=== PATIENT | male | born 1945 | race Caucasian/White ===

== ENCOUNTER 2022-03-27 12:13 | Inpatient (IN) | payer MEDICARE, SELFPAY ==
[2022-03-27] VITALS (14 sets, daily range): BP systolic 107–142; BP diastolic 57–73; PULSE 75–118; RESP 18–33; TEMP 36.6–36.8; O2SAT 89–98; BMI 23.7; BMI 23.8; BMI 22.9
--- NOTE | 2022-03-27 13:28 | EXP.UTC ---
Discharge Plan Disposition Patient Disposition: Admitted As Inpatient Condition: Fair Clinical Impressions Clinical Impression: Community acquired pneumonia, Acute respiratory failure with hypoxia, Elevated troponin, Acute exacerbation of chronic obstructive pulmonary disease Discharge ED Provider: Azam Schrader [facility] [place] General Chief complaint: Shortness of Breath/Dyspnea Stated complaint: Cough diarrhea Time Seen by Provider: 03/27/22 14:57 History of Present Illness Provider Complaint: He is here with complaints of shortness of breath, chest congestion, fever and malaise. Related Data Home Medications Medication Instructions Recorded Confirmed fluticasone 250 mcg-salmeterol 50 1 inh inhalation BID COPD 03/27/22 03/27/22 mcg/dose blistr powdr for inhalation (Advair Diskus) fluticasone fur. 100 mcg-umeclid 1 ea inhalation DAILY COPD 03/27/22 03/27/22 62.5 mcg-vilant 25 mcg inhalat.powder (Trelegy Ellipta) Allergies Allergy/AdvReac Type Severity Reaction Status Date / Time No Known Allergies Allergy Verified 03/27/22 13:59 [facility] Disclaimer: The information contained in this section may have been updated after the patient was seen, as this information can be updated by other users. Medical History COPD (chronic obstructive pulmonary disease) Social History Smoking Status: Current every day smoker alcohol intake: former substance use type: denies use current occupational status: retired Travel in the last 8 weeks: Inside the [place] household members: spouse lives independently: Yes marital status: education level: college physical activity: walking ROS Obtained: Yes All systems reviewed & no additional complaints except as documented Constitutional Constitutional: Reports chills and Reports fever(s) Eyes Eyes: Denies eye discharge ENT Ears, Nose, Mouth, and Throat: Reports as per HPI Cardiovascular Cardiovascular: Reports chest pain Respiratory Respiratory: Reports shortness of breath, Reports chest congestion, Reports cough, Denies stridor and Reports wheezing Gastrointestinal Gastrointestingal: Reports nausea; Denies abdominal pain, constipation, cramping, diarrhea or vomiting Musculoskeletal Musculoskeletal: Denies arthralgias Integumentary/Breasts Skin/Breast: Denies rash Neurologic Neurologic: Denies paresthesias Allergic/Immunologic Allergic/Immunologic: Reports wheezing Physical Exam General General appearance: alert and in no apparent distress Head Head exam: atraumatic, normocephalic and normal inspection Eye Eye exam: Present normal appearance, PERRL and EOMI ENT ENT exam: Present normal exam, normal oropharynx, mucous membranes moist, TM's normal bilaterally and normal external ear exam Neck Neck exam: Present normal inspection, full ROM and trachea midline; Absent meningismus or lymphadenopathy Chest Chest inspection: Present normal inspection and symmetric chest wall rise; Absent tenderness Respiratory Respiratory exam: Present normal lung sounds bilaterally; Absent respiratory distress Cardiovascular Cardiovascular exam: Present regular rate and normal rhythm; Absent JVD Abdominal Exam Abdominal exam: Present soft and normal bowel sounds; Absent distention, tenderness or guarding Extremities Exam Extremities exam: Present normal inspection, full ROM and normal capillary refill; Absent calf tenderness Back Exam Back exam: Present normal inspection; Absent tenderness Neurological Exam Neurological exam: Present alert and oriented X3 Psychiatric Psychiatric exam: Present normal affect and normal mood Skin Skin exam: Present warm, dry, intact and normal color Lymphatic Lymphatic Findings: no adenopathy Medical Decision Making Medical Records Medical records reviewed: No I reviewed the patient's medical records. Raghu Schafer
--- NOTE | 2022-03-27 13:48 | XR_ITS ---
FINAL REPORT TECHNIQUE: Chest PA & Lateral CLINICAL HISTORY: cough, congestion FINDINGS: 2 views of the chest were performed. The heart size is normal. The mediastinum is within normal limits. There are patchy bibasilar airspace infiltrates, right greater than left, probably due to acute pneumonia. There are no pleural effusions. There is no pneumothorax. The bony thorax appears intact. IMPRESSION: Acute bilateral pneumonia, right greater than left. Reviewed, Interpreted and Dictated by Mauricio Stockton MD Transcribed by Harvey Mancilla Authenticated and . [facility]
--- NOTE | 2022-03-27 14:35 | PC.NURSE ---
Respiratory at BS
[2022-03-27 14:49] LABS: Basophils # 0.1 K/mm3 (0-0.2); Basophils % 0.8 % (0.1-2.0); Eosinophils # 0.1 K/mm3 (0.0-0.4); Eosinophils % 0.4 % (0.1-12.0); Hematocrit 50.8 % (42.0-52.0); Hemoglobin 16.9 g/dL (14.1-18.0); Lymphocytes # 0.9 K/mm3 (0.7-4.5); Lymphocytes % 5.7 % (10-50); Mean Corpuscular HGB Conc 33.2 g/dL (31.8-35.4); Mean Corpuscular Hemoglobin 31.7 pg (27.0-31.2); Mean Corpuscular Volume 95.4 fl (80-94); Mean Platelet Volume 7.4 fl (7.4-10.4); Monocytes # 0.6 K/mm3 (0.1-1.0); Monocytes % 4.1 % (1.7-9.3); Neutrophils # 13.3 K/mm3 (1.8-7.8); Platelet Count 302 K/mm3 (142-424); Red Blood Count 5.32 M/mm3 (4.60-6.20); White Blood Count 14.9 K/mm3 (4.8-10.8)
[2022-03-27 14:51] LABS: MANUAL DIFFERENTIAL MANUAL DIFFERENTIAL (MANUAL DIFF)
--- NOTE | 2022-03-27 14:57 | HMH.EDGENADL ---
Discharge Plan Disposition Patient Disposition: Admitted As Inpatient Condition: Fair Prescriptions Prescriptions: No Action fluticasone propion-salmeterol [Advair Diskus] 250-50 mcg/dose blister with device 1 inh INHALATION BID Label Comments: Inhale 1 puff twice a day rinse mouth afterwards Glynn Hernandezta 100-62.5-25 mcg blister with device 1 ea INHALATION DAILY Label Comments: Inhale 1 puff as directed once a day rinse mouth after use Referrals Follow up/Referrals: Provider,Referral, [Primary Care Provider] - See instructions Clinical Impressions Clinical Impression: Community acquired pneumonia, Acute respiratory failure with hypoxia, Elevated troponin, Acute exacerbation of chronic obstructive pulmonary disease Discharge ED Provider: Azam Schrader General Adult HPI General Chief complaint: Shortness of Breath/Dyspnea Stated complaint: Cough diarrhea Time Seen by Provider: 03/27/22 14:57 Mode of Arrival: Ambulatory Source of Information: Patient Limitations: No Limitations Description of Symptoms (Recalled from ER Triage Doc. by RN): pt did an at home test for covid which was negative. For the past 3 days he stated that he has had a cough, diarrhea, and feeling like he cannot take a full breath. When pt was mildred back he was RA 79, and was placed at 5L with o2 brought up to 89%. History of Present Illness HPI narrative: The patient is sent from the urgent treatment center. He was found to be hypoxic in the [facility]. Patient states that he has been sick for about 1 week, worse over the past 2 days. He has a bad cough. He is producing small amounts of sputum. He has diarrhea. Little to no vomiting. No chest pain. No fever. Recently got back from [place] 1 week ago. Drove down there for a for 2 of his grandchildren that were killed in a car wreck. Other family members were sick with COVID and pneumonia and other respiratory illnesses. The patient took a home COVID test this morning and it was negative. He has been fully vaccinated and boosted for COVID. He has a diagnosis of COPD, he is not on oxygen at home. He recently moved to this area a little over a year ago and does not have a primary care doctor here. No calf pain or swelling. No hemoptysis. He is a smoker. Related Data Home Medications Medication Instructions Recorded Confirmed fluticasone 250 mcg-salmeterol 50 1 inh inhalation BID COPD 03/27/22 03/27/22 mcg/dose blistr powdr for inhalation (Advair Diskus) fluticasone fur. 100 mcg-umeclid 1 ea inhalation DAILY COPD 03/27/22 03/27/22 62.5 mcg-vilant 25 mcg inhalat.powder (Trelegy Ellipta) Allergies Allergy/AdvReac Type Severity Reaction Status Date / Time No Known Allergies Allergy Verified 03/27/22 13:59 [facility] Disclaimer: The information contained in this section may have been updated after the patient was seen, as this information can be updated by other users. Medical History (Updated 03/27/22 @ 17:13 by Azam Schrader MD) COPD (chronic obstructive pulmonary disease) Social History Smoking Status: Current every day smoker ROS Obtained: Yes Systems reviewed as appropriate & no additional complaints except as documented Constitutional Constitutional: Denies fever(s), Denies headache(s) and Denies weakness ENT Ears, Nose, Mouth, and Throat: Denies headache(s), Denies nasal discharge and Denies sore throat Cardiovascular Cardiovascular: Denies chest pain and Denies edema Respiratory Respiratory: Reports shortness of breath, Reports cough and Denies hemoptysis Gastrointestinal Gastrointestingal: Reports diarrhea; Denies abdominal pain, constipation or vomiting Genitourinary Male Genitourinary: Denies difficulty urinating and Denies flank pain Musculoskeletal Musculoskeletal: Denies numbness Neurologic Neurologic: Denies headache(s), Denies numbness and Denies weakness Physical Exam General General appeara
--- NOTE | 2022-03-27 15:01 | PC.NURSE ---
SAMMY GUTIERRES at for pt jaronal
[2022-03-27 15:04] LABS: Anion Gap 16.2 mEq/L (5-15); Blood Urea Nitrogen 21 mg/dl (9-20); Calcium 8.9 mg/dl (8.4-10.2); Carbon Dioxide 26 mmol/L (22.0-30.0); Chloride 96 mmol/L (98-107); Creatinine Clearance Estimated 52 mL/min (50-200); Estimated Glomerular Filt Rate 59 ml/min (>60); GFR (African American) 71 ML/MIN (>60); Glucose 156 mg/dl (74-100); Potassium 4.2 mmoL/L (3.5-5.1); Sodium 134 mmol/L (136-145)
--- NOTE | 2022-03-27 15:10 | CT_ITS ---
FINAL REPORT TECHNIQUE: Thin section axial CT images were performed from the lung apices to the upper abdomen after the administration of IV contrast. 3-D and MIP reconstructions performed. This study was performed with techniques to keep radiation doses as low as reasonably achievable (ALARA). Individualized dose reduction techniques using automated exposure control or adjustment of mA and/or kV according to the patient''s size were employed. CLINICAL HISTORY: hypoxia FINDINGS: There is no evidence for pulmonary embolism. The thoracic aorta is patent without evidence of dissection. There is no axillary adenopathy. There is no mediastinal or hilar adenopathy. The heart size is normal. There is no pleural or pericardial effusion. There are calcified granulomas in the posterior right upper lobe. There is peribronchial thickening and mild nodular infiltrates in the lower lobes bilaterally, probably due to acute pneumonia. Limited images of the upper abdomen are unremarkable. IMPRESSION: No evidence of pulmonary embolism or aortic dissection. Probable acute pneumonia in the lower lobes bilaterally. Reviewed, Interpreted and Dictated by Mauricio Stockton MD Transcribed by Darline Dior Authenticated and [facility]
[2022-03-27 15:17] LABS: Lymphocytes % 7 % (10-50); Monocytes % 3 % (2-9); Neutrophils % 90 % (42-76); Platelet Estimate Normal; RBC Morphology Normal; Total Cells Counted 100
--- NOTE | 2022-03-27 15:18 | PC.NURSE ---
O2 increased to 4lpm.
[2022-03-27 15:29] LABS: Coronavirus 19, PCR Not Detected (NotDetected); Influenza A, PCR Not Detected (NotDetected); Influenza B, PCR Not Detected (NotDetected)
--- NOTE | 2022-03-27 15:29 | ECG_ITS ---
APPROVED REPORT Exam: Resting ECG HR:105 bpm ECG Measurements Heart Rate 105 AXES HI 144 P 82 QRSd 90 QRS 71 QT 313 T 73 QTc 374 Conclusion SINUS TACHYCARDIA INDETERMINATE AXIS SEPTAL MYOCARDIAL INFARCTION , PROBABLY OLD [40+ ms Q WAVE IN V1/V2] ABNORMAL ECG UNCONFIRMED REPORT Electronically signed by : Samm Shaw MD 03/27/2022 20:16:44
--- NOTE | 2022-03-27 15:32 | PC.NURSE ---
Respiratory at BS
[2022-03-27 15:48] LABS: ABG HCO3 22.3 mmhg (22.0-26.0); ABG Oxygen Saturation 90 % (90-100); ABG PCO2 39.2 mmhg (35.0-45.0); ABG PH 7.37 mmol/L (7.35-7.45); ABG PO2 54.8 mmhg (80-100); ABG TCO2 23.5 mmhg (23-27)
[2022-03-27 15:52] LABS: Allen's Test Acceptable; Oxygen 5 LPM NC %; Source Right Radial
--- NOTE | 2022-03-27 15:59 | PC.NURSE ---
pt returned from radiology via stretcher
[2022-03-27 16:04] LABS: Troponin I 1.59 ng/ml (0.00-0.034)
--- NOTE | 2022-03-27 16:05 | PC.NURSE ---
aware of troponin of 1.9
--- NOTE | 2022-03-27 17:09 | PC.NURSE ---
Dr Schrader speaking with Dr Bond
--- NOTE | 2022-03-27 17:13 | PC.NURSE ---
spoke with MARLO (FERNANDEZ Robledo) for pt admission
--- NOTE | 2022-03-27 17:19 | EXP.HP ---
History of Present Illness *Admission Date: 03/27/22 *Reason for visit:: cough, shortness of breath *History of present illness: Mr. Whitaker is a 76-year-old male with no significant past medical history other than COPD and tobacco use (1 pack a day for greater than 50 years). Has used an inhaler in the past but not currently on inhaler. Initially presented to [facility] from home due to 3 to 5 days of worsening cough, diarrhea, shortness of breath. Had taken a home COVID test that was negative. On arrival to the [facility], found to have a room air saturation of 79%. Placed on supplemental oxygen and sent to the ER for further evaluation. Patient states he recently traveled to [place] for a family a week ago. Several family members were ill at the . A few he knows had COVID. He has not felt well since travel. Increased cough, somewhat productive. Decreased appetite with poor p.o. intake the past 3 days. Denies any mane fever but has felt chills and weakness. Assessment in the ER positive for bilateral pneumonia on chest imaging. Elevated leukocytosis. Noted to have elevated troponin with no ischemic changes on EKG. Findings consistent with severe sepsis and NSTEMI. Medicine consulted for admission. On my evaluation, patient stating he is feeling little bit better after breathing treatments and antibiotics. at bedside supplementing history and review of systems. Denies any swelling in his legs or calf pain after his trip. No hemoptysis. Denies any chest pain. Has not established with a primary care doctor since moving to [place] a year ago from [place]. Patient previously feeling well and at baseline health before respiratory illness over the past week. [facility] Disclaimer: The information contained in this section may have been updated after the patient was seen, as this information can be updated by other users. Medical History COPD (chronic obstructive pulmonary disease) Social History (Updated 03/27/22 @ 19:02 by Marciano Bond MD) Smoking Status: Current every day smoker alcohol intake: former substance use type: denies use current occupational status: retired Travel in the last 8 weeks: [place] the [place] household members: spouse lives independently: Yes marital status: education level: college physical activity: walking Review of Systems Review of Systems Review of systems (narrative): 14 point review of systems performed, pertinent positives and negatives as per HPI Constitutional Constitutional: Denies headache(s) and Denies weakness ENT Ears, Nose, Mouth, and Throat: Denies headache(s) *Musculoskeletal Musculoskeletal: Denies numbness *Neurologic Neurologic: Denies headache(s), Denies numbness and Denies weakness Meds Home Medications and Allergies Home Medications Medication Instructions Recorded Confirmed Type fluticasone 250 mcg-salmeterol 50 1 inh inhalation BID COPD 03/27/22 03/27/22 History mcg/dose blistr powdr for inhalation (Advair Diskus) fluticasone fur. 100 mcg-umeclid 1 ea inhalation DAILY COPD 03/27/22 03/27/22 History 62.5 mcg-vilant 25 mcg inhalat.powder (Trelegy Ellipta) New Prescriptions to Start Prescriptions: Allergies Allergy/AdvReac Type Severity Reaction Status Date / Time No Known Allergies Allergy Verified 03/27/22 13:59 Exam Data for Last 24 hours Vital signs and Labs for Last 24 Hours: Temp Pulse Resp BP Pulse Ox 98.2 F 116 H 33 H 142/71 H 89 L 03/27/22 14:35 03/27/22 14:42 03/27/22 14:35 03/27/22 14:35 03/27/22 14:35 Laboratory Results - last 24 hr 03/27/22 14:39: WBC 14.9 H, RBC 5.32, Hgb 16.9, Hct 50.8, MCV 95.4 H, MCH 31.7 H, MCHC 33.2, RDW 14.0, Plt Count 302, MPV 7.4, Neut % (Auto) 89.0 H, Lymph % (Auto) 5.7 L, Dickey % (Auto) 4.1, Eos % (Auto) 0.4, Baso % (Auto) 0.8, Neut # (Auto) 13.3 H, Lymph # (Auto) 0.9, Dickey # (Auto
--- NOTE | 2022-03-27 17:41 | PC.NURSE ---
Lab at BS for 2nd troponin
[2022-03-27 19:14] LABS: Troponin I 1.44 ng/ml (0.00-0.034)
--- NOTE | 2022-03-27 19:18 | PC.NURSE ---
report called to Toshia PRESLEY
--- NOTE | 2022-03-27 19:24 | PC.NURSE ---
Dr. Pope aware of trop of 1.44
--- NOTE | 2022-03-27 19:53 | PC.NURSE ---
pt arrived to floor via wheelchair at 1950.
[2022-03-27 21:55] LABS: Troponin I 0.93 ng/ml (0.00-0.034)
[2022-03-28] VITALS (14 sets, daily range): BP systolic 111–126; BP diastolic 52–66; PULSE 60–93; RESP 17–24; TEMP 36.4–37.1; O2SAT 90–98; BMI 23.3
--- NOTE | 2022-03-28 01:15 | PC.NURSE ---
reported critical troponin 0.93 @1142
--- NOTE | 2022-03-28 05:32 | PC.NURSE ---
Pt admitted this shift. Has had no complaints. Pt is A&OX4. Remains on 3L NC tolerating well with O2 sats >90%. Crackles and wheezes noted. Productive cough noted. Sputum sample obtained. Voids per urinal. Call light within reach.
[2022-03-28 07:06] LABS: Basophils # 0.1 K/mm3 (0-0.2); Chloride 102 mmol/L (98-107); Lymphocytes # 1.3 K/mm3 (0.7-4.5); Mean Platelet Volume 7.5 fl (7.4-10.4); Monocytes # 0.5 K/mm3 (0.1-1.0); Monocytes % 3.2 % (1.7-9.3); Potassium 5.4 mmoL/L (3.5-5.1); Red Cell Distribution Width 14.1 % (11.5-17.5); Sodium 138 mmol/L (136-145)
[2022-03-28 07:08] LABS: Blood Urea Nitrogen 16 mg/dl (9-20); Creatinine Clearance Estimated 61 mL/min (50-200); Estimated Glomerular Filt Rate 110 ml/min (>60); GFR (African American) 133 ML/MIN (>60)
[2022-03-28 07:09] LABS: Alanine Aminotransferase 20 U/L (12-78); Albumin Level 3.8 g/dl (3.5-5.0); Albumin/Globulin Ratio 1.2 (1.1-1.8); Alkaline Phosphatase 55 U/L (38-126); Anion Gap 10.4 mEq/L (5-15); Aspartate Amino Transferase 52 U/L (17-59); Bilirubin,Total 0.3 mg/dl (0.2-1.3); Calcium 8.6 mg/dl (8.4-10.2); Carbon Dioxide 31 mmol/L (22.0-30.0); Globulin 3.3 g/dL (1.3-3.2); Glucose 162 mg/dl (74-100); Magnesium 2.1 mg/dl (1.6-2.3); Total Protein,Serum 7.1 g/dl (6.3-8.2)
[2022-03-28 07:27] LABS: Basophils % 0.5 % (0.1-2.0); Eosinophils % 0.1 % (0.1-12.0); Lymphocytes % 8.8 % (10-50); Mean Corpuscular Hemoglobin 30.4 pg (27.0-31.2); Mean Corpuscular Volume 94.8 fl (80-94); Neutrophils # 13.1 K/mm3 (1.8-7.8); Neutrophils % 87.4 % (37.0-80.0); Platelet Count 270 K/mm3 (142-424); Red Blood Count 4.85 M/mm3 (4.60-6.20)
[2022-03-28 07:33] LABS: Hemoglobin 14.7 g/dL (14.1-18.0); MANUAL DIFFERENTIAL MANUAL DIFFERENTIAL (MANUAL DIFF)
[2022-03-28 08:46] LABS: Lymphocytes % 22 % (10-50); Monocytes % 2 % (2-9); Neutrophils % 76 % (42-76); Platelet Estimate Normal; RBC Morphology Normal; Total Cells Counted 100
[2022-03-28 08:58] LABS: Cholesterol 137 mg/dl (140-200); HDL Cholesterol 46 mg/dl (40-60); Triglycerides 62 mg/dl (30-150); VLDL Cholesterol 12 mg/dL (0-40)
--- NOTE | 2022-03-28 09:00 | HMH.PHAINT1 ---
Pharmacy Intervention Comments: Medication reconciliation completed. Per patient discussion, patient is not on any medications.
[2022-03-28 09:08] LABS: Direct LDL Cholesterol 70.14 mg/dL (100-129)
--- NOTE | 2022-03-28 17:32 | EXP.ACUTE.PN ---
Subjective *Date: 03/28/22 *Time: 17:32 Interval history: Feeling better this morning. Weaning oxygen this morning, still requiring 1 to 2 L on morning rounds. Feeling more energetic. Denies chest pain or worsening shortness of breath. Seeing improvement in labs. Tolerating p.o. intake Medical Exam Vital signs and Labs for Last 24 Hours: Vital Signs Temp Pulse Pulse Resp BP BP Pulse Ox 03/28/22 16:00 87 03/28/22 08:00 90 03/28/22 08:00 90 03/28/22 12:00 90 03/28/22 15:18 98.3 F 87 24 117/54 L 98 03/28/22 11:30 88 03/28/22 11:30 82 03/28/22 11:14 98.1 F 88 22 114/57 L 91 L 03/28/22 07:49 98.0 F 87 19 111/52 L 90 L 03/28/22 06:47 60 03/28/22 06:22 89 03/28/22 06:22 81 03/28/22 06:22 96 03/28/22 04:00 97.6 F 73 24 126/66 96 03/27/22 21:35 90 03/28/22 00:00 98.7 F 78 20 114/60 94 L 03/27/22 19:57 98.2 F 84 24 107/61 L 94 L 03/27/22 19:29 98.2 F 75 20 117/64 03/27/22 19:25 98 F 86 18 108/59 L 03/27/22 18:30 86 24 108/59 L 94 L Intake and Output 03/28/22 03/28/22 03/28/22 07:59 15:59 23:59 Intake Total 1365 / 2205 360 / 2205 480 / 2205 Output Total 550 / 550 0 / 550 Balance 815 / 1655 360 / 1655 480 / 1655 Intake: Intake, Oral Amount 240 / 1080 360 / 1080 480 / 1080 Intake, Total IV Amount 1125 / 1125 Azithromycin 500 mg In 0.9 % 250 / 250 Sodium Chloride 250 ml @ 250 mls/hr IV Q24H MALIKA Rx#:[id number] Ringers Solution,Lactated 1,000 875 / 875 ml @ 125 mls/hr IV .Q8H MALIKA Rx #:[id number] Output: Output, Urine Amount 550 / 550 0 / 550 Other: Number of Unmeasured Voids 1 Weight 67.631 kg 67.6 kg Patient Weight 03/28/22 23:59 Weight 67.6 kg Laboratory Results - last 24 hr 03/27/22 17:40: Troponin I 1.44 H 03/27/22 21:06: Troponin I 0.93 H 03/28/22 06:35: WBC 15.0 H, RBC 4.85, Hgb 14.7 D, Hct 46.0, MCV 94.8 H, MCH 30.4, MCHC 32.0, RDW 14.1, Plt Count 270, MPV 7.5, Neut % (Auto) 87.4 H, Lymph % (Auto) 8.8 L, Bill[place] % (Auto) 3.2, Eos % (Auto) 0.1, Baso % (Auto) 0.5, Neut # (Auto) 13.1 H, Lymph # (Auto) 1.3, Bill[place] # (Auto) 0.5, Eos # (Auto) 0.0, Baso # (Auto) 0.1, Total Counted 100, Neutrophils % (Manual) 76, Lymphocytes % (Manual) 22, Monocytes % (Manual) 2, Platelet Estimate Normal, RBC Morphology Normal 03/28/22 06:35: Sodium 138, Potassium 5.4 H D, Chloride 102, Carbon Dioxide 31 H, Anion Gap 10.4, BUN 16, Creatinine 0.70 D, Estimated Creat Clear 61, Estimated GFR 110, Est GFR ( Amer) 133 D, Glucose 162 H, Calcium 8.6, Magnesium 2.1, Total Bilirubin 0.3, AST 52, ALT 20, Alkaline Phosphatase 55, Total Protein 7.1, Albumin 3.8, Globulin 3.3 H, Albumin/Globulin Ratio 1.2 03/28/22 06:35: Triglycerides 62, Cholesterol 137 L, LDL Cholesterol Direct 70.14 L, VLDL Cholesterol 12, HDL Cholesterol 46, Cholesterol/HDL Ratio 3.0 I & O for Labs for Last 24 Hours: Intake & Output 03/25/22 03/26/22 03/27/22 03/28/22 23:59 23:59 23:59 23:59 Intake Total 50 / 50 2205 / 2205 Output Total 550 / 550 Balance 50 / 50 1655 / 1655 Weight 66.395 kg 67.6 kg Microbiology Reports for the Last 24 Hours: Microbiology 03/27/22 23:45 Sputum - Expectorated Sputum Gram Stain - Final Constitutional: Present no acute distress and average body habitus Head: Present atraumatic and normocephalic ENT: Present normal oropharynx and mucous membranes moist Comment:: poor dentition Neck: Present normal inspection Respiratory: Present wheezes, crackles and normal respiratory effort; Absent accessory muscle use or rhonchi Cardiac: Present Reg Rate and Rhythm GI: Present soft and normal bowel sounds; Absent distention or tenderness Extremities: Present normal inspection and full ROM; Absent edema Skin: Present intact; Absent erythema Neuro: Present Grossly Intact, alert, awake, oriented x 3 and moves all extremi
[2022-03-29] VITALS (12 sets, daily range): BP systolic 104–148; BP diastolic 47–71; PULSE 70–112; RESP 18–26; TEMP 36.4–36.9; O2SAT 90–97; BMI 23.8
--- NOTE | 2022-03-29 07:38 | EXP.PN ---
Subjective *Date: 03/29/22 *Time: 17:09 Interval history: Date of service March 29, 2022 The patient is accompanied by his who is at bedside. They have been for greater than 50 years. Nursing staff report that he remains afebrile with stable vital signs and saturating appropriately on 2 L of oxygen via nasal cannula. He does not use home O2. We have reviewed and discussed his morning labs which I have interpreted and include a CBC with a leukocytoses of 16,000. His hemoglobin is stable at 13.5 and his platelet count is normal at 301. His electrolytes are normal, BUN 17 and creatinine 0.60. His admission troponin trend has been reviewed and discussed with Melodie Javier RN assisting. The patient is amendable to a cardiology consult. He reported some epigastric discomfort with his dual antiplatelet therapy, prednisone therapy and had an episode of emesis after his azithromycin oral therapy today. Exam Data for Last 24 hours Vital signs and Labs for Last 24 Hours: Temp Pulse Resp BP Pulse Ox 97.6 F 74 26 H 116/71 90 L 03/29/22 04:00 03/29/22 05:58 03/29/22 04:00 03/29/22 04:00 03/29/22 05:58 Laboratory Results - last 24 hr 03/28/22 06:35: Total Counted 100, Neutrophils % (Manual) 76, Lymphocytes % (Manual) 22, Monocytes % (Manual) 2, Platelet Estimate Normal, RBC Morphology Normal 03/28/22 06:35: Triglycerides 62, Cholesterol 137 L, LDL Cholesterol Direct 70.14 L, VLDL Cholesterol 12, HDL Cholesterol 46, Cholesterol/HDL Ratio 3.0 I & O for Last 24 hours: Intake & Output 03/26/22 03/27/22 03/28/22 03/29/22 23:59 23:59 23:59 23:59 Intake Total 50 / 50 2205 / 2205 Output Total 550 / 550 0 / 0 Balance 50 / 50 1655 / 1655 0 / 0 Weight 66.395 kg 67.6 kg 68.991 kg Microbiology Reports for the Last 24 Hours: Microbiology 03/27/22 23:45 Sputum - Expectorated Sputum Gram Stain - Final 03/27/22 23:45 Sputum - Expectorated Sputum Sputum Culture - Preliminary Constitutional Constitutional: no acute distress and cooperative *Routine HEENT Exam Head: Present normocephalic Eye: Present EOMI and PERRL ENT: Present mucous membranes moist *Routine Neck Exam Neck: Present supple; Absent lymphadenopathy *Routine Respiratory Exam Respiratory: Present rhonchi, normal respiratory effort and symmetric chest movement *Routine Cardiovascular Exam Cardiovascular: Present RRR *Routine Abdominal Exam Abdominal: Present soft and normoactive bowel sounds; Absent tenderness *Routine Extremities Exam Extremities: Absent cyanosis, clubbing or edema *Routine Skin Exam Skin: Present warm; Absent rash *Routine Neurological Exam Neurological: Present alert, oriented X3, moving all extremities, vision grossly intact, hearing grossly intact and normal speech Routine Psychiatric Exam Psychiatric: Present normal affect, normal thought process, cooperative, good insight and good judgment Assessment and Plan *Assessment and plan (1) Acute respiratory failure with hypoxia: Status: Acute Category: Medical Code(s): J96.01 - Acute respiratory failure with hypoxia (2) Community acquired pneumonia: Status: Acute Category: Medical Code(s): J18.9 - Pneumonia, unspecified organism (3) NSTEMI (non-ST elevated myocardial infarction): Status: Acute Category: Medical Code(s): I21.4 - Non-ST elevation (NSTEMI) myocardial infarction (4) COPD (chronic obstructive pulmonary disease): Status: Chronic Category: Medical Code(s): J44.9 - Chronic obstructive pulmonary disease, unspecified (5) Severe sepsis: Status: Resolved Category: Medical Code(s): A41.9 - Sepsis, unspecified organism; R65.20 - Severe sepsis without septic shock Plan 76-year-old male who presents with cough and shortness of breath. He was found to be hypoxemic with bilateral pneumonia on initial evaluation in the ER. Consulted medicine for admission, decision
[2022-03-29 07:40] LABS: Basophils % 0.2 % (0.1-2.0); Hematocrit 43.6 % (42.0-52.0); Hemoglobin 13.5 g/dL (14.1-18.0); Lymphocytes # 1.7 K/mm3 (0.7-4.5); Lymphocytes % 10.1 % (10-50); Mean Corpuscular Hemoglobin 29.9 pg (27.0-31.2); Mean Corpuscular Volume 96.5 fl (80-94); Mean Platelet Volume 7.8 fl (7.4-10.4); Monocytes # 0.6 K/mm3 (0.1-1.0); Monocytes % 3.5 % (1.7-9.3); Neutrophils # 14.3 K/mm3 (1.8-7.8); Neutrophils % 86.1 % (37.0-80.0); Platelet Count 301 K/mm3 (142-424); Red Blood Count 4.52 M/mm3 (4.60-6.20); White Blood Count 16.6 K/mm3 (4.8-10.8)
[2022-03-29 07:43] LABS: MANUAL DIFFERENTIAL MANUAL DIFFERENTIAL (MANUAL DIFF)
[2022-03-29 07:47] LABS: Chloride 103 mmol/L (98-107)
[2022-03-29 07:48] LABS: Potassium 3.8 mmoL/L (3.5-5.1); Sodium 138 mmol/L (136-145)
[2022-03-29 07:50] LABS: Blood Urea Nitrogen 17 mg/dl (9-20); Creatinine Clearance Estimated 62 mL/min (50-200); Estimated Glomerular Filt Rate 131 ml/min (>60); GFR (African American) 159 ML/MIN (>60)
[2022-03-29 07:51] LABS: Anion Gap 10.8 mEq/L (5-15); Calcium 8.3 mg/dl (8.4-10.2); Carbon Dioxide 28 mmol/L (22.0-30.0); Glucose 137 mg/dl (74-100); Magnesium 1.9 mg/dl (1.6-2.3)
[2022-03-29 07:54] LABS: Lymphocytes % 23 % (10-50); Monocytes % 2 % (2-9); Neutrophils % 75 % (42-76); Total Cells Counted 100
[2022-03-29 07:55] LABS: Platelet Estimate Normal; RBC Morphology Normal
--- NOTE | 2022-03-29 12:38 | PC.NURSE ---
AT 1130 PT STATED HE SNEEZED SEVERAL TIMES AND HIS NG TUBE FELL OUT. NG TUBE WAS CLAMPED BEFORE IT CAME OUT AND PT TOLERATED CLEAR LIQUIDS WELL. PT STATES HE CONTINUES TO PASS FLATUS AND HAS BEEN AMBULATING IN THE ROOM. ABDOMEN IS SOFT WITH ACTIVE BOWEL SOUNDS. WILL CONTINUE TO MONITOR.
--- NOTE | 2022-03-29 16:21 | PC.NURSE ---
PT IS RESTING IN BED WITH FAMILY AT BEDSIDE. ALERT AND ORIENTED X3. REFUSED SHOWER THIS SHIFT. EATING AND DRINKING WELL. PT TOLERATED SITTING UP IN THE CHAIR FOR SEVERAL HOURS THIS SHIFT. LUNG SOUNDS DIMINISHED WITH SCATTERED WHEEZES. ABDOMEN SOFT/NON TENDER WITH ACTIVE BOWEL SOUNDS. O2 SATURATION HAS MAINTAINED 90% T/O THE SHIFT ON ROOM AIR. RT NOTIFIED ABOUT 6 MIN WALK TEST. WILL CONTINUE TO MONITOR.
[2022-03-29 18:57] LABS: Troponin I 0.32 ng/ml (0.00-0.034)
[2022-03-29 21:39] LABS: Troponin I 0.27 ng/ml (0.00-0.034)
[2022-03-30] VITALS (19 sets, daily range): BP systolic 94–132; BP diastolic 58–80; PULSE 70–91; RESP 16–24; TEMP 35.9–36.7; O2SAT 90–97; BMI 24.3
[2022-03-30 00:20] LABS: Troponin I 0.26 ng/ml (0.00-0.034)
--- NOTE | 2022-03-30 05:39 | PC.NURSE ---
pt with productive cough through the night, lung sounds with bilateral wheezing noted, 02 sats 90% on room air, no acute distress, vss, pt is alert and oriented x4, voiding without difficulty, no other issues or concerns at this time.
--- NOTE | 2022-03-30 06:34 | ECG_ITS ---
APPROVED REPORT Exam: Resting ECG HR:79 bpm ECG Measurements Heart Rate 79 AXES DE 171 P 71 QRSd 89 QRS 84 QT 374 T 53 QTc 409 Conclusion SINUS RHYTHM NORMAL ECG UNCONFIRMED REPORT Electronically signed by : Samm Shaw MD 03/31/2022 12:09:54
[2022-03-30 07:34] LABS: Basophils # 0.1 K/mm3 (0-0.2); Basophils % 0.6 % (0.1-2.0); Hematocrit 44.6 % (42.0-52.0); Hemoglobin 13.7 g/dL (14.1-18.0); Lymphocytes # 2.7 K/mm3 (0.7-4.5); Lymphocytes % 17.6 % (10-50); Mean Corpuscular HGB Conc 30.8 g/dL (31.8-35.4); Mean Corpuscular Hemoglobin 29.8 pg (27.0-31.2); Mean Corpuscular Volume 96.8 fl (80-94); Mean Platelet Volume 7.6 fl (7.4-10.4); Monocytes # 0.8 K/mm3 (0.1-1.0); Monocytes % 5.3 % (1.7-9.3); Neutrophils # 11.9 K/mm3 (1.8-7.8); Neutrophils % 76.5 % (37.0-80.0); Platelet Count 395 K/mm3 (142-424); Red Blood Count 4.61 M/mm3 (4.60-6.20); Red Cell Distribution Width 14.1 % (11.5-17.5); White Blood Count 15.5 K/mm3 (4.8-10.8)
[2022-03-30 07:41] LABS: MANUAL DIFFERENTIAL MANUAL DIFFERENTIAL (MANUAL DIFF)
[2022-03-30 08:18] LABS: Lymphocytes % 14 % (10-50); Monocytes % 6 % (2-9); Neutrophils % 80 % (42-76); Platelet Estimate Normal; RBC Morphology Normal; Total Cells Counted 100
[2022-03-30 08:26] LABS: Procalcitonin 0.143 ng/mL (0.0-2.0)
--- NOTE | 2022-03-30 09:31 | CA_ITS ---
APPROVED REPORT EXAM: Comprehensive 2D, Doppler, and color-flow Echocardiogram Fountain Manager: Alecia Galvan RDCS Ht: 5 ft 7 in Wt: 154lbs BSA: 1.81 BP: 142/71 mmHg Indications: NSTEMI,COPD,SMOKER 2D Dimensions LVOT 1.95 cm (M/F) 1.5-2.5 M-Mode Dimensions RVDd 2.96 cm (0.9-2.6) LA Diam 2.78 cm (1.9-4.0) LVDd 5.31 cm (3.5-5.7) Ao Diam 3.32 cm (2.0-3.7) LVDs 3.83 cm (3.5-5.7) IVSd 0.68 cm (0.6-1.1) PWd 0.72 cm (0.6-1.1) EF (Teich) 53.60% FS 27.90% EDV (Teich) 135.90 mL ESV (Teich) 63.10 mL LV Diastology E Decel Time 203.00 (160-240 msec) E/A Ratio 0.7 MED E' 8.80 (< 7 cm/sec) E'/MED E' Ratio 6.08 (>14) LAT E' 9.50 (<10 cm/sec) E/LAT E' Ratio 5.63 (>14) Mitral Valve MV E Max Suhail. 54.00 (40-130 cm/s) MV A Velocity 74.00 (40-130 cm/s) E/A Ratio 0.72 MV Decel. Time 203.00 (160-240 ms) MV PHT 60.00 ms Left Ventricle Left atrium is normal size, left ventricle is normal size, estimated ejection fraction of 55% with no regional wall motion abnormality, diastolic parameters are within normal range. Right Ventricle Right atrium and right ventricle are mildly enlarged with normal contractility. Aortic Valve Aortic valve is minimally thickened and fibrosed there is no aortic stenosis or aortic insufficiency. Mitral Valve Monitor is grossly normal, there is trace mitral regurgitation. Tricuspid Valve Tricuspid valve is grossly normal, there is trace tricuspid regurgitation, tricuspid regurgitation jet plus is inadequate for calculation of the right ventricular systolic pressure Pulmonic Valve Pulmonic valve is poorly visualized. Great Vessels Aortic root is normal size. Inferior vena cava is poorly visualized. Pericardium No significant pericardial effusion noted. Conclusion 1. Normal left ventricular size, estimated ejection fraction 55% with no regional wall motion abnormality, diastolic parameters are within normal range. 2. Mildly enlarged right ventricle with normal contractility. 3. Trace mitral and tricuspid regurgitation. 4. No significant pericardial effusion noted. 5. Inferior vena cava is poorly visualized. Electronically signed by : Tolu Cannon MD 03/30/2022 18:15:31
[2022-03-30 10:13] LABS: NT Pro Brain Natriuretic Pep. 1390 pg/mL (0-450)
--- NOTE | 2022-03-30 10:17 | IR_ITS ---
APPROVED REPORT Patient Location: Inpatient Crester: PATY Chinchilla RT (R) PROCEDURES Left heart catheterization Left ventriculogram Selective coronary angiogram INDICATION Acute non-ST elevation myocardial infarction Informed consent was obtained prior to the procedure. COMPLICATIONS NONE Estimated Blood Loss: LESS THAN 10 ML TECHNIQUE One percent lidocaine used to anesthetize the right anterior aspect of the wrist. The right radial artery was accessed via the Seldinger technique. A 6 Uzbek sheath was placed in the right radial artery. 2.5 mg of verapamil, 800 mcg of nitroglycerin, 1mg Lidocaine and 5000 U Heparin were given through the arterial sheath. The papa catheter was also used to perform left heart catheterization, left ventriculogram and selective coronary angiogram. At the end of the procedure the sheath was removed good hemostasis was achieved using Traclet band, patient was transferred to the postop holding area in stable condition. ANGIOGRAPHIC RESULTS The left main artery Normal The left anterior descending artery Mild 10% mid vessel luminal regularities The circumflex artery Nondominant normal The right coronary artery Dominant normal The MACEDO ventriculogram reveals Normal 65% The left ventricular end-diastolic pressure 10 to 15 mmHg IMPRESSION Mild nonflow limiting coronary disease Normal ejection fraction Normal left ventricular end-diastolic pressure PLAN 1. Medical management Electronically signed by : Santiago Cameron MD 03/30/2022 13:32:44
--- NOTE | 2022-03-30 10:38 | EXP.PHA.PN ---
Subjective *Date: 03/30/22 *Time: 10:38 Medical Exam Vital signs and Labs for Last 24 Hours: Vital Signs Temp Pulse Pulse Resp BP Pulse Ox 03/30/22 08:00 80 03/30/22 08:00 97.6 F 91 H 24 131/62 92 L 03/30/22 04:00 97.5 F L 74 20 130/62 90 L 03/30/22 06:05 72 03/30/22 06:05 75 03/30/22 04:00 75 03/29/22 20:00 95 H 03/30/22 00:00 75 03/30/22 00:00 75 03/29/22 20:00 95 H 03/29/22 20:00 92 H 90 L 03/30/22 00:00 98 F 74 20 118/59 L 90 L 03/30/22 00:15 72 03/30/22 00:15 70 03/29/22 20:00 97.9 F 92 H 20 148/70 H 90 L 03/29/22 19:00 90 03/29/22 19:00 112 H 03/29/22 16:00 86 03/29/22 15:18 97.9 F 90 19 124/70 90 L 03/29/22 12:00 80 03/29/22 11:25 79 03/29/22 11:25 78 03/29/22 11:10 97.9 F 78 19 107/61 L 90 L Intake and Output 03/29/22 03/30/22 03/30/22 23:59 07:59 15:59 Intake Total 480 / 1440 240 / 240 Output Total 0 / 0 0 / 0 0 / 0 Balance 480 / 1440 0 / 240 240 / 240 Intake: Intake, Oral Amount 480 / 1440 240 / 240 Output: Output, Urine Amount 0 / 0 0 / 0 0 / 0 Other: Number of Unmeasured Voids 2 1 1 Number of Bowel Movements 1 Weight 70.171 kg Patient Weight 03/30/22 23:59 Weight 70.171 kg Laboratory Results - last 24 hr 03/29/22 17:59: Troponin I 0.32 H 03/29/22 20:59: Troponin I 0.27 H 03/29/22 23:35: Troponin I 0.26 H 03/30/22 07:00: WBC 15.5 H, RBC 4.61, Hgb 13.7 L, Hct 44.6, MCV 96.8 H, MCH 29.8, MCHC 30.8 L, RDW 14.1, Plt Count 395 D, MPV 7.6, Neut % (Auto) 76.5, Lymph % (Auto) 17.6, [place] % (Auto) 5.3, Eos % (Auto) 0.0 L, Baso % (Auto) 0.6, Neut # (Auto) 11.9 H, Lymph # (Auto) 2.7, [place] # (Auto) 0.8, Eos # (Auto) 0.0, Baso # (Auto) 0.1, Total Counted 100, Neutrophils % (Manual) 80 H, Lymphocytes % (Manual) 14, Monocytes % (Manual) 6, Platelet Estimate Normal, RBC Morphology Normal 03/30/22 07:00: Procalcitonin 0.143 03/30/22 07:00: NT-Pro-B Natriuret Pep 1390 H I & O for Labs for Last 24 Hours: Intake & Output 03/27/22 03/28/22 03/29/22 03/30/22 23:59 23:59 23:59 23:59 Intake Total 50 / 50 2205 / 2205 1440 / 1440 240 / 240 Output Total 550 / 550 0 / 0 0 / 0 Balance 50 / 50 1655 / 1655 1440 / 1440 240 / 240 Weight 66.395 kg 67.6 kg 68.991 kg 70.171 kg Microbiology Reports for the Last 24 Hours: Microbiology 03/27/22 23:45 Sputum - Expectorated Sputum Gram Stain - Final 03/27/22 23:45 Sputum - Expectorated Sputum Sputum Culture - Final Normal Respiratory Yesenia 03/27/22 14:59 Blood Blood Culture - Preliminary NO GROWTH AFTER 48 HOURS 03/27/22 14:59 Blood Blood Culture - Preliminary NO GROWTH AFTER 48 HOURS The patient's infection will respond to the chosen ABx?: Yes (BLOOD CULTURE NO GROWTH, SPUTUM NORMAL YESENIA) Is the patient receiving the right drug, dose, and route?: Yes Could a more targeted ABx be ordered?: No
--- NOTE | 2022-03-30 10:41 | EXP.CARD.CON ---
History of Present Illness History of Present Illness Consult date: 03/30/22 Requesting physician: Milton Sung Consult reason: shortness of breath Chief complaint: soa, cough History of present illness: This is a 76-year-old white gentleman who presented to the emergency department complaints of shortness of breath. The patient reports that he has not felt well for several days prior to admission. He states that he had worsening shortness of breath, cough and diarrhea. The patient states that he had taken a home COVID test which was negative. When the patient got to the urgent treatment center he was found to have an oxygen saturation of 79% on room air. He was given supplemental oxygen and then taken to the emergency department. The patient was found to have an elevated troponin at 1.59 as well as bilateral pneumonia on imaging. The patient was then admitted to the hospital for a non-STEMI and bilateral pneumonia. The patient does report that he has been under a lot of stress. He states that he is recently buried his best friend and then 2 of his grandchildren who were killed in a car accident. He states that he had to drive to [place] for his grandchildren's and had recently just got back home when he began to feel ill. The patient has been admitted and treated with IV antibiotics. He states that his shortness of breath has improved. Yesterday he had an episode where he became extremely nauseated and began to vomit and had some epigastric pain at that time. He states that that it did not radiate. He was not having any other associated symptoms. He states that this is pretty severe. He denies chest pain or pressure. Troponins were repeated at that time and they remain elevated consistent with a non-STEMI. He denies any fever, chills, PND or orthopnea. [facility] Disclaimer: The information contained in this section may have been updated after the patient was seen, as this information can be updated by other users. Medical History Acute exacerbation of chronic obstructive pulmonary disease Acute respiratory failure with hypoxia Community acquired pneumonia COPD (chronic obstructive pulmonary disease) Elevated troponin Hyperlipidemia NSTEMI (non-ST elevated myocardial infarction) Sepsis Shortness of Breath Tobacco user Surgical History History of hip replacement Family History Other Lung cancer Social History (Updated 03/27/22 @ 23:05 by Toshia Concepcion RN) Smoking Status: Current every day smoker alcohol intake: former substance use type: denies use current occupational status: retired Travel in the last 8 weeks: Inside the [place] household members: spouse lives independently: Yes marital status: education level: college physical activity: walking Review of Systems Review of Systems Review of systems:: pertinent systems reviewed and negative unless documented below Constitutional Constitutional: Reports system reviewed and no additional complaints, except as documented, Denies headache(s) and Denies weakness Eyes Eyes: Reports system reviewed and no additional complaints, except as documented ENT Ears, Nose, Mouth, and Throat: Reports system reviewed and no additional complaints, except as documented and Denies headache(s) *Cardiovascular Cardiovascular: Reports system reviewed and no additional complaints, except as documented, Reports dyspnea and Reports dyspnea on exertion *Respiratory Respiratory: Reports system reviewed and no additional complaints, except as documented, Reports chest congestion, Reports cough, Reports dyspnea, Reports dyspnea on exertion and Reports excessive phlegm production *Gastrointestinal Gastrointestinal: Reports system reviewed and no additional complaints, except as documented, Reports nausea and Reports vomiting Comments: epigastric p
--- NOTE | 2022-03-30 16:35 | EXP.DC.SUM ---
General Admission date:: 03/27/22 HPI HPI HPI: Mr. Whitaker is a 76-year-old male with no significant past medical history other than COPD and tobacco use (1 pack a day for greater than 50 years).? Has used an inhaler in the past but not currently on inhaler.? Initially presented to [facility] from home due to 3 to 5 days of worsening cough, diarrhea, shortness of breath.? Had taken a home COVID test that was negative.? On arrival to the [facility], found to have a room air saturation of 79%.? Placed on supplemental oxygen and sent to the ER for further evaluation.? Patient states he recently traveled to [place] for a family a week ago.? Several family members were ill at the .? A few he knows had COVID.? He has not felt well since travel.? Increased cough, somewhat productive.? Decreased appetite with poor p.o. intake the past 3 days.? Denies any mane fever but has felt chills and weakness.? Assessment in the ER positive for bilateral pneumonia on chest imaging.? Elevated leukocytosis.? Noted to have elevated troponin with no ischemic changes on EKG.? Findings consistent with severe sepsis and NSTEMI.? Medicine consulted for admission. On my evaluation, patient stating he is feeling little bit better after breathing treatments and antibiotics.? at bedside supplementing history and review of systems.? Denies any swelling in his legs or calf pain after his trip.? No hemoptysis.? Denies any chest pain.? Has not established with a primary care doctor since moving to [place] a year ago from [place].? Patient previously feeling well and at baseline health before respiratory illness over the past week. Hospital Course Hospital Course Hospital Course: The patient was admitted to the medical floor with telemetry monitoring. Blood cultures and sputum cultures were acquired and he was started on broad-spectrum IV antibiotic therapy. He required supplemental oxygen to maintain appropriate oxygen saturations during his initial hospital stay. His laboratory studies and inflammatory markers were trended and identified improvement. His acute kidney injury resolved and the patient identified improvement in his dyspnea. Cardiology evaluated the patient and recommended a left heart cath with his risk factors. A left heart cath was performed on March 30, 2022 identified nonocclusive and noninterventional disease. Cardiology recommended risk reduction and appropriate ACC guided therapy. His echocardiogram report was pending on day of discharge. Patient was counseled on the importance of complete tobacco cessation to improve his health. Nursing staff identified that he oxygenated appropriately on room air and identified no deficiencies with ambulation. With his identified improvement and inquired about discharge home. He will be discharged home on an extended course of antibiotic therapy with inhalation therapy for his COPD assessed on imaging. We have recommended follow-up with a PCP in 1 week and cardiology as scheduled. I spent 35 minutes in [id number] time with the patient and nursing staff concerning the discharge process. We discussed the admitting diagnoses and hospital course. We discussed identified improvement and the patient's desire to be discharged. We reviewed inpatient studies and imaging. The patient voiced understanding on the importance of follow-up with his primary care provider and specialist(s). The patient plans to be compliant with the medication regimen prescribed and follow-up appointments. He understands that he can return to the emergency department with any sudden changes or concerns. Exam Data for Last 24 hours Vital signs and Labs for Last 24 Hours: Temp Pulse Resp BP Pulse Ox 97.3 F L 86 20 129/80 97 03/30/22 15:55 03/30/22 15:55 03/30/22 15:55 03/30/22 15:55 03/30/22 15:55 Laboratory Results - last 24 hr 03/29/22 17:59: Troponin I 0.32 H 03/29/22 20:59: Troponin I 0.27 H 03/29/22 23:35: Troponin I 0.26 H
--- NOTE | 2022-03-30 17:54 | PC.NURSE ---
Patient got dressed and removed telemetry by himself. Insistent on getting discharged at 1715. Paperwork completed and IV discontinued. Patient did not have ride available until now. Wanted to sit in ER lobby. Encouraged to wait in room.
--- NOTE | 2022-04-02 14:06 | CARE MANAGER ---
Spoke with patient related to hospital discharge. patient was unable to afford his inhaler. Discussed with pharmacy and what else he could possibly use. Alternative sent to [facility] pharmacy. Patient also does not have PCP. Patient was sent a list of primary providers and encouraged to follow u p within one week of discharge. Denies other questions or concerns. FERNANDEZ Dennis
== END 2022-03-30 18:00 | disposition home or self-care (01) | DRG 871 ==
LOC: UTC 12:24 → ER 14:11 → 2ND 18:01
PROVIDERS: Family Medicine; Internal Medicine; Nurse Practitioner Family; Admitting Provider Internal Medicine Adolescent Medicine; Emergency Provider Emergency Medicine; Visit Provider Internal Medicine Adolescent Medicine
PROC: 4A023N7 Measurement of Cardiac Sampling and Pressure, Left Heart, Percutaneous Approach (ICD-10-PCS; principal; 2022-03-30 11:45)
DX: A41.9 Sepsis, unspecified organism (principal); I21.4 Non-ST elevation (NSTEMI) myocardial infarction; J18.9 Pneumonia, unspecified organism; J96.01 Acute respiratory failure with hypoxia; J44.1 Chronic obstructive pulmonary disease with (acute) exacerbation; J44.0 Chronic obstructive pulmonary disease with (acute) lower respiratory infection; N17.9 Acute kidney failure, unspecified; R65.20 Severe sepsis without septic shock; F17.210 Nicotine dependence, cigarettes, uncomplicated; Z71.6 Tobacco abuse counseling; I25.10 Atherosclerotic heart disease of native coronary artery without angina pectoris; E78.2 Mixed hyperlipidemia
CPT/HCPCS: 36415; 71046; 71275; 80048; 80053; 80061; 82803; 83605; 83735; 83880; 84145; 84484; 85007; 85025; 87040; 87070; 87205; 93005; 93306; 93458; 94640; 99152; 99285; C1725; C1769; C9803; J0456; J0696; J1644; Q9967; U0003; U0005

== ENCOUNTER 2022-10-11 20:33 | Emergency (ER) | payer MEDICARE, SELFPAY ==
[2022-10-11 20:35] VITALS: BP 122/56; PULSE 72; RESP 18; TEMP 36.5; O2SAT 93; BMI 21.9
--- NOTE | 2022-10-11 21:12 | HMH.EDGENADL ---
Discharge Plan Disposition Chief Complaint: Extremity Injury, Lower Prescriptions Prescriptions: No Action aspirin 81 mg tablet,delayed release (DR/EC) 81 mg PO DAILY Qty: 100 3RF atorvastatin 40 mg tablet 40 mg PO HS Qty: 90 3RF pantoprazole 40 mg Tablet,Delayed Release (Dr/Ec) 40 mg PO HS Qty: 30 0RF Referrals Follow up/Referrals: Provider,Referral, [Primary Care Provider] - See instructions Discharge ED Provider: Juan Nagy General Adult HPI General Stated complaint: AO 10/11/2022 fell over dogs in garden Time Seen by Provider: 10/11/22 21:03 History of Present Illness HPI narrative: Patient is 76-year-old male with no pertinent past medical history who presents emergency department for evaluation of traumatic injury sustained to his left hand. Patient is left-handed, had a laceration from a knife over his distal left long finger earlier this evening prior to arrival. Patient's tetanus was updated 1 year ago. No other acute complaints at this time. Related Data Previous Rx's Medication Instructions Recorded pantoprazole 40 mg tablet,delayed 40 mg PO HS #30 tabs 03/30/22 release aspirin 81 mg tablet,delayed 81 mg PO DAILY #100 tabs 04/16/22 release atorvastatin 40 mg tablet 40 mg PO HS #90 tabs 04/16/22 Allergies Allergy/AdvReac Type Severity Reaction Status Date / Time No Known Allergies Allergy Verified 04/16/22 13:55 [facility] Disclaimer: The information contained in this section may have been updated after the patient was seen, as this information can be updated by other users. Medical History Acute exacerbation of chronic obstructive pulmonary disease Acute respiratory failure with hypoxia Community acquired pneumonia COPD (chronic obstructive pulmonary disease) Hyperlipidemia NSTEMI (non-ST elevated myocardial infarction) Sepsis Tobacco user Surgical History History of hip replacement Family History Other Lung cancer Social History Smoking Status: Current every day smoker alcohol intake: former substance use type: denies use current occupational status: retired Travel in the last 8 weeks: [place] the [place] household members: spouse lives independently: Yes marital status: education level: college physical activity: walking ROS Obtained: Yes Systems reviewed as appropriate & no additional complaints except as documented Physical Exam General General appearance: alert and in no apparent distress Head Head exam: atraumatic and normocephalic Eye Eye exam: Present PERRL Neck Neck exam: Present normal inspection Chest Chest inspection: Present normal inspection and symmetric chest wall rise Respiratory Respiratory exam: Absent respiratory distress Cardiovascular Cardiovascular exam: Present regular rate and normal rhythm Extremities Exam Extremities exam: Present other (Curvilinear laceration over the dorsal radial distal left long finger without nailbed involvement, hemostatic. Patient has full active and passive range of motion at the MCP, PIP, DIP joints. Sensation intact light touch distally. Capillary refill is preserved.) Neurological Exam Neurological exam: Present alert Psychiatric Psychiatric exam: Present normal affect Skin Skin exam: Present warm and dry Medical Decision Making Raghu Inquiry Pt receiving controlled substance: No Medical Decision Narrative: In summary patient is a 76-year-old male with past medical history described above who presents emergency department for evaluation of traumatic injury sustained from a laceration with a knife. Patient is hemodynamically stable nontoxic-appearing upon arrival, afebrile. Limited trauma sustained to the dorsal finger. Wound is not deep enough and mechanism does not support fracture therefor
--- NOTE | 2022-10-11 21:14 | XR_ITS ---
PROCEDURE INFORMATION: Exam: XR Right Hip Exam date and time: 10/11/2022 9:28 PM Age: 76 years old Clinical indication: Injury or trauma; Fall; Blunt trauma (contusions or hematomas); Prior surgery; Surgery date: 6+ months; Surgery type: Right hip; Patient HX: States he was knocked over by a dog, HX of replacement TECHNIQUE: Imaging protocol: Radiologic exam of the right hip. Views: 2 or 3 views hip with pelvis when performed. COMPARISON: No relevant prior studies available. FINDINGS: Bones/joints: Status post right total hip arthroplasty. There is some lucency along the superior aspect of the acetabular cup, correlate with prior imaging. There is mild degenerative disease of the left hip DJD describedThere are partially visualized degenerative changes of the sacroiliac joints and lumbar spine as well as some degenerative disease of the pubic symphysis. No acute fracture or dislocation is identified. Soft tissues: Unremarkable. IMPRESSION: 1. There is some lucency along the superior aspect of the acetabular cup, correlate with prior imaging. 2. Degenerative disease without acute injury identified.
--- NOTE | 2022-10-11 21:14 | XR_ITS ---
PROCEDURE INFORMATION: Exam: XR Left Knee Exam date and time: 10/11/2022 9:26 PM Age: 76 years old Clinical indication: Injury or trauma; Fall; Blunt trauma; Patient HX: PT states he was knocked over by a dog. Fell, C/O left knee pain TECHNIQUE: Imaging protocol: Radiologic exam of the left knee. Views: 3 views. COMPARISON: No relevant prior studies available. FINDINGS: Bones/joints: There is chondrocalcinosis. 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 No acute fracture or dislocation is identified. Soft tissues: Normal. Vasculature: Scattered atherosclerotic disease of the arterial vasculature. IMPRESSION: Degenerative disease without acute injury identified.
--- NOTE | 2022-10-11 22:08 | HMH.EDGENADL ---
Discharge Plan Disposition Patient Disposition: Home, Self-Care Condition: Good Chief Complaint: Extremity Injury, Lower Prescriptions Prescriptions: No Action aspirin 81 mg tablet,delayed release (DR/EC) 81 mg PO DAILY Qty: 100 3RF atorvastatin 40 mg tablet 40 mg PO HS Qty: 90 3RF pantoprazole 40 mg Tablet,Delayed Release (Dr/Ec) 40 mg PO HS Qty: 30 0RF Referrals Follow up/Referrals: Provider,Referral, [Primary Care Provider] - See instructions Kip Lua DO [Staff Physician] - See instructions Activity Restrictions/Add. Instructions Additional Instructions/Restrictions: At this time is felt you are safe to be discharged home. If new or worsening symptoms please do not hesitate to return the emergency department. Please call and schedule appoint with Dr. Lua as soon as you are able. Clinical Impressions Clinical Impression: Blunt trauma, Acute knee pain Discharge ED Provider: Juan Nagy General Adult HPI General Chief complaint: Extremity Injury, Lower Stated complaint: AO 10/11/2022 fell over dogs in garden Time Seen by Provider: 10/11/22 21:03 Mode of Arrival: Wheelchair Source of Information: Patient and Spouse Limitations: No Limitations Description of Symptoms (Recalled from ER Triage Doc. by RN): pt reports that he was hit by thefamily dog while he was outside, the dog is bigger than the pt and the pt states that he felt his left knee go sideways and now he is unable to stand on it. pt reports slight pain in the rigth hip as well and states that he has a hx of a jaren and placcement but thinks it just suzanne it History of Present Illness HPI narrative: Patient is 76-year-old male with past medical history of right hip replacement who presents emergency department for evaluation of traumatic injuries to his left knee. Prior to arrival a large family dog hit the patient on the lateral aspect of his knee applying force medially. Patient has largely been unable to bear weight since then. He presents here for continued evaluation. No anticoagulants. Denies other trauma. He does have chronic right hip pain which he states is not particularly worse than normal. Related Data Previous Rx's Medication Instructions Recorded pantoprazole 40 mg tablet,delayed 40 mg PO HS #30 tabs 03/30/22 release aspirin 81 mg tablet,delayed 81 mg PO DAILY #100 tabs 02/27/23 release atorvastatin 40 mg tablet 40 mg PO HS #90 tabs 04/16/22 Allergies Allergy/AdvReac Type Severity Reaction Status Date / Time No Known Allergies Allergy Verified 04/16/22 13:55 [facility] Disclaimer: The information contained in this section may have been updated after the patient was seen, as this information can be updated by other users. Medical History Acute exacerbation of chronic obstructive pulmonary disease Acute respiratory failure with hypoxia Community acquired pneumonia COPD (chronic obstructive pulmonary disease) Hyperlipidemia NSTEMI (non-ST elevated myocardial infarction) Sepsis Tobacco user Surgical History History of hip replacement Family History Other Lung cancer Social History Smoking Status: Current some day smoker alcohol intake: former substance use type: denies use current occupational status: retired Travel in the last 8 weeks: Inside the [place] household members: spouse lives independently: Yes marital status: education level: college physical activity: walking ROS Obtained: Yes Systems reviewed as appropriate & no additional complaints except as documented Physical Exam General General appearance: alert and in no apparent distress Head Head exam: atraumatic and normocephalic Eye Eye exam: Present PERRL and EOMI ENT ENT exam: Present mucous membranes moist Neck Neck
[2022-10-11 22:13] VITALS: BP 114/52; PULSE 79; RESP 15; TEMP 36.7; O2SAT 95
== END 2022-10-11 22:17 | disposition home or self-care (01) ==
PROVIDERS: Emergency Provider Emergency Medicine
DX: M25.562 Pain in left knee (principal); W54.8XXA Other contact with dog, initial encounter; J44.9 Chronic obstructive pulmonary disease, unspecified; E78.5 Hyperlipidemia, unspecified; I25.2 Old myocardial infarction; F17.200 Nicotine dependence, unspecified, uncomplicated
CPT/HCPCS: 73502; 73562; 99284

== ENCOUNTER 2022-10-12 13:54 | Outpatient (RCR) | payer MEDICARE, SELFPAY | END 2022-10-12 15:00 | disposition home or self-care (01) | LOC: PT 13:54 | PROVIDERS: Visit Provider Orthopaedic Surgery | DX: M25.562 Pain in left knee (principal); S80.912A Unspecified superficial injury of left knee, initial encounter | CPT/HCPCS: 97760 ==

== ENCOUNTER → 2022-10-25 12:51 | Outpatient (CLI) | payer MEDICARE, SELFPAY ==
--- NOTE | 2022-10-25 12:51 | MR_ITS ---
FINAL REPORT CLINICAL HISTORY: lt knee pain. SWELLING IN KNEE. MEDIAL SIDED KNEE PAIN. KNEE INSTABILITY FINDINGS: Multiplanar MR imaging of the left knee was performed without contrast. There is medial and lateral meniscal degeneration without convincing tear. The anterior and posterior cruciate ligaments are intact. The medial collateral ligament and lateral ligamentous complex are intact. The distal quadriceps tendon is intact. There are foci of patellar tendinitis. A calcification is seen in the distal patellar tendon. A nondisplaced fracture is seen along the medial border of the medial femoral condyle. Also noted is a comminuted, nondisplaced fracture of the lateral tibial plateau with adjacent bone marrow edema. Mild chondromalacia is noted. A moderate joint effusion is seen. The musculature is intact. A small popliteal cyst is present. IMPRESSION: Nondisplaced fractures of the medial femoral condyle and lateral tibial plateau. No evidence of meniscal or ligamentous injury. Moderate joint effusion and small popliteal cyst. Authenticated and ERN
== END ==
PROVIDERS: Visit Provider Orthopaedic Surgery
DX: M25.562 Pain in left knee (principal)
CPT/HCPCS: 73721

== ENCOUNTER 2022-11-26 08:12 | Inpatient (IN) | payer MEDICARE, SELFPAY ==
[2022-11-26] VITALS (24 sets, daily range): BP systolic 112–151; BP diastolic 53–77; PULSE 59–120; RESP 18–34; TEMP 36.5–37; O2SAT 74–100; BMI 22.9; BMI 21.7; BMI 24.6
--- NOTE | 2022-11-26 08:28 | PC.NURSE ---
PATIENT SENT TO ER PER Melissa GARCIA APRN FOR FURTHER EVALUATION R/T LOW OXYGEN SATURATION AND SOA. REPORT GIVEN TO Rasta COURTNEY RN BY Melissa GARCIA APRN. PATIENT TRANSPORTED TO ER BY WHEELCHAIR WITH [facility] STAFF ASSIST. AT BEDSIDE
--- NOTE | 2022-11-26 08:34 | ECG_ITS ---
APPROVED REPORT Exam: Resting ECG HR:111 bpm ECG Measurements Heart Rate 111 AXES LA 184 P 80 QRSd 87 QRS 122 QT 309 T 48 QTc 375 Conclusion SINUS TACHYCARDIA LEFT POSTERIOR FASCICULAR BLOCK [QRS AXIS > 109, INFERIOR Q] ABNORMAL ECG UNCONFIRMED REPORT Electronically signed by : Samm Shaw MD 11/26/2022 19:37:49
--- NOTE | 2022-11-26 08:37 | EXP.UTC ---
Discharge Plan Disposition Patient Disposition: Admitted Clinical Impressions Clinical Impression: Respiratory failure, Acute exacerbation of chronic obstructive pulmonary disease, Sepsis due to pneumonia Discharge ED Provider: Juan Nagy [facility] General Chief complaint: Shortness of Breath/Dyspnea Stated complaint: cough Mode of Arrival: Ambulatory Source of Information: Patient Limitations: No Limitations Time Seen by Provider: 11/26/22 08:25 Description of Symptoms (Recalled from Triage Doc. by RN): PATIENT C/O PRODUCTIVE COUGH, SWEATING, DIARRHEA, STOMACH ACHE AND HEADACHE X 1 WEEK HEENT Symptoms (Recalled from RN notes): Yes Resp Symptoms (Recalled from RN notes): Yes Skin Symptoms (Recalled from RN notes): No MS Symptoms (Recalled from RN notes): No Functional Status (Recalled from RN notes): WNL History of Present Illness Provider Complaint: Patient states that he has not felt well for about a week with cough and congestion after he brought his grandchildren into the office to get seen for strep throat and he has continued to get worse States that he has been having SOA, diarrhea, weakness upset stomach and over all not feeling well but shortness of breath and chest congestion got worse last night and he felt like he couldnt breath and can hear himself rattling and this morning it was worse and he came in Related Data Home Medications Medication Instructions Recorded Confirmed aspirin 81 mg tablet,delayed 81 mg PO DAILY heart health 11/26/22 11/26/22 release cetirizine 10 mg tablet 10 mg PO DAILY Allergy Symptoms 11/26/22 11/26/22 Allergies Allergy/AdvReac Type Severity Reaction Status Date / Time No Known Allergies Allergy Verified 11/06/22 10:52 Worker's Comp Is this a Worker's Comp case?: No [facility] Disclaimer: The information contained in this section may have been updated after the patient was seen, as this information can be updated by other users. Medical History Acute exacerbation of chronic obstructive pulmonary disease Acute respiratory failure with hypoxia Community acquired pneumonia COPD (chronic obstructive pulmonary disease) Hyperlipidemia NSTEMI (non-ST elevated myocardial infarction) Sepsis Tobacco user Surgical History History of hip replacement Family History Lung cancer Social History Smoking Status: Current every day smoker alcohol intake: former substance use type: denies use current occupational status: retired Travel in the last 8 weeks: [place] the [place] household members: spouse lives independently: Yes marital status: education level: college physical activity: walking ROS Obtained: Yes All systems reviewed & no additional complaints except as documented and Yes Systems reviewed as appropriate & no additional complaints except as documented Constitutional Constitutional: Reports system reviewed and no additional complaints, except as documented, Reports as per HPI, Reports headache(s) and Reports weakness ENT Ears, Nose, Mouth, and Throat: Reports system reviewed and no additional complaints, except as documented, Reports as per HPI and Reports headache(s) Cardiovascular Cardiovascular: Reports system reviewed and no additional complaints, except as documented and Reports as per HPI Respiratory Respiratory: Reports system reviewed and no additional complaints, except as documented, Reports as per HPI, Reports shortness of breath, Reports chest congestion and Reports cough Gastrointestinal Gastrointestingal: Reports system reviewed and no additional complaints, except as documented, as per HPI and diarrhea Neurologic Neurologic: Reports headache(s) and Reports weakness Physical Exam General General appearance: alert Respiratory Respiratory exam: Present respiratory
--- NOTE | 2022-11-26 08:41 | HMH.EDGENADL ---
Discharge Plan Disposition Patient Disposition: Admitted Chief Complaint: Shortness of Breath/Dyspnea Prescriptions Prescriptions: No Action cetirizine 10 mg tablet 10 mg PO DAILY Patient Comments: TAKE 1 TABLET BY MOUTH ONCE DAILY aspirin 81 mg tablet,delayed release (DR/EC) 81 mg PO DAILY Referrals Follow up/Referrals: Provider,Referral, MD [Primary Care Provider] - See instructions Clinical Impressions Clinical Impression: Respiratory failure, Acute exacerbation of chronic obstructive pulmonary disease, Sepsis due to pneumonia Discharge ED Provider: Juan Nagy General Adult HPI General Chief complaint: Shortness of Breath/Dyspnea Stated complaint: cough Time Seen by Provider: 11/26/22 08:25 Mode of Arrival: Ambulatory Source of Information: Patient Limitations: No Limitations Description of Symptoms (Recalled from ER Triage Doc. by RN): PATIENT C/O PRODUCTIVE COUGH, SWEATING, DIARRHEA, STOMACH ACHE AND HEADACHE X 1 WEEK History of Present Illness HPI narrative: Patient is a 77-year-old male with past medical history of COPD not on home oxygen who presents emergency department for multiple complaints. Patient states over the last week he has had vomiting, nonbloody diarrhea, cough, congestion, shortness of breath. Patient is a multi pack-year smoker however he quit 4 weeks ago. Due to persistent symptoms he presents here for continued evaluation. Denies significant chest pain. Related Data Home Medications Medication Instructions Recorded Confirmed aspirin 81 mg tablet,delayed 81 mg PO DAILY heart health 11/26/22 11/26/22 release cetirizine 10 mg tablet 10 mg PO DAILY Allergy Symptoms 11/26/22 11/26/22 Allergies Allergy/AdvReac Type Severity Reaction Status Date / Time No Known Allergies Allergy Verified 11/06/22 10:52 [facility] Disclaimer: The information contained in this section may have been updated after the patient was seen, as this information can be updated by other users. Medical History Acute exacerbation of chronic obstructive pulmonary disease Acute respiratory failure with hypoxia Community acquired pneumonia COPD (chronic obstructive pulmonary disease) Hyperlipidemia NSTEMI (non-ST elevated myocardial infarction) Sepsis Tobacco user Surgical History History of hip replacement Family History Other Lung cancer Social History Smoking Status: Current every day smoker alcohol intake: former substance use type: denies use current occupational status: retired Travel in the last 8 weeks: [place] the [place] household members: spouse lives independently: Yes marital status: education level: college physical activity: walking ROS Obtained: Yes Systems reviewed as appropriate & no additional complaints except as documented Physical Exam General General appearance: alert and in no apparent distress Head Head exam: atraumatic and normocephalic Eye Eye exam: Present PERRL and EOMI ENT ENT exam: Present mucous membranes moist Neck Neck exam: Present normal inspection Chest Chest inspection: Present normal inspection and symmetric chest wall rise Respiratory Respiratory exam: Present respiratory distress, wheezes, accessory muscle use and prolonged expiratory phase Cardiovascular Cardiovascular exam: Present normal rhythm and tachycardia Abdominal Exam Abdominal exam: Present soft; Absent tenderness Extremities Exam Extremities exam: Present normal inspection and other (No pitting edema) Neurological Exam Neurological exam: Present alert Psychiatric Psychiatric exam: Present normal affect Skin Skin exam: Present warm and dry Medical Decision Making Raghu Inquiry Pt receiving controlled substance: No Vital Signs: 11/26/22 08:25 11/26/22 0
--- NOTE | 2022-11-26 08:45 | XR_ITS ---
FINAL REPORT CLINICAL HISTORY: soa COMPARISON: 03/27/2022 FINDINGS: 2 views of the chest were obtained . The heart is normal in size. The mediastinum is within normal limits. There is worsening right base opacity consistent with pneumonia. There is no pneumothorax. Osseous structures are unremarkable. IMPRESSION: Findings consistent with worsening right base pneumonia. Reviewed, Interpreted and Dictated by Delta Bowman III, MD Transcribed by Fany Read Authenticated and . [facility]
--- NOTE | 2022-11-26 08:54 | PC.NURSE ---
Pt sent from [facility] d/t room air sat of 74%. He arrived on room air via wheelchair. Pt denies any current SOA. 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 Pediatric adhesive pulse ox placed to forehead and read 84% with good pleth. 2LPM O2 via NC placed to pt sat quickly kehinde to 88% and MD asked to increase O2 to 4LPM NC. 20g PIV placed to LFA.
--- NOTE | 2022-11-26 08:58 | PC.NURSE ---
Pt gone to RAD via wheelchair
[2022-11-26 08:59] LABS: VBG Base Excess -1.6 mmol/L (-2.4-2.3); VBG HCO3 25.9 mmol/L (23-30); VBG Oxygen Saturation 83.1 % (50-70); VBG PCO2 62.8 mmol/L (35-51); VBG PH 7.23 mmol/L (7.31-7.41); VBG Total CO2 27.8 mmol/L (23-27)
--- NOTE | 2022-11-26 09:01 | PC.NURSE ---
Pt returned from RAD
[2022-11-26 09:02] LABS: Basophils % 0.3 % (0.1-2.0); Eosinophils # 0.1 K/mm3 (0.0-0.4); Eosinophils % 0.6 % (0.1-12.0); Hematocrit 45.4 % (42.0-52.0); Hemoglobin 14.2 g/dL (14.1-18.0); Lymphocytes # 0.6 K/mm3 (0.7-4.5); Lymphocytes % 5.5 % (10-50); Mean Corpuscular HGB Conc 31.2 g/dL (31.8-35.4); Mean Corpuscular Hemoglobin 29.8 pg (27.0-31.2); Mean Corpuscular Volume 95.6 fl (80-94); Mean Platelet Volume 7.5 fl (7.4-10.4); Monocytes # 0.6 K/mm3 (0.1-1.0); Monocytes % 5.4 % (1.7-9.3); Neutrophils # 10.1 K/mm3 (1.8-7.8); Neutrophils % 88.2 % (37.0-80.0); Platelet Count 306 K/mm3 (142-424); Red Blood Count 4.75 M/mm3 (4.60-6.20); White Blood Count 11.4 K/mm3 (4.8-10.8)
[2022-11-26 09:08] LABS: MANUAL DIFFERENTIAL MANUAL DIFFERENTIAL (MANUAL DIFF)
[2022-11-26 09:12] LABS: Coronavirus 19, PCR Not Detected (NotDetected); Influenza A, PCR Not Detected (NotDetected); Influenza B, PCR Not Detected (NotDetected)
[2022-11-26 09:13] LABS: Alanine Aminotransferase 29 U/L (12-78); Albumin Level 4.5 g/dl (3.5-5.0); Albumin/Globulin Ratio 1.2 (1.1-1.8); Alkaline Phosphatase 85 U/L (38-126); Anion Gap 14.1 mEq/L (5-15); Aspartate Amino Transferase 48 U/L (17-59); Bilirubin,Total 0.6 mg/dl (0.2-1.3); Blood Urea Nitrogen 14 mg/dl (9-20); Calcium 8.7 mg/dl (8.4-10.2); Carbon Dioxide 28 mmol/L (22.0-30.0); Chloride 98 mmol/L (98-107); Creatinine Clearance Estimated 65 mL/min (50-200); Estimated Glomerular Filt Rate 131 ml/min (>60); GFR (African American) 159 ML/MIN (>60); Globulin 3.8 g/dL (1.3-3.2); Glucose 150 mg/dl (74-100); Potassium 4.1 mmoL/L (3.5-5.1); Sodium 136 mmol/L (136-145); Total Protein,Serum 8.3 g/dl (6.3-8.2)
--- NOTE | 2022-11-26 09:19 | PC.NURSE ---
Dr. Nagy verbalized he would like pt to be placed on BiPap following his breathing treatments, resp tech notified.
--- NOTE | 2022-11-26 09:45 | PC.NURSE ---
RT at bedside and placed pt on BiPap
[2022-11-26 09:51] LABS: Lymphocytes % 8 % (10-50); Monocytes % 6 % (2-9); Neutrophils % 78 % (42-76); Total Cells Counted 100
[2022-11-26 09:53] LABS: Anisocytosis 2+
[2022-11-26 09:54] LABS: Hypochromasia 2+; Platelet Estimate Normal
--- NOTE | 2022-11-26 09:59 | PC.NURSE ---
Pt's BiPap alarming d/t rate and flow. Pt has been coughing quite a bit. Mask seems to be in place well. RT notified of this and will be down shortly to troubleshoot.
--- NOTE | 2022-11-26 10:06 | PC.NURSE ---
Nurse was at bs when rounding no needs,call light and at bs
--- NOTE | 2022-11-26 10:26 | PC.NURSE ---
Dr. Nagy s/w Dr. Bond for admission
--- NOTE | 2022-11-26 10:26 | PC.NURSE ---
DR DOYLE SPEAKING WITH DR DOWELL
--- NOTE | 2022-11-26 10:28 | PC.NURSE ---
CARE MANAGEMENT NOTIFIED OF ADMISSION
--- NOTE | 2022-11-26 10:41 | PC.NURSE ---
pt called out asked if he could take the bipap mask off for a bit due to his nose being irritated told him i would speak with and let him know, states once vbg is drawn and if numbers are improved then we could take mask off for a few updated pt
[2022-11-26 11:02] LABS: VBG Base Excess -0.1 mmol/L (-2.4-2.3); VBG HCO3 26.5 mmol/L (23-30); VBG Oxygen Saturation 54.1 % (50-70); VBG PCO2 56.4 mmol/L (35-51); VBG PH 7.29 mmol/L (7.31-7.41); VBG PO2 27.6 mmol/L (28-40); VBG Total CO2 28.2 mmol/L (23-27)
--- NOTE | 2022-11-26 11:02 | PC.NURSE ---
Toshia Rhodes RN on med/surg given report.
--- NOTE | 2022-11-26 11:16 | PC.NURSE ---
arrived by stretcher from ED
--- NOTE | 2022-11-26 11:31 | HMH.PHAINT1 ---
Pharmacy Intervention Comments: MEDICATION RECONCILIATION COMPLETED ON PATIENT USING EXTERNAL FILL HISTORY FROM PHARMACY. -ROGERS LAWSON, NATALIOD
--- NOTE | 2022-11-26 11:35 | EXP.HP ---
History of Present Illness *Admission Date: 11/26/22 *Reason for visit:: Dyspnea, cough *History of present illness: 77-year-old male with COPD, admitted 8 months ago to our facility. Smoker until 3 months ago. Not on any home inhalers. Also has a history of CAD. Presented to the ER because of a week of worsening dyspnea and productive cough. Has had sick family members at home with a grandson who has been ill. Denies any fever or chest pain. Complains of shortness of breath, cough, wheeze, sweating, and headache for a week. On arrival to the ER, patient hypoxic. Necessitating supplemental oxygen. Blood gas showing some hypercapnia. Placed on BiPAP temporarily in the ER until transferred to the floor. Repeat blood gas showed improvement in his CO2. Patient at baseline mentation. Chest imaging showing right lower lobe consolidation/airspace disease concerning for pneumonia. Tachycardic and tachypneic. Meeting sepsis criteria. Medicine consulted for admission. Arrival to the floor, patient is stable on 2 to 3 L nasal cannula. States he is feeling somewhat better after breathing treatments. Quite wheezy on exam. O2 sats are in the mid 90s. Denies any mane chest pain. Cough is wet. Afebrile at this time [facility] Disclaimer: The information contained in this section may have been updated after the patient was seen, as this information can be updated by other users. Medical History Acute exacerbation of chronic obstructive pulmonary disease Acute respiratory failure with hypoxia Community acquired pneumonia COPD (chronic obstructive pulmonary disease) Hyperlipidemia NSTEMI (non-ST elevated myocardial infarction) Sepsis Tobacco user Surgical History History of hip replacement Family History Lung cancer Social History Smoking Status: Current every day smoker alcohol intake: former substance use type: denies use current occupational status: retired Travel in the last 8 weeks: [place] the [place] household members: spouse lives independently: Yes marital status: education level: college physical activity: walking Review of Systems Review of Systems Review of systems (narrative): 14 point review of systems performed, pertinent positives and negatives as per HPI Constitutional Constitutional: Reports headache(s) and Reports weakness ENT Ears, Nose, Mouth, and Throat: Reports headache(s) *Neurologic Neurologic: Reports headache(s) and Reports weakness Meds Home Medications and Allergies Home Medications Medication Instructions Recorded Confirmed Type aspirin 81 mg tablet,delayed 81 mg PO DAILY heart health 11/26/22 11/26/22 History release cetirizine 10 mg tablet 10 mg PO DAILY Allergy Symptoms 11/26/22 11/26/22 History New Prescriptions to Start Prescriptions: Allergies Allergy/AdvReac Type Severity Reaction Status Date / Time No Known Allergies Allergy Verified 11/06/22 10:52 Exam Data for Last 24 hours Vital signs and Labs for Last 24 Hours: Temp Pulse Resp BP Pulse Ox O2 Del Method FiO2 98.4 F 100 H 22 138/77 95 BiPAP 35 11/26/22 11:20 11/26/22 11:20 11/26/22 11:20 11/26/22 11:20 11/26/22 10:30 11/26/22 11:20 11/26/22 09:45 Laboratory Results - last 24 hr 11/26/22 08:39: VBG pH 7.23 L, VBG pCO2 62.8 H, VBG pO2 51.0 H, VBG HCO3 25.9, VBG Total CO2 27.8 H, VBG O2 Saturation 83.1 H, VBG Base Excess -1.6 11/26/22 08:41: WBC 11.4 H, RBC 4.75, Hgb 14.2, Hct 45.4, MCV 95.6 H, MCH 29.8, MCHC 31.2 L, RDW 14.0, Plt Count 306, MPV 7.5, Neut % (Auto) 88.2 H, Lymph % (Auto) 5.5 L, [place] % (Auto) 5.4, Eos % (Auto) 0.6, Baso % (Auto) 0.3, Neut # (Auto) 10.1 H, Lymph # (Auto) 0.6 L, [place] # (Auto) 0.6, Eos # (Auto) 0.1, Baso # (Auto) 0.0, Total Counted 100, Neutrophils % (Manual) 78 H, Band
--- NOTE | 2022-11-26 11:43 | PC.NURSE ---
[address] Bond to clarify if pt needed to be placed back on bipap. received in report that based on results of pending VBG pt may be able to be placed on nasal cannula. VBG results given to md, per md ok to place pt on nc (notified pt currently on 2.5lpm and satting 97). pt is also approved for cardiac diet at this time as well.
--- NOTE | 2022-11-26 13:15 | PC.NURSE ---
[address] kruse, dc ivf r/t pt drinking fluids appropriately, perform MRSA screen, per md Dr Jimenez to be consulted, was notified that sputum specimen was also already collected and sent to lab.
[2022-11-26 14:42] LABS: Adenovirus,PCR Not Detected (NotDetected); Bordetella Pertussis Not Detected (NotDetected); Chlamydophila Pneumoniae, PCR Not Detected (NotDetected); Coronavirus 19, PCR Not Detected (NotDetected); Coronavirus 229E Not Detected (NotDetected); Coronavirus NL63 Not Detected (NotDetected); Coronavirus OC43 Not Detected (NotDetected); Coronovirus HKU1,PCR Not Detected (NotDetected); Human Metapneumovirus Not Detected (NotDetected); Influenza A, PCR Not Detected (NotDetected); Influenza AH1, 2009 Not Detected (NotDetected); Influenza AH1, PCR Not Detected (NotDetected); Influenza AH3,PCR Not Detected (NotDetected); Influenza B, PCR Not Detected (NotDetected); Mycoplasma Pneumoniae, PCR Not Detected (NotDetected); Parainfluenza 1, PCR Not Detected (NotDetected); Parainfluenza 2, PCR Not Detected (NotDetected); Parainfluenza 4, PCR Not Detected (NotDetected); Respiratory Syncytial Virus Not Detected (NotDetected); Rhinovirus/Enterovirus Not Detected (NotDetected)
--- NOTE | 2022-11-26 17:04 | PC.NURSE ---
pt has been a/o x 4 since arriving on the unit. pt has been on 2.5lpm/nc with o2 sats in the upper 90's. nad noted. pt lung sounds still contain wheezes throughout. bowel sounds are active in all quads. pt is at bedside. pt was assisted to the restroom by nursing staff. pt did not use his crutches at that time. pt did void while in the restroom, but void was unmeasured.
[2022-11-26 18:02] LABS: Parainfluenza 3, PCR Detected (NotDetected)
--- NOTE | 2022-11-26 18:05 | PC.NURSE ---
[address] Bond face to face that pt full respiratory panel shows pt has Parainfluenza 3. pt placed in droplet precautions.
--- NOTE | 2022-11-26 18:22 | PC.NURSE ---
pt was received breathing treatment at time vitals were recorded.
[2022-11-27] VITALS (9 sets, daily range): BP systolic 99–127; BP diastolic 54–61; PULSE 50–88; RESP 20–28; TEMP 36.4–37; O2SAT 93–98; BMI 25.4
--- NOTE | 2022-11-27 06:18 | PC.NURSE ---
Patient slept well this shift, used bipap for 4 hours and was placed back on 3L NC. Medication given for cough with relief noted. Call valiente and personal items in reach, pOC ongoing.
[2022-11-27 06:32] LABS: Basophils % 0.1 % (0.1-2.0); Lymphocytes # 0.8 K/mm3 (0.7-4.5); Monocytes # 0.5 K/mm3 (0.1-1.0)
[2022-11-27 06:45] LABS: Chloride 99 mmol/L (98-107)
[2022-11-27 06:46] LABS: Potassium 4.4 mmoL/L (3.5-5.1); Sodium 134 mmol/L (136-145)
[2022-11-27 06:48] LABS: Alanine Aminotransferase 23 U/L (12-78); Aspartate Amino Transferase 33 U/L (17-59); Blood Urea Nitrogen 12 mg/dl (9-20); Creatinine Clearance Estimated 65 mL/min (50-200); Estimated Glomerular Filt Rate 131 ml/min (>60); GFR (African American) 159 ML/MIN (>60)
[2022-11-27 06:49] LABS: Albumin Level 3.2 g/dl (3.5-5.0); Albumin/Globulin Ratio 1.1 (1.1-1.8); Alkaline Phosphatase 63 U/L (38-126); Anion Gap 9.4 mEq/L (5-15); Calcium 8.3 mg/dl (8.4-10.2); Carbon Dioxide 30 mmol/L (22.0-30.0); Globulin 2.8 g/dL (1.3-3.2); Glucose 156 mg/dl (74-100); Magnesium 1.7 mg/dl (1.6-2.3)
[2022-11-27 06:56] LABS: Bilirubin,Total 0.1 mg/dl (0.2-1.3)
[2022-11-27 06:58] LABS: Hematocrit 40.8 % (42.0-52.0); Lymphocytes % 8.5 % (10-50); Mean Corpuscular Hemoglobin 28.6 pg (27.0-31.2); Mean Corpuscular Volume 95.1 fl (80-94); Mean Platelet Volume 7.8 fl (7.4-10.4); Monocytes % 5.8 % (1.7-9.3); Neutrophils # 7.8 K/mm3 (1.8-7.8); Neutrophils % 85.6 % (37.0-80.0); Platelet Count 264 K/mm3 (142-424); Red Blood Count 4.29 M/mm3 (4.60-6.20); Red Cell Distribution Width 14.1 % (11.5-17.5); White Blood Count 9.1 K/mm3 (4.8-10.8)
[2022-11-27 06:59] LABS: Hemoglobin 12.3 g/dL (14.1-18.0); MANUAL DIFFERENTIAL MANUAL DIFFERENTIAL (MANUAL DIFF)
[2022-11-27 07:21] LABS: Lymphocytes % 8 % (10-50); Monocytes % 4 % (2-9); Neutrophils % 88 % (42-76); Total Cells Counted 100
[2022-11-27 07:22] LABS: Platelet Estimate Normal; RBC Morphology Normal
--- NOTE | 2022-11-27 09:14 | EXP.PULM.CON ---
History of Present Illness History of present illness: Mr. Whitaker is a 77-year-old male greater than 30 PPD, last smoked 2 months ago, not using any inhalers or oxygen therapy at home history of COPD CAD presented to the ER with worsening respiratory's along with productive cough needing BiPAP while in the ER eventually improved change to nasal iron supplement pulmonary was called for further evaluation and management. [facility] Disclaimer: The information contained in this section may have been updated after the patient was seen, as this information can be updated by other users. Medical History (Updated 11/27/22 @ 10:06 by Radha Jimenez MD) Acute exacerbation of chronic obstructive pulmonary disease Acute respiratory failure with hypoxia Community acquired pneumonia COPD (chronic obstructive pulmonary disease) Hyperlipidemia NSTEMI (non-ST elevated myocardial infarction) Pneumonia Sepsis Tobacco user Viral pneumonia Surgical History History of hip replacement Family History Lung cancer Social History Smoking Status: Current every day smoker alcohol intake: former substance use type: denies use current occupational status: retired Travel in the last 8 weeks: Inside the [place] household members: spouse lives independently: Yes marital status: education level: college physical activity: walking Review of Systems Constitutional Constitutional: Reports fatigue, Reports headache(s) and Reports weakness Eyes Eyes: Denies eye discharge, Denies dry eyes, Denies irritation and Denies itchy eyes ENT Ears, Nose, Mouth, and Throat: Reports headache(s), Denies lip swelling and Denies throat swelling *Cardiovascular Cardiovascular: Reports dyspnea and Reports dyspnea on exertion *Respiratory Respiratory: Reports chest congestion, Reports cough, Reports dyspnea, Reports dyspnea on exertion, Reports excessive phlegm production and Reports wheezing *Gastrointestinal Gastrointestinal: Denies abdominal pain, Denies belching and Denies cramping *Musculoskeletal Musculoskeletal: Reports back pain, Reports myalgias and Reports other (No small joint swelling or Pain) *Neurologic Neurologic: Reports headache(s) and Reports weakness Psychiatric Psychiatric: Denies homicidal ideation and Denies suicidal ideation Endocrine Endocrine: Reports fatigue and Denies heat intolerance Hematologic/Lymphatic Hematologic/Lymphatic: Denies easy bleeding and Denies lymphadenopathy Allergic/Immunologic Allergic/Immunologic: Denies itchy eyes, Denies lip swelling, Denies throat swelling and Reports wheezing Pulmonology Exam Inpatient Vital signs and Labs for Last 24 Hours: Temp Pulse Resp BP Pulse Ox O2 Del Method O2 Flow Rate 97.6 F 86 20 127/58 L 94 L Nasal Cannula 3 11/27/22 08:00 11/27/22 08:00 11/27/22 08:00 11/27/22 08:00 11/27/22 08:00 11/27/22 08:00 11/27/22 08:00 FiO2 35 11/26/22 09:45 Laboratory Results - last 24 hr 11/26/22 08:41: Total Counted 100, Neutrophils % (Manual) 78 H, Band Neutrophils % 8.0, Lymphocytes % (Manual) 8 L, Monocytes % (Manual) 6, Platelet Estimate Normal, Hypochromasia 2+, Anisocytosis 2+, Sodium 136, Potassium 4.1, Chloride 98, Carbon Dioxide 28, Anion Gap 14.1, BUN 14, Creatinine 0.60 L, Estimated Creat Clear 65, Estimated GFR 131, Est GFR ( Amer) 159, Glucose 150 H, Lactate 2.0, Calcium 8.7, Total Bilirubin 0.6, AST 48, ALT 29, Alkaline Phosphatase 85, Total Protein 8.3 H, Albumin 4.5, Globulin 3.8 H, Albumin/Globulin Ratio 1.2 11/26/22 09:06: Chlamy pneumoniae PCR Not detected, Adenovirus (PCR) Not detected, B. pertussis DNA (PCR) Not detected, Coronavirus OC43 (PCR) Not detected, Coronavirus HKU1 (PCR) Not detected, Coronavirus 229E (PCR) Not detected, SARS-CoV-2 (PCR) Not detected 11/26/22 09:06: SARS-CoV-2
--- NOTE | 2022-11-27 11:36 | EXP.DC.SUM ---
General Admission date:: 11/26/22 Discharge date: 11/27/22 HPI HPI HPI: 77-year-old male with COPD, admitted 8 months ago to our facility. Smoker until 3 months ago. Not on any home inhalers. Also has a history of CAD. Presented to the ER because of a week of worsening dyspnea and productive cough. Has had sick family members at home with a grandson who has been ill. Denies any fever or chest pain. Complains of shortness of breath, cough, wheeze, sweating, and headache for a week. On arrival to the ER, patient hypoxic. Necessitating supplemental oxygen. Blood gas showing some hypercapnia. Placed on BiPAP temporarily in the ER until transferred to the floor. Repeat blood gas showed improvement in his CO2. Patient at baseline mentation. Chest imaging showing right lower lobe consolidation/airspace disease concerning for pneumonia. Tachycardic and tachypneic. Meeting sepsis criteria. Medicine consulted for admission. Arrival to the floor, patient is stable on 2 to 3 L nasal cannula. States he is feeling somewhat better after breathing treatments. Quite wheezy on exam. O2 sats are in the mid 90s. Denies any mane chest pain. Cough is wet. Afebrile at this time Hospital Course Hospital Course Hospital Course: The patient was admitted to the telemetry unit with continuous pulse oximetry monitoring. The patient reported no home O2 requirements. Pulmonology was consulted. His respiratory panel was positive for parainfluenza and a chest x-ray was concerning for right lower lobe pneumonia. His labs and inflammatory markers were trended and identified improvement and stability. Blood and sputum cultures were acquired that identified no growth to date. He tolerated his antibiotic therapy with no adverse events. He identified improvement and inquired about discharge home. Pulmonology made recommendations for discharge antibiotic therapy. Inhaler therapy was reviewed as well. A 6-minute walk test for home oxygen requirements was performed prior to discharge. Case management assisted with discharge needs. I spent 35 minutes in [id number] time with the patient and nursing staff concerning the discharge process. We discussed the admitting diagnoses and hospital course. We discussed identified improvement and the patient's desire to be discharged. We reviewed inpatient studies and imaging. The patient voiced understanding on the importance of follow-up with his primary care provider and bisque kiln placer. The patient plans to continue to abstain from tobacco use. The patient plans to be compliant with the medication regimen prescribed and follow-up appointments. He understands that he can return to the emergency department with any sudden changes or concerns. Exam Data for Last 24 hours Vital signs and Labs for Last 24 Hours: Temp Pulse Resp BP Pulse Ox O2 Del Method O2 Flow Rate 97.6 F 84 20 126/55 L 94 L Room Air 3 11/27/22 08:00 11/27/22 10:00 11/27/22 10:00 11/27/22 10:00 11/27/22 10:00 11/27/22 10:00 11/27/22 09:00 FiO2 35 11/26/22 09:45 Laboratory Results - last 24 hr 11/26/22 09:06: Chlamy pneumoniae PCR Not detected, Adenovirus (PCR) Not detected, B. pertussis DNA (PCR) Not detected, Coronavirus OC43 (PCR) Not detected, Coronavirus HKU1 (PCR) Not detected, Coronavirus 229E (PCR) Not detected, SARS-CoV-2 (PCR) Not detected, Coronavirus NL63 (PCR) Not detected, Human Metapneumovir PCR Not detected, Influenza A (H1) PCR Not detected, Influ A (H1N1/09) PCR Not detected, Influenza A (H3) PCR Not detected, Influenza Type A (PCR) Not detected, Influenza Type B (PCR) Not detected, M. pneumoniae (PCR) Not detected, Parainfluenza 1 (PCR) Not detected, Parainfluenza 2 (PCR) Not detected, Parainfluenza 3 (PCR) Detected A, Parainfluenza 4 (PCR) Not detected, RSV (PCR) Not detected, Entero/Rhino (PCR) Not detected 11/27/22 05:53: WBC 9.1, RBC 4.29 L, Hgb 12.3 L D, Hct 40.8 L, MCV 95.1 H, MCH 28.6, MCHC 30.0 L, RDW
--- NOTE | 2022-11-27 13:41 | SW/DCPLANNER ---
Addendum entered by Blanca Romeo 11/27/22 14:02: Leelee cueva/ Jorje[employer] stated that portable O2 tank will be delivered to [facility] soon. Original Note: Patient information/order has been faxed to [facility] for home O2 (failed 6 minute walk test) and nebulizer machine. I will follow up hammad/ Jorje'david once information/order is reviewed. Patient will discharge home today.
--- NOTE | 2022-11-29 15:08 | CARE MANAGER ---
Called and spoke with patient regarding recent discharge. Patient stated that he has started all new prescribed medication and is aware of f/u appts. Patient voiced no concerns at time of call.
== END 2022-11-27 15:10 | disposition home or self-care (01) | DRG 193 ==
LOC: UTC 08:14 → ER 08:35 → 2ND 10:44
PROVIDERS: Admitting Provider Internal Medicine Adolescent Medicine; Emergency Provider Emergency Medicine; Visit Provider Internal Medicine Adolescent Medicine
DX: J15.9 Unspecified bacterial pneumonia (principal); J96.01 Acute respiratory failure with hypoxia; J44.1 Chronic obstructive pulmonary disease with (acute) exacerbation; J44.0 Chronic obstructive pulmonary disease with (acute) lower respiratory infection; I25.2 Old myocardial infarction; E78.5 Hyperlipidemia, unspecified; Z87.891 Personal history of nicotine dependence; I25.10 Atherosclerotic heart disease of native coronary artery without angina pectoris
CPT/HCPCS: 36415; 71046; 80053; 82803; 83605; 83735; 85007; 85025; 87040; 87070; 87081; 87205; 87581; 87632; 87635; 87636; 87798; 93005; 94618; 94640; 94760; 99291; J0456; J0696

== ENCOUNTER → 2023-01-08 09:35 | Outpatient (CLI) | payer MEDICARE, SELFPAY ==
--- NOTE | 2023-01-08 09:45 | XR_ITS ---
FINAL REPORT CLINICAL HISTORY: left tib fib previous break near knee. no pain COMPARISON: None FINDINGS: LEFT TIBIA FIBULA: There is irregularity of the lateral tibial plateau that may represent a subacute fracture. There is meniscal calcification in the medial and lateral compartment of the knee and the distal patellar tendon. There is also slight irregularity of the medial femoral condyle lateral tibial plateau, also known to be a fracture when compared to the MRI of October 25. The joint spaces are intact. There is no soft tissue abnormality. IMPRESSION: Irregularity of the lateral tibial plateau and medial femoral condyle, known sites of subacute fractures seen on prior MRI of October 25. Meniscal calcification in the medial and lateral compartments of the knee and in the distal patellar tendon. Reviewed, Interpreted and Dictated by Delta Bowman III, MD Transcribed by Mariah Cevallos Authenticated and [facility]
== END ==
PROVIDERS: PCP Student in an Organized Health Care Education/Training Program; Visit Provider Orthopaedic Surgery
DX: M79.605 Pain in left leg (principal)
CPT/HCPCS: 73590

== ENCOUNTER → 2023-01-22 23:00 | Outpatient (CLI) | payer MEDICARE, SELFPAY | PROVIDERS: PCP Student in an Organized Health Care Education/Training Program; Visit Provider Student in an Organized Health Care Education/Training Program | DX: R05.9 Cough, unspecified (principal) | CPT/HCPCS: 87635 ==

== ENCOUNTER → 2023-02-04 12:16 | Outpatient (CLI) | payer MEDICARE, SELFPAY ==
--- NOTE | 2023-02-04 12:19 | XR_ITS ---
FINAL REPORT TECHNIQUE: Chest PA & Lateral CLINICAL HISTORY: cough, soa COMPARISON: None FINDINGS: 2 views of the chest were performed. The heart size is normal. The mediastinum is within normal limits. There is a moderate size right joint effusion present. Chronic changes are noted in the lung bases bilaterally, and mild hyperinflation is present as well. There is no pneumothorax. The bony thorax appears intact. IMPRESSION: Moderate size right joint effusion with chronic changes noted in the lung bases bilaterally. Reviewed, Interpreted and Dictated by Mauricio Stockton MD Transcribed by Mariah Cevallos Authenticated and [facility]
[2023-02-04 18:31] LABS: Adenovirus,PCR Not Detected (NotDetected); Coronavirus 19, PCR Not Detected (NotDetected); Coronavirus 229E Not Detected (NotDetected); Coronavirus NL63 Not Detected (NotDetected); Coronavirus OC43 Not Detected (NotDetected); Coronovirus HKU1,PCR Not Detected (NotDetected); Human Metapneumovirus Not Detected (NotDetected); Influenza A, PCR Not Detected (NotDetected); Influenza AH1, 2009 Not Detected (NotDetected); Influenza AH1, PCR Not Detected (NotDetected); Influenza AH3,PCR Not Detected (NotDetected); Influenza B, PCR Not Detected (NotDetected); Parainfluenza 1, PCR Not Detected (NotDetected); Parainfluenza 2, PCR Not Detected (NotDetected); Parainfluenza 3, PCR Not Detected (NotDetected); Parainfluenza 4, PCR Not Detected (NotDetected); Respiratory Syncytial Virus Not Detected (NotDetected); Rhinovirus/Enterovirus Not Detected (NotDetected)
== END ==
PROVIDERS: PCP Student in an Organized Health Care Education/Training Program; Visit Provider Student in an Organized Health Care Education/Training Program
DX: R06.02 Shortness of breath; R05.8 Other specified cough; R51.9 Headache, unspecified; R09.89 Other specified symptoms and signs involving the circulatory and respiratory systems; R09.81 Nasal congestion; Z20.822 Contact with and (suspected) exposure to COVID-19; J44.1 Chronic obstructive pulmonary disease with (acute) exacerbation
CPT/HCPCS: 71046; 87581; 87632; 87635; 87798

== ENCOUNTER → 2023-02-06 09:51 | Outpatient (CLI) | payer MEDICARE, SELFPAY ==
--- NOTE | 2023-02-06 09:54 | US_ITS ---
FINAL REPORT CLINICAL HISTORY: Right sided pleural effusion FINDINGS: Limited sonographic images of the chest were obtained. There are large right and small left pleural effusions. IMPRESSION: Bilateral pleural effusions, right greater than left. Reviewed, Interpreted and Dictated by Mauricio Stockton MD Transcribed by Darline Dior Authenticated and [facility]
== END ==
PROVIDERS: PCP Student in an Organized Health Care Education/Training Program; Visit Provider Student in an Organized Health Care Education/Training Program
DX: J90 Pleural effusion, not elsewhere classified (principal); Z72.0 Tobacco use
CPT/HCPCS: 76604

== ENCOUNTER 2023-02-08 08:12 | Outpatient (CLI) | payer MEDICARE, SELFPAY ==
--- NOTE | 2023-02-08 08:12 | US_ITS ---
FINAL REPORT CLINICAL HISTORY: Right pleural effusion-- carla allred-- 2000 ml FINDINGS: ULTRASOUND-GUIDED THORACENTESIS HISTORY: Pleural effusion. ATTENDING PHYSICIAN: Dr. Stockton. PHYSICIAN PAN PULLER: Carla Bond PA-C TECHNIQUE: Informed consent was obtained from the patient. The indications and complications were discussed with the patient prior to beginning the procedure. This included, but was not limited to pain, bleeding, infection, and pneumothorax requiring chest tube placement. The right back was then prepped and draped in sterile fashion. 1% Lidocaine was used for local anesthesia. Utilizing sonographic guidance, a standard thoracentesis needle and sheath were inserted into the pleural space and approximately 3 L of dark yellow, clear pleural fluid was successfully removed without complication. The patient tolerated the procedure well. A portion of the fluid was sent to the laboratory. IMPRESSION: Technically successful sonographic guided right-sided thoracentesis as above. Films reviewed , interpreted and dictated by Dr. Stockton. Transcribed by Carla Bond PA-C. Reviewed, Interpreted and Dictated by Mauricio Stockton MD Transcribed by ROLO Meneses Authenticated and [facility]
[2023-02-08 08:28] VITALS: BP 130/61; PULSE 68; RESP 18; TEMP 36.2; O2SAT 85; BMI 25.0
--- NOTE | 2023-02-08 09:42 | XR_ITS ---
FINAL REPORT CLINICAL HISTORY: POST THORA- rt side COMPARISON: 02/04/2023 FINDINGS: TWO-VIEW CHEST The heart size is normal. The mediastinum is normal. There is bibasilar atelectasis and small effusions. Right effusion has significantly decreased in size. There is no pneumothorax. IMPRESSION: Right effusion significantly decreased in size. Reviewed, Interpreted and Dictated by Mauricio Stockton MD Transcribed by Darline Dior Authenticated and . [facility]
[2023-02-08 10:02] VITALS: BP 118/61; PULSE 91; RESP 20; TEMP 36.5; O2SAT 99
[2023-02-08 10:17] VITALS: BP 109/63; PULSE 89; RESP 18; O2SAT 93
[2023-02-08 10:32] VITALS: BP 113/63; PULSE 91; RESP 16; O2SAT 94
[2023-02-08 10:47] VITALS: BP 109/69; PULSE 90; RESP 19; TEMP 36.9; O2SAT 95
[2023-02-08 12:26] LABS: Appearance,Body Fld. Slightly hazy; RBC,Body Fluid < 10 cells/uL (< 10 X 10^3); Source, Body Fld. Pleural Fluid; TNC,Body Fluid 798 cells/uL (< 1000); Volume,Body Fld. 2000 mL
[2023-02-08 14:52] LABS: Mononuclear WBCs,Body Fluid 71 %; Polynuclear WBC,Body Fluid 28 %
[2023-02-09 16:01] LABS: Albumin, Body Fluid 3.2 g/dL (Not Estab.); LD, Body Fluid 1311 IU/L (.); Protein, Body Fluid 4.3 g/dL (.)
== END 2023-02-08 10:47 | disposition home or self-care (01) ==
PROVIDERS: PCP Student in an Organized Health Care Education/Training Program; Visit Provider Internal Medicine Pulmonary Disease
DX: J90 Pleural effusion, not elsewhere classified (principal); Z79.899 Other long term (current) drug therapy
CPT/HCPCS: 32555; 71046; 82042; 83615; 84155; 87070; 87205; 88112; 88305; 88341; 88342; 89051

== ENCOUNTER → 2023-02-14 12:47 | Outpatient (CLI) | payer MEDICARE, SELFPAY ==
--- NOTE | 2023-02-14 13:11 | XR_ITS ---
FINAL REPORT TECHNIQUE: Chest PA & Lateral CLINICAL HISTORY: Shortness of breath COMPARISON: 02/08/2023 FINDINGS: 2 views of the chest were performed. There is mild cardiomegaly. There are small bilateral pleural effusions. The right effusion is slightly larger as compared to the prior exam. There is mild bibasilar atelectasis. There is no pneumothorax. IMPRESSION: Small bilateral pleural effusions with the right effusion slightly larger compared to the prior exam. Mild bibasilar atelectasis. Reviewed, Interpreted and Dictated by Mauricio Stockton MD Transcribed by Mi Jovel Authenticated and [facility]
--- NOTE | 2023-02-14 14:29 | CT_ITS ---
FINAL REPORT TECHNIQUE: The patient was injected with IV contrast. Axial images were obtained through the chest in a PE protocol. 3-D reconstruction images were also performed. Individualized dose reduction techniques using automated exposure control or adjustment of the MA and/or KV according to patient's size were employed. CLINICAL HISTORY: SOB FINDINGS: Mediastinal vasculature is adequately opacified. No pulmonary artery filling defects are identified to suggest PE. There is no aortic dissection. There is no axillary adenopathy. There is no hilar or mediastinal adenopathy. The heart size is normal. There are moderate right and small left pleural effusions. Pleural effusion on the right measures 4.8 cm in depth. Pleural effusion on the left measures 3.0 cm in depth. There is a small pericardial effusion anteriorly measuring 1.2 cm. There is atelectasis and patchy airspace opacity at the bases. IMPRESSION: No pulmonary embolus or dissection. Bilateral pleural effusions and pericardial effusion as detailed above. Reviewed, Interpreted and Dictated by Mauricio Stockton MD Transcribed by Darline Dior Authenticated and [facility]
--- NOTE | 2023-02-14 14:29 | CT_ITS ---
FINAL REPORT TECHNIQUE: Axial images through the abdomen and pelvis was performed with and without contrast. Sagittal and coronal reformatted images were obtained and reviewed. This study was performed with techniques to keep radiation doses as low as reasonably achievable (ALARA). Individualized dose reduction techniques using automated exposure control or adjustment of mA and/or kV according to the patient's size were employed. CLINICAL HISTORY: Adenocarcinoma FINDINGS: The liver parenchyma is homogeneous. The gallbladder is present. The spleen is unremarkable. The adrenals are normal. The pancreas is unremarkable. There is a right renal cyst with mild peripheral calcification measuring 2.1 cm in diameter. The left kidney is unremarkable. Precontrast images demonstrate no nephrolithiasis. There is dense calcification of the abdominal aorta and iliac vessels. The appendix is normal. Streak artifact is seen arising from right hip prosthesis. The urinary bladder is unremarkable. There is no free fluid or adenopathy. There are moderate hypertrophic changes of degenerative disc disease at L4-5 and L5-S1. IMPRESSION: Right renal cysts with peripheral calcification, probably complex benign cyst. Consider follow-up scan to ensure stability. Reviewed, Interpreted and Dictated by Mauricio Stockton MD Transcribed by Darline Dior Authenticated and [facility]
[2023-02-14 14:55] LABS: Alanine Aminotransferase 18 U/L (12-78); Alkaline Phosphatase 73 U/L (38-126); Aspartate Amino Transferase 29 U/L (17-59); Bilirubin,Total 0.3 mg/dl (0.2-1.3); Blood Urea Nitrogen 8 mg/dl (9-20); Calcium 8.3 mg/dl (8.4-10.2); Carbon Dioxide 32 mmol/L (22.0-30.0); Chloride 100 mmol/L (98-107); Estimated Glomerular Filt Rate 110 ml/min (>60); GFR (African American) 133 ML/MIN (>60); Glucose 99 mg/dl (74-100); Lactate Dehydrogenase 168 U/L (313-618)
[2023-02-14 14:57] LABS: Albumin Level 3.9 g/dl (3.5-5.0); Albumin/Globulin Ratio 1.5 (1.1-1.8); Anion Gap 6.1 mEq/L (5-15); Globulin 2.6 g/dL (1.3-3.2); Potassium 4.1 mmoL/L (3.5-5.1); Sodium 134 mmol/L (136-145); Total Protein,Serum 6.5 g/dl (6.3-8.2)
[2023-02-14] MEDS: SODIUM CHLORIDE 0.9% 10ML SYR (RAD ONLY) 10 ML IV (16:01)
[2023-02-14] MEDS: 0.9 % SODIUM CHLORIDE 50 ML VIAL IV (16:01)
[2023-02-14] MEDS: IOPAMIDOL-370 (76%);100ML BOTTLE 100 ML IV (16:02)
== END ==
LOC: RT 12:48 → RAD 14:23
PROVIDERS: PCP Student in an Organized Health Care Education/Training Program; Visit Provider Internal Medicine Pulmonary Disease
DX: R06.09 Other forms of dyspnea (principal); R06.02 Shortness of breath; C80.1 Malignant (primary) neoplasm, unspecified; J90 Pleural effusion, not elsewhere classified; R00.0 Tachycardia, unspecified; Z72.0 Tobacco use
CPT/HCPCS: 36415; 71046; 71275; 74178; 80053; 83615; Q9967

== ENCOUNTER 2023-02-20 11:10 | Outpatient (CLI) | payer MEDICARE, SELFPAY ==
--- NOTE | 2023-02-20 11:14 | MR_ITS ---
FINAL REPORT CLINICAL HISTORY: LUNG CANCER. COMPARISON: None FINDINGS: Multiplanar MR imaging of the brain was performed without and with contrast. There is motion on many sequences slightly limiting overall image quality. There is mild age-appropriate atrophy. Scattered foci of increased T2 signal are seen in the cerebral white matter that have a nonspecific appearance but likely represent mild chronic ischemic/gliotic changes. There is no evidence of intracranial hemorrhage or mass. No abnormal ventricular dilatation is identified. There is no evidence of shift of the midline structures. No abnormal extra-axial fluid collection is seen. No area of abnormal restricted diffusion is identified. The posterior fossa and brainstem have an unremarkable appearance. No abnormal contrast enhancement is seen. Normal major vessel vascular flow voids are seen. IMPRESSION: Mild atrophy and chronic ischemic/gliotic changes. No acute intracranial abnormality. Reviewed, Interpreted and Dictated by Delta Bowman III, MD Transcribed by Mariah Cevallos Authenticated and [facility]
[2023-02-20] MEDS: SODIUM CHLORIDE 0.9% 10ML SYR (RAD ONLY) 10 ML IV (11:51)
[2023-02-20] MEDS: GADOTERIDOL INJ 17ML SYRINGE 13 ML IV (11:51)
== END 2023-02-20 23:59 ==
LOC: RAD 11:12
PROVIDERS: PCP Student in an Organized Health Care Education/Training Program; Visit Provider Internal Medicine Medical Oncology
DX: C80.1 Malignant (primary) neoplasm, unspecified (principal); C78.00 Secondary malignant neoplasm of unspecified lung
CPT/HCPCS: 70553; A9576

== ENCOUNTER 2023-02-21 11:14 | Outpatient (CLI) | payer MEDICARE, SELFPAY ==
--- NOTE | 2023-02-21 11:18 | XR_ITS ---
FINAL REPORT CLINICAL HISTORY: Nonspecific cough COMPARISON: 02/14/2023 FINDINGS: Two views of the chest were obtained. The heart size and pulmonary vascularity are within normal limits. The mediastinum is normal. Persistent bibasilar opacities favor atelectasis or pneumonia. There is a small pleural effusion. There is no pneumothorax. The bony thorax is intact. There is moderate degenerative change of the thoracic spine. IMPRESSION: Persistent bibasilar opacities and small pleural effusion. Reviewed, Interpreted and Dictated by Delta Bowman III, MD Transcribed by Abena Chavira Authenticated and [facility]
== END 2023-02-21 23:59 ==
LOC: RAD 11:15
PROVIDERS: PCP Student in an Organized Health Care Education/Training Program; Visit Provider Surgery
DX: R05.9 Cough, unspecified (principal)
CPT/HCPCS: 71046

== ENCOUNTER 2023-02-22 12:35 | Day surgery (SDC) | payer MEDICARE, SELFPAY ==
[2023-02-22 13:08] VITALS: BP 125/64; PULSE 58; RESP 18; TEMP 36.4; O2SAT 95; BMI 25.0
[2023-02-22] MEDS: LACTATED RINGERS 1000ML 1,000 ML 25 ML IV (13:39)
--- NOTE | 2023-02-22 15:24 | P.PNANES_ITS ---
[facility] Disclaimer: The information contained in this section may have been updated after the patient was seen, as this information can be updated by other users. Medical History (Updated 02/22/23 @ 13:14 by Carrie Rosen RN) Acute exacerbation of chronic obstructive pulmonary disease Acute respiratory failure with hypoxia Adenocarcinoma Chronic cough Community acquired pneumonia COPD (chronic obstructive pulmonary disease) Dyspnea on exertion Encounter for screening for malignant neoplasm of lung Hyperlipidemia NSTEMI (non-ST elevated myocardial infarction) Pleural effusion on right Pneumonia Pulmonary emphysema Respiratory failure with hypoxia Sepsis Smoking greater than 30 pack years Tachycardia Tobacco user Viral pneumonia Surgical History History of hip replacement Family History Other Lung cancer Social History (Updated 02/22/23 @ 13:14 by Carrie Rosen RN) Smoking Status: Former smoker alcohol intake: never substance use type: denies use current occupational status: retired Travel in the last 8 weeks: None household members: spouse lives independently: Yes marital status: education level: college caffeine: Yes physical activity: walking [facility] Anesthesia Checklist Patient Identification Patient Identification: Verbal (Name & ) Structural Data Admitted From: Home Planned Operative Procedure/s: egd Consent for Planned Operative Procedure(s) Verified: Yes Additional verifications Anesthesia Reactions: No Hx Blood Transfusions: No Blood Transfusion Reaction: No Airway Assessment Mallampati Score:: Class II TMJ Mobility Assessed: Yes Dentition: Poor Dentition Neurological Assessment Level of Consciousness: Awake, Alert and Appropriate Anesthesia Plan Anesthesia Risk discussed: Yes Anesthesia Plan: Verified ASA Class: III Anesthesia Type: MAC
[2023-02-22 15:34] VITALS: O2SAT 95
[2023-02-22 15:52] VITALS: BP 87/50; PULSE 81; RESP 14; TEMP 36.6; O2SAT 95
--- NOTE | 2023-02-22 15:56 | HMH.SCOPE ---
Procedure: Date: 02/22/23 Patient Date of :: 1945 Procedure Performed:: Esophagogastroduodenoscopy with biopsies Indications:: Patient is a 77-year-old male newly diagnosed with malignant pleural effusion referred by oncology for upper endoscopy to evaluate potential primary source. Patient has been having some mid epigastric discomfort for approximately 1 month. He also has noted some increasing shortness of breath. He has had about a 12 pound weight loss over the past several months. Recently had a chest x-ray followed by ultrasound which revealed right-sided pleural effusion for which he underwent radiologically directed thoracentesis on 02/08/2023. 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 He has undergone thorough imaging including CT scan of the chest abdomen pelvis as well as recent MRI of the brain. He was seen by oncology 2 days ago. At that time he states that he is having progressive shortness of air. He was referred for upper endoscopy for further evaluation as the cell type is consistent with possible upper GI etiology. Patient has not had colonoscopy. He is also being scheduled for PET scan and for radiology for pleural catheter placement due to the recurrent malignant effusion. Performing Provider:: Delta Altamirano MD Referring Provider:: MD Adia Oconnell Sedation:: MAC sedation Procedure:: Patient history was obtained and appropriate physical examination was performed. Patient's medications and allergies were reviewed. Informed consent was obtained after explaining the benefits, alternatives, and risks of the procedure including, but not limited to, bleeding, perforation, missed lesions, and adverse reaction to anesthesia medications. Patient was transported to endoscopy procedure room. Patient was connected to monitoring devices. Throughout the procedure the patient's blood pressure, pulse, and oxygen saturations were monitored continuously. Patient identification and planned procedure were verified by the staff. Patient was positioned in lateral decubitus position. Olympus endoscope was inserted via the oropharynx. Esophagus was cannulated. There was some minor tortuosity to the esophagus. In the distal esophagus between approximately 35 and 42 cm from the incisors there was a sessile inflammatory lesion. Initially this was felt to be possibly significant Manuel's esophagus. However there was masslike effect from this which was most pronounced at the distal aspect of the lesion near 41 to 42 cm. Just beyond this for couple centimeters the esophagus appeared normal and the gastroesophageal junction was encountered at approximately 43-year 44 cm. Stomach was cannulated and insufflated. Retroflexion revealed no evidence of any hiatal hernia. There is some diffuse gastropathy. Pylorus was traversed. Endoscope was advanced to the third portion of the duodenum which appeared normal. Within the duodenal bulb there is findings consistent with mild duodenitis and biopsies were obtained. Gastric mucosal biopsy was then obtained. Endoscope was withdrawn into the distal esophagus and several biopsies were obtained using cold biopsy forceps of the lesion. Endoscope was readvanced and stomach was desufflated and the endoscope was withdrawn. Findings:: Minor tortuosity to the esophagus Sessile Qasim circumferential inflammatory masslike lesion in the esophagus between approximately 35 and 42 cm. Most prominent mass effect at approximately 41 to 42 cm Gastroesophageal junction at approximately 43 to 44 cm from the incisors. Mild nonerosive diffuse gastropathy Mild nonerosive duodenitis within the duodenal bulb Recommendations:: Follow-up on pathology and treat appropriately Complications:: None immediately apparent Estimated blood obtained (mL): 3 Colonoscopy Component Colonoscopy Component Was a colonoscopy performed during today's procedure?: No
[2023-02-22 16:02] VITALS: BP 99/59; PULSE 69; RESP 16; O2SAT 98
[2023-02-22 16:12] VITALS: BP 120/45; PULSE 76; RESP 16; O2SAT 98
[2023-02-22 16:22] VITALS: BP 123/67; PULSE 76; RESP 16; TEMP 37.1; O2SAT 96
== END 2023-02-22 16:30 | disposition home or self-care (01) ==
PROVIDERS: PCP Student in an Organized Health Care Education/Training Program; Visit Provider Surgery
PROC: 0DJ08ZZ Inspection of Upper Intestinal Tract, Via Natural or Artificial Opening Endoscopic (ICD-10-PCS; CPT 43235; principal; 2023-02-22 13:00)
DX: J91.0 Malignant pleural effusion (principal); K22.89 Other specified disease of esophagus; K31.89 Other diseases of stomach and duodenum; C15.5 Malignant neoplasm of lower third of esophagus; F17.210 Nicotine dependence, cigarettes, uncomplicated
CPT/HCPCS: 43239

== ENCOUNTER 2023-02-26 10:50 | Inpatient (IN) | payer MEDICARE, SELFPAY ==
[2023-02-26] VITALS (10 sets, daily range): BP systolic 116–130; BP diastolic 59–70; PULSE 68–98; RESP 18–22; TEMP 36.4–36.8; O2SAT 92–95; BMI 25.0
--- NOTE | 2023-02-26 | US_ITS ---
FINAL REPORT TECHNIQUE: Ultrasound-guided thoracentesis performed by Dr. Shay. CLINICAL HISTORY: PLEURAL EFFUSION -- 1960 ML -- DR SHAY -- RT SIDE COMPARISON: None FINDINGS: ULTRASOUND-GUIDED THORACENTESIS Ultrasound-guided right sided thoracentesis was performed by Dr. Shay under ultrasound guidance performed by the photo optics technician at [facility]. 1960 mL of pleural fluid was withdrawn from the right hemithorax. 5 ultrasound images were obtained. See Dr. Shay's procedure note for further information. IMPRESSION: Ultrasound-guided right hemithorax thoracentesis performed by Dr. Shay, with 1960 mL of pleural fluid obtained. Reviewed, Interpreted and Dictated by Delta Bowman III, MD Transcribed by Mariah Cevallos Authenticated and [facility]
--- NOTE | 2023-02-26 10:58 | ECG_ITS ---
APPROVED REPORT Exam: Resting ECG HR:77 bpm ECG Measurements Heart Rate 77 AXES GA 164 P 73 QRSd 98 QRS 27 QT 374 T 80 QTc 406 Conclusion SINUS RHYTHM POSSIBLE ANTERIOR MYOCARDIAL INFARCTION , OF INDETERMINATE AGE [30 ms Q WAVE IN V3/V4, OR R < 0.2 mV IN V4] ABNORMAL ECG UNCONFIRMED REPORT Electronically signed by : Samm Shaw MD 02/26/2023 20:38:03
--- NOTE | 2023-02-26 11:13 | PC.NURSE ---
Dr. Shields at BS for pt eval
--- NOTE | 2023-02-26 11:14 | XR_ITS ---
FINAL REPORT CLINICAL HISTORY: cp, recent pleurocentesis, soa COMPARISON: 02/21/2023 FINDINGS: TWO-VIEW CHEST The heart size is normal. The mediastinum is normal. There is persistent bibasilar atelectasis or pneumonia. Small pleural effusions are identified. There is no pneumothorax. IMPRESSION: Persistent bibasilar atelectasis or pneumonia with small effusions. Reviewed, Interpreted and Dictated by Delta Bowman III, MD Transcribed by Darline Dior Authenticated and [facility]
--- NOTE | 2023-02-26 11:41 | PC.NURSE ---
PT gone to RAD via wheelchair
[2023-02-26 11:45] LABS: Basophils # 0.1 K/mm3 (0-0.2); Basophils % 0.7 % (0.1-2.0); Chloride 99 mmol/L (98-107); Eosinophils # 0.1 K/mm3 (0.0-0.4); Eosinophils % 1.6 % (0.1-12.0); Hematocrit 46.2 % (42.0-52.0); Hemoglobin 14.8 g/dL (14.1-18.0); Mean Corpuscular Hemoglobin 30.1 pg (27.0-31.2); Mean Corpuscular Volume 94.1 fl (80-94); Mean Platelet Volume 7.4 fl (7.4-10.4); Monocytes # 0.5 K/mm3 (0.1-1.0); Monocytes % 6.6 % (1.7-9.3); Neutrophils # 5.2 K/mm3 (1.8-7.8); Neutrophils % 76.1 % (37.0-80.0); Platelet Count 391 K/mm3 (142-424); Potassium 4.3 mmoL/L (3.5-5.1); Red Blood Count 4.91 M/mm3 (4.60-6.20); Red Cell Distribution Width 14.2 % (11.5-17.5); Sodium 136 mmol/L (136-145); White Blood Count 6.9 K/mm3 (4.8-10.8)
[2023-02-26 11:47] LABS: Alanine Aminotransferase 13 U/L (12-78); Aspartate Amino Transferase 28 U/L (17-59); Blood Urea Nitrogen 11 mg/dl (9-20); Creatinine Clearance Estimated 65 mL/min (50-200); Estimated Glomerular Filt Rate 131 ml/min (>60); GFR (African American) 159 ML/MIN (>60)
[2023-02-26 11:48] LABS: Albumin Level 3.5 g/dl (3.5-5.0); Albumin/Globulin Ratio 1.2 (1.1-1.8); Alkaline Phosphatase 80 U/L (38-126); Anion Gap 7.3 mEq/L (5-15); Bilirubin,Total 0.4 mg/dl (0.2-1.3); Calcium 8.3 mg/dl (8.4-10.2); Carbon Dioxide 34 mmol/L (22.0-30.0); Globulin 2.9 g/dL (1.3-3.2); Glucose 97 mg/dl (74-100); Total Protein,Serum 6.4 g/dl (6.3-8.2)
--- NOTE | 2023-02-26 11:51 | ED_ITS ---
Discharge Plan Disposition Patient Disposition: Admitted Chief Complaint: Shortness of Breath/Dyspnea Prescriptions Prescriptions: No Action Glynn Ndiaye 100-62.5-25 mcg blister with device 1 inh inhalation DAILY 90 Days Qty: 1 3RF ibuprofen 200 mg capsule 200 mg PO Q6H PRN (Reason: Pain) diclofenac sodium [Voltaren Arthritis Pain] 1 % gel 2 g topical QID Qty: 100 3RF Rx Instructions: apply to single elbow, wrist or hand; for hand includes palm/fingers/back of hand ipratropium-albuterol 0.5 mg-3 mg(2.5 mg base)/3 mL solution for nebulization 3 ml inhalation QID PRN (Reason: shortness of breath or wheezing) Qty: 300 3RF cetirizine 10 mg tablet 10 mg PO DAILY Qty: 30 2RF aspirin 81 mg tablet,delayed release (DR/EC) 81 mg PO DAILY famotidine [Pepcid] 20 mg Tablet 20 mg PO DAILY Referrals Follow up/Referrals: Adia Lemus PA [Primary Care Provider] - See instructions Clinical Impressions Clinical Impression: Bilateral pleural effusion Discharge ED Provider: Lauro Shields [facility] General Chief Complaint: Shortness of Breath/Dyspnea Stated Complaint: soa Time Seen by Provider: 02/26/23 10:53 Mode of Arrival: Wheelchair Source of Information: Patient Limitations: No Limitations Description of Symptoms (Recalled from ER Triage Doc. by RN): Patient sent from Dr. Hemphill office related to incresed shortness of breath. Patient states that he has had increased shortness of breath over the past couple of days that just got worse today. History of Present Illness HPI narrative: 77-year-old male history of COPD on 2 L nasal cannula at home, lung ad enocarcinoma following with pulmonology, CAD, hyperlipidemia, hypertension presenting with shortness of breath. Patient states that he recently had a pleurocentesis and had fluid taken off of his right lung. Has had difficulty lying flat at night and difficulty catching his breath when he wakes up in the morning. Got worse today, called rn otolaryngology who told him to come to the emergency department. Patient denies productive cough, chest pain, wheezing, fevers or chills, nausea or vomiting, or any other concerns. Related Data Home Medications Medication Instructions Recorded Confirmed aspirin 81 mg tablet,delayed 81 mg PO DAILY heart [facility] 11/26/22 02/22/23 release ibuprofen 200 mg capsule 200 mg PO Q6H PRN Pain 12/05/22 02/22/23 famotidine 20 mg tablet (Pepcid) 20 mg PO DAILY 02/22/23 02/22/23 Previous Rx's Medication Instructions Recorded fluticasone fur. 100 mcg-umeclid 1 inh inhalation DAILY 90 days #1 12/11/22 62.5 mcg-vilant 25 mcg ea inhalat.powder (Trelegy Ellipta) diclofenac sodium 1 % topical gel 2 g topical QID #100 grams 01/08/23 (Voltaren Arthritis Pain) cetirizine 10 mg tablet 10 mg PO DAILY Allergy Symptoms 02/04/23 #30 tabs ipratropium 0.5 mg-albuterol 3 mg 3 ml inhalation QID PRN shortness 02/04/23 (2.5 mg base)/3 mL nebulization of breath or wheezing #300 mL soln Allergies Allergy/AdvReac Type Severity Reaction Status Date / Time No Known Allergies Allergy Verified 02/22/23 13:03 [facility] Disclaimer: The information contained in this section may have been updated after the patient was seen, as this information can be updated by other users. Medical History (Updated 02/26/23 @ 15:05 by Lauro Shields MD) Acute exacerbation of chronic obstructive pulmonary disease Acute respiratory failure with hypoxia Adenocarcinoma Chronic cough Community acquired pneumonia COPD (chronic obstructive pulmonary disease) Dyspnea on exertion Encounter for screening for malignant neoplasm of lung Hyperlipidemia NSTEMI (non-ST elevated myocardial infarction) Pleural effusion on right Pneumonia Pulmonary emphysema Respiratory failure with hypoxia Sepsis Smoking greater than 30 pack years Tachycardia Tobacco user Viral pneumonia Surgical History History of hip replacement Family History Other Lung cancer Social History (Updated 02/22/23 @ 13:14 by Carrie Rosen RN) Smoking Status: Current every day smoker alcohol intake: never substance use type: denies use current occupational status: retired Travel in the last 8 weeks: None household members: spouse lives independently: Yes marital status: education level: college caffeine: Yes physical activity: walking ROS Obtained: Yes All systems reviewed & no additional complaints except as documented Physical Exam General General appearance: alert Neck Neck exam: Present trachea midline Chest Chest inspection: Present normal inspection and symmetric chest wall rise Respiratory Respiratory exam: Present normal lung sounds bilaterally and other (Nasal cannula in place); Absent respiratory distress, wheezes, stridor, accessory muscle use or prolonged expiratory phase Cardiovascular Cardiovascular exam: Present regular rate and normal rhythm Extremities Exam Extremities exam: Absent edema Neurological Exam Neurological exam: Present alert, oriented X3 and CN II-XII intact Skin Skin exam: Present warm and dry; Absent cyanosis, diaphoresis or pallor HEART Score HEART Score HEART Score assessment performed?: No History (anamnesis): Slightly suspicious ECG: Normal Age: >65 years Risk factors: 3 or more risk factors Troponin: </= normal limit HEART Score: 4 Critical Care Critical Care Time Critical Care Time: No Medical Decision Making Medical Records Medical records reviewed: Yes I reviewed the patient's medical records. Raghu Inquiry Pt receiving controlled substance: No Raghu was queried for this patient: No Vital Signs Vital Signs: 02/26/23 10:51 02/26/23 11:30 02/26/23 12:00 Temperature 97.5 F L Temperature Source Oral Pulse Rate 84 82 Pulse Rate [Radial] 75 Respiratory Rate 22 Blood Pressure 129/68 123/68 Blood Pressure [Right Arm] 130/64 Blood Pressure Mean Blood Pressure Mean [Right Arm] 86 Blood Pressure Source [Right Arm] Automatic Cuff Blood Pressure Position [Right Arm] Sitting 02 Sat by Pulse Oximetry 93 L 94 L 92 L Oxygen Delivery Method Nasal Cannula Nasal Cannula Nasal Cannula Oxygen Flow Rate (LPM) 2 2 2 02/26/23 12:30 02/26/23 13:02 02/26/23 14:00 Temperature Temperature Source Pulse Rate 74 68 79 Pulse Rate [Radial] Respiratory Rate 22 Blood Pressure 120/65 119/66 116/66 Blood Pressure [Right Arm] Blood Pressure Mean 88 Blood Pressure Mean [Right Arm] Blood Pressure Source [Right Arm] Blood Pressure Position [Right Arm] 02 Sat by Pulse Oximetry 94 L 94 L 95 Oxygen Delivery Method Nasal Cannula Nasal Cannula Nasal Cannula Oxygen Flow Rate (LPM) 2 2 2 Lab Data Labs: Lab Results 02/26/23 11:20: WBC 6.9, RBC 4.91, Hgb 14.8, Hct 46.2, MCV 94.1 H, MCH 30.1, MCHC 32.0, RDW 14.2, Plt Count 391, MPV 7.4, Neut % (Auto) 76.1, Lymph % (Auto) 15.0, [place] % (Auto) 6.6, Eos % (Auto) 1.6, Baso % (Auto) 0.7, Neut # (Auto) 5.2, Lymph # (Auto) 1.0, [place] # (Auto) 0.5, Eos # (Auto) 0.1, Baso # (Auto) 0.1, D- Dimer 0.79 H, Sodium 136, Potassium 4.3, Chloride 99, Carbon Dioxide 34 H, Anion Gap 7.3, BUN 11, Creatinine 0.60 L, Estimated Creat Clear 65, Estimated GFR 131, Est GFR ( Amer) 159, Glucose 97, Calcium 8.3 L, Total Bilirubin 0.4, AST 28, ALT 13, Alkaline Phosphatase 80, Troponin I < 0.01, NT-Pro-B Natriuret Pep 170, Total Protein 6.4, Albumin 3.5, Globulin 2.9, Albumin/Globulin Ratio 1.2 02/26/23 11:20 02/26/23 11:20 Response Orders (Tests/Meds): ED MEDICATIONS Discontinued Medications Generic Name Dose Route Start Last Admin Trade Name Freq PRN Reason Stop Dose Admin Iopamidol 75 ml 02/26/23 13:20 02/26/23 13:21 Iopamidol-370 (76%);100ml Bottle IV 02/26/23 13:21 75 ml ONCE ONE Administration Sodium Chloride 50 ml 02/26/23 13:20 02/26/23 13:21 0.9 % Sodium Chloride 50 Ml Vial IV 02/26/23 13:21 50 ml ONCE ONE Administration Sodium Chloride 10 ml 02/26/23 13:20 02/26/23 13:21 Sodium Chloride 0.9% 10ml Syr (Rad Only) IV 02/26/23 13:21 10 ml ONCE ONE Administration ORDERS Category Date Time Status CT angio chest PE protocol Stat Cat Scan 02/26/23 12:43 Completed Pulmonology Consult [Consult to Pulmonology] [CONS] Cons 02/26/23 14:56 Active Routine CXR 2 view (NOT portable) [XR chest 2V] Stat Exams 02/26/23 11:14 Completed Brain Natriuretic Peptide Stat Lab 02/26/23 11:20 Completed CBC w/Auto Diff [Complete Blood Count Auto Diff] Stat Lab 02/26/23 11:20 Completed CMP [Comprehensive Metabolic Panel] Stat Lab 02/26/23 11:20 Completed Complete Blood Count Auto Diff AMLAB Lab 02/27/23 06:00 Ordered Comprehensive Metabolic Panel AMLAB Lab 02/27/23 06:00 Ordered D-Dimer Stat Lab 02/26/23 11:20 Completed Magnesium AMLAB Lab 02/27/23 06:00 Ordered Trop I [Troponin I] Stat Lab 02/26/23 11:20 Completed Troponin I Q3H Lab 02/26/23 14:20 Received Troponin I Q3H Lab 02/26/23 17:15 Ordered ECG initial Besson Routine Y 02/26/23 10:58 Completed MDM Narrative Medical Decision Narrative: 77-year-old male history of COPD on 2 L nasal cannula at home, lung adenocarcinoma following with pulmonology, CAD, hyperlipidemia, hypertension presenting with shortness of breath. Patient states that he recently had a pleurocentesis and had fluid taken off of his right lung. Also had upper scope and biopsy done last week. Has had difficulty lying flat at night and difficulty catching his breath when he wakes up in the morning. Got worse today, called rn otolaryngology who told him to come to the emergency department. Patient denies productive cough, chest pain, wheezing, fevers or chills, nausea or vomiting, or any other concerns. Patient be noted the patient has recent diagnosis of lung cancer, recent pleurocentesis due to fluid buildup and complicated lung history complicating care. History was obtained via conversation with patient and . On arrival, patient hemodynamically stable, alert, oriented x4, appropriate, GCS 15, moving all extremities spontaneously, pupils equal and reactive to light. Full physical exam performed and significant for chronically ill-appearing male no acute distress. 2 L nasal cannula without increased work of breathing. Decreased breath sounds in lower lung garcia on the left as opposed to right, but no evidence of wheezes or rales. Hemodynamically stable. Differential includes pleural effusion, parapneumonic effusion, malignant effusion, pneumonia, bronchitis, COPD exacerbation, CHF, CAD, mucous plug, pneumothorax, among others. Patient was given supplemental oxygen for symptomatic management and correction of underlying abnormalities. Workup independently interpreted and significant for nonactionable CBC. Corporate Affairs Manager ry unremarkable. Patient did have elevated D-dimer. Chest x-ray with bilateral pleural effusions. CT PE was obtained and without PE, but bilateral, large pleural effusions. See radiology read for full review of final results. Independent interpretation of EKG shows sinus rhythm 77 beats a minute without ST or T wave changes concerning for acute ischemia. CO interval mildly elongated. QRS, QT intervals within normal limits.. Heart score 4. On reevaluation, patient resting comfortably. Still on 2 L nasal cannula. Pulmonology was contacted and case was discussed at length, recommended admission for thoracentesis. Hospital medicine contacted and patient was amenable to admission. Given patient presentation, workup, history, this most likely represents shortness of air secondary to bilateral pleural effusions. Because patient high risk for clinical decompensation, deemed appropriate for inpatient admission. Results were relayed to patient who voiced understanding and patient was agreeable to inpatient admission and management. Patient was admitted to the hospital for further definitive management.
--- NOTE | 2023-02-26 11:52 | PC.NURSE ---
Pt returned from RAD
[2023-02-26 11:57] LABS: D-Dimer 0.79 ug/mL (0.0-0.5); NT Pro Brain Natriuretic Pep. 170 pg/mL (0-450)
[2023-02-26 12:04] LABS: Troponin I < 0.01 ng/ml (0.00-0.034)
--- NOTE | 2023-02-26 12:37 | PC.NURSE ---
Rounded on pt. No needs voiced at this time. Call light within reach.
--- NOTE | 2023-02-26 12:43 | CT_ITS ---
FINAL REPORT TECHNIQUE: Thin section axial CT images were obtained from the lung apices to the upper abdomen. IV contrast was administered. MIP 3-D reformats were obtained. This study was performed with techniques to keep radiation doses as low as reasonably achievable (ALARA). Individualized dose reduction techniques using automated exposure control or adjustment of mA and/or kV according to the patient's size were employed. CLINICAL HISTORY: elevatd dimer, cancer, acute SOA COMPARISON: February 14, 2023 FINDINGS: Large bilateral pleural effusions have increased in size. Pleural effusions measure up to 9 cm in depth on the right and 6 cm on the left. Mild mediastinal adenopathy is nonspecific. The heart size is normal. There is a small but stable pericardial effusion. Images through the upper abdomen demonstrate worsening anasarca. There is worsening bilateral lower lobe collapse. There is no pulmonary embolism, aortic aneurysm or dissection. IMPRESSION: Interval increase in large bilateral pleural effusions. No pulmonary embolism. Reviewed, Interpreted and Dictated by Delta Bowman III, MD Transcribed by Harvey Mancilla Authenticated and [facility]
[2023-02-26] MEDS: 0.9 % SODIUM CHLORIDE 50 ML VIAL IV (13:21)
[2023-02-26] MEDS: SODIUM CHLORIDE 0.9% 10ML SYR (RAD ONLY) 10 ML IV (13:21)
[2023-02-26] MEDS: IOPAMIDOL-370 (76%);100ML BOTTLE 75 ML IV (13:21)
--- NOTE | 2023-02-26 14:09 | PC.NURSE ---
Dr. Shields at BS to update on results and POC
--- NOTE | 2023-02-26 14:26 | PC.NURSE ---
Dr. Shields speaking with Dr. Hays
--- NOTE | 2023-02-26 14:32 | PC.NURSE ---
Notified CM of pt admission
[2023-02-26 15:14] LABS: Troponin I < 0.01 ng/ml (0.00-0.034)
--- NOTE | 2023-02-26 15:27 | PC.NURSE ---
Report called to FERNANDEZ Chen on Med Surg.
--- NOTE | 2023-02-26 15:53 | EXP.PULM.CON ---
History of Present Illness History of present illness: Mr. Whitaker is a 74-year-old male recently diagnosed adenocarcinoma, malignant pleural effusion currently following in oncology due to get a Pleurx catheter placed presented to the ER with worsening respiratory distress found to have bilateral pleural effusions and pulmonary was called for further evaluation and manag PFSH [facility] Disclaimer: The information contained in this section may have been updated after the patient was seen, as this information can be updated by other users. Medical History (Updated 02/26/23 @ 15:05 by Lauro Shields MD) Acute exacerbation of chronic obstructive pulmonary disease Acute respiratory failure with hypoxia Adenocarcinoma Chronic cough Community acquired pneumonia COPD (chronic obstructive pulmonary disease) Dyspnea on exertion Encounter for screening for malignant neoplasm of lung Hyperlipidemia NSTEMI (non-ST elevated myocardial infarction) Pleural effusion on right Pneumonia Pulmonary emphysema Respiratory failure with hypoxia Sepsis Smoking greater than 30 pack years Tachycardia Tobacco user Viral pneumonia Surgical History History of hip replacement Family History Other Lung cancer Social History (Updated 02/22/23 @ 13:14 by Carrie Rosen RN) Smoking Status: Current every day smoker alcohol intake: never substance use type: denies use current occupational status: retired Travel in the last 8 weeks: None household members: spouse lives independently: Yes marital status: education level: college caffeine: Yes physical activity: walking Review of Systems Constitutional Constitutional: Reports fatigue and Reports weakness Eyes Eyes: Denies eye discharge, Denies dry eyes, Denies irritation and Denies itchy eyes ENT Ears, Nose, Mouth, and Throat: Denies lip swelling and Denies throat swelling *Cardiovascular Cardiovascular: Reports dyspnea and Reports dyspnea on exertion *Respiratory Respiratory: Reports chest congestion, Reports cough, Reports dyspnea, Reports dyspnea on exertion, Denies excessive phlegm production and Denies wheezing *Gastrointestinal Gastrointestinal: Denies abdominal pain, Denies belching and Denies cramping *Neurologic Neurologic: Reports weakness Psychiatric Psychiatric: Denies homicidal ideation and Denies suicidal ideation Endocrine Endocrine: Reports fatigue and Denies heat intolerance Hematologic/Lymphatic Hematologic/Lymphatic: Denies easy bleeding and Denies lymphadenopathy Allergic/Immunologic Allergic/Immunologic: Denies itchy eyes, Denies lip swelling, Denies throat swelling and Denies wheezing Pulmonology Exam Inpatient Vital signs and Labs for Last 24 Hours: Temp Pulse Resp BP Pulse Ox O2 Del Method O2 Flow Rate 97.5 F L 79 22 116/66 95 Room Air 2 02/26/23 15:43 02/26/23 15:43 02/26/23 15:43 02/26/23 15:43 02/26/23 14:00 02/26/23 15:43 02/26/23 14:00 Laboratory Results - last 24 hr 02/26/23 11:20: WBC 6.9, RBC 4.91, Hgb 14.8, Hct 46.2, MCV 94.1 H, MCH 30.1, MCHC 32.0, RDW 14.2, Plt Count 391, MPV 7.4, Neut % (Auto) 76.1, Lymph % (Auto) 15.0, Powell % (Auto) 6.6, Eos % (Auto) 1.6, Baso % (Auto) 0.7, Neut # (Auto) 5.2, Lymph # (Auto) 1.0, [place] # (Auto) 0.5, Eos # (Auto) 0.1, Baso # (Auto) 0.1, D-Dimer 0.79 H, Sodium 136, Potassium 4.3, Chloride 99, Carbon Dioxide 34 H, Anion Gap 7.3, BUN 11, Creatinine 0.60 L, Estimated Creat Clear 65, Estimated GFR 131, Est GFR ( Amer) 159, Glucose 97, Calcium 8.3 L, Total Bilirubin 0.4, AST 28, ALT 13, Alkaline Phosphatase 80, Troponin I < 0.01, NT-Pro-B Natriuret Pep 170, Total Protein 6.4, Albumin 3.5, Globulin 2.9, Albumin/Globulin Ratio 1.2 02/26/23 14:20: Troponin I < 0.01 I & O for Labs for Last 24 Hours: Intake & Output 02/23/23 02/24/23 02/25/23 02/26/23 23:59 23:59 23:59 23:59 Weight 160 lb Constitutional: Present moderate distress Head: Present normocephalic and atraumatic ENT: Present normal exam, normal oropharynx and mucous membranes moist Neck: Present normal inspection and full ROM Respiratory: Present respiratory distress, diminished air movement and able to speak in complete sentences; Absent wheezes Cardiac: Present S1/S2, Tachycardia and radial pulses present GI: Present soft and distention; Absent tenderness or guarding Skin: Present intact; Absent cyanosis or jaundice Neuro: Present alert, awake and oriented x 3 Extremities: Present normal inspection; Absent clubbing or cyanosis Psychiatric: Present normal affect and cooperative Meds Home Medications and Allergies Home Medications Medication Instructions Recorded Confirmed Type aspirin 81 mg tablet,delayed 81 mg PO DAILY heart health 11/26/22 02/26/23 History release ibuprofen 200 mg capsule 200 mg PO Q6H PRN Pain 12/05/22 02/26/23 History fluticasone fur. 100 mcg-umeclid 1 inh inhalation DAILY 90 days #1 12/11/22 02/26/23 Rx 62.5 mcg-vilant 25 mcg ea inhalat.powder (Trelegy Ellipta) diclofenac sodium 1 % topical gel 2 g topical QID #100 grams 01/08/23 02/26/23 Rx (Voltaren Arthritis Pain) cetirizine 10 mg tablet 10 mg PO DAILY Allergy Symptoms 02/04/23 02/26/23 Rx #30 tabs ipratropium 0.5 mg-albuterol 3 mg 3 ml inhalation QID PRN shortness 02/04/23 02/26/23 Rx (2.5 mg base)/3 mL nebulization of breath or wheezing #300 mL soln famotidine 20 mg tablet (Pepcid) 20 mg PO DAILY 02/22/23 02/26/23 History New Prescriptions to Start Prescriptions: Allergies Allergy/AdvReac Type Severity Reaction Status Date / Time No Known Allergies Allergy Verified 02/22/23 13:03 Results Laboratory Findings 02/26/23 11:20 02/26/23 16:10 PT/INR, D-dimer D-Dimer 0.79 ug/mL (0.0-0.5) H 02/26/23 11:20 Abnormal lab findings: Abnormal Labs 02/26/23 11:20 MCV 94.1 H D-Dimer 0.79 H Carbon Dioxide 34 H Creatinine 0.60 L Calcium 8.3 L Assessment and Plan *Assessment and plan (1) Bilateral pleural effusion: Status: Acute Category: Medical Code(s): J90 - Pleural effusion, not elsewhere classified Plan Mr. Whitaker is a 74-year-old male recently diagnosed adenocarcinoma, malignant pleural effusion currently following in oncology due to get a Pleurx catheter placed presented to the ER with worsening respiratory distress found to have bilateral pleural effusions and pulmonary was called for further evaluation and management. # Acute hypoxic respiratory failure: # Bilateral pleural effusions metastatic: Metastatic adenocarcinoma unknown primary, currently following with oncology. Thoracics from 02/08/2023 showed malignant pleural effusions. Patient had a right-sided thoracentesis performed at that point of time. Patient is due to get Pleurx catheter scheduled by oncology. Had endoscopy done considering esophageal mass status postbiopsy awaiting pathology results. Patient presented to the ER today with worsening respiratory found to have bilateral pleural effusions large pleural effusion moderate to large left pleural effusion worsening from his most recent chest x-ray. No evidence of pulm embolism/airspace disease noted. Plan: -DuoNebs every 6 hours on scheduled basis -Right-sided thoracentesis -Follow up pleural fluid studies. Have not sent for cytology. -Will consider performing a left-sided thoracentesis in the next 24 to 48 hours
[2023-02-26 16:26] LABS: Chloride 99 mmol/L (98-107); Potassium 4.3 mmoL/L (3.5-5.1); Sodium 136 mmol/L (136-145)
[2023-02-26 16:28] LABS: Alanine Aminotransferase 12 U/L (12-78); Alkaline Phosphatase 80 U/L (38-126); Aspartate Amino Transferase 23 U/L (17-59); Bilirubin,Total 0.4 mg/dl (0.2-1.3); Blood Urea Nitrogen 10 mg/dl (9-20); Creatinine Clearance Estimated 65 mL/min (50-200); Estimated Glomerular Filt Rate 131 ml/min (>60); GFR (African American) 159 ML/MIN (>60)
[2023-02-26 16:29] LABS: Albumin Level 3.4 g/dl (3.5-5.0); Albumin/Globulin Ratio 1.2 (1.1-1.8); Anion Gap 7.3 mEq/L (5-15); Calcium 8.3 mg/dl (8.4-10.2); Carbon Dioxide 34 mmol/L (22.0-30.0); Globulin 2.8 g/dL (1.3-3.2); Glucose 99 mg/dl (74-100); Total Protein,Serum 6.2 g/dl (6.3-8.2)
--- NOTE | 2023-02-26 16:33 | XR_ITS ---
PROCEDURE INFORMATION: Exam: XR Chest Exam date and time: 02/26/2023 4:56 PM Age: 77 years old Clinical indication: Other: Post thoracentesis TECHNIQUE: Imaging protocol: Radiologic exam of the chest. Views: 1 view. COMPARISON: CT ANGIO CHEST PE PROTOCOL 02/26/2023 1:17 PM FINDINGS: Lungs: Multifocal parenchymal consolidation with interval re-expansion of the right lower lobe. Pleural spaces: Interval decrease in volume of right-sided pleural fluid without evidence for pneumothorax. Persistent left pleural effusion. Heart/Mediastinum: No evidence of mediastinal widening or cardiac silhouette enlargement; the mediastinum and heart appear within normal limits for contour and size. Stable cardiac and mediastinal contours. Bones/joints: No evidence of acute osseous abnormalities within the visualized portions of the thoracic spine and ribs. Osseous structures appear appropriate for patient age. IMPRESSION: 1. Interval decrease in volume of right-sided pleural fluid without evidence for pneumothorax. 2. Persistent left pleural effusion.
[2023-02-26 16:49] LABS: Source, Body Fld. Thoracentesis Fluid
[2023-02-26 16:50] LABS: Appearance,Body Fld. Hazy; RBC,Body Fluid < 10 cells/uL (< 10 X 10^3); TNC,Body Fluid 964 cells/uL (< 1000); Volume,Body Fld. 1960 mL
--- NOTE | 2023-02-26 16:52 | P.PCN_ITS ---
[facility] Procedure Note Date: 02/26/23 Time: 16:00 Procedure Note:: Procedure:Right Thoracentesis Referring Physician Dr. Bond Indication for procedure: Pleural Effusion, Hypoxic Respiratory failure A time out was performed, and the chest x-ray was reviewed, the appropriate side was confirmed and marked. My hands were washed immediately prior to the procedure. I wore a surgical cap, mask with protective eyewear, sterile gown, and sterile gloves throughout the procedure. The patient was prepped and draped in a sterile manner using chlorhexidine scrub after the appropriate level was percussed and confirmed by ultrasound. 1% lidocaine was used to anesthetize the skin, ?subcutaneous tissue, superior aspect of the rib periosteum and parietal pleura.? A finder needle was then introduced at the seventh intercoastal space posteriorly?to locate the pleural fluid; straw colored cloudy fluid was aspirated. A 10-blade scalpel was used to brendan the skin at the insertion site. The Niid-m-Homkduaj needle was then introduced through the skin incision into the pleural space using negative aspiration pressure and the red colorimetric indicator to confirm appropriate positioning of the needle. The thoracentesis catheter was then threaded without difficulty.? 1960 ml of ?fluid was removed without difficulty. The catheter was then removed. No immediate complications were noted during the procedure. A post-procedure chest X-ray is pending at the time of this note. The fluid will be sent for routine pleural studies, cultures. Patient tolerated the procedure well? Estimated blood loss is 2cc.
[2023-02-26 16:53] LABS: Lactate Dehydrogenase 165 U/L (313-618)
[2023-02-26 17:48] LABS: Troponin I < 0.01 ng/ml (0.00-0.034)
[2023-02-26 18:13] LABS: Mononuclear WBCs,Body Fluid 83 %; Polynuclear WBC,Body Fluid 17 %
[2023-02-26] MEDS: IPRATROPIUM/ALBUTEROL 3 ML NEB IH (18:53)
--- NOTE | 2023-02-26 19:05 | PC.NURSE ---
A&OX4. TOLERATING 2LNC WELL, WHICH HE WEARS AT HOME. PT DID UNDERGO THORACENTESIS, TOLERATED VERY WELL. HAD 1960ML OF FLUID OUT. PT HAS HAD NO OTHER NEEDS OR C/O SINCE ARRIVAL TO FLOOR. DOES HAVE WET HACKING COUGH. VSS.
--- NOTE | 2023-02-26 19:38 | P.HP_ITS ---
History of Present Illness *Admission Date: 02/26/23 *Reason for visit:: dyspnea *History of present illness: Mr. Whitaker is a 77-year-old male with recent diagnosis of adenocarcinoma of the lung. Has previously had malignant effusion. Was sent by Dr. Mead from his office for increased shortness of breath. Evaluated in the ER. Patient has COPD and wears 2 L nasal cannula at home. On workup in the ER, patient has increased work of breathing but stable oxygen requirement of 2 L. Chest imaging obtained showing worsening bilateral effusions. Complains of orthopnea and dyspnea with exertion. Medicine was consulted for admission to assist with further management. On arrival to the floor, he denies productive cough, chest pain, fever, nausea or vomiting. States he is breathing somewhat better after performance of the right thoracentesis. [facility] Disclaimer: The information contained in this section may have been updated after the patient was seen, as this information can be updated by other users. Medical History Acute exacerbation of chronic obstructive pulmonary disease Acute respiratory failure with hypoxia Adenocarcinoma Chronic cough Community acquired pneumonia COPD (chronic obstructive pulmonary disease) Dyspnea on exertion Encounter for screening for malignant neoplasm of lung Hyperlipidemia NSTEMI (non-ST elevated myocardial infarction) Pleural effusion on right Pneumonia Pulmonary emphysema Respiratory failure with hypoxia Sepsis Smoking greater than 30 pack years Tachycardia Tobacco user Viral pneumonia Surgical History History of hip replacement Family History Lung cancer Social History Smoking Status: Current every day smoker alcohol intake: never substance use type: denies use current occupational status: retired Travel in the last 8 weeks: None household members: spouse lives independently: Yes marital status: education level: college caffeine: Yes physical activity: walking Review of Systems Review of Systems Review of systems (narrative): 14 point review of systems performed, pertinent positives and negatives as per HPI Constitutional Constitutional: Reports weakness *Neurologic Neurologic: Reports weakness Meds Home Medications and Allergies Home Medications Medication Instructions Recorded Confirmed Type aspirin 81 mg tablet,delayed 81 mg PO DAILY heart health 11/26/22 02/26/23 History release ibuprofen 200 mg capsule 200 mg PO Q6H PRN Pain 10/18/23 01/09/24 History fluticasone fur. 100 mcg-umeclid 1 inh inhalation DAILY 90 days #1 12/11/22 02/26/23 Rx 62.5 mcg-vilant 25 mcg ea inhalat.powder (Trelegy Ellipta) diclofenac sodium 1 % topical gel 2 g topical QID #100 grams 01/08/23 02/26/23 Rx (Voltaren Arthritis Pain) cetirizine 10 mg tablet 10 mg PO DAILY Allergy Symptoms 02/04/23 02/26/23 Rx #30 tabs ipratropium 0.5 mg-albuterol 3 mg 3 ml inhalation QID PRN shortness 02/04/23 02/26/23 Rx (2.5 mg base)/3 mL nebulization of breath or wheezing #300 mL soln famotidine 20 mg tablet (Pepcid) 20 mg PO DAILY 02/22/23 02/26/23 History New Prescriptions to Start Prescriptions: Allergies Allergy/AdvReac Type Severity Reaction Status Date / Time No Known Allergies Allergy Verified 02/22/23 13:03 Exam Data for Last 24 hours Vital signs and Labs for Last 24 Hours: Temp Pulse Resp BP Pulse Ox O2 Del Method O2 Flow Rate 97.7 F 69 18 128/59 L 94 L Nasal Cannula 2 02/26/23 16:00 02/26/23 18:54 02/26/23 16:00 02/26/23 16:00 02/26/23 16:00 02/26/23 18:55 02/26/23 18:55 Laboratory Results - last 24 hr 02/26/23 11:20: WBC 6.9, RBC 4.91, Hgb 14.8, Hct 46.2, MCV 94.1 H, MCH 30.1, MCHC 32.0, RDW 14.2, Plt Count 391, MPV 7.4, Neut % (Auto) 76.1, Lymph % (Auto) 15.0, [place] % (Auto) 6.6, Eos % (Auto) 1.6, Baso % (Auto) 0.7, Neut # (Auto) 5.2, Lymph # (Auto) 1.0, [place] # (Auto) 0.5, Eos # (Auto) 0.1, Baso # (Auto) 0.1, D- Dimer 0.79 H, Sodium 136, Potassium 4.3, Chloride 99, Carbon Dioxide 34 H, Anion Gap 7.3, BUN 11, Creatinine 0.60 L, Estimated Creat Clear 65, Estimated GFR 131, Est GFR ( Amer) 159, Glucose 97, Calcium 8.3 L, Total Bilirubin 0.4, AST 28, ALT 13, Alkaline Phosphatase 80, Troponin I < 0.01, NT-Pro-B Natriuret Pep 170, Total Protein 6.4, Albumin 3.5, Globulin 2.9, Albumin/Globulin Ratio 1.2 02/26/23 14:20: Troponin I < 0.01 02/26/23 16:10: Sodium 136, Potassium 4.3, Chloride 99, Carbon Dioxide 34 H, Anion Gap 7.3, BUN 10, Creatinine 0.60 L, Estimated Creat Clear 65, Estimated GFR 131, Est GFR ( Amer) 159, Glucose 99, Calcium 8.3 L, Total Bilirubin 0.4, AST 23, ALT 12, Alkaline Phosphatase 80, Lactate Dehydrogenase 165 L, Troponin I < 0.01, Total Protein 6.2 L, Albumin 3.4 L, Globulin 2.8, Albumin/Globulin Ratio 1.2 02/26/23 16:30: Fluid Source Thoracentesis fluid, Fluid Volume 1960, Fluid Appearance Hazy, Fluid RBC (Auto) < 10, Fld Tot Nucleated Cell 964, Fld Polynuclear WBCs % 17, Fld Mononuclear WBCs % 83 I & O for Last 24 hours: Intake & Output 02/23/23 02/24/23 02/25/23 02/26/23 23:59 23:59 23:59 23:59 Intake Total 600 / 600 Balance 600 / 600 Weight 72.348 kg Constitutional Constitutional: no acute distress, average body habitus, chronically ill appearing and cooperative *Routine HEENT Exam Head: Present normocephalic Eye: Present EOMI and PERRL ENT: Present mucous membranes moist *Routine Neck Exam Neck: Present supple; Absent lymphadenopathy *Routine Respiratory Exam Respiratory: Present accessory muscle use, crackles (bases) and diminished air movement (in bases); Absent rhonchi or wheezes *Routine Cardiovascular Exam Cardiovascular: Present RRR *Routine Abdominal Exam Abdominal: Present soft and normoactive bowel sounds; Absent tenderness *Routine Rectal Exam Rectal:: deferred *Routine Genitalia Exam Genitalia:: deferred *Routine Extremities Exam Extremities: Absent cyanosis, clubbing or edema *Routine Skin Exam Skin: Present warm; Absent rash *Routine Neurological Exam Neurological: Present alert, oriented X3 and moving all extremities; Absent altered mental status Assessment and Plan *Assessment and plan (1) Bilateral pleural effusion: Status: Acute Category: Medical Code(s): J90 - Pleural effusion, not elsewhere classified (2) COPD mixed type: Status: Acute Category: Medical Code(s): J44.9 - Chronic obstructive pulmonary disease, unspecified (3) Respiratory failure with hypoxia: Status: Acute Category: Medical Code(s): J96.91 - Respiratory failure, unspecified with hypoxia (4) Adenocarcinoma: Status: Acute Category: Medical Code(s): C80.1 - Malignant (primary) neoplasm, unspecified (5) Hyperlipidemia: Status: Acute Qualifiers: Hyperlipidemia type: mixed hyperlipidemia Qualified Code(s): E78.2 - Mixed hyperlipidemia Category: Medical Code(s): E78.5 - Hyperlipidemia, unspecified (6) Tobacco user: Status: Acute Category: Social Hx Code(s): Z72.0 - Tobacco use Plan Mr. Whitaker is a 77-year-old male with recently diagnosed adenocarcinoma, malignant pleural effusion. Follows with oncology and is due to get a Pleurx catheter. Sent to the ER today by pulmonology for evaluation of worsening shortness of breath and respiratory distress. Found to have bilateral effusions. Discussed case with ER, request admission for pulmonology eval and thoracentesis. Medicine agreed to admit for further management. Pulmonology consulted, thoracentesis on right side already performed. Continues to require inpatient management. Problems addressed as follows: Acute hypoxic respiratory failure: Bilateral pleural effusions metastatic: - History of metastatic adenocarcinoma of unknown primary. Following with oncology and pulmonology. Thoracentesis performed 02/08 showing malignant effusion. - Pulmonology consulted, appreciate their recommendations. Performed right thoracentesis today with drainage of almost 2 L of fluid. Planning for left thoracentesis in the next 1 to 2 days. - Continue DuoNebs every 6 hours on a scheduled basis - Continue supplemental oxygen for goal saturation greater 90%. Currently on 2 L -Pleural fluid studies pending. Holding on antibiotics pending studies. Likely malignant, low suspicion for infectious at this time. Full code regular diet holding anticoagulation in setting of thoracentesis
[2023-02-27] VITALS (11 sets, daily range): BP systolic 108–119; BP diastolic 46–88; PULSE 81–111; RESP 17–20; TEMP 36.6–37.8; O2SAT 86–98; BMI 25.1
[2023-02-27] MEDS: IPRATROPIUM/ALBUTEROL 3 ML NEB IH ×6 (00:15→21:56)
[2023-02-27] MEDS: MELATONIN 5MG TABLET 5 MG PO (00:22)
[2023-02-27 06:45] LABS: Basophils % 0.2 % (0.1-2.0); Eosinophils # 0.2 K/mm3 (0.0-0.4); Eosinophils % 1.2 % (0.1-12.0); Hematocrit 46.5 % (42.0-52.0); Hemoglobin 14.8 g/dL (14.1-18.0); Lymphocytes # 0.3 K/mm3 (0.7-4.5); Lymphocytes % 2.6 % (10-50); Mean Corpuscular HGB Conc 31.9 g/dL (31.8-35.4); Mean Corpuscular Hemoglobin 29.8 pg (27.0-31.2); Mean Corpuscular Volume 93.6 fl (80-94); Mean Platelet Volume 7.4 fl (7.4-10.4); Monocytes # 0.4 K/mm3 (0.1-1.0); Monocytes % 2.9 % (1.7-9.3); Neutrophils # 12.4 K/mm3 (1.8-7.8); Neutrophils % 93.1 % (37.0-80.0); Platelet Count 345 K/mm3 (142-424); Red Blood Count 4.97 M/mm3 (4.60-6.20); Red Cell Distribution Width 14.4 % (11.5-17.5); White Blood Count 13.3 K/mm3 (4.8-10.8)
[2023-02-27 06:46] LABS: Alanine Aminotransferase 11 U/L (12-78); Albumin/Globulin Ratio 1.2 (1.1-1.8); Alkaline Phosphatase 67 U/L (38-126); Anion Gap 3.3 mEq/L (5-15); Aspartate Amino Transferase 21 U/L (17-59); Bilirubin,Total 0.5 mg/dl (0.2-1.3); Blood Urea Nitrogen 15 mg/dl (9-20); Carbon Dioxide 31 mmol/L (22.0-30.0); Chloride 100 mmol/L (98-107); Creatinine Clearance Estimated 65 mL/min (50-200); Estimated Glomerular Filt Rate 110 ml/min (>60); GFR (African American) 133 ML/MIN (>60); Globulin 2.6 g/dL (1.3-3.2); Glucose 109 mg/dl (74-100); Magnesium 1.7 mg/dl (1.6-2.3); Potassium 4.3 mmoL/L (3.5-5.1); Sodium 130 mmol/L (136-145); Total Protein,Serum 5.6 g/dl (6.3-8.2)
[2023-02-27 06:48] LABS: MANUAL DIFFERENTIAL MANUAL DIFFERENTIAL (MANUAL DIFF)
[2023-02-27 08:29] LABS: Lymphocytes % 2 % (10-50); Monocytes % 1 % (2-9); Neutrophils % 89 % (42-76); Total Cells Counted 100
--- NOTE | 2023-02-27 08:30 | HMH.PHAINT1 ---
Pharmacy Intervention Comments: Home med list verified with patient at bedside and with external pharmacy list.
[2023-02-27 08:37] LABS: Platelet Estimate Normal; RBC Morphology Normal
--- NOTE | 2023-02-27 09:44 | EXP.PULM.PN ---
Subjective *Date: 02/27/23 *Time: 12:08 Interval history: No acute respiratory vents overnight. Patient admits improvement in his respiratory distress Pulmonology Exam Inpatient Vital signs and Labs for Last 24 Hours: Temp Pulse Resp BP Pulse Ox O2 Del Method O2 Flow Rate 98.7 F 108 H 20 117/53 L 91 L Nasal Cannula 3 02/27/23 08:00 02/27/23 08:00 02/27/23 08:00 02/27/23 08:00 02/27/23 08:00 02/27/23 09:13 02/27/23 09:13 Laboratory Results - last 24 hr 02/26/23 11:20: WBC 6.9, RBC 4.91, Hgb 14.8, Hct 46.2, MCV 94.1 H, MCH 30.1, MCHC 32.0, RDW 14.2, Plt Count 391, MPV 7.4, Neut % (Auto) 76.1, Lymph % (Auto) 15.0, [place] % (Auto) 6.6, Eos % (Auto) 1.6, Baso % (Auto) 0.7, Neut # (Auto) 5.2, Lymph # (Auto) 1.0, [place] # (Auto) 0.5, Eos # (Auto) 0.1, Baso # (Auto) 0.1, D-Dimer 0.79 H, Sodium 136, Potassium 4.3, Chloride 99, Carbon Dioxide 34 H, Anion Gap 7.3, BUN 11, Creatinine 0.60 L, Estimated Creat Clear 65, Estimated GFR 131, Est GFR ( Amer) 159, Glucose 97, Calcium 8.3 L, Total Bilirubin 0.4, AST 28, ALT 13, Alkaline Phosphatase 80, Troponin I < 0.01, NT-Pro-B Natriuret Pep 170, Total Protein 6.4, Albumin 3.5, Globulin 2.9, Albumin/Globulin Ratio 1.2 02/26/23 14:20: Troponin I < 0.01 02/26/23 16:10: Sodium 136, Potassium 4.3, Chloride 99, Carbon Dioxide 34 H, Anion Gap 7.3, BUN 10, Creatinine 0.60 L, Estimated Creat Clear 65, Estimated GFR 131, Est GFR ( Amer) 159, Glucose 99, Calcium 8.3 L, Total Bilirubin 0.4, AST 23, ALT 12, Alkaline Phosphatase 80, Lactate Dehydrogenase 165 L, Troponin I < 0.01, Total Protein 6.2 L, Albumin 3.4 L, Globulin 2.8, Albumin/Globulin Ratio 1.2 02/26/23 16:30: Fluid Source Thoracentesis fluid, Fluid Volume 1960, Fluid Appearance Hazy, Fluid RBC (Auto) < 10, Fld Tot Nucleated Cell 964, Fld Polynuclear WBCs % 17, Fld Mononuclear WBCs % 83 02/27/23 06:14: WBC 13.3 H D, RBC 4.97, Hgb 14.8, Hct 46.5, MCV 93.6, MCH 29.8, MCHC 31.9, RDW 14.4, Plt Count 345, MPV 7.4, Neut % (Auto) 93.1 H, Lymph % (Auto) 2.6 L, [place] % (Auto) 2.9, Eos % (Auto) 1.2, Baso % (Auto) 0.2, Neut # (Auto) 12.4 H, Lymph # (Auto) 0.3 L, [place] # (Auto) 0.4, Eos # (Auto) 0.2, Baso # (Auto) 0.0, Total Counted 100, Neutrophils % (Manual) 89 H, Band Neutrophils % 8.0, Lymphocytes % (Manual) 2 L, Monocytes % (Manual) 1 L, Platelet Estimate Normal, RBC Morphology Normal, Sodium 130 L, Potassium 4.3, Chloride 100, Carbon Dioxide 31 H, Anion Gap 3.3 L, BUN 15 D, Creatinine 0.70, Estimated Creat Clear 65, Estimated GFR 110, Est GFR ( Amer) 133, Glucose 109 H, Calcium 8.0 L, Magnesium 1.7, Total Bilirubin 0.5, AST 21, ALT 11 L, Alkaline Phosphatase 67, Total Protein 5.6 L, Albumin 3.0 L D, Globulin 2.6, Albumin/Globulin Ratio 1.2 I & O for Labs for Last 24 Hours: Intake & Output 02/24/23 02/25/23 02/26/23 02/27/23 23:59 23:59 23:59 23:59 Intake Total 600 / 600 270 / 270 Output Total 100 / 100 Balance 600 / 600 170 / 170 Weight 159 lb 8 oz 160 lb 4.8 oz Constitutional: Present moderate distress Head: Present normocephalic and atraumatic ENT: Present normal exam, normal oropharynx and mucous membranes moist Neck: Present normal inspection and full ROM Respiratory: Present respiratory distress, diminished air movement and able to speak in complete sentences; Absent wheezes Comment:: Improved aeration right lung garcia. Continue to have decreased breath sounds in the left lower lung garcia. Cardiac: Present S1/S2, Tachycardia and radial pulses present GI: Present soft and distention; Absent tenderness or guarding Skin: Present intact; Absent cyanosis or jaundice Neuro: Present alert, awake and oriented x 3 Extremities: Present normal inspection; Absent clubbing or cyanosis Psychiatric: Present normal affect and cooperative Assessment and Plan *Assessment and plan (1) Bilateral pleural effusion: Status: Acute Category: Medical Code(s): J90 - Pleural effusion, not elsewhere classified Plan Mr. Whitaker is a 74-year-old male recently diagnosed adenocarcinoma, malignant pleural effusion currently following in oncology due to get a Pleurx catheter placed presented to the ER with worsening respiratory distress found to have bilateral pleural effusions and pulmonary was called for further evaluation and management. # Acute hypoxic respiratory failure: # Bilateral pleural effusions metastatic: Metastatic adenocarcinoma unknown primary, currently following with oncology. Thoracentesis from 02/08/2023 showed malignant pleural effusions. Patient had a right-sided thoracentesis performed at that point of time. Patient is due to get Pleurx catheter scheduled by oncology. Had endoscopy done considering esophageal mass status postbiopsy awaiting pathology results. Patient presented to the ER today with worsening respiratory found to have bilateral pleural effusions large pleural effusion moderate to large left pleural effusion worsening from his most recent chest x-ray. No evidence of pulm embolism/airspace disease noted. Interval update: Status post right-sided thoracentesis yesterday with removal of 1960cc of pleural fluid. Significant improvement in aeration in right lung garcia. Slight worsening leukocytosis. Continued to be having increased oxygen garments from baseline, proceed with left-sided thoracentesis today. Plan: -DuoNebs every 4 hours on scheduled basis -Follow-up pleural fluid studies from right-sided thoracentesis -Left-sided thoracentesis today
--- NOTE | 2023-02-27 12:28 | US_ITS ---
FINAL REPORT TECHNIQUE: Ultrasound-guided thoracentesis performed by Dr. Shay CLINICAL HISTORY: Pleural effusion --- DR. SHAY -- LT SIDE -- 1070 ML REMOVED COMPARISON: 02/25/2023 FINDINGS: ULTRASOUND GUIDED THORACENTESIS: Ultrasound-guided right-sided thoracentesis was performed by Dr. Shay with the aviation survival technician from [facility]. 1070 cc of pleural fluid was withdrawn from the right hemithorax. 6 ultrasound images were obtained. See Dr. Shay's procedure note for further information. IMPRESSION: Ultrasound-guided right side thoracentesis performed by Dr. Shay with 1070 cc of pleural fluid obtained. Reviewed, Interpreted and Dictated by Delta Bowman III, MD Transcribed by Mariah Cevallos Authenticated and [facility]
--- NOTE | 2023-02-27 13:30 | PC.NURSE ---
Thoracentesis completed at bedside. Patient tolerated well. 1070 output. RT paged for duoneb per patient request. Okay per Dr. Bond and Dr. Jimenez. Currently 95% on 5L. Denies pain or increased SOB. Okay to eat per Dr. Jimenez.
--- NOTE | 2023-02-27 14:02 | PC.NURSE ---
Patient's O2 98% on 5L. O2 decreased to 4L via nasal cannula
--- NOTE | 2023-02-27 15:01 | XR_ITS ---
FINAL REPORT CLINICAL HISTORY: Post thora COMPARISON: 02/26/2023 FINDINGS: SINGLE-VIEW CHEST The heart size is normal. The mediastinum is normal. There is improved left pleural effusion. There is persistent bibasilar atelectasis. There is no pneumothorax. IMPRESSION: Improvement in left pleural effusion. Reviewed, Interpreted and Dictated by Delta Bowman III, MD Transcribed by Darline Dior Authenticated and [facility]
--- NOTE | 2023-02-27 15:02 | HMH.PROCNOTE ---
[facility] Procedure Note Date: 02/27/23 Time: 15:03 Procedure Note:: Procedure: Left Thoracentesis Referring Physician Dr. Bond Indication for procedure: Pleural Effusion, Hypoxic Respiratory failure A time out was performed, and the chest x-ray was reviewed, the appropriate side was confirmed and marked. My hands were washed immediately prior to the procedure. I wore a surgical cap, mask with protective eyewear, sterile gown, and sterile gloves throughout the procedure. The patient was prepped and draped in a sterile manner using chlorhexidine scrub after the appropriate level was percussed and confirmed by ultrasound. 1% lidocaine was used to anesthetize the skin, ?subcutaneous tissue, superior aspect of the rib periosteum and parietal pleura.? A finder needle was then introduced at the seventh intercoastal space posterio-laterally?to locate the pleural fluid; straw colored cloudy fluid was aspirated. A 10-blade scalpel was used to brendan the skin at the insertion site. The [id number]-n-Grdvufvw needle was then introduced through the skin incision into the pleural space using negative aspiration pressure and the red colorimetric indicator to confirm appropriate positioning of the needle. The thoracentesis catheter was then threaded without difficulty.? 1070 ml of ?fluid was removed without difficulty. The catheter was then removed. No immediate complications were noted during the procedure. A post-procedure chest X-ray is pending at the time of this note. The fluid will be sent for routine pleural studies, cultures along with pleural fluid cytology. Patient tolerated the procedure well? Estimated blood loss is 2cc.
[2023-02-27] MEDS: FUROSEMIDE 40MG/4ML VIAL 40 MG IV (16:22)
--- NOTE | 2023-02-27 23:07 | EXP.ACUTE.PN ---
Subjective *Date: 02/27/23 *Time: 23:07 Interval history: Patient on 2 L this morning. States he is breathing little bit better and was able to sleep laying flat for the first time in quite a while. Labs show stability today. Minor cough. Tolerating p.o. intake. Denies chest pain. Reports decreased shortness of breath. Medical Exam Vital signs and Labs for Last 24 Hours: Vital Signs Temp Pulse Pulse Resp BP Pulse Ox O2 Del Method 02/27/23 22:05 100 H 02/27/23 22:05 103 H 02/27/23 21:00 Nasal Cannula 02/27/23 20:00 97.9 F 81 17 110/46 L 93 L Nasal Cannula 02/27/23 19:22 Nasal Cannula 02/27/23 18:14 105 H 02/27/23 18:14 110 H 02/27/23 18:14 91 L Nasal Cannula 02/27/23 16:00 108 H 02/27/23 16:00 98.5 F 111 H 18 108/52 L 95 Nasal Cannula 02/27/23 16:56 Nasal Cannula 02/27/23 15:07 Nasal Cannula 02/27/23 13:49 95 Nasal Cannula 02/27/23 13:25 Nasal Cannula 02/27/23 12:00 100 H 02/27/23 11:00 Nasal Cannula 02/27/23 11:21 98.4 F 100 H 20 115/88 98 Nasal Cannula 02/27/23 09:13 Nasal Cannula 02/27/23 08:00 110 H 02/27/23 08:00 98.7 F 108 H 20 117/53 L 91 L Nasal Cannula 02/27/23 08:20 Nasal Cannula 02/27/23 05:00 Nasal Cannula 02/27/23 03:00 Nasal Cannula 02/27/23 01:00 Nasal Cannula 02/27/23 06:32 102 H 02/27/23 06:32 102 H 02/27/23 00:00 106 H 02/27/23 04:00 100.0 F H 102 H 20 112/57 L 86 L Nasal Cannula 02/27/23 04:00 100 H 02/27/23 00:00 99.5 F 104 H 20 119/57 L 90 L Nasal Cannula O2 Flow Rate 02/27/23 22:05 02/27/23 22:05 02/27/23 21:00 02/27/23 20:00 02/27/23 19:22 4 02/27/23 18:14 02/27/23 18:14 02/27/23 18:14 4 02/27/23 16:00 02/27/23 16:00 4 02/27/23 16:56 4 02/27/23 15:07 4 02/27/23 13:49 5 02/27/23 13:25 5 02/27/23 12:00 02/27/23 11:00 5 02/27/23 11:21 5 02/27/23 09:13 3 02/27/23 08:00 02/27/23 08:00 3 02/27/23 08:20 3 02/27/23 05:00 4 02/27/23 03:00 2 02/27/23 01:00 2 02/27/23 06:32 02/27/23 06:32 02/27/23 00:00 02/27/23 04:00 02/27/23 04:00 02/27/23 00:00 Intake and Output 02/27/23 02/27/23 02/27/23 07:59 15:59 23:59 Intake Total 270 / 990 720 / 990 Output Total 100 / 900 300 / 900 500 / 900 Balance -100 / 90 -30 / 90 220 / 90 Intake: Intake, Oral Amount 270 / 990 720 / 990 Output: Output, Urine Amount 100 / 900 300 / 900 500 / 900 Other: Number of Unmeasured Voids 0 Weight 72.711 kg Patient Weight 02/27/23 23:59 Weight 72.711 kg Laboratory Results - last 24 hr 02/27/23 06:14: WBC 13.3 H D, RBC 4.97, Hgb 14.8, Hct 46.5, MCV 93.6, MCH 29.8, MCHC 31.9, RDW 14.4, Plt Count 345, MPV 7.4, Neut % (Auto) 93.1 H, Lymph % (Auto) 2.6 L, [place] % (Auto) 2.9, Eos % (Auto) 1.2, Baso % (Auto) 0.2, Neut # (Auto) 12.4 H, Lymph # (Auto) 0.3 L, [place] # (Auto) 0.4, Eos # (Auto) 0.2, Baso # (Auto) 0.0, Total Counted 100, Neutrophils % (Manual) 89 H, Band Neutrophils % 8.0, Lymphocytes % (Manual) 2 L, Monocytes % (Manual) 1 L, Platelet Estimate Normal, RBC Morphology Normal, Sodium 130 L, Potassium 4.3, Chloride 100, Carbon Dioxide 31 H, Anion Gap 3.3 L, BUN 15 D, Creatinine 0.70, Estimated Creat Clear 65, Estimated GFR 110, Est GFR ( Amer) 133, Glucose 109 H, Calcium 8.0 L, Magnesium 1.7, Total Bilirubin 0.5, AST 21, ALT 11 L, Alkaline Phosphatase 67, Total Protein 5.6 L, Albumin 3.0 L D, Globulin 2.6, Albumin/Globulin Ratio 1.2 I & O for Labs for Last 24 Hours: Intake & Output 02/24/23 02/25/23 02/26/23 02/27/23 23:59 23:59 23:59 23:59 Intake Total 600 / 600 990 / 990 Output Total 900 / 900 Balance 600 / 600 90 / 90 Weight 72.348 kg 72.711 kg Constitutional: Present no acute distress and average body habitus Head: Present atraumatic and normocephalic ENT: Present normal oropharynx and mucous membranes moist Comment:: poor dentition Neck: Present normal inspection Respiratory: Present wheezes, crackles (Improved aeration in right lung field; diminished in left) and normal respiratory effort; Absent accessory muscle use or rhonchi Cardiac: Present Reg Rate and Rhythm GI: Present soft and normal bowel sounds; Absent distention or tenderness Extremities: Present normal inspection and full ROM; Absent edema Skin: Present intact; Absent erythema Neuro: Present Grossly Intact, alert, awake, oriented x 3 and moves all extremities Assessment and Plan *Assessment and plan (1) Bilateral pleural effusion: Status: Acute Category: Medical Code(s): J90 - Pleural effusion, not elsewhere classified (2) COPD mixed type: Status: Acute Category: Medical Code(s): J44.9 - Chronic obstructive pulmonary disease, unspecified (3) Respiratory failure with hypoxia: Status: Acute Category: Medical Code(s): J96.91 - Respiratory failure, unspecified with hypoxia (4) Adenocarcinoma: Status: Acute Category: Medical Code(s): C80.1 - Malignant (primary) neoplasm, unspecified (5) Hyperlipidemia: Status: Acute Qualifiers: Hyperlipidemia type: mixed hyperlipidemia Qualified Code(s): E78.2 - Mixed hyperlipidemia Category: Medical Code(s): E78.5 - Hyperlipidemia, unspecified (6) Tobacco user: Status: Acute Category: Social Hx Code(s): Z72.0 - Tobacco use Plan Mr. Whitaker is a 77-year-old male with recently diagnosed adenocarcinoma, malignant pleural effusion. Follows with oncology and is due to get a Pleurx catheter. Sent to the ER today by pulmonology for evaluation of worsening shortness of breath and respiratory distress. Found to have bilateral effusions. Discussed case with ER, request admission for pulmonology eval and thoracentesis. Medicine agreed to admit for further management. Pulmonology consulted, thoracentesis on right side already performed. Continues to require inpatient management. Problems addressed as follows: Acute hypoxic respiratory failure: Bilateral pleural effusions metastatic: - History of metastatic adenocarcinoma of unknown primary. Following with oncology and pulmonology. Thoracentesis performed 02/08 showing malignant effusion. - Pulmonology consulted, appreciate their recommendations. Performed right thoracentesis 02/26 with removal of almost 2 L of fluid. Mick for left thoracentesis today. Pending response, anticipate discharge in the next 24 hours. - Continue DuoNebs every 6 hours on a scheduled basis - Continue supplemental oxygen for goal saturation greater 90%. Currently on 2 L -Pleural fluid studies pending. Holding on antibiotics pending studies. Likely malignant, low suspicion for infectious at this time. Full code regular diet holding anticoagulation in setting of thoracentesis
[2023-02-28] VITALS (8 sets, daily range): BP systolic 108–130; BP diastolic 51–69; PULSE 69–106; RESP 17–18; TEMP 36.3–36.9; O2SAT 88–95; BMI 25.2
[2023-02-28] MEDS: IPRATROPIUM/ALBUTEROL 3 ML NEB IH ×4 (01:46→14:29)
[2023-02-28 07:17] LABS: Basophils % 0.4 % (0.1-2.0); Eosinophils # 0.5 K/mm3 (0.0-0.4); Eosinophils % 5.1 % (0.1-12.0); Hematocrit 45.7 % (42.0-52.0); Hemoglobin 14.7 g/dL (14.1-18.0); Lymphocytes # 0.7 K/mm3 (0.7-4.5); Lymphocytes % 8.3 % (10-50); Mean Corpuscular HGB Conc 32.2 g/dL (31.8-35.4); Mean Corpuscular Hemoglobin 30.2 pg (27.0-31.2); Mean Platelet Volume 7.9 fl (7.4-10.4); Monocytes # 0.5 K/mm3 (0.1-1.0); Neutrophils # 7.1 K/mm3 (1.8-7.8); Neutrophils % 80.2 % (37.0-80.0); Platelet Count 301 K/mm3 (142-424); Red Blood Count 4.86 M/mm3 (4.60-6.20); Red Cell Distribution Width 14.4 % (11.5-17.5); White Blood Count 8.8 K/mm3 (4.8-10.8)
[2023-02-28 07:23] LABS: Anion Gap 5.2 mEq/L (5-15); Blood Urea Nitrogen 25 mg/dl (9-20); Calcium 7.8 mg/dl (8.4-10.2); Carbon Dioxide 32 mmol/L (22.0-30.0); Chloride 96 mmol/L (98-107); Creatinine Clearance Estimated 65 mL/min (50-200); Estimated Glomerular Filt Rate 82 ml/min (>60); GFR (African American) 99 ML/MIN (>60); Glucose 114 mg/dl (74-100); Magnesium 1.8 mg/dl (1.6-2.3); Potassium 4.2 mmoL/L (3.5-5.1); Sodium 129 mmol/L (136-145)
--- NOTE | 2023-02-28 08:09 | PC.NURSE ---
pt was at 84% on room air and resting rate. on NC 2L at 88%
--- NOTE | 2023-02-28 08:44 | EXP.DC.SUM ---
General Admission date:: 02/26/23 Discharge date: 02/28/23 HPI HPI HPI: Mr. Whitaker is a 77-year-old male with recent diagnosis of adenocarcinoma of the lung. Has previously had malignant effusion. Was sent by Dr. Mead from his office for increased shortness of breath. Evaluated in the ER. Patient has COPD and wears 2 L nasal cannula at home. On workup in the ER, patient has increased work of breathing but stable oxygen requirement of 2 L. Chest imaging obtained showing worsening bilateral effusions. Complains of orthopnea and dyspnea with exertion. Medicine was consulted for admission to assist with further management. On arrival to the floor, he denies productive cough, chest pain, fever, nausea or vomiting. States he is breathing somewhat better after performance of the right thoracentesis. Hospital Course Hospital Course Hospital Course: Mr. Whitaker is a 77-year-old male with recently diagnosed adenocarcinoma, malignant pleural effusion. Follows with oncology and is due to get a Pleurx catheter. Sent to the ER today by pulmonology for evaluation of worsening shortness of breath and respiratory distress. Found to have bilateral effusions. Discussed case with ER, request admission for pulmonology eval and thoracentesis. Medicine agreed to admit for further management. Pulmonology consulted, thoracentesis on right side already performed. Continues to require inpatient management. Problems addressed as follows: Acute hypoxic respiratory failure: Bilateral pleural effusions metastatic: - History of metastatic adenocarcinoma of unknown primary. Patient had EGD performed on 02/22. Tissue biopsies concerning for adenocarcinoma. 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 Scheduled to follow with oncology. Recommend following up with pulmonology as well. Seen by pulmonology during admission with thoracentesis performed on the right side on 02/26 and left side on 02/27. Had 2 L removed from right hemithorax and 1 L removed from left hemithorax. Cytology consistent with malignant effusion when previous Thora was performed in January. Continue DuoNebs during admission. Transition to breathing regimen at home including Trelegy inhaler and DuoNebs as needed. Initiated on levofloxacin 750 mg to complete 5 days total of antibiotics in the setting of possible pneumonia versus post expansion pulmonary edema. Continue supplemental oxygen for goal saturation greater 90%. On 3 L on day of discharge. Diuresed twice due to reexpansion edema. Will have close follow-up with pulmonology and oncology. Patient feeling symptomatically better with ability to lay flat to sleep but still having oxygen requirement. -Follow-up pleural fluid studies from right-sided thoracentesis -Follow-up pleural fluid studies and cytology from left-sided thoracentesis. Stable for discharge home. Spent 30 minutes in discharge counseling, documentation, chart review, and direct care with patient. Exam Data for Last 24 hours Vital signs and Labs for Last 24 Hours: Temp Pulse Resp BP Pulse Ox O2 Del Method O2 Flow Rate 97.8 F 106 H 18 108/61 L 88 L Nasal Cannula 2 02/28/23 08:00 02/28/23 08:00 02/28/23 08:00 02/28/23 08:00 02/28/23 08:00 02/28/23 08:00 02/28/23 08:00 Laboratory Results - last 24 hr 02/28/23 06:34: WBC 8.8 D, RBC 4.86, Hgb 14.7, Hct 45.7, MCV 94.0, MCH 30.2, MCHC 32.2, RDW 14.4, Plt Count 301, MPV 7.9, Neut % (Auto) 80.2 H, Lymph % (Auto) 8.3 L, [place] % (Auto) 6.0, Eos % (Auto) 5.1, Baso % (Auto) 0.4, Neut # (Auto) 7.1, Lymph # (Auto) 0.7, [place] # (Auto) 0.5, Eos # (Auto) 0.5 H, Baso # (Auto) 0.0, Sodium 129 L, Potassium 4.2, Chloride 96 L, Carbon Dioxide 32 H, Anion Gap 5.2, BUN 25 H D, Creatinine 0.90 D, Estimated Creat Clear 65, Estimated GFR 82, Est GFR ( Amer) 99 D, Glucose 114 H, Calcium 7.8 L, Magnesium 1.8 I & O for Last 24 hours: Intake & Output 02/25/23 02/26/23 02/27/23 02/28/23 23:59 23:59 23:59 23:59 Intake Total 600 / 600 990 / 1110 360 / 360 Output Total 900 / 900 100 / 100 Balance 600 / 600 90 / 210 260 / 260 Weight 72.348 kg 72.711 kg 73.028 kg Constitutional Constitutional: no acute distress, average body habitus, chronically ill appearing and cooperative *Routine HEENT Exam Head: Present normocephalic Eye: Present EOMI and PERRL ENT: Present mucous membranes moist *Routine Neck Exam Neck: Present supple; Absent lymphadenopathy *Routine Respiratory Exam Respiratory: Present rhonchi, crackles (In bases bilaterally posterior lung field), normal respiratory effort and symmetric chest movement *Routine Cardiovascular Exam Cardiovascular: Present RRR *Routine Abdominal Exam Abdominal: Present soft and normoactive bowel sounds; Absent tenderness *Routine Extremities Exam Extremities: Absent cyanosis, clubbing or edema *Routine Skin Exam Skin: Present warm; Absent rash *Routine Neurological Exam Neurological: Present alert, oriented X3, moving all extremities, vision grossly intact, hearing grossly intact and normal speech Routine Psychiatric Exam Psychiatric: Present normal affect, normal thought process, cooperative, good insight and good judgment Results Data Completed and Pending Labs on day of discharge: Labs from last 24 hours 02/28/23 06:34 WBC 8.8 D RBC 4.86 Hgb 14.7 Hct 45.7 MCV 94.0 MCH 30.2 MCHC 32.2 RDW 14.4 Plt Count 301 MPV 7.9 Neut % (Auto) 80.2 H Lymph % (Auto) 8.3 L [place] % (Auto) 6.0 Eos % (Auto) 5.1 Baso % (Auto) 0.4 Neut # (Auto) 7.1 Lymph # (Auto) 0.7 [place] # (Auto) 0.5 Eos # (Auto) 0.5 H Baso # (Auto) 0.0 Sodium 129 L Potassium 4.2 Chloride 96 L Carbon Dioxide 32 H Anion Gap 5.2 BUN 25 H D Creatinine 0.90 D Estimated Creat Clear 65 Estimated GFR 82 Est GFR ( Amer) 99 D Glucose 114 H Calcium 7.8 L Magnesium 1.8 DS: Diagnosis Discharge Diagnosis (1) Bilateral pleural effusion: Status: Acute Code(s): J90 - Pleural effusion, not elsewhere classified (2) COPD mixed type: Status: Acute Code(s): J44.9 - Chronic obstructive pulmonary disease, unspecified (3) Respiratory failure with hypoxia: Status: Acute Code(s): J96.91 - Respiratory failure, unspecified with hypoxia (4) Adenocarcinoma: Status: Acute Code(s): C80.1 - Malignant (primary) neoplasm, unspecified (5) Hyperlipidemia: Status: Acute Code(s): E78.5 - Hyperlipidemia, unspecified Qualifiers: Hyperlipidemia type: mixed hyperlipidemia Qualified Code(s): E78.2 - Mixed hyperlipidemia (6) Tobacco user: Status: Acute Code(s): Z72.0 - Tobacco use Meds Home Medications and Allergies Home Medications Medication Instructions Recorded Confirmed Type aspirin 81 mg tablet,delayed 81 mg PO DAILY 11/26/22 02/26/23 History release ibuprofen 200 mg capsule 200 mg PO Q6H PRN Pain 12/05/22 02/26/23 History fluticasone fur. 100 mcg-umeclid 1 inh inhalation DAILY 90 days #1 12/11/22 02/26/23 Rx 62.5 mcg-vilant 25 mcg ea inhalat.powder (Trelegy Ellipta) famotidine 20 mg tablet (Pepcid) 20 mg PO DAILY 02/22/23 02/26/23 History cetirizine 10 mg tablet 10 mg PO DAILY 02/27/23 02/26/23 History diclofenac sodium 1 % topical gel 2 g topical QIDP PRN Pain 02/27/23 02/27/23 History (Voltaren Arthritis Pain) ipratropium 0.5 mg-albuterol 3 mg 3 ml inhalation QID PRN Shortness 02/27/23 02/26/23 History (2.5 mg base)/3 mL nebulization Of Breath Or Wheezing soln levofloxacin 750 mg tablet 750 mg PO 1100 4 days #4 tabs 02/28/23 Rx New Prescriptions to Start Prescriptions: levoMarciano [place] Allergies Allergy/AdvReac Type Severity Reaction Status Date / Time No Known Allergies Allergy Verified 02/22/23 13:03 Discharge Plan Disposition Patient Disposition: Home, Self-Care Condition: Fair Discharge Order Discharge Orders: Discharge Order (Routine); Ordered 02/28/23 Ordered By: Marciano Bond Follow up Plan Follow up with: Adia Lemus PA [Primary Care Provider] - 03/07/23 10:00 am Sea Love MD [Staff Physician] - 03/05/23 10:45 am Radha Jimenez MD [Physician] - 03/13/23 2:45 pm Prescriptions/Medication Reconciliation: New levofloxacin 750 mg Tablet 750 mg PO 1100 4 Days Qty: 4 0RF Continued Trelegy Ellipta 100-62.5-25 mcg blister with device 1 inh inhalation DAILY 90 Days Qty: 1 3RF ibuprofen 200 mg capsule 200 mg PO Q6H PRN (Reason: Pain) aspirin 81 mg tablet,delayed release (DR/EC) 81 mg PO DAILY famotidine [Pepcid] 20 mg Tablet 20 mg PO DAILY ipratropium-albuterol 0.5 mg-3 mg(2.5 mg base)/3 mL solution for nebulization 3 ml inhalation QID PRN (Reason: Shortness Of Breath Or Wheezing) cetirizine 10 mg tablet 10 mg PO DAILY diclofenac sodium [Voltaren Arthritis Pain] 1 % gel 2 g topical QIDP PRN (Reason: Pain) Rx Instructions: Apply to single elbow, wrist or hand; for hand includes palm/fingers/back of hand Problem Reconciliation Problems Reviewed?: Yes Patient Discharge Instructions ACTIVITY: Continue current activity DIET: continue same diet Providers Primary Care Provider: Adia Lemus Admit Provider: Marciano Bond Attending Provider: Marciano Bond
--- NOTE | 2023-02-28 09:27 | EXP.PULM.PN ---
Subjective *Date: 02/28/23 *Time: 11:01 Interval history: No acute respiratory events overnight. Continued needing oxygen supplementation. Pulmonology Exam Inpatient Vital signs and Labs for Last 24 Hours: Temp Pulse Resp BP Pulse Ox O2 Del Method O2 Flow Rate 97.8 F 106 H 18 108/61 L 88 L Nasal Cannula 2 02/28/23 08:00 02/28/23 08:00 02/28/23 08:00 02/28/23 08:00 02/28/23 08:00 02/28/23 08:00 02/28/23 08:00 Laboratory Results - last 24 hr 02/28/23 06:34: WBC 8.8 D, RBC 4.86, Hgb 14.7, Hct 45.7, MCV 94.0, MCH 30.2, MCHC 32.2, RDW 14.4, Plt Count 301, MPV 7.9, Neut % (Auto) 80.2 H, Lymph % (Auto) 8.3 L, [place] % (Auto) 6.0, Eos % (Auto) 5.1, Baso % (Auto) 0.4, Neut # (Auto) 7.1, Lymph # (Auto) 0.7, [place] # (Auto) 0.5, Eos # (Auto) 0.5 H, Baso # (Auto) 0.0, Sodium 129 L, Potassium 4.2, Chloride 96 L, Carbon Dioxide 32 H, Anion Gap 5.2, BUN 25 H D, Creatinine 0.90 D, Estimated Creat Clear 65, Estimated GFR 82, Est GFR ( Amer) 99 D, Glucose 114 H, Calcium 7.8 L, Magnesium 1.8 I & O for Labs for Last 24 Hours: Intake & Output 02/25/23 02/26/23 02/27/23 02/28/23 23:59 23:59 23:59 23:59 Intake Total 600 / 600 990 / 1110 360 / 360 Output Total 900 / 900 100 / 100 Balance 600 / 600 90 / 210 260 / 260 Weight 159 lb 8 oz 160 lb 4.8 oz 161 lb Constitutional: Present moderate distress Head: Present normocephalic and atraumatic ENT: Present normal exam, normal oropharynx and mucous membranes moist Neck: Present normal inspection and full ROM Respiratory: Present respiratory distress, diminished air movement and able to speak in complete sentences; Absent wheezes Comment:: Improved aeration right lung garcia. Continue to have decreased breath sounds in the left lower lung garcia. Cardiac: Present S1/S2, Tachycardia and radial pulses present GI: Present soft and distention; Absent tenderness or guarding Skin: Present intact; Absent cyanosis or jaundice Neuro: Present alert, awake and oriented x 3 Extremities: Present normal inspection; Absent clubbing or cyanosis Psychiatric: Present normal affect and cooperative Assessment and Plan *Assessment and plan (1) Bilateral pleural effusion: Status: Acute Category: Medical Code(s): J90 - Pleural effusion, not elsewhere classified (2) Pulmonary edema: Status: Acute Category: Medical Code(s): J81.1 - Chronic pulmonary edema (3) Pneumonia: Status: Acute Category: Medical Code(s): J18.9 - Pneumonia, unspecified organism Plan Mr. Whitaker is a 74-year-old male recently diagnosed adenocarcinoma, malignant pleural effusion currently following in oncology due to get a Pleurx catheter placed presented to the ER with worsening respiratory distress found to have bilateral pleural effusions and pulmonary was called for further evaluation and management. # Acute hypoxic respiratory failure: # Bilateral pleural effusions metastatic: #Pneumonia: Metastatic adenocarcinoma unknown primary, currently following with oncology. Thoracentesis from 02/08/2023 showed malignant pleural effusions. Patient had a right-sided thoracentesis performed at that point of time. Patient is due to get Pleurx catheter scheduled by oncology. Patient presented to the ER today with worsening respiratory found to have bilateral pleural effusions large pleural effusion moderate to large left pleural effusion worsening from his most recent chest x-ray. No evidence of pulm embolism/airspace disease noted. Status post left thoracentesis with removal of 1070 cc fluid and right thoracentesis with removal of 1960ml fluid Esophageal biopsy resulted positive for invasive adenocarcinoma moderately differentiated. Interval update: No acute respiratory events overnight. Postprocedure chest x-ray showed near complete resolution of right and left pleural effusions. Worsening bilateral lower lobe infiltrates concerning for reexpansion pulmonary edema/pneumonia. Plan: -Trelegy 100 inhaler along with DuoNebs every 6 hours on as-needed basis -Lasix 40 mg IV once again today -Initial levofloxacin 750 mg for a total of 5 days. Follow sputum cultures -Follow with oncology as an outpatient basis -Continue oxygen supplementation to maintain O2 saturation above 90% and above. Currently needing 2 to 3 L to maintain O2 saturation below 89% and above. -DuoNebs every 6 hours as needed -Follow-up pleural fluid studies from right-sided thoracentesis -Follow-up pleural fluid studies and cytology from left-sided thoracentesis. Thank you for involving pulmonary in this patient we will follow patient in pulmonary clinic 2 weeks postdischarge.
--- NOTE | 2023-02-28 09:40 | XR_ITS ---
FINAL REPORT CLINICAL HISTORY: Shortness of breath COMPARISON: 02/27/2023 FINDINGS: A single portable view of the chest was obtained. The heart size and pulmonary vascularity are within normal limits. The mediastinum is within normal limits. Persistent bibasilar opacities are favored to represent pneumonia. The bony thorax is intact. IMPRESSION: Persistent bibasilar opacities favor pneumonia. Reviewed, Interpreted and Dictated by Delta Bowman III, MD Transcribed by Abena Chavira Authenticated and [facility]
[2023-02-28] MEDS: levoFLOXacin 750 MG TABLET PO (10:23)
[2023-02-28] MEDS: FUROSEMIDE 40MG/4ML VIAL 40 MG IV (10:26)
[2023-02-28] MEDS: FLUTICASONE/UMECLIDIN/VILANTER 100/62.5/25MCG INHALER 1 PUFF IH (11:20)
[2023-02-28 13:21] LABS: Albumin, Body Fluid 2.3 g/dL (Not Estab.); Glucose, Body Fluid 48 mg/dL (.); LD, Body Fluid 6483 IU/L (.); Protein, Body Fluid 3.1 g/dL (.)
[2023-02-28 13:21] LABS: Albumin, Body Fluid 2.8 g/dL (Not Estab.); Glucose, Body Fluid <2 mg/dL (.); LD, Body Fluid 1182 IU/L (.); Protein, Body Fluid 3.8 g/dL (.)
--- NOTE | 2023-03-01 15:01 | CARE MANAGER ---
Patient's called back in regards to hospital discharge. She states he feels much better today. He is aware of follow up appointments and denies questions or concerns. FERNANDEZ Dennis
== END 2023-02-28 15:10 | disposition home or self-care (01) | DRG 374 ==
LOC: ER 15:05 → 2ND 02-27 01:49
PROVIDERS: Internal Medicine Pulmonary Disease; Admitting Provider Internal Medicine Adolescent Medicine; Emergency Provider Emergency Medicine; PCP Student in an Organized Health Care Education/Training Program; Visit Provider Internal Medicine Adolescent Medicine
DX: C15.9 Malignant neoplasm of esophagus, unspecified (principal); J18.9 Pneumonia, unspecified organism; J96.01 Acute respiratory failure with hypoxia; J91.0 Malignant pleural effusion; J44.0 Chronic obstructive pulmonary disease with (acute) lower respiratory infection; E78.2 Mixed hyperlipidemia; F17.200 Nicotine dependence, unspecified, uncomplicated
CPT/HCPCS: 32555 ×2; 36415; 71045; 71046; 71275; 80048; 80053; 82042; 82945; 83615; 83735; 83880; 84155; 84484; 85007; 85025; 85378; 87070; 87205; 88112; 88305; 88341; 88342; 88360; 89051; 93005; 94640; 94761; 99285; Q9967

== ENCOUNTER 2023-03-07 08:39 | Day surgery (SDC) | payer MEDICARE, SELFPAY ==
[2023-03-06 09:12] VITALS: BMI 25.0
[2023-03-07] VITALS (9 sets, daily range): BP systolic 111–137; BP diastolic 61–73; PULSE 79–92; RESP 16–20; TEMP 36.2–36.6; O2SAT 93–98
[2023-03-07] MEDS: LACTATED RINGERS 1000ML 1,000 ML 25 ML IV (08:51)
--- NOTE | 2023-03-07 09:39 | P.PNANES_ITS ---
[facility] Disclaimer: The information contained in this section may have been updated after the patient was seen, as this information can be updated by other users. Medical History Acute exacerbation of chronic obstructive pulmonary disease Acute respiratory failure with hypoxia Adenocarcinoma Chronic cough Community acquired pneumonia COPD (chronic obstructive pulmonary disease) Dyspnea on exertion Encounter for screening for malignant neoplasm of lung Hyperlipidemia NSTEMI (non-ST elevated myocardial infarction) Pleural effusion on right Pneumonia Pneumonia Pulmonary edema Pulmonary emphysema Respiratory failure with hypoxia Sepsis Smoking greater than 30 pack years Tachycardia Tobacco user Viral pneumonia Surgical History History of hip replacement Family History Other Lung cancer Social History Smoking Status: Current every day smoker alcohol intake: never substance use type: denies use current occupational status: retired Travel in the last 8 weeks: None household members: spouse lives independently: Yes marital status: education level: college caffeine: Yes physical activity: walking [facility] [place] Anesthesia Checklist Patient Identification Patient Identification: Arm Band Structural Data Admitted From: Home Planned Operative Procedure/s: Port-a-cath Placement Consent for Planned Operative Procedure(s) Verified: Yes Verified Documents: Surgical Consent and History and Physical NPO Status Verified Time NPO: 00:00 Additional verifications Anesthesia Reactions: No Hx Blood Transfusions: No Blood Transfusion Reaction: No Airway Assessment Mallampati Score:: Class II C-Spine Mobility Assessed: Yes TMJ Mobility Assessed: Yes Dentition: Poor Dentition Neurological Assessment Level of Consciousness: Awake and Alert Anesthesia Plan Anesthesia Risk discussed: Yes Anesthesia Plan: Verified ASA Class: III Anesthesia Type: General
[2023-03-07] MEDS: CEFAZOLIN SODIUM 1 GM in 0.9 % SODIUM CHLORIDE 50 ML IV (10:30)
[2023-03-07] MEDS: LIDOCAINE 1% 20ML MDV 20 ML (10:38)
--- NOTE | 2023-03-07 11:02 | XR_ITS ---
FINAL REPORT CLINICAL HISTORY: PORT-A-CATH OR 31 seconds ft 9.03 mGy FINDINGS: FLUOROSCOPY LESS THAN 1 HOUR HISTORY: Fluoroscopy guidance. FINDINGS: Fluoroscopic guidance was provided for Port-A-Cath placement. A single spot film was obtained. A total of 31 seconds of fluoroscopy time were used. DAP: 9.03 mGy IMPRESSION: As above. Reviewed, Interpreted and Dictated by Delta Bowman III, MD Transcribed by Abena Chavira Authenticated and . [facility]
--- NOTE | 2023-03-07 11:18 | EXP.OP.NOTE ---
Date of procedure: 03/07/23 Pre-op Diagnosis:: Esophageal carcinoma Post-op Diagnosis:: Same Procedure performed:: Port-A-Cath placement Surgeon:: Jesus Manuel Wei MD CABLE SYSTEMS INSTALLER:: Karsten Magdaleno Anesthesia: LMA Estimated blood loss (mL): 10 Operative findings:: Catheter tip confirmed fluoroscopically Port flushed with 5 mL of heparinized saline Operative note:: After informed consent was obtained the patient was taken to the operating room and placed in the supine position. General anesthesia with laryngeal mask airway was achieved. His neck and chest were prepped and draped in a sterile fashion. A large bore needle was utilized to access the left subclavian vein. Geovani test negative. The guidewire was placed in position and confirmed fluoroscopically. After infiltration local anesthetic a transverse incision was made at the guidewire exit site. Electrocautery was utilized to create a pocket for the port hub. Utilizing a modified Seldinger technique the catheter was placed in position and the tip location was confirmed fluoroscopically. The catheter was cut to appropriate length and secured to the port hub. The port hub was then secured to the underlying fascia with interrupted Prolene. The deep subcutaneous tissue was reapproximated with Vicryl suture. Skin was then closed with running 4-0 Monocryl in a subcuticular fashion. The port was flushed with 5 mL of heparinized saline without difficulty. Dressings were applied and the patient was transferred to recovery in stable condition. Chest x-ray pending. Condition: stable Disposition: PACU Specimens:: None Complications:: No immediate. Chest x-ray pending.
--- NOTE | 2023-03-07 11:23 | EXP.ANES.I ---
[facility] Anesthesia Record Part I Anesthesia Record I Intake, IV Amount: 600 Hydration: Adequate Estimated blood loss (mL): 5 Urine output (mL): 0 Blood Products used (#): none Blood Pressure: 128/72 SaO2: 94 Pulse Rate: 79 Airway Patency: Patent Respiratory Rate: 16 Temperature: 97.9 F Patient is:: Drowsy and Stable Stable to PACU at:: 11:20
--- NOTE | 2023-03-08 08:55 | EXP.ANES.II ---
[facility] Anesthesia Record Part II Anesthesia Record Part II Discharge Time: 11:54 Destination: Surgical Day Care (OP Surgery) PACU nurse assessment reviewed?: Yes Patient Condition:: Good Anesthesia Complications:: None Swallowing reflex intact?: Yes Airway Patency: Patent Cyanosis?: No Blood Pressure: 124/67 SaO2: 93 Respiratory Rate: 18 Pulse Rate: 81 Temperature: 97.8 F Mental Status: Alert & Oriented Pain level:: 0 Nausea and/or vomitting:: None Intake, IV Amount: 0 Hydration: Adequate
[2023-03-08 08:56] VITALS: BP 124/67; PULSE 81; RESP 18; TEMP 36.6; O2SAT 93
--- NOTE | 2023-03-08 11:03 | PC.NURSE ---
1024- spoke to patient on the phone. Pt reports no SOB, chest pain, or any respiratory symptoms. Pt only reports stinging at the site , rates pain a 2/10 on numeric scale. Let patient know that before use of the PAC he will need a CXR. This RN told pt that she would call the pt back with arrangements. Pt stated he wouldn't drive out today, but will as soon as saturday . Told pt that if we were to experience any respiratory distress to come to the ER immediately, pt verbalized understanding. 1037- Notified MD Eriberto v.meagan for outpatient CXR with a stat read. 1102- Left a voicemail with pt letting him know that the order form was with registration and to come at his convenience
== END 2023-03-07 12:25 | disposition home or self-care (01) ==
PROVIDERS: PCP Student in an Organized Health Care Education/Training Program; Visit Provider Surgery
PROC: (CPT 36561; principal; 2023-03-07 10:00)
DX: C15.9 Malignant neoplasm of esophagus, unspecified (principal)
CPT/HCPCS: 36561; 71045; 76000; 96374; C1788; J1642; J2405

== ENCOUNTER 2023-03-13 14:24 | Outpatient (CLI) | payer MEDICARE, SELFPAY ==
--- NOTE | 2023-03-13 14:30 | XR_ITS ---
FINAL REPORT TECHNIQUE: Chest PA & Lateral CLINICAL HISTORY: port placement COMPARISON: 02/28/2023 FINDINGS: 2 views of the chest were performed. Mild cardiomegaly is present. A left subclavian port has been placed with its tip in the superior vena cava. The mediastinum is within normal limits. There are moderate bilateral pleural effusions with atelectasis, the effusion slightly larger than noted on February 28. There is no pneumothorax. The bony thorax appears intact. IMPRESSION: Left subclavian port is now present with its tip in the superior vena cava. Increase in size in the moderate pleural effusion since the prior chest x-ray of February 28. Reviewed, Interpreted and Dictated by Mauricio Stockton MD Transcribed by Mariah Cevallos Authenticated and [facility]
== END 2023-03-13 23:59 ==
LOC: RAD 14:26
PROVIDERS: PCP Student in an Organized Health Care Education/Training Program; Visit Provider Surgery
DX: C15.4 Malignant neoplasm of middle third of esophagus (principal)
CPT/HCPCS: 71046

== ENCOUNTER 2023-03-14 06:44 | Outpatient (CLI) | payer MEDICARE, SELFPAY ==
--- NOTE | 2023-03-14 06:46 | US_ITS ---
FINAL REPORT CLINICAL HISTORY: Ascites COMPARISON: None FINDINGS: Sonographic images of the right upper quadrant were obtained. The pancreas is partially obscured. There is coarsening of the echotexture of the liver, that may represent fatty infiltration. Bilateral pleural effusions are identified in the lung bases. The gallbladder appears normal without evidence of gallstones, although there is trace sludge present.There is no evidence of biliary ductal dilatation.The common duct measures 4mm. Limited images of the right kidney are remarkable for a 2.7 cm cyst. IMPRESSION: Coarsening of the echotexture of the liver, likely fatty infiltration. Bilateral pleural effusions are identified in the lung bases. Trace sludge in the gallbladder. 2.7 cm right renal cyst. Reviewed, Interpreted and Dictated by Mauricio Stockton MD Transcribed by Mariah Cevallos Authenticated and [facility]
== END 2023-03-14 23:59 ==
LOC: RAD 06:44
PROVIDERS: PCP Student in an Organized Health Care Education/Training Program; Visit Provider Internal Medicine Pulmonary Disease
DX: R18.8 Other ascites (principal)
CPT/HCPCS: 76705

== ENCOUNTER 2023-03-15 08:45 | Emergency (ER) | payer MEDICARE, SELFPAY ==
[2023-03-15 08:46] VITALS: BP 127/68; PULSE 96; RESP 22; TEMP 36.3; O2SAT 90; BMI 25.0
--- NOTE | 2023-03-15 08:51 | XR_ITS ---
FINAL REPORT CLINICAL HISTORY: Shortness of breath, rales RLL COMPARISON: 06/08/2023 FINDINGS: Chest port is present with the tip in the SVC. The heart size is normal. The mediastinum is normal. Patchy bibasilar airspace infiltrates and moderate pleural effusions have increased compared to the prior study, probably due to worsening pneumonia or edema but favor pneumonia. There is no pneumothorax. There is no osseous abnormality. IMPRESSION: Increased patchy bibasilar airspace infiltrates and moderate pleural effusions, probable worsening pneumonia. Reviewed, Interpreted and Dictated by Mauricio Stockton MD Transcribed by Abena Chavira Authenticated and [facility]
--- NOTE | 2023-03-15 08:52 | HMH.EDCP ---
Discharge Plan Disposition Patient Disposition: Home, Self-Care Chief Complaint: Shortness of Breath/Dyspnea Prescriptions Prescriptions: No Action Glynn Ndiaye 100-62.5-25 mcg blister with device 1 inh inhalation DAILY 90 Days Qty: 1 3RF ibuprofen 200 mg capsule 200 mg PO Q6H PRN (Reason: Pain) aspirin 81 mg tablet,delayed release (DR/EC) 81 mg PO DAILY famotidine [Pepcid] 20 mg Tablet 20 mg PO DAILY ipratropium-albuterol 0.5 mg-3 mg(2.5 mg base)/3 mL solution for nebulization 3 ml inhalation QID PRN (Reason: Shortness Of Breath Or Wheezing) cetirizine 10 mg tablet 10 mg PO DAILY diclofenac sodium [Voltaren Arthritis Pain] 1 % gel 2 g topical QIDP PRN (Reason: Pain) Rx Instructions: Apply to single elbow, wrist or hand; for hand includes palm/fingers/back of hand Referrals Follow up/Referrals: Provider,Referral, MD [Referring] - See instructions Activity Restrictions/Add. Instructions Additional Instructions/Restrictions: Call your family doctor to establish care for this visit to the emergency department and schedule follow-up within 48 hours to ensure improvement. If you have any worsening of your condition or any other concerning signs or symptoms, return to the emergency department or your primary care doctor for further evaluation. Clinical Impressions Clinical Impression: Shortness of breath, Pleural effusion Discharge ED Provider: Lauro Shields HPI General Chief Complaint: Shortness of Breath/Dyspnea Stated Complaint: soa Time Seen by Provider: 03/15/23 08:49 History of Present Illness HPI narrative: 77-year-old male history of COPD on 2 L nasal cannula at home, malignant stomach and esophageal mass (had port placed last week by surgery here), recurrent right-sided pleural effusion presenting with shortness of breath. Patient called ambulance just prior to this visit for shortness of breath. States has been feeling worse over the past couple of days with worsening cough that is nonproductive. No fevers or chills, nausea or vomiting. Patient states that he is not having chest pain in the absence of coughing, diaphoresis, abdominal pain, or any other concerns. States he needed help getting the hospital because he has a thoracentesis in an hour Related Data Home Medications Medication Instructions Recorded Confirmed aspirin 81 mg tablet,delayed 81 mg PO DAILY 11/26/22 03/13/23 release ibuprofen 200 mg capsule 200 mg PO Q6H PRN Pain 12/05/22 03/13/23 famotidine 20 mg tablet (Pepcid) 20 mg PO DAILY 02/22/23 03/13/23 cetirizine 10 mg tablet 10 mg PO DAILY 02/27/23 03/13/23 diclofenac sodium 1 % topical gel 2 g topical QIDP PRN Pain 02/27/23 03/13/23 (Voltaren Arthritis Pain) ipratropium 0.5 mg-albuterol 3 mg 3 ml inhalation QID PRN Shortness 02/27/23 03/13/23 (2.5 mg base)/3 mL nebulization Of Breath Or Wheezing soln Previous Rx's Medication Instructions Recorded fluticasone fur. 100 mcg-umeclid 1 inh inhalation DAILY 90 days #1 12/11/22 62.5 mcg-vilant 25 mcg ea inhalat.powder (Trelegy Ellipta) Allergies Allergy/AdvReac Type Severity Reaction Status Date / Time No Known Allergies Allergy Verified 03/13/23 15:53 [facility] Disclaimer: The information contained in this section may have been updated after the patient was seen, as this information can be updated by other users. Medical History Acute exacerbation of chronic obstructive pulmonary disease Acute respiratory failure with hypoxia Adenocarcinoma Ascites Chronic cough Community acquired pneumonia COPD (chronic obstructive pulmonary disease) Dyspnea on exertion Encounter for screening for malignant neoplasm of lung Hyperlipidemia NSTEMI (non-ST elevated myocardial infarction) Pleural effusion on right Pneumonia Pneumonia Pulmonary edema Pulmonary emphysema Respiratory failure with hypoxia Sepsis Smoking greater than 30 pack years Tachycardia Tobacco user Viral pneumonia Surgical History History of hip replacement Family History Other Lung cancer Social History Smoking Status: Unknown if ever smoked alcohol intake: never substance use type: denies use current occupational status: retired Travel in the last 8 weeks: None household members: spouse lives independently: Yes marital status: education level: college caffeine: Yes physical activity: walking ROS Obtained: Yes All systems reviewed & no additional complaints except as documented Physical Exam General General appearance: alert Neck Neck exam: Present trachea midline Chest Chest inspection: Present normal inspection and symmetric chest wall rise Respiratory Respiratory exam: Present wheezes (Diffusely), prolonged expiratory phase and other (Crackles right lower lung garcia); Absent respiratory distress, stridor or accessory muscle use Cardiovascular Cardiovascular exam: Present regular rate and normal rhythm Extremities Exam Extremities exam: Absent edema Neurological Exam Neurological exam: Present alert, oriented X3 and CN II-XII intact Skin Skin exam: Present warm and dry; Absent cyanosis, diaphoresis or pallor HEART Score HEART Score HEART Score assessment performed?: No Critical Care Critical Care Time Critical Care Time: No Medical Decision Making Medical Records Medical records reviewed: Yes I reviewed the patient's medical records. Raghu Inquiry Pt receiving controlled substance: No Raghu was queried for this patient: No Vital Signs Vital Signs: 03/15/23 08:46 Temperature 97.4 F L Temperature Source Oral Pulse Rate [Radial] 96 H Respiratory Rate 22 Blood Pressure [Right Arm] 127/68 Blood Pressure Mean [Right Arm] 87 Blood Pressure Source [Right Arm] Automatic Cuff Blood Pressure Position [Right Arm] Sitting 02 Sat by Pulse Oximetry 90 L Oxygen Delivery Method Nasal Cannula Oxygen Flow Rate (LPM) 2 Lab Data Labs: Lab Results 03/15/23 08:57: WBC 9.0, RBC 4.83, Hgb 15.9, Hct 45.7, MCV 94.7 H, MCH 33.0 H, MCHC 34.8, RDW 14.3, Plt Count 299, MPV 7.4, Neut % (Auto) 76.2, Lymph % (Auto) 13.8, [place] % (Auto) 6.5, Eos % (Auto) 2.4, Baso % (Auto) 1.2, Neut # (Auto) 6.9, Lymph # (Auto) 1.2, [place] # (Auto) 0.6, Eos # (Auto) 0.2, Baso # (Auto) 0.1, Sodium 141, Potassium 4.3, Chloride 99, Carbon Dioxide 39 H, Anion Gap 7.3, BUN 13, Creatinine 0.60 L, Estimated Creat Clear 65, Estimated GFR 131, Est GFR ( Amer) 159, Glucose 108 H, Calcium 8.8, Total Bilirubin 0.5, AST 29, ALT 14, Alkaline Phosphatase 90, Troponin I 0.01, NT-Pro-B Natriuret Pep 1190 H, Total Protein 6.6, Albumin 3.6, Globulin 3.0, Albumin/Globulin Ratio 1.2 03/15/23 08:57 03/15/23 08:57 Response Orders (Tests/Meds): ED MEDICATIONS Discontinued Medications Generic Name Dose Route Start Last Admin Trade Name Freq PRN Reason Stop Dose Admin Albuterol/Ipratropium 6 ml 03/15/23 08:51 03/15/23 09:06 Ipratropium/Albuterol 3 Ml Neb IH 03/15/23 08:52 6 ml ONCE ONE Administration Methylprednisolone Sodium Succinate 125 mg 03/15/23 08:51 03/15/23 09:06 Methylprednisolone Sod Succ 125mg Vial IV 03/15/23 08:52 125 mg ONCE ONE Administration ORDERS Category Date Time Status CXR --portable [XR chest portable] Stat Exams 03/15/23 08:51 Completed Brain Natriuretic Peptide Stat Lab 03/15/23 08:57 Completed CBC w/Auto Diff [Complete Blood Count Auto Diff] Stat Lab 03/15/23 08:57 Completed CMP [Comprehensive Metabolic Panel] Stat Lab 03/15/23 08:57 Completed Trop I [Troponin I] Stat Lab 03/15/23 08:57 Completed Troponin I Q3H Lab 03/15/23 12:00 Ordered Troponin I Q3H Lab 03/15/23 15:00 Ordered ECG initial Besson Routine Y 03/15/23 09:16 Completed MDM Narrative Medical Decision Narrative: 77-year-old male history of COPD on 2 L nasal cannula at home, malignant stomach and esophageal mass (had port placed last week by surgery here), recurrent right-sided pleural effusion presenting with shortness of breath. Patient called ambulance just prior to this visit for shortness of breath. States has been feeling worse over the past couple of days with worsening cough that is nonproductive. No fevers or chills, nausea or vomiting. Patient states that he is not having chest pain in the absence of coughing, diaphoresis, abdominal pain, or any other concerns. States he needed help getting the hospital because he has a thoracentesis in an ras. History was obtained via conversation with patient. On arrival, patient hemodynamically stable, alert, oriented x4, appropriate, GCS 15, moving all extremities spontaneously, pupils equal and reactive to light. Full physical exam performed and significant for chronically ill-appearing male in no acute distress. Who is 2 L nasal cannula in place saturating about 92%. Lungs have diffuse bilateral wheezes, as well as crackles in the right lower lung bases. Patient has prolonged expiratory phase. No lower extremity edema. Overall well-appearing in the setting of chronic illness. Differential includes recurrence of pleural effusion, COPD exacerbation, ACS, HI, pneumothorax, pneumonia, bronchitis, among others,. Patient was given Solu-Medrol, DuoNebs for symptomatic management and correction of underlying abnormalities. Workup independently interpreted and significant for nonactionable CBC or chemistry. BNP mildly elevated, troponin negative. Chest x-ray with bilateral pleural effusions, right greater than left. See radiology read for full review of final results. Independent interpretation of EKG shows sinus rhythm 85 beats a minute without ST or T wave changes concerning for acute ischemia. Low voltage, likely secondary to severe COPD and effusions. GA, QRS, QT intervals within normal limits. On reevaluation, patient resting comfortably bed. Given patient presentation, workup, history, this most likely represents reaccumulation of pleural effusion. Right now, patient to be discharged for appointment here in the hospital. Patient has appointment to have pleural effusion drained. Because patient at baseline without signs or symptoms of clinical decompensation, deemed appropriate for discharge. Results were relayed to patient who voiced understanding and were agreeable to outpatient management and follow up. At the time of discharge the patient was hemodynamically stable, tolerating PO, and mobilizing appropriately.
[2023-03-15] MEDS: METHYLPREDNISOLONE SOD SUCC 125MG VIAL 125 MG IV (09:06)
[2023-03-15] MEDS: IPRATROPIUM/ALBUTEROL 3 ML NEB 6 ML IH (09:06)
[2023-03-15 09:14] LABS: Basophils # 0.1 K/mm3 (0-0.2); Basophils % 1.2 % (0.1-2.0); Eosinophils # 0.2 K/mm3 (0.0-0.4); Eosinophils % 2.4 % (0.1-12.0); Hematocrit 45.7 % (42.0-52.0); Hemoglobin 15.9 g/dL (14.1-18.0); Lymphocytes # 1.2 K/mm3 (0.7-4.5); Lymphocytes % 13.8 % (10-50); Mean Corpuscular HGB Conc 34.8 g/dL (31.8-35.4); Mean Corpuscular Volume 94.7 fl (80-94); Mean Platelet Volume 7.4 fl (7.4-10.4); Monocytes # 0.6 K/mm3 (0.1-1.0); Monocytes % 6.5 % (1.7-9.3); Neutrophils # 6.9 K/mm3 (1.8-7.8); Neutrophils % 76.2 % (37.0-80.0); Platelet Count 299 K/mm3 (142-424); Red Blood Count 4.83 M/mm3 (4.60-6.20); Red Cell Distribution Width 14.3 % (11.5-17.5)
--- NOTE | 2023-03-15 09:16 | ECG_ITS ---
APPROVED REPORT Exam: Resting ECG HR:85 bpm ECG Measurements Heart Rate 85 AXES WY 148 P 51 QRSd 76 QRS 26 QT 327 T 71 QTc 369 Conclusion SINUS RHYTHM LOW QRS VOLTAGE IN EXTREMITY LEADS [QRS DEFLECTION < 0.5 mV IN LIMB LEADS] BORDERLINE ECG UNCONFIRMED REPORT Electronically signed by : Samm Shaw MD 03/15/2023 14:35:20
[2023-03-15 09:46] LABS: Alanine Aminotransferase 14 U/L (12-78); Albumin Level 3.6 g/dl (3.5-5.0); Albumin/Globulin Ratio 1.2 (1.1-1.8); Alkaline Phosphatase 90 U/L (38-126); Anion Gap 7.3 mEq/L (5-15); Aspartate Amino Transferase 29 U/L (17-59); Bilirubin,Total 0.5 mg/dl (0.2-1.3); Blood Urea Nitrogen 13 mg/dl (9-20); Calcium 8.8 mg/dl (8.4-10.2); Carbon Dioxide 39 mmol/L (22.0-30.0); Chloride 99 mmol/L (98-107); Creatinine Clearance Estimated 65 mL/min (50-200); Estimated Glomerular Filt Rate 131 ml/min (>60); GFR (African American) 159 ML/MIN (>60); Glucose 108 mg/dl (74-100); Potassium 4.3 mmoL/L (3.5-5.1); Sodium 141 mmol/L (136-145); Total Protein,Serum 6.6 g/dl (6.3-8.2)
[2023-03-15 09:57] LABS: NT Pro Brain Natriuretic Pep. 1190 pg/mL (0-450)
[2023-03-15 10:06] LABS: Troponin I 0.01 ng/ml (0.00-0.034)
[2023-03-15 10:25] VITALS: BP 127/60; PULSE 90; RESP 20; TEMP 36.4; O2SAT 94
--- NOTE | 2023-03-15 10:25 | PC.NURSE ---
Spoke with Constance in radiology. States she will come get patient for thoracentesis that had already been scheduled for today.
== END 2023-03-15 10:31 | disposition home or self-care (01) ==
PROVIDERS: Emergency Provider Emergency Medicine; PCP Student in an Organized Health Care Education/Training Program
DX: J90 Pleural effusion, not elsewhere classified (principal); R06.02 Shortness of breath; J44.9 Chronic obstructive pulmonary disease, unspecified; C16.9 Malignant neoplasm of stomach, unspecified; C15.9 Malignant neoplasm of esophagus, unspecified; E78.5 Hyperlipidemia, unspecified; I25.2 Old myocardial infarction; Z87.891 Personal history of nicotine dependence
CPT/HCPCS: 32555; 71045; 71046; 80053; 83880; 84484; 85025; 93005; 96374; 99285

== ENCOUNTER 2023-03-15 10:37 | Outpatient (CLI) | payer MEDICARE, SELFPAY ==
[2023-03-15] VITALS (7 sets, daily range): BP systolic 94–126; BP diastolic 53–63; PULSE 90–96; RESP 14–18; TEMP 36.3–36.6; O2SAT 88–100; BMI 25.0
--- NOTE | 2023-03-15 10:40 | US_ITS ---
FINAL REPORT CLINICAL HISTORY: ESOPHAGEAL CANCER -- JORGE SETH -- RT SIDE -- 2000 ML FINDINGS: ULTRASOUND-GUIDED THORACENTESIS HISTORY: Right pleural effusion. ATTENDING PHYSICIAN: Dr. Stockton. PHYSICIAN ELECTRICAL SIGN WIRER HELPER: Jorge Brennan PA-C TECHNIQUE: Informed consent was obtained from the patient. The indications and complications were discussed with the patient prior to beginning the procedure. This included, but was not limited to pain, bleeding, infection, and pneumothorax requiring chest tube placement. The right back was then prepped and draped in sterile fashion. 1% Lidocaine was used for local anesthesia. Utilizing sonographic guidance, a standard thoracentesis needle and sheath were inserted into the pleural space and approximately 2000 mL of clear yellow pleural fluid was successfully removed without complication. The patient tolerated the procedure well. IMPRESSION: Technically successful sonographic guided right-sidedthoracentesis as above. Films reviewed , interpreted and dictated by Dr. Stockton. Transcribed by Jorge uLke PA-C. Reviewed, Interpreted and Dictated by Mauricio Stockton MD Transcribed by ROLO Schofield Authenticated and [facility]
--- NOTE | 2023-03-15 11:23 | XR_ITS ---
FINAL REPORT TECHNIQUE: Chest PA & Lateral CLINICAL HISTORY: POST THORA COMPARISON: 2 hours prior FINDINGS: 2 views of the chest were performed. There is mild cardiomegaly. Left subclavian chest port is present with the tip in the SVC. There has been interval right thoracentesis. There is no pneumothorax. There is a persistent moderate left pleural effusion. Chronic changes are noted at the lung bases. The bony thorax appears intact. IMPRESSION: No pneumothorax postthoracentesis. Persistent moderate left pleural effusion. Reviewed, Interpreted and Dictated by Mauricio Stockton MD Transcribed by Abena Chavira Authenticated and . [facility]
== END 2023-03-15 13:04 | disposition home or self-care (01) ==
PROVIDERS: PCP Student in an Organized Health Care Education/Training Program; Visit Provider Internal Medicine Medical Oncology
DX: J90 Pleural effusion, not elsewhere classified (principal)
CPT/HCPCS: 32555; 71046

== ENCOUNTER 2023-03-19 08:58 | Outpatient (CLI) | payer MEDICARE, SELFPAY ==
[2023-03-19] VITALS (11 sets, daily range): BP systolic 120–145; BP diastolic 52–99; PULSE 54–91; RESP 19–20; TEMP 36.9; O2SAT 95–96
[2023-03-19] MEDS: CALCIUM GLUCONATE 1,000 MG, MAGNESIUM SULFATE 1 GM in DEXTROSE 5 % IN WATER 100 ML 224 MG IV ×2 (09:36→12:24)
[2023-03-19] MEDS: ONDANSETRON 4MG ODT 16 MG SL (09:37)
[2023-03-19] MEDS: DEXTROSE 5% IV (10:21)
[2023-03-19] MEDS: OXALIPLATIN IV (10:21)
[2023-03-19] MEDS: WATER IV (10:21)
[2023-03-19] MEDS: SODIUM CHLORIDE 0.9% 10ML FLUSH SYRINGE 10 ML IV (13:10)
--- NOTE | 2023-03-19 13:13 | XR_ITS ---
FINAL REPORT CLINICAL HISTORY: Pleural effusion COMPARISON: 03/15/2023 FINDINGS: There is a stable moderate size left pleural effusion, with an increasing small to moderate right pleural effusion. Bibasilar atelectasis is present. There is a port present on the right side whose tip is in the superior vena cava. Mild changes of emphysema are present. The mediastinum has a normal appearance. The cardiac silhouette is unremarkable. IMPRESSION: Stable moderate size left pleural effusion, increasing small to moderate right pleural effusion when compared to the prior exam of March 15. Reviewed, Interpreted and Dictated by Rasta Rocha MD Transcribed by Mariah Cevallos Authenticated and [facility]
--- NOTE | 2023-04-02 14:01 | DIET.NUTRFU ---
Chemo consult, had no dietary concerns at this time. provided contact information for any further concerns
== END 2023-03-19 15:51 | disposition home or self-care (01) ==
PROVIDERS: PCP Student in an Organized Health Care Education/Training Program; Visit Provider Internal Medicine Medical Oncology
DX: J90 Pleural effusion, not elsewhere classified (principal); R06.02 Shortness of breath; C15.4 Malignant neoplasm of middle third of esophagus; Z45.2 Encounter for adjustment and management of vascular access device
CPT/HCPCS: 71046; 96413; 96415; J1642; J9263

== ENCOUNTER 2023-04-09 09:33 | Outpatient (CLI) | payer MEDICARE, SELFPAY ==
[2023-04-09] VITALS (7 sets, daily range): BP systolic 106–146; BP diastolic 49–75; PULSE 53–103; RESP 18–19; TEMP 36.6; O2SAT 97; BMI 25.0
[2023-04-09 10:08] LABS: Chloride 101 mmol/L (98-107); Potassium 4.7 mmoL/L (3.5-5.1); Sodium 137 mmol/L (136-145)
[2023-04-09 10:10] LABS: Blood Urea Nitrogen 12 mg/dl (9-20); Creatinine Clearance Estimated 65 mL/min (50-200); Estimated Glomerular Filt Rate 110 ml/min (>60); GFR (African American) 133 ML/MIN (>60)
[2023-04-09 10:11] LABS: Alanine Aminotransferase 16 U/L (12-78); Albumin Level 3.5 g/dl (3.5-5.0); Albumin/Globulin Ratio 1.2 (1.1-1.8); Alkaline Phosphatase 88 U/L (38-126); Aspartate Amino Transferase 33 U/L (17-59); Calcium 8.9 mg/dl (8.4-10.2); Glucose 102 mg/dl (74-100); Total Protein,Serum 6.5 g/dl (6.3-8.2)
[2023-04-09 10:14] LABS: Basophils % 0.4 % (0.1-2.0); Eosinophils # 0.2 K/mm3 (0.0-0.4); Eosinophils % 2.8 % (0.1-12.0); Hematocrit 47.3 % (42.0-52.0); Hemoglobin 14.8 g/dL (14.1-18.0); Lymphocytes # 1.3 K/mm3 (0.7-4.5); Lymphocytes % 19.3 % (10-50); Mean Corpuscular HGB Conc 31.3 g/dL (31.8-35.4); Mean Corpuscular Hemoglobin 29.6 pg (27.0-31.2); Mean Corpuscular Volume 94.6 fl (80-94); Mean Platelet Volume 7.7 fl (7.4-10.4); Monocytes # 0.4 K/mm3 (0.1-1.0); Neutrophils # 4.6 K/mm3 (1.8-7.8); Neutrophils % 71.4 % (37.0-80.0); Platelet Count 391 K/mm3 (142-424); Red Cell Distribution Width 15.3 % (11.5-17.5); White Blood Count 6.5 K/mm3 (4.8-10.8)
[2023-04-09 10:19] LABS: Anion Gap 2.7 mEq/L (5-15); Bilirubin,Total 0.1 mg/dl (0.2-1.3); Carbon Dioxide 38 mmol/L (22.0-30.0)
[2023-04-09] MEDS: ONDANSETRON 4MG ODT 16 MG (10:35)
[2023-04-09] MEDS: CALCIUM GLUCONATE 1,000 MG, MAGNESIUM SULFATE 1 GM in DEXTROSE 5 % IN WATER 100 ML 224 MG IV ×2 (10:48→13:30)
[2023-04-09] MEDS: WATER IV (11:22)
[2023-04-09] MEDS: DEXTROSE 5% IV (11:22)
[2023-04-09] MEDS: OXALIPLATIN IV (11:22)
[2023-04-09] MEDS: SODIUM CHLORIDE 0.9% 10ML FLUSH SYRINGE 10 ML IV (14:08)
== END 2023-04-09 14:10 | disposition home or self-care (01) ==
LOC: INF 09:34
PROVIDERS: PCP Student in an Organized Health Care Education/Training Program; Visit Provider Internal Medicine Medical Oncology
DX: C15.4 Malignant neoplasm of middle third of esophagus (principal); Z79.899 Other long term (current) drug therapy
CPT/HCPCS: 80053; 85025; 96413; 96415; J1642; J9263

== ENCOUNTER 2023-04-10 16:38 | Inpatient (IN) | payer MEDICARE, SELFPAY ==
[2023-04-10] VITALS (17 sets, daily range): BP systolic 80–141; BP diastolic 35–67; PULSE 60–128; RESP 14–34; TEMP 37.1–37.2; O2SAT 78–100; BMI 21.4; BMI 21.7
--- NOTE | 2023-04-10 16:47 | ECG_ITS ---
APPROVED REPORT Exam: Resting ECG HR:122 bpm ECG Measurements Heart Rate 122 AXES MA 181 P 74 QRSd 70 QRS 132 QT 282 T 57 QTc 355 Conclusion SINUS TACHYCARDIA POSSIBLE RIGHT VENTRICULAR HYPERTROPHY [SOME/ALL OF: PROMINENT R IN V1, LATE TRANSITION, RAD, OSIRIS, SSS] POSSIBLE ANTERIOR MYOCARDIAL INFARCTION , PROBABLY OLD [30 ms Q WAVE IN V3/V4, OR R < 0.2 mV IN V4] ABNORMAL ECG UNCONFIRMED REPORT Electronically signed by : Samm Shaw MD 04/10/2023 20:34:28
--- NOTE | 2023-04-10 16:48 | XR_ITS ---
PROCEDURE INFORMATION: Exam: XR Chest Exam date and time: 04/10/2023 5:01 PM Age: 77 years old Clinical indication: Shortness of breath; Additional info: SOA TECHNIQUE: Imaging protocol: Radiologic exam of the chest. Views: 1 view. COMPARISON: CR XR CHEST 2V 03/19/2023 1:14 PM FINDINGS: Tubes, catheters and devices: Left subclavian tunneled central venous catheter is in stable position. Lungs: Bibasilar lung consolidations and small pleural effusions are slightly worse on the right but probably slightly improved on the left. Pleural spaces: Small bilateral pleural effusions, improved on the left. Heart/Mediastinum: No abnormalities. No cardiomegaly. No pulmonary vascular congestion. Bones/joints: No fractures or bone lesions. IMPRESSION: 1. Bilateral pleural effusions, slightly improved on the left. 2. Bibasilar lung consolidations could represent atelectasis or pneumonia and is probably worsened slightly on the right since 03/19/2023.
[2023-04-10 17:04] LABS: VBG Base Excess -2.3 mmol/L (-2.4-2.3); VBG Oxygen Saturation 85.6 % (50-70); VBG PCO2 58.5 mmol/L (35-51); VBG PH 7.25 mmol/L (7.31-7.41); VBG PO2 52.4 mmol/L (28-40); VBG Total CO2 26.8 mmol/L (23-27)
--- NOTE | 2023-04-10 17:08 | PC.NURSE ---
rad at bedside
--- NOTE | 2023-04-10 17:09 | PC.NURSE ---
RT at bedside for neb tx
[2023-04-10 17:12] LABS: Basophils # 0.1 K/mm3 (0-0.2); Basophils % 0.4 % (0.1-2.0); Eosinophils # 0.6 K/mm3 (0.0-0.4); Eosinophils % 3.4 % (0.1-12.0); Hematocrit 46.8 % (42.0-52.0); Hemoglobin 14.4 g/dL (14.1-18.0); Lymphocytes # 1.8 K/mm3 (0.7-4.5); Lymphocytes % 10.9 % (10-50); Mean Corpuscular HGB Conc 30.8 g/dL (31.8-35.4); Mean Corpuscular Hemoglobin 30.5 pg (27.0-31.2); Mean Corpuscular Volume 99.2 fl (80-94); Mean Platelet Volume 8.1 fl (7.4-10.4); Monocytes # 0.5 K/mm3 (0.1-1.0); Monocytes % 3.1 % (1.7-9.3); Neutrophils # 13.5 K/mm3 (1.8-7.8); Neutrophils % 82.3 % (37.0-80.0); Platelet Count 370 K/mm3 (142-424); Red Blood Count 4.72 M/mm3 (4.60-6.20); Red Cell Distribution Width 15.3 % (11.5-17.5); White Blood Count 16.4 K/mm3 (4.8-10.8)
[2023-04-10 17:14] LABS: Chloride 101 mmol/L (98-107); Sodium 132 mmol/L (136-145)
[2023-04-10 17:15] LABS: Potassium 5.1 mmoL/L (3.5-5.1)
[2023-04-10 17:16] LABS: MANUAL DIFFERENTIAL MANUAL DIFFERENTIAL (MANUAL DIFF)
[2023-04-10 17:17] LABS: Alanine Aminotransferase 29 U/L (12-78); Albumin Level 3.4 g/dl (3.5-5.0); Albumin/Globulin Ratio 1.1 (1.1-1.8); Alkaline Phosphatase 62 U/L (38-126); Anion Gap 6.1 mEq/L (5-15); Aspartate Amino Transferase 51 U/L (17-59); Bilirubin,Total 0.6 mg/dl (0.2-1.3); Blood Urea Nitrogen 15 mg/dl (9-20); Carbon Dioxide 30 mmol/L (22.0-30.0); Creatinine Clearance Estimated 58 mL/min (50-200); Estimated Glomerular Filt Rate 110 ml/min (>60); GFR (African American) 133 ML/MIN (>60); Total Protein,Serum 6.4 g/dl (6.3-8.2)
[2023-04-10 17:18] LABS: Calcium 8.2 mg/dl (8.4-10.2); Glucose 161 mg/dl (74-100)
[2023-04-10] MEDS: IPRATROPIUM/ALBUTEROL 3 ML NEB IH (17:28)
--- NOTE | 2023-04-10 17:35 | HMH.EDGENADL ---
Discharge Plan Disposition Patient Disposition: Admitted Clinical Impressions Clinical Impression: PNA (pneumonia) Discharge ED Provider: Debby Gracia General Adult HPI General Chief complaint: Shortness of Breath/Dyspnea Stated complaint: SOA,diarrhea Time Seen by Provider: 04/10/23 16:47 Mode of Arrival: Wheelchair Source of Information: Patient and Spouse Limitations: No Limitations Description of Symptoms (Recalled from ER Triage Doc. by RN): pt presents to ED for diarrhea and shortness of air. pt is a cancer. pts spouse reports diarrhea began today, shortness of breath ongoing for the past two days.pt wears oxygen at baseline, upon arrival to ED pt O2 sat 60% on 2L NC. 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 For the past 2 days patient has had progressively worsening shortness of breath. He feels like it is when his pleural effusions have built up and he needs fluid removed. He has been getting 500 mL of fluid removed from each side every 4 days and was last removed 3 days ago. His noted that his severe shortness of breath so brought him to the emergency department and on arrival he is hypoxic in the 70s on nasal cannula.. No known fever or chills. He did develop diarrhea today as his family was trying to get him out of the house due to his shortness of breath. Variably uses oxygen by nasal cannula at home. Related Data Home Medications Medication Instructions Recorded Confirmed aspirin 81 mg tablet,delayed 81 mg PO DAILY 11/26/22 04/09/23 release ibuprofen 200 mg capsule 200 mg PO Q6H PRN Pain 12/05/22 04/09/23 famotidine 20 mg tablet (Pepcid) 20 mg PO DAILY 02/22/23 04/09/23 cetirizine 10 mg tablet 10 mg PO DAILY 02/27/23 04/09/23 diclofenac sodium 1 % topical gel 2 g topical QIDP PRN Pain 02/27/23 04/09/23 (Voltaren Arthritis Pain) ipratropium 0.5 mg-albuterol 3 mg 3 ml inhalation QID PRN Shortness 02/27/23 04/09/23 (2.5 mg base)/3 mL nebulization Of Breath Or Wheezing soln Previous Rx's Medication Instructions Recorded fluticasone fur. 100 mcg-umeclid 1 inh inhalation DAILY 90 days #1 03/26/23 62.5 mcg-vilant 25 mcg ea inhalat.powder (Trelegy Ellipta) capecitabine 150 mg tablet See Rx Instructions .Route 04/10/23 .COMPLEX #252 tabs Allergies Allergy/AdvReac Type Severity Reaction Status Date / Time No Known Allergies Allergy Verified 04/09/23 09:51 [facility] Disclaimer: The information contained in this section may have been updated after the patient was seen, as this information can be updated by other users. Medical History Acute exacerbation of chronic obstructive pulmonary disease Acute respiratory failure with hypoxia Adenocarcinoma Ascites Chronic cough Community acquired pneumonia COPD (chronic obstructive pulmonary disease) Dyspnea on exertion Encounter for screening for malignant neoplasm of lung Hyperlipidemia NSTEMI (non-ST elevated myocardial infarction) Pleural effusion on right Pneumonia Pneumonia Pulmonary edema Pulmonary emphysema Respiratory failure with hypoxia Sepsis Smoking greater than 30 pack years Tachycardia Tobacco user Viral pneumonia Surgical History History of hip replacement Family History Other Lung cancer Social History Smoking Status: Current every day smoker alcohol intake: never substance use type: denies use current occupational status: retired Travel in the last 8 weeks: None household members: spouse lives independently: Yes marital status: education level: college caffeine: Yes physical activity: walking ROS Obtained: Yes All systems reviewed & no additional complaints except as documented Physical Exam General General appearance: alert Comment: Chronically ill-appearing. Cachectic. Dressing over the bilateral lower ribs with Pleurx catheter in place under dressing. Head Head exam: atraumatic, normocephalic and normal inspection Eye Eye exam: Present normal appearance, PERRL and EOMI ENT ENT exam: Present normal exam, normal oropharynx, mucous membranes moist, TM's normal bilaterally and normal external ear exam Neck Neck exam: Present normal inspection, full ROM and trachea midline; Absent meningismus or lymphadenopathy Chest Chest inspection: Present normal inspection and symmetric chest wall rise; Absent tenderness Respiratory Respiratory exam: Present respiratory distress, accessory muscle use and other (Coarse lung sounds bilaterally.); Absent stridor Cardiovascular Cardiovascular exam: Present regular rate and normal rhythm; Absent JVD Abdominal Exam Abdominal exam: Present soft and normal bowel sounds; Absent distention, tenderness or guarding Extremities Exam Extremities exam: Present normal inspection, full ROM and normal capillary refill; Absent calf tenderness Back Exam Back exam: Present normal inspection; Absent tenderness Neurological Exam Neurological exam: Present alert and oriented X3 Psychiatric Psychiatric exam: Present normal affect and normal mood Skin Skin exam: Present warm, dry, intact and normal color Lymphatic Lymphatic Findings: no adenopathy Medical Decision Making Raghu Inquiry Pt receiving controlled substance: No Raghu was queried for this patient: No Vital Signs: 04/10/23 16:39 04/10/23 17:00 04/10/23 17:28 Temperature 98.9 F Temperature Source Temporal Artery Scan Pulse Rate 126 H 118 H Pulse Rate [Left Radial] 128 H Respiratory Rate 32 H 34 H Blood Pressure Blood Pressure [Right Arm] 141/67 H Blood Pressure Mean Blood Pressure Mean [Right Arm] 91 Blood Pressure Source Blood Pressure Position 02 Sat by Pulse Oximetry 82 L 78 L Oxygen Delivery Method BiPAP 04/10/23 17:28 04/10/23 17:31 04/10/23 18:00 Temperature Temperature Source Pulse Rate 121 H 116 H 116 H Pulse Rate [Left Radial] Respiratory Rate 22 22 Blood Pressure 109/57 L 94/59 L Blood Pressure [Right Arm] Blood Pressure Mean 74 65 Blood Pressure Mean [Right Arm] Blood Pressure Source Blood Pressure Position 02 Sat by Pulse Oximetry 96 97 Oxygen Delivery Method 04/10/23 19:30 04/10/23 20:31 04/10/23 20:32 Temperature Temperature Source Pulse Rate 102 H 101 H 60 Pulse Rate [Left Radial] Respiratory Rate 22 Blood Pressure 98/55 L 80/39 L 81/35 L Blood Pressure [Right Arm] Blood Pressure Mean Blood Pressure Mean [Right Arm] Blood Pressure Source Blood Pressure Position 02 Sat by Pulse Oximetry 88 L 96 98 Oxygen Delivery Method BiPAP BiPAP 04/10/23 20:37 04/10/23 21:27 04/10/23 20:51 Temperature 98.9 F Temperature Source Oral Pulse Rate 75 110 H Pulse Rate [Left Radial] Respiratory Rate 22 22 14 Blood Pressure 94/53 L 99/54 L 94/54 L Blood Pressure [Right Arm] Blood Pressure Mean Blood Pressure Mean [Right Arm] Blood Pressure Source Automatic Cuff Blood Pressure Position Sitting 02 Sat by Pulse Oximetry 98 98 Oxygen Delivery Method BiPAP Room Air 04/10/23 21:00 04/10/23 21:07 04/10/23 21:30 Temperature Temperature Source Pulse Rate 105 H 103 H 98 H Pulse Rate [Left Radial] Respiratory Rate 23 26 H 19 Blood Pressure 99/55 L 84/47 L 89/57 L Blood Pressure [Right Arm] Blood Pressure Mean Blood Pressure Mean [Right Arm] Blood Pressure Source Blood Pressure Position 02 Sat by Pulse Oximetry 95 95 93 L Oxygen Delivery Method Lab Data Lab Results 04/10/23 16:48: VBG pH 7.25 L, VBG pCO2 58.5 H, VBG pO2 52.4 H, VBG HCO3 25.0, VBG Total CO2 26.8, VBG O2 Saturation 85.6 H, VBG Base Excess -2.3 04/10/23 16:50: WBC 16.4 H D, RBC 4.72, Hgb 14.4, Hct 46.8, MCV 99.2 H, MCH 30.5, MCHC 30.8 L, RDW 15.3, Plt Count 370, MPV 8.1, Neut % (Auto) 82.3 H, Lymph % (Auto) 10.9, [place] % (Auto) 3.1, Eos % (Auto) 3.4, Baso % (Auto) 0.4, Neut # (Auto) 13.5 H, Lymph # (Auto) 1.8, [place] # (Auto) 0.5, Eos # (Auto) 0.6 H, Baso # (Auto) 0.1, Total Counted 100, Neutrophils % (Manual) 78 H, Lymphocytes % (Manual) 14, Monocytes % (Manual) 6, Eosinophils % (Manual) 2, Platelet Estimate Normal, Hypochromasia 1+, Macrocytosis 1+, Sodium 132 L, Potassium 5.1, Chloride 101, Carbon Dioxide 30, Anion Gap 6.1, BUN 15, Creatinine 0.70, Estimated Creat Clear 58, Estimated GFR 110, Est GFR ( Amer) 133, Glucose 161 H, Calcium 8.2 L, Total Bilirubin 0.6, AST 51 D, ALT 29 D, Alkaline Phosphatase 62, Total Protein 6.4, Albumin 3.4 L, Globulin 3.0, Albumin/Globulin Ratio 1.1 04/10/23 16:50 04/10/23 16:50 Orders (Tests/Meds): ED MEDICATIONS Generic Name Dose Route Start Last Admin Trade Name Ramonq PRN Reason Stop Dose Admin Acetaminophen 650 mg 04/10/23 20:49 Acetaminophen 325mg Tab PO 05/10/23 20:48 Q4HP PRN Fever or Mild Pain (1-3) Albuterol/Ipratropium 3 ml 04/10/23 17:00 04/10/23 21:43 Ipratropium/Albuterol 3 Ml Neb IH 04/10/23 17:01 Not Given ONCE ONE Enoxaparin Sodium 40 mg 04/10/23 21:00 04/10/23 22:46 Enoxaparin 40mg/0.4ml Syringe SQ 05/10/23 20:59 40 mg DAILY MALIKA Administration Sodium Chloride 1,000 mls @ 50 mls/hr 04/10/23 21:00 04/10/23 22:46 Sod Chlor 0.9% 1000ml Bag IV 05/10/23 20:59 50 mls/hr .Q20H MALIKA Administration Ceftriaxone Sodium 2 gm/ 100 mls @ 200 mls/hr 04/10/23 21:00 04/10/23 21:18 Sodium Chloride IV 04/20/23 20:59 200 mls/hr Q12H MALIKA Administration Morphine Sulfate 2 mg 04/10/23 20:49 Morphine 2mg/Ml Syringe IV 05/10/23 20:48 Q2HP PRN Severe Pain (7-10) Nicotine 21 mg 04/10/23 20:49 Nicotine 21mg/24hr Patch TD 05/10/23 20:48 DAILYP PRN Nicotine Cravings Ondansetron HCl 4 mg 04/10/23 20:49 Ondansetron 4mg/2ml Vial IV 05/10/23 20:48 Q8HP PRN Nausea Pantoprazole Sodium 40 mg 04/10/23 21:00 04/10/23 22:46 Pantoprazole 40mg Tablet PO 05/10/23 20:59 40 mg DAILY MALIKA Administration Discontinued Medications Generic Name Dose Route Start Last Admin Trade Name Ramonq PRN Reason Stop Dose Admin Albuterol/Ipratropium 3 ml 04/10/23 17:00 04/10/23 21:44 Ipratropium/Albuterol 3 Ml Neb IH 05/10/23 16:59 Not Given Q1H MALIKA ORDERS Category Date Time Status Pulmonology Consult [Consult to Pulmonology] [CONS] Cons 04/10/23 20:51 Active Routine Chest XR -- portable [XR chest portable] Stat Exams 04/10/23 16:48 Completed POCUS Point of Care (ER Only) Stat Exams 04/10/23 16:47 Taken CBC [Complete Blood Count Auto Diff] Stat Lab 04/10/23 16:50 Completed CMP [Comprehensive Metabolic Panel] Stat Lab 04/10/23 16:50 Completed Complete Blood Count Auto Diff AMLAB Lab 04/11/23 06:00 Ordered Comprehensive Metabolic Panel AMLAB Lab 04/11/23 06:00 Ordered Magnesium AMLAB Lab 04/11/23 06:00 Ordered Blood Culture Stat Micro 04/10/23 21:15 Received VBG [Venous Blood Gas] Stat RT 04/10/23 16:48 Completed ECG initial [place] Routine Y 04/10/23 16:47 Completed ECG Data Tracing #1: I reviewed this ECG and interpreted as documented below: Mildly tachycardic rate at 122 bpm, regular rhythm, no significant ST segment elevation or morphology changes. Sinus tachycardia. ECG initial impression date: 04/10/23 ECG initial impression time: 17:44 Medical Decision Narrative: Due to patient's hypoxia, patient was placed on BiPAP which he tolerated well. Considered multiple causes of patient's acute shortness of breath and diarrhea including ACS, arrhythmia, acute worsening of chronic pleural effusions, pneumonia, PE, C. difficile colitis, among others. For this reason obtain broad laboratory evaluation, performed [id number] bedside ultrasound of the lungs which I independently performed, reviewed, interpreted, and they demonstrated large bilateral pleural effusions. Drained the large bilateral pleural effusions using patient's already placed Pleurx catheter and home supplies. Removed 1 L from the left lung and 0.5 L from the right lung. Patient had dramatic improvement in his comfort but did not have improvement in his oxygen dependence. Also discussed with patient that based on my independent review and interpretation of his laboratory evaluation he has a leukocytosis that is concerning for pneumonia in the setting of worsened oxygen dependence. Consulted hospital medicine and interactive discussion with them and they agreed to evaluate patient for admission. He was admitted while stable on BiPAP. Procedures Limited Ultrasound Indication:: Dyspnea Views:: Bilateral lungs, anterior and posterior Findings:: Large bilateral pleural effusions Interpretation:: Large bilateral pleural effusions Critical Care Critical Care Time Critical Care Time: Yes Attestation: On 04/10/23, the high probability of a clinically significant, sudden or life threatening deterioration of the following system(s) required my full and direct attention, intervention and personal management. The time I documented below is in addition to time spent performing reported procedures but includes the following listed in this critical care notation. Total Time Total Critical Care Time: 45
[2023-04-10 17:46] LABS: Eosinophils % 2 % (0-3); Lymphocytes % 14 % (10-50); Monocytes % 6 % (2-9); Neutrophils % 78 % (42-76); Total Cells Counted 100
[2023-04-10 17:47] LABS: Platelet Estimate Normal
[2023-04-10 17:48] LABS: Hypochromasia 1+; Macrocytosis 1+
--- NOTE | 2023-04-10 18:12 | PC.NURSE ---
Rounded on pt to see if they had any needs. advised them of an emergency at this time and they said they didnt need anything at this time
--- NOTE | 2023-04-10 20:45 | PC.NURSE ---
o/p with Hospitalist at this time for possible admission
--- NOTE | 2023-04-10 20:47 | PC.NURSE ---
Hospitalist accepted patient to Floor at this time.
--- NOTE | 2023-04-10 20:53 | P.HP_ITS ---
History of Present Illness *Admission Date: 04/10/23 *Reason for visit:: SOB *History of present illness: This is a 77-year-old male with PMHx of COPD with 2L home as baseline, CAD, HDL, tobacco user, recent diagnosis of adenocarcinoma of the lung with malignant effusion, Pleurx catheters in place coming to ED for increased shortness of breath. Symptoms worsened over the past 2 days. He has been getting 500 mL of fluid removed from each side every 4 days and was last removed 3 days ago. His noted that his severe shortness of breath so brought him to the emergency department and on arrival he is hypoxic in the 70s on nasal cannula.. No known fever or chills. He did develop diarrhea today. admission to assist with further management. [facility] Disclaimer: The information contained in this section may have been updated after the patient was seen, as this information can be updated by other users. Medical History (Updated 04/11/23 @ 12:13 by Radha Jimenez MD) Acute exacerbation of chronic obstructive pulmonary disease Acute hypercapnic respiratory failure Acute respiratory failure with hypoxia Adenocarcinoma Ascites Chronic cough Community acquired pneumonia COPD (chronic obstructive pulmonary disease) Dyspnea on exertion Encounter for screening for malignant neoplasm of lung Hyperlipidemia NSTEMI (non-ST elevated myocardial infarction) Pleural effusion on right Pneumonia Pneumonia Pulmonary edema Pulmonary emphysema Respiratory failure with hypoxia Sepsis Smoking greater than 30 pack years Tachycardia Tobacco user Viral pneumonia Surgical History History of hip replacement Family History Other Lung cancer Social History Smoking Status: Current every day smoker alcohol intake: never substance use type: denies use current occupational status: retired Travel in the last 8 weeks: None household members: spouse lives independently: Yes marital status: education level: college caffeine: Yes physical activity: walking Review of Systems Review of Systems Review of systems:: pertinent systems reviewed and negative unless documented below Meds Home Medications and Allergies Home Medications Medication Instructions Recorded Confirmed Type aspirin 81 mg tablet,delayed 81 mg PO DAILY 11/26/22 04/11/23 History release famotidine 20 mg tablet (Pepcid) 20 mg PO DAILY 02/22/23 04/11/23 History cetirizine 10 mg tablet 10 mg PO DAILY 02/27/23 04/11/23 History ipratropium 0.5 mg-albuterol 3 mg 3 ml inhalation QID PRN Shortness 02/27/23 04/11/23 History (2.5 mg base)/3 mL nebulization Of Breath Or Wheezing soln fluticasone fur. 100 mcg-umeclid 1 inh inhalation DAILY 90 days #1 03/26/23 04/11/23 Rx 62.5 mcg-vilant 25 mcg ea inhalat.powder (Trelegy Ellipta) capecitabine 150 mg tablet 900 mg PO BID 04/11/23 04/11/23 History levofloxacin 750 mg tablet 750 mg PO DAILY 3 days #3 tabs 04/11/23 Rx prochlorperazine maleate 10 mg 10 mg PO Q6 PRN Nausea And Vomiting 04/11/23 04/11/23 History tablet New Prescriptions to Start Prescriptions: levofloxacin Marciano Bond Allergies Allergy/AdvReac Type Severity Reaction Status Date / Time No Known Allergies Allergy Verified 04/09/23 09:51 Exam Data for Last 24 hours Vital signs and Labs for Last 24 Hours: Temp Pulse Resp BP Pulse Ox O2 Del Method FiO2 98.9 F 60 22 94/53 L 98 BiPAP 80 04/10/23 16:39 04/10/23 20:32 04/10/23 20:37 04/10/23 20:37 04/10/23 20:37 04/10/23 20:37 04/10/23 17:04 Laboratory Results - last 24 hr 04/10/23 16:48: VBG pH 7.25 L, VBG pCO2 58.5 H, VBG pO2 52.4 H, VBG HCO3 25.0, VBG Total CO2 26.8, VBG O2 Saturation 85.6 H, VBG Base Excess -2.3 04/10/23 16:50: WBC 16.4 H D, RBC 4.72, Hgb 14.4, Hct 46.8, MCV 99.2 H, MCH 30.5, MCHC 30.8 L, RDW 15.3, Plt Count 370, MPV 8.1, Neut % (Auto) 82.3 H, Lymph % (Auto) 10.9, [place] % (Auto) 3.1, Eos % (Auto) 3.4, Baso % (Auto) 0.4, Neut # (Auto) 13.5 H, Lymph # (Auto) 1.8, [place] # (Auto) 0.5, Eos # (Auto) 0.6 H, Baso # (Auto) 0.1, Total Counted 100, Neutrophils % (Manual) 78 H, Lymphocytes % (Manual) 14, Monocytes % (Manual) 6, Eosinophils % (Manual) 2, Platelet Estimate Normal, Hypochromasia 1+, Macrocytosis 1+, Sodium 132 L, Potassium 5.1, Chloride 101, Carbon Dioxide 30, Anion Gap 6.1, BUN 15, Creatinine 0.70, Estimated Creat Clear 58, Estimated GFR 110, Est GFR ( Amer) 133, Glucose 161 H, Calcium 8.2 L, Total Bilirubin 0.6, AST 51 D, ALT 29 D, Alkaline Phosphatase 62, Total Protein 6.4, Albumin 3.4 L, Globulin 3.0, Albumin/Globulin Ratio 1.1 I & O for Last 24 hours: Intake & Output 04/07/23 04/08/23 04/09/23 04/10/23 23:59 23:59 23:59 23:59 Weight 65.771 kg Constitutional Constitutional: no acute distress, average body habitus, chronically ill appearing and cooperative *Routine HEENT Exam Head: Present normocephalic Eye: Present EOMI and PERRL ENT: Present mucous membranes moist *Routine Neck Exam Neck: Present supple; Absent lymphadenopathy *Routine Respiratory Exam Respiratory: Present accessory muscle use, crackles (bases) and diminished air movement (in bases); Absent rhonchi or wheezes *Routine Cardiovascular Exam Cardiovascular: Present RRR *Routine Abdominal Exam Abdominal: Present soft and normoactive bowel sounds; Absent tenderness *Routine Rectal Exam Rectal:: deferred *Routine Genitalia Exam Genitalia:: deferred *Routine Extremities Exam Extremities: Absent cyanosis, clubbing or edema *Routine Skin Exam Skin: Present warm; Absent rash *Routine Neurological Exam Neurological: Present alert, oriented X3 and moving all extremities; Absent altered mental status Assessment and Plan *Assessment and plan (1) Respiratory failure with hypoxia: Status: Acute Qualifiers: Chronicity: acute on chronic Qualified Code(s): J96.21 - Acute and chronic respiratory failure with hypoxia Category: Medical Code(s): J96.91 - Respiratory failure, unspecified with hypoxia (2) Bilateral pleural effusion: Status: Resolved Category: Medical Code(s): J90 - Pleural effusion, not elsewhere classified (3) Pulmonary edema: Status: Acute Qualifiers: Chronicity: chronic Qualified Code(s): J81.1 - Chronic pulmonary edema Category: Medical Code(s): J81.1 - Chronic pulmonary edema (4) Pneumonia: Status: Acute Qualifiers: Laterality: bilateral Lung location: lower lobe of lung Pneumonia type: due to unspecified organism Qualified Code(s): J18.9 - Pneumonia, unspecified organism Category: Medical Code(s): J18.9 - Pneumonia, unspecified organism (5) 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: Status: Acute Category: Medical Code(s): C15.4 - 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 Whitaker is a 74-year-old male recently diagnosed adenocarcinoma, malignant pleural effusion currently following in oncology due to get a Pleurx catheter placed presented to the ER with worsening respiratory distress found to have bilateral pleural effusions. On arrival ER had drained the large bilateral pleural effusions using patient's already placed Pleurx catheter and home supplies. Removed 1 L from the left lung and 0.5 L from the right lung. Patient had dramatic improvement in his comfort. Labs are consistent with leukocytosis. discussed with ER for admission. Plan as follow: Acute hypoxic respiratory failure: Bilateral pleural effusions metastatic: to rule out new acquired Pneumonia or pulmonary edema: Admit patient for continous monitoring. Status post left thoracentesis with removal of 1000 cc fluid and right thoracentesis with removal of 500ml fluid Metastatic adenocarcinoma, currently following with oncology who placed Pleurx catheter. Esophageal biopsy resulted positive for invasive adenocarcinoma moderately differentiated. No evidence of pulm embolism/airspace disease noted. Chest x-ray showed improved of right and left pleural effusions. Bilateral lower lobe infiltrates concerning for pulmonary edema/pneumonia. started on Ceft 2g IV daily Trelegy 100 inhaler along with DuoNebs every 6 hours on as-needed basis Follow with oncology as an outpatient On Bipap. respiratory therapist to wean off oxygen supplementation to maintain O2 saturation above 90% and above. Hx of COPD, Smoker: On nicotine pacth. HLD: on aspirin Lovenox for DVT ppx. on protonix for GERD. resume home famotidine Full code Rounded on patient after nurse practitioner. Personally examined and i nterviewed patient. Agree with exam findings and care plan as documented.
[2023-04-10] MEDS: CEFTRIAXONE SODIUM 2 GM in 0.9 % SODIUM CHLORIDE 100 ML IV (21:18)
--- NOTE | 2023-04-10 21:26 | PC.NURSE ---
report called to [facility] #[id number]
--- NOTE | 2023-04-10 21:46 | PC.NURSE ---
pt arrived to floor at this time
[2023-04-10] MEDS: 0.9 % SODIUM CHLORIDE 1000ML 1,000 ML 50 ML IV (22:46)
[2023-04-10] MEDS: PANTOPRAZOLE 40MG TABLET 40 MG PO (22:46)
[2023-04-10] MEDS: ENOXAPARIN 40MG/0.4ML SYRINGE 40 MG SQ (22:46)
[2023-04-11] VITALS: BP 88/51; PULSE 90; RESP 24; TEMP 36.9; O2SAT 90
[2023-04-11 01:33] VITALS: RESP 18; RESP 19
--- NOTE | 2023-04-11 03:30 | PC.NURSE ---
Patient alert and orient X4. Patient tolerating IV Abt. with no adverse reaction noted. IV fluids patent. Patient is NPO, is to have an [place] to RUQ of Abdomen this morning and be consulted via General Surgeon. is at bedside. Patient c/o sharp pain to abdomen. PRN Morphine given as ordered with effectiveness voiced via patient.
[2023-04-11 04:00] VITALS: BP 94/50; PULSE 92; RESP 22; TEMP 36.4; O2SAT 96; BMI 22.9
[2023-04-11 06:12] LABS: Basophils % 0.2 % (0.1-2.0); Eosinophils # 0.5 K/mm3 (0.0-0.4); Eosinophils % 5.3 % (0.1-12.0); Hematocrit 39.4 % (42.0-52.0); Lymphocytes # 0.7 K/mm3 (0.7-4.5); Lymphocytes % 6.9 % (10-50); Mean Corpuscular Hemoglobin 30.6 pg (27.0-31.2); Mean Corpuscular Volume 95.5 fl (80-94); Mean Platelet Volume 7.3 fl (7.4-10.4); Monocytes # 0.5 K/mm3 (0.1-1.0); Monocytes % 5.3 % (1.7-9.3); Neutrophils # 8.2 K/mm3 (1.8-7.8); Neutrophils % 82.3 % (37.0-80.0); Platelet Count 248 K/mm3 (142-424); Red Blood Count 4.13 M/mm3 (4.60-6.20); Red Cell Distribution Width 15.6 % (11.5-17.5)
[2023-04-11 06:16] LABS: Chloride 102 mmol/L (98-107); Potassium 4.4 mmoL/L (3.5-5.1); Sodium 132 mmol/L (136-145)
[2023-04-11 06:19] LABS: Alanine Aminotransferase 14 U/L (12-78); Albumin Level 2.5 g/dl (3.5-5.0); Alkaline Phosphatase 68 U/L (38-126); Anion Gap 1.4 mEq/L (5-15); Aspartate Amino Transferase 28 U/L (17-59); Bilirubin,Total 0.3 mg/dl (0.2-1.3); Blood Urea Nitrogen 19 mg/dl (9-20); Calcium 7.8 mg/dl (8.4-10.2); Carbon Dioxide 33 mmol/L (22.0-30.0); Creatinine Clearance Estimated 62 mL/min (50-200); Estimated Glomerular Filt Rate 110 ml/min (>60); GFR (African American) 133 ML/MIN (>60); Globulin 2.5 g/dL (1.3-3.2); Glucose 88 mg/dl (74-100)
[2023-04-11 06:20] LABS: Magnesium 2.1 mg/dl (1.6-2.3)
[2023-04-11 07:26] LABS: Hemoglobin 12.5 g/dL (14.1-18.0)
[2023-04-11 07:49] VITALS: BP 96/47; PULSE 94; RESP 16; TEMP 36.9; O2SAT 90
[2023-04-11] MEDS: ENOXAPARIN 40MG/0.4ML SYRINGE 40 MG SQ (09:18)
--- NOTE | 2023-04-11 10:05 | P.CONS_ITS ---
History of Present Illness History of present illness: Mr. 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 Lind at [facility] on 03/21/2023 with a plan to place a right-sided Pleurx catheter presented to the ER with worsening respiratory status and altered mentation pulmonary was called for further evalua tion and management. [facility] Disclaimer: The information contained in this section may have been updated after the patient was seen, as this information can be updated by other users. Medical History (Updated 04/11/23 @ 12:13 by Radha Jimenez MD) Acute exacerbation of chronic obstructive pulmonary disease Acute hypercapnic respiratory failure Acute respiratory failure with hypoxia Adenocarcinoma Ascites Chronic cough Community acquired pneumonia COPD (chronic obstructive pulmonary disease) Dyspnea on exertion Encounter for screening for malignant neoplasm of lung Hyperlipidemia NSTEMI (non-ST elevated myocardial infarction) Pleural effusion on right Pneumonia Pneumonia Pulmonary edema Pulmonary emphysema Respiratory failure with hypoxia Sepsis Smoking greater than 30 pack years Tachycardia Tobacco user Viral pneumonia Surgical History History of hip replacement Family History Other Lung cancer Social History Smoking Status: Current every day smoker alcohol intake: never substance use type: denies use current occupational status: retired Travel in the last 8 weeks: None household members: spouse lives independently: Yes marital status: education level: college caffeine: Yes physical activity: walking Review of Systems Constitutional Constitutional: Reports anorexia, Reports body ache(s) and Reports fatigue Eyes Eyes: Denies eye discharge, Denies dry eyes, Denies irritation and Denies itchy eyes ENT Ears, Nose, Mouth, and Throat: Denies epistaxis, Denies facial pain, Denies lip swelling and Denies throat swelling *Cardiovascular Cardiovascular: Reports dyspnea, Reports dyspnea on exertion and Reports orthopnea *Respiratory Respiratory: Reports chest congestion, Reports cough, Reports dyspnea, Reports dyspnea on exertion, Denies excessive phlegm production, Denies hemoptysis, Denies pain on inspiration, Denies pain with cough and Reports wheezing *Gastrointestinal Gastrointestinal: Denies abdominal pain, Denies belching and Denies cramping *Musculoskeletal Musculoskeletal: Reports back pain, Reports myalgias and Reports other (No small joint swelling or Pain) Psychiatric Psychiatric: Denies homicidal ideation and Denies suicidal ideation Endocrine Endocrine: Reports fatigue and Denies heat intolerance Hematologic/Lymphatic Hematologic/Lymphatic: Denies easy bleeding and Denies lymphadenopathy Allergic/Immunologic Allergic/Immunologic: Denies itchy eyes, Denies lip swelling, Denies throat swelling and Reports wheezing Pulmonology Exam Inpatient Vital signs and Labs for Last 24 Hours: Temp Pulse Resp BP Pulse Ox O2 Del Method FiO2 98.4 F 94 H 16 96/47 L 90 L BiPAP 50 04/11/23 07:49 04/11/23 07:49 04/11/23 07:49 04/11/23 07:49 04/11/23 07:49 04/11/23 07:49 04/11/23 01:33 Laboratory Results - last 24 hr 04/10/23 16:48: VBG pH 7.25 L, VBG pCO2 58.5 H, VBG pO2 52.4 H, VBG HCO3 25.0, VBG Total CO2 26.8, VBG O2 Saturation 85.6 H, VBG Base Excess -2.3 04/10/23 16:50: WBC 16.4 H D, RBC 4.72, Hgb 14.4, Hct 46.8, MCV 99.2 H, MCH 30.5, MCHC 30.8 L, RDW 15.3, Plt Count 370, MPV 8.1, Neut % (Auto) 82.3 H, Lymph % (Auto) 10.9, Martin % (Auto) 3.1, Eos % (Auto) 3.4, Baso % (Auto) 0.4, Neut # (Auto) 13.5 H, Lymph # (Auto) 1.8, Martin # (Auto) 0.5, Eos # (Auto) 0.6 H, Baso # (Auto) 0.1, Total Counted 100, Neutrophils % (Manual) 78 H, Lymphocytes % (Manual) 14, Monocytes % (Manual) 6, Eosinophils % (Manual) 2, Platelet Estimate Normal, Hypochromasia 1+, Macrocytosis 1+, Sodium 132 L, Potassium 5.1, Chloride 101, Carbon Dioxide 30, Anion Gap 6.1, BUN 15, Creatinine 0.70, Estimated Creat Clear 58, Estimated GFR 110, Est GFR ( Amer) 133, Glucose 161 H, Calcium 8.2 L, Total Bilirubin 0.6, AST 51 D, ALT 29 D, Alkaline Phosphatase 62, Total Protein 6.4, Albumin 3.4 L, Globulin 3.0, Albumin/Globulin Ratio 1.1 04/11/23 05:50: WBC 10.0 D, RBC 4.13 L, Hgb 12.5 L D, Hct 39.4 L, MCV 95.5 H, MCH 30.6, MCHC 32.0, RDW 15.6, Plt Count 248 D, MPV 7.3 L, Neut % (Auto) 82.3 H , Lymph % (Auto) 6.9 L, Martin % (Auto) 5.3, Eos % (Auto) 5.3, Baso % (Auto) 0.2, Neut # (Auto) 8.2 H, Lymph # (Auto) 0.7, Martin # (Auto) 0.5, Eos # (Auto) 0.5 H, Baso # (Auto) 0.0, Sodium 132 L, Potassium 4.4, Chloride 102, Carbon Dioxide 33 H, Anion Gap 1.4 L, BUN 19 D, Creatinine 0.70, Estimated Creat Clear 62, Estimated GFR 110, Est GFR ( Amer) 133, Glucose 88 D, Calcium 7.8 L, Magnesium 2.1, Total Bilirubin 0.3, AST 28 D, ALT 14 D, Alkaline Phosphatase 68, Total Protein 5.0 L, Albumin 2.5 L D, Globulin 2.5, Albumin/Globulin Ratio 1.0 L I & O for Labs for Last 24 Hours: Intake & Output 04/08/23 04/09/23 04/10/23 04/11/23 23:59 23:59 23:59 23:59 Intake Total 100 / 100 Balance 100 / 100 Weight 147 lb 0.773 oz 154 lb 12.232 oz Constitutional: Present moderate distress Head: Present normocephalic and atraumatic ENT: Present normal exam, normal oropharynx and mucous membranes moist Neck: Present normal inspection and full ROM Respiratory: Present respiratory distress, wheezes, diminished air movement and able to speak in complete sentences Cardiac: Present S1/S2, Tachycardia and radial pulses present GI: Present soft and distention; Absent tenderness or guarding Skin: Present intact; Absent cyanosis or jaundice Neuro: Present alert, awake and oriented x 3 Extremities: Present normal inspection; Absent clubbing or cyanosis Psychiatric: Present normal affect and cooperative Meds Home Medications and Allergies Home Medications Medication Instructions Recorded Confirmed Type aspirin 81 mg tablet,delayed 81 mg PO DAILY 11/26/22 04/11/23 History release famotidine 20 mg tablet (Pepcid) 20 mg PO DAILY 02/22/23 04/11/23 History cetirizine 10 mg tablet 10 mg PO DAILY 02/27/23 04/11/23 History ipratropium 0.5 mg-albuterol 3 mg 3 ml inhalation QID PRN Shortness 02/27/23 0 04/11/23 History (2.5 mg base)/3 mL nebulization Of Breath Or Wheezing soln fluticasone fur. 100 mcg-umeclid 1 inh inhalation DAILY 90 days #1 03/26/23 04/11/23 Rx 62.5 mcg-vilant 25 mcg ea inhalat.powder (Trelegy Ellipta) capecitabine 150 mg tablet 900 mg PO BID 04/11/23 04/11/23 History prochlorperazine maleate 10 mg 10 mg PO Q6 PRN Nausea And Vomiting 04/11/23 04/11/23 History tablet New Prescriptions to Start Prescriptions: Allergies Allergy/AdvReac Type Severity Reaction Status Date / Time No Known Allergies Allergy Verified 04/09/23 09:51 Results Laboratory Findings 04/11/23 05:50 04/11/23 05:50 Abnormal lab findings: Abnormal Labs 04/10/23 04/10/23 04/11/23 16:48 16:50 05:50 WBC 16.4 H D RBC 4.13 L Hgb 12.5 L D Hct 39.4 L MCV 99.2 H 95.5 H MCHC 30.8 L MPV 7.3 L Neut % (Auto) 82.3 H 82.3 H Lymph % (Auto) 6.9 L Neut # (Auto) 13.5 H 8.2 H Eos # (Auto) 0.6 H 0.5 H Neutrophils % (Manual) 78 H VBG pH 7.25 L VBG pCO2 58.5 H VBG pO2 52.4 H VBG O2 Saturation 85.6 H Sodium 132 L 132 L Carbon Dioxide 33 H Anion Gap 1.4 L Glucose 161 H Calcium 8.2 L 7.8 L Total Protein 5.0 L Albumin 3.4 L 2.5 L D Albumin/Globulin Ratio 1.0 L Assessment and Plan *Assessment and plan (1) Pleural effusion: Status: Acute Category: Medical Code(s): J90 - Pleural effusion, not elsewhere classified (2) Shortness of breath: Status: Acute Category: Medical Code(s): R06.02 - Shortness of breath (3) Acute hypercapnic respiratory failure: Status: Acute Category: Medical Code(s): J96.02 - Acute respiratory failure with hypercapnia (4) PNA (pneumonia): Status: Acute Qualifiers: Pneumonia type: due to unspecified organism Laterality: right Lung location: lower lobe of lung Qualified Code(s): J18.9 - Pneumonia, unspecified organism Category: Medical Code(s): J18.9 - Pneumonia, unspecified organism Plan Mr. 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 Lind at [facility] on 03/21/2023 with a plan to place a right-sided Pleurx catheter presented to the ER with worsening respiratory status and altered mentation pulmonary was called for further evaluation and management. Chest x-ray upon admission reviewed, bilateral moderate pleural effusions. Concerning for lower lobe airspace disease/atelectasis. Afebrile. Hem odynamically stable. Neutrophilic predominant leukocytosis upon admission, improving. Status post drainage in the ER 1000 cc on the left and 500 cc on the right. Repeat chest x-ray pending. VBG upon admission mild hypercarbic respiratory failure improved. On examination today patient does not appear to be in any moderate to severe respiratory distress. On 1 L saturating 93%. Decreased breath sound bilateral lower lobes. Wheezing noted on auscultation. Repeat chest x-ray this morning continue to show right-sided pleural effusion. Left effusion significantly improved. No significant consolidation/airspace disease noted. Plan: Continue Trelegy 100 inhaler along with DuoNebs every 6 hours on as-needed basis continue nasal cannula oxygen supplementation to maintain O2 saturation goal of 90 to 95% Bilateral Pleurx catheters in place. Given frequent accumulation of fluid patient advised to drain bilateral pleural effusions both the right and left side every other day pending clinical improvement in effusion accumulation. Antibiotics can be weaned to levofloxacin 750 mg daily to complete a total of 3- day course upon discharge. # Thank you for involving pulmonary in this patient care. Will follow the patient in pulmonary clinic 5-7 days post discharge with a chest x-ray ROLO ambrose prior to clinic visit
--- NOTE | 2023-04-11 10:27 | XR_ITS ---
FINAL REPORT CLINICAL HISTORY: Effusion COMPARISON: 04/10/2023 FINDINGS: The heart size is mildly enlarged. Chest port is present with the tip in the SVC. The mediastinum is normal. There are patchy bibasilar airspace infiltrates, right greater than left. There is a moderate right and small left pleural effusion. The right pleural effusion is larger than on previous. There is no pneumothorax. There is no osseous abnormality. IMPRESSION: Right greater than left patchy bibasilar airspace infiltrates. Bilateral pleural effusions, increased on right compared to prior. Reviewed, Interpreted and Dictated by Mauricio Stockton MD Transcribed by Abena Chavira Authenticated and [facility]
--- NOTE | 2023-04-11 11:14 | EXP.DC.SUM ---
General Admission date:: 04/10/23 Discharge date: 04/11/23 HPI HPI HPI: This is a 77-year-old male with PMHx of COPD with 2L home as baseline, CAD, HDL, tobacco user, recent diagnosis of adenocarcinoma of the lung with malignant effusion, Pleurx catheters in place coming to ED for increased shortness of breath. Symptoms worsened over the past 2 days. He has been getting 500 mL of fluid removed from each side every 4 days and was last removed 3 days ago. His noted that his severe shortness of breath so brought him to the emergency department and on arrival he is hypoxic in the 70s on nasal cannula.. No known fever or chills. He did develop diarrhea today. admission to assist with further management. Hospital Course Hospital Course Hospital Course: Mr. Whitaker is a 74-year-old male recently diagnosed adenocarcinoma, malignant pleural effusion currently following in oncology due to get a Pleurx catheter placed presented to the ER with worsening respiratory distress found to have bilateral pleural effusions. On arrival ER had drained the large bilateral pleural effusions using patient's already placed Pleurx catheter and home supplies. Removed 1 L from the left lung and 0.5 L from the right lung. Patient had dramatic improvement in his comfort. Labs are consistent with leukocytosis. discussed with ER for admission. Patient remained stable after admission. Able to wean to room air with removal of fluid in the ER. Pulmonology consulted to assist with care. Given his return to baseline. Will discharge home with plan for more frequent drainage of pleural effusions at home. Close follow-up with pulmonology. Problems addressed as follows: Acute hypoxic respiratory failure: Bilateral pleural effusions metastatic: Rule out new acquired Pneumonia or pulmonary edema: Admit patient for continous monitoring. Status post left thoracentesis with removal of 1000 cc fluid and right thoracentesis with removal of 500ml fluid. Able to wean to room air shortly after arriving to the floor. Patient has known history of metastatic adenocarcinoma, currently following with oncology. Recently had Pleurx drains placed bilaterally by interventional pulmonology at . Pulmonology consulted during admission at [facility]. Recommend continuing antibiotics for 3 days as findings likely consistent with his effusions not pneumonia however will cover empirically. Continue levofloxacin 750 mg daily for 3 days. Given clinical stability and improvement in respiratory distress, recommend discharge home and draining pleural effusions every other day, 500 cc per side. -Will continue Trelegy inhaler and DuoNebs as needed at home. -Further management with oncology and pulmonology as an outpatient. Spent 30 minutes in discharge counseling, documentation, chart review, and direct care with patient. Exam Data for Last 24 hours Vital signs and Labs for Last 24 Hours: Temp Pulse Resp BP Pulse Ox O2 Del Method FiO2 98.4 F 94 H 16 96/47 L 90 L BiPAP 50 04/11/23 07:49 04/11/23 07:49 04/11/23 07:49 04/11/23 07:49 04/11/23 07:49 04/11/23 07:49 04/11/23 01:33 Laboratory Results - last 24 hr 04/10/23 16:48: VBG pH 7.25 L, VBG pCO2 58.5 H, VBG pO2 52.4 H, VBG HCO3 25.0, VBG Total CO2 26.8, VBG O2 Saturation 85.6 H, VBG Base Excess -2.3 04/10/23 16:50: WBC 16.4 H D, RBC 4.72, Hgb 14.4, Hct 46.8, MCV 99.2 H, MCH 30.5, MCHC 30.8 L, RDW 15.3, Plt Count 370, MPV 8.1, Neut % (Auto) 82.3 H, Lymph % (Auto) 10.9, Beauregard % (Auto) 3.1, Eos % (Auto) 3.4, Baso % (Auto) 0.4, Neut # (Auto) 13.5 H, Lymph # (Auto) 1.8, Bea[place]gard # (Auto) 0.5, Eos # (Auto) 0.6 H, Baso # (Auto) 0.1, Total Counted 100, Neutrophils % (Manual) 78 H, Lymphocytes % (Manual) 14, Monocytes % (Manual) 6, Eosinophils % (Manual) 2, Platelet Estimate Normal, Hypochromasia 1+, Macrocytosis 1+, Sodium 132 L, Potassium 5.1, Chloride 101, Carbon Dioxide 30, Anion Gap 6.1, BUN 15, Creatinine 0.70, Estimated Creat Clear 58, Estimated GFR 110, Est GFR ( Amer) 133, Glucose 161 H, Calcium 8.2 L, Total Bilirubin 0.6, AST 51 D, ALT 29 D, Alkaline Phosphatase 62, Total Protein 6.4, Albumin 3.4 L, Globulin 3.0, Albumin/Globulin Ratio 1.1 04/11/23 05:50: WBC 10.0 D, RBC 4.13 L, Hgb 12.5 L D, Hct 39.4 L, MCV 95.5 H, MCH 30.6, MCHC 32.0, RDW 15.6, Plt Count 248 D, MPV 7.3 L, Neut % (Auto) 82.3 H, Lymph % (Auto) 6.9 L, Beauregard % (Auto) 5.3, Eos % (Auto) 5.3, Baso % (Auto) 0.2, Neut # (Auto) 8.2 H, Lymph # (Auto) 0.7, Bea[place]gard # (Auto) 0.5, Eos # (Auto) 0.5 H, Baso # (Auto) 0.0, Sodium 132 L, Potassium 4.4, Chloride 102, Carbon Dioxide 33 H, Anion Gap 1.4 L, BUN 19 D, Creatinine 0.70, Estimated Creat Clear 62, Estimated GFR 110, Est GFR ( Amer) 133, Glucose 88 D, Calcium 7.8 L, Magnesium 2.1, Total Bilirubin 0.3, AST 28 D, ALT 14 D, Alkaline Phosphatase 68, Total Protein 5.0 L, Albumin 2.5 L D, Globulin 2.5, Albumin/Globulin Ratio 1.0 L I & O for Last 24 hours: Intake & Output 04/08/23 04/09/23 04/10/23 04/11/23 23:59 23:59 23:59 23:59 Intake Total 100 / 100 Balance 100 / 100 Weight 66.7 kg 70.2 kg Constitutional Constitutional: no acute distress, average body habitus, chronically ill appearing and cooperative *Routine HEENT Exam Head: Present normocephalic Eye: Present EOMI and PERRL ENT: Present mucous membranes moist *Routine Neck Exam Neck: Present supple; Absent lymphadenopathy Routine Chest/Breast/Axilla Exam Comments: Pleurx drains bilaterally, no drainage or bleeding. Bandages clean dry and intact *Routine Respiratory Exam Respiratory: Present rhonchi, crackles (In bases bilaterally posterior lung field), normal respiratory effort and symmetric chest movement *Routine Cardiovascular Exam Cardiovascular: Present RRR *Routine Abdominal Exam Abdominal: Present soft and normoactive bowel sounds; Absent tenderness *Routine Extremities Exam Extremities: Absent cyanosis, clubbing or edema *Routine Skin Exam Skin: Present warm; Absent rash *Routine Neurological Exam Neurological: Present alert, oriented X3, moving all extremities, vision grossly intact, hearing grossly intact and normal speech Routine Psychiatric Exam Psychiatric: Present normal affect, normal thought process, cooperative, good insight and good judgment Results Data Completed and Pending Labs on day of discharge: Labs from last 24 hours 04/11/23 04/10/23 04/10/23 05:50 16:50 16:48 WBC 10.0 D 16.4 H D RBC 4.13 L 4.72 Hgb 12.5 L D 14.4 Hct 39.4 L 46.8 MCV 95.5 H 99.2 H MCH 30.6 30.5 MCHC 32.0 30.8 L RDW 15.6 15.3 Plt Count 248 D 370 MPV 7.3 L 8.1 Neut % (Auto) 82.3 H 82.3 H Lymph % (Auto) 6.9 L 10.9 Beauregard % (Auto) 5.3 3.1 Eos % (Auto) 5.3 3.4 Baso % (Auto) 0.2 0.4 Neut # (Auto) 8.2 H 13.5 H Lymph # (Auto) 0.7 1.8 Beauregard # (Auto) 0.5 0.5 Eos # (Auto) 0.5 H 0.6 H Baso # (Auto) 0.0 0.1 Total Counted 100 Neutrophils % (Manual) 78 H Lymphocytes % (Manual) 14 Monocytes % (Manual) 6 Eosinophils % (Manual) 2 Platelet Estimate Normal Hypochromasia 1+ Macrocytosis 1+ VBG pH 7.25 L VBG pCO2 58.5 H VBG pO2 52.4 H VBG HCO3 25.0 VBG Total CO2 26.8 VBG O2 Saturation 85.6 H VBG Base Excess -2.3 Sodium 132 L 132 L Potassium 4.4 5.1 Chloride 102 101 Carbon Dioxide 33 H 30 Anion Gap 1.4 L 6.1 BUN 19 D 15 Creatinine 0.70 0.70 Estimated Creat Clear 62 58 Estimated GFR 110 110 Est GFR ( Amer) 133 133 Glucose 88 D 161 H Calcium 7.8 L 8.2 L Magnesium 2.1 Total Bilirubin 0.3 0.6 AST 28 D 51 D ALT 14 D 29 D Alkaline Phosphatase 68 62 Total Protein 5.0 L 6.4 Albumin 2.5 L D 3.4 L Globulin 2.5 3.0 Albumin/Globulin Ratio 1.0 L 1.1 DS: Diagnosis Discharge Diagnosis (1) Respiratory failure with hypoxia: Status: Resolved Code(s): J96.91 - Respiratory failure, unspecified with hypoxia Qualifiers: Chronicity: acute on chronic Qualified Code(s): J96.21 - Acute and chronic respiratory failure with hypoxia (2) Bilateral pleural effusion: Status: Resolved Code(s): J90 - Pleural effusion, not elsewhere classified (3) Pulmonary edema: Status: Acute Code(s): J81.1 - Chronic pulmonary edema Qualifiers: Chronicity: chronic Qualified Code(s): J81.1 - Chronic pulmonary edema (4) Pneumonia: Status: Acute Code(s): J18.9 - Pneumonia, unspecified organism Qualifiers: Laterality: bilateral Lung location: lower lobe of lung Pneumonia type: due to unspecified organism Qualified Code(s): J18.9 - Pneumonia, unspecified organism (5) 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: Status: Acute Code(s): C15.4 - 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 (6) Adenocarcinoma: Status: Acute Code(s): C80.1 - Malignant (primary) neoplasm, unspecified (7) COPD mixed type: Status: Acute Code(s): J44.9 - Chronic obstructive pulmonary disease, unspecified (8) Tobacco user: Status: Acute Code(s): Z72.0 - Tobacco use (9) Hyperlipidemia: Status: Acute Code(s): E78.5 - Hyperlipidemia, unspecified Qualifiers: Hyperlipidemia type: mixed hyperlipidemia Qualified Code(s): E78.2 - Mixed hyperlipidemia Meds Home Medications and Allergies Home Medications Medication Instructions Recorded Confirmed Type aspirin 81 mg tablet,delayed 81 mg PO DAILY 11/26/22 04/11/23 History release famotidine 20 mg tablet (Pepcid) 20 mg PO DAILY 02/22/23 04/11/23 History cetirizine 10 mg tablet 10 mg PO DAILY 02/27/23 04/11/23 History ipratropium 0.5 mg-albuterol 3 mg 3 ml inhalation QID PRN Shortness 02/27/23 04/11/23 History (2.5 mg base)/3 mL nebulization Of Breath Or Wheezing soln fluticasone fur. 100 mcg-umeclid 1 inh inhalation DAILY 90 days #1 03/26/23 04/11/23 Rx 62.5 mcg-vilant 25 mcg ea inhalat.powder (Trelegy Ellipta) capecitabine 150 mg tablet 900 mg PO BID 04/11/23 04/11/23 History levofloxacin 750 mg tablet 750 mg PO DAILY 3 days #3 tabs 04/11/23 Rx prochlorperazine maleate 10 mg 10 mg PO Q6 PRN Nausea And Vomiting 04/11/23 04/11/23 History tablet New Prescriptions to Start Prescriptions: Marciano Ryan Allergies Allergy/AdvReac Type Severity Reaction Status Date / Time No Known Allergies Allergy Verified 04/09/23 09:51 Discharge Plan Disposition Patient Disposition: Home, Self-Care Condition: Fair Discharge Order Discharge Orders: Discharge Order (Routine); Ordered 04/11/23 Ordered By: Marciano Bond Follow up Plan Follow up with: Adia Lemus PA [Primary Care Provider] - 04/22/23 9:00 am Radha Jimenez MD [Physician] - 04/18/23 1:15 pm (Please get your chest x ray before your appt. ) Prescriptions/Medication Reconciliation: New levofloxacin 750 mg tablet 750 mg PO DAILY 3 Days Qty: 3 0RF Continued Trelegy Ellipta 100-62.5-25 mcg blister with device 1 inh inhalation DAILY 90 Days Qty: 1 3RF aspirin 81 mg tablet,delayed release (DR/EC) 81 mg PO DAILY famotidine [Pepcid] 20 mg Tablet 20 mg PO DAILY ipratropium-albuterol 0.5 mg-3 mg(2.5 mg base)/3 mL solution for nebulization 3 ml inhalation QID PRN (Reason: Shortness Of Breath Or Wheezing) cetirizine 10 mg tablet 10 mg PO DAILY prochlorperazine maleate 10 mg tablet 10 mg PO Q6 PRN (Reason: Nausea And Vomiting) Patient Comments: TAKE ONE TABLET BY MOUTH EVERY 6 HOURS NEEDED FOR NAUSEA AND VOMITING capecitabine 150 mg tablet 900 mg PO BID Rx Instructions: TAKE 6 TABLETS BY MOUTH TWICE A DAY FOR 21 DAYS, THEN REPEAT WITH NO DAYS OFF. Other Ambulatory Orders: XR chest 2V (Routine) Timeframe: 1 Week Facility: [facility] - Location: Radiology Ordered By: Radha Jimenez Problem Reconciliation Problems Reviewed?: Yes Patient Discharge Instructions ACTIVITY: Continue current activity DIET: continue same diet Patient Instructions: DI for Pneumonia -- Adult Providers Primary Care Provider: Adia Lemus Admit Provider: Marciano Bond Attending Provider: Marciano Bond
[2023-04-11 11:22] VITALS: BP 107/53; PULSE 98; RESP 18; TEMP 36.5; O2SAT 91
--- NOTE | 2023-04-15 13:51 | CARE MANAGER ---
Addendum entered by Angella Penny RN 04/15/23 14:04: Patient returned our call. States he is doing ok, having trouble getting pleurex bottles. Advised to go to for drain if unable to obtain bottles. No other concerns at time of call. Original Note: Attempted to contact patient x 2 related to hospital discharge. Left VM message. FERNANDEZ Dennis
== END 2023-04-11 14:12 | disposition home or self-care (01) | DRG 374 ==
LOC: ER 19:56 → 2ND 20:51
PROVIDERS: Nurse Practitioner Family; Admitting Provider Internal Medicine Adolescent Medicine; Emergency Provider Emergency Medicine; PCP Student in an Organized Health Care Education/Training Program; Visit Provider Internal Medicine Adolescent Medicine
DX: C15.4 Malignant neoplasm of middle third of esophagus (principal); J96.02 Acute respiratory failure with hypercapnia; J96.21 Acute and chronic respiratory failure with hypoxia; J81.1 Chronic pulmonary edema; J43.9 Emphysema, unspecified; I25.2 Old myocardial infarction; E78.2 Mixed hyperlipidemia
CPT/HCPCS: 71045; 80053; 82803; 83735; 85007; 85025; 87040; 87070; 87205; 93005; 96413; 96415; 99291; J0696; J1642; J9263

== ENCOUNTER 2023-04-18 11:19 | Outpatient (CLI) | payer MEDICARE, SELFPAY ==
--- NOTE | 2023-04-18 11:23 | XR_ITS ---
FINAL REPORT CLINICAL HISTORY: Pneumonia, states f/u to effusions COMPARISON: 03/19/2023 FINDINGS: PA and lateral views of the chest are obtained. A left Port-A-Cath remains present, stable since the prior exam. There has been interval placement of bilateral pleural drain catheters. Since the prior chest x-ray there has been interval improvement in the bilateral effusions. The cardiac and mediastinal silhouettes are within normal limits. Bilateral lower lobe airspace disease could represent atelectasis or pneumonia, overall improved since the prior exam. There is no pneumothorax, or acute osseous abnormality. IMPRESSION: Interval placement of bilateral pleural drain catheter since the prior exam. There has been interval improvement in the bilateral pleural effusions. Bilateral lower lobe airspace disease, could represent atelectasis or pneumonia, overall improved since prior exam. Reviewed, Interpreted and Dictated by Emma Read MD Transcribed by Mariah Cevallos Authenticated and [facility]
== END 2023-04-18 23:59 ==
LOC: RAD 11:21
PROVIDERS: PCP Student in an Organized Health Care Education/Training Program; Visit Provider Internal Medicine Pulmonary Disease
DX: J90 Pleural effusion, not elsewhere classified (principal); Z45.2 Encounter for adjustment and management of vascular access device
CPT/HCPCS: 71046

== ENCOUNTER 2023-04-25 09:46 | Outpatient (CLI) | payer MEDICARE, SELFPAY ==
--- NOTE | 2023-04-25 11:10 | PC.NURSE ---
Unable to perform 6MW due to poor perfusion after multiple attempts.
[2023-04-25] MEDS: ALBUTEROL 0.083% 2.5 MG/3 ML NEB IH (11:12)
== END 2023-04-25 23:59 ==
LOC: RT 09:46
PROVIDERS: PCP Student in an Organized Health Care Education/Training Program; Visit Provider Internal Medicine Pulmonary Disease
DX: R06.09 Other forms of dyspnea (principal)
CPT/HCPCS: 94060; 94726; 94729

== ENCOUNTER 2023-04-30 09:44 | Outpatient (CLI) | payer MEDICARE, SELFPAY ==
[2023-04-30] VITALS (7 sets, daily range): BP systolic 107–125; BP diastolic 49–58; PULSE 80–90; RESP 18; TEMP 36.7; O2SAT 91–93; BMI 23.4
[2023-04-30 10:40] LABS: Basophils # 0.1 K/mm3 (0-0.2); Basophils % 1.7 % (0.1-2.0); Eosinophils # 0.2 K/mm3 (0.0-0.4); Eosinophils % 4.3 % (0.1-12.0); Hematocrit 42.4 % (42.0-52.0); Hemoglobin 13.7 g/dL (14.1-18.0); Lymphocytes # 1.2 K/mm3 (0.7-4.5); Mean Corpuscular HGB Conc 32.2 g/dL (31.8-35.4); Mean Corpuscular Volume 99.4 fl (80-94); Mean Platelet Volume 8.4 fl (7.4-10.4); Monocytes # 0.4 K/mm3 (0.1-1.0); Monocytes % 7.1 % (1.7-9.3); Neutrophils # 3.6 K/mm3 (1.8-7.8); Platelet Count 324 K/mm3 (142-424); Red Blood Count 4.27 M/mm3 (4.60-6.20); White Blood Count 5.5 K/mm3 (4.8-10.8)
[2023-04-30 10:47] LABS: Alanine Aminotransferase 13 U/L (12-78); Albumin/Globulin Ratio 1.2 (1.1-1.8); Alkaline Phosphatase 94 U/L (38-126); Anion Gap 3.4 mEq/L (5-15); Aspartate Amino Transferase 31 U/L (17-59); Bilirubin,Total 0.3 mg/dl (0.2-1.3); Blood Urea Nitrogen 7 mg/dl (9-20); Calcium 8.2 mg/dl (8.4-10.2); Carbon Dioxide 33 mmol/L (22.0-30.0); Chloride 104 mmol/L (98-107); Creatinine Clearance Estimated 62 mL/min (50-200); Estimated Glomerular Filt Rate 110 ml/min (>60); GFR (African American) 133 ML/MIN (>60); Globulin 2.6 g/dL (1.3-3.2); Glucose 97 mg/dl (74-100); Potassium 4.4 mmoL/L (3.5-5.1); Sodium 136 mmol/L (136-145); Total Protein,Serum 5.6 g/dl (6.3-8.2)
[2023-04-30] MEDS: ONDANSETRON 4MG ODT 16 MG SL (11:11)
[2023-04-30] MEDS: CALCIUM GLUCONATE 1,000 MG, MAGNESIUM SULFATE 1 GM in DEXTROSE 5 % IN WATER 100 ML 224 MG IV ×2 (11:11→13:50)
[2023-04-30] MEDS: SODIUM CHLORIDE 0.9% 10ML FLUSH SYRINGE 10 ML IV (11:12)
[2023-04-30] MEDS: OXALIPLATIN IV (11:44)
[2023-04-30] MEDS: WATER IV (11:44)
[2023-04-30] MEDS: DEXTROSE 5% IV (11:44)
== END 2023-04-30 14:30 | disposition home or self-care (01) ==
LOC: INF 09:45
PROVIDERS: PCP Student in an Organized Health Care Education/Training Program; Visit Provider Internal Medicine Medical Oncology
DX: C80.0 Disseminated malignant neoplasm, unspecified (principal)
CPT/HCPCS: 80053; 85025; 96413; 96415; J1642; J9263

== ENCOUNTER 2023-04-30 16:51 | Inpatient (IN) | payer MEDICARE, SELFPAY ==
[2023-04-30] VITALS (32 sets, daily range): BP systolic 63–126; BP diastolic 37–81; PULSE 91–136; RESP 15–28; TEMP 36.7–37.4; O2SAT 48–98; BMI 23.4; BMI 151.6
--- NOTE | 2023-04-30 16:59 | PC.NURSE ---
call made to respiratory to inform that physician is ordering ABG
--- NOTE | 2023-04-30 17:02 | XR_ITS ---
PROCEDURE INFORMATION: Exam: XR Chest Exam date and time: 04/30/2023 5:05 PM Age: 77 years old Clinical indication: Shortness of breath; Additional info: SOA TECHNIQUE: Imaging protocol: Radiologic exam of the chest. Views: 1 view. COMPARISON: CR XR CHEST 2V 04/18/2023 11:33 AM FINDINGS: Tubes, catheters and devices: Left subclavian approach central venous port catheter in stable position. Bilateral chest tubes in relatively unchanged position. Lungs: Veiling pulmonary edema in the lower lungs, increased when compared with most recent chest radiograph performed on 04/18/2023. Pleural spaces: Bilateral pleural effusions, not significantly changed from prior exam. No pneumothorax. Heart/Mediastinum: Cardiomediastinal silhouette is unchanged from prior exam. Bones/joints: No evidence of acute osseous abnormality. IMPRESSION: 1. Veiling pulmonary edema in the lower lungs, increased when compared with most recent chest radiograph performed on 04/18/2023. 2. Bilateral pleural effusions, not significantly changed from prior exam.
--- NOTE | 2023-04-30 17:02 | ECG_ITS ---
APPROVED REPORT Exam: Resting ECG HR:131 bpm ECG Measurements Heart Rate 131 AXES VA 190 P 86 QRSd 67 QRS 95 QT 246 T 62 QTc 323 Conclusion SINUS TACHYCARDIA WITH OCCASIONAL VENTRICULAR PREMATURE COMPLEXES BORDERLINE RIGHT AXIS DEVIATION [QRS AXIS > 90] LOW QRS VOLTAGE IN EXTREMITY LEADS [QRS DEFLECTION < 0.5 mV IN LIMB LEADS] ANTEROSEPTAL MYOCARDIAL INFARCTION , OF INDETERMINATE AGE [40+ ms Q WAVE IN V1-V4] ABNORMAL ECG UNCONFIRMED REPORT Electronically signed by : JULIANA BRADY, 04/30/2023 23:47:52
--- NOTE | 2023-04-30 17:03 | PC.NURSE ---
PA @ bedside. saturation is now 89% on nonrebreather
--- NOTE | 2023-04-30 17:11 | [facility].EDCP ---
Discharge Plan Disposition Chief Complaint: Shortness of Breath/Dyspnea Prescriptions Prescriptions: No Action Glynn Ndiaye 100-62.5-25 mcg blister with device 1 inh inhalation DAILY 90 Days Qty: 1 3RF aspirin 81 mg tablet,delayed release (DR/EC) 81 mg PO DAILY famotidine [Pepcid] 20 mg Tablet 20 mg PO DAILY ipratropium-albuterol 0.5 mg-3 mg(2.5 mg base)/3 mL solution for nebulization 3 ml inhalation QID PRN (Reason: Shortness Of Breath Or Wheezing) cetirizine 10 mg tablet 10 mg PO DAILY prochlorperazine maleate 10 mg tablet 10 mg PO Q6 PRN (Reason: Nausea And Vomiting) Patient Comments: TAKE ONE TABLET BY MOUTH EVERY 6 HOURS NEEDED FOR NAUSEA AND VOMITING capecitabine 150 mg tablet 900 mg PO BID Rx Instructions: TAKE 6 TABLETS BY MOUTH TWICE A DAY FOR 21 DAYS, THEN REPEAT WITH NO DAYS OFF. Referrals Follow up/Referrals: Adia Lemus PA [Primary Care Provider] - See instructions Clinical Impressions Clinical Impression: Acute on chronic respiratory failure with hypoxia and hypercapnia, Bilateral pleural effusion Discharge ED Provider: Dalton Mccarthy General Chief Complaint: Shortness of Breath/Dyspnea Stated Complaint: vomiting,diarrhea, SOA Time Seen by Provider: 04/30/23 16:57 Mode of Arrival: Wheelchair Source of Information: Patient and Spouse Limitations: Physical Limitations Description of Symptoms (Recalled from ER Triage Doc. by RN): nausea vomiting. shortnedd of breath Related Data Home Medications Medication Instructions Recorded Confirmed aspirin 81 mg tablet,delayed 81 mg PO DAILY 11/26/22 04/30/23 release famotidine 20 mg tablet (Pepcid) 20 mg PO DAILY 02/22/23 04/30/23 cetirizine 10 mg tablet 10 mg PO DAILY 02/27/23 04/30/23 ipratropium 0.5 mg-albuterol 3 mg 3 ml inhalation QID PRN Shortness 02/27/23 04/30/23 (2.5 mg base)/3 mL nebulization Of Breath Or Wheezing soln capecitabine 150 mg tablet 900 mg PO BID 04/11/23 04/30/23 prochlorperazine maleate 10 mg 10 mg PO Q6 PRN Nausea And Vomiting 04/11/23 04/30/23 tablet Previous Rx's Medication Instructions Recorded fluticasone fur. 100 mcg-umeclid 1 inh inhalation DAILY 90 days #1 03/26/23 62.5 mcg-vilant 25 mcg ea inhalat.powder (Trelegy Ellipta) Allergies Allergy/AdvReac Type Severity Reaction Status Date / Time No Known Allergies Allergy Verified 04/30/23 10:40 [facility] Disclaimer: The information contained in this section may have been updated after the patient was seen, as this information can be updated by other users. Medical History Acute hypercapnic respiratory failure Ascites Pneumonia Pulmonary edema Chronic cough Tachycardia Respiratory failure with hypoxia Adenocarcinoma Pleural effusion on right Encounter for screening for malignant neoplasm of lung Smoking greater than 30 pack years Dyspnea on exertion Pulmonary emphysema Pneumonia Viral pneumonia Tobacco user Hyperlipidemia Sepsis NSTEMI (non-ST elevated myocardial infarction) Acute exacerbation of chronic obstructive pulmonary disease Acute respiratory failure with hypoxia Community acquired pneumonia COPD (chronic obstructive pulmonary disease) Surgical History History of hip replacement Family History Other Lung cancer Social History (Updated 04/30/23 @ 10:39 by Jesus Belle RN) Smoking Status: Current some day smoker alcohol intake: never substance use type: denies use current occupational status: retired Travel in the last 8 weeks: None household members: spouse lives independently: Yes marital status: education level: college caffeine: Yes physical activity: walking ROS Obtained: Yes Systems reviewed as appropriate & no additional complaints except as documented Physical Exam General General appearance: alert and in no apparent distress Head Head exam: atraumatic and normal inspection Eye Eye exam: Present normal appearance, PERRL and EOMI ENT ENT exam: Present normal exam, normal oropharynx and mucous membranes moist Neck Neck exam: Present normal inspection, full ROM and trachea midline; Absent lymphadenopathy Chest Chest inspection: Present normal inspection and symmetric chest wall rise Respiratory Respiratory exam: Present normal lung sounds bilaterally; Absent accessory muscle use Cardiovascular Cardiovascular exam: Present regular rate, normal rhythm, normal heart sounds, +S1 and +S2 Abdominal Exam Abdominal exam: Present soft and normal bowel sounds; Absent tenderness, guarding or rebound Extremities Exam Extremities exam: Present normal inspection and full ROM Neurological Exam Neurological exam: Present alert, oriented X3 and CN II-XII intact Psychiatric Psychiatric exam: Present normal affect and normal mood Skin Skin exam: Present warm, dry and normal color Lymphatic Lymphatic Findings: no adenopathy Medical Decision Making Vital Signs Vital Signs: 04/30/23 16:55 Temperature 99.3 F Temperature Source Axillary Pulse Rate [Right Radial] 136 H Respiratory Rate 28 H Blood Pressure [Right Arm] 126/81 Blood Pressure Mean [Right Arm] 96 02 Sat by Pulse Oximetry 48 L Oxygen Delivery Method Room Air Lab Data Labs: Lab Results 04/30/23 17:02: Specimen Source Right radial, O2 % 10l aerosol, ABG pH 7.32 L, ABG pCO2 53.4 H, ABG pO2 68.8 L, ABG HCO3 26.8 H, ABG Total CO2 28.4 H, ABG O2 Saturation 93, ABG Base Excess 0.6, Yuri Test Y 04/30/23 17:06: WBC 6.5, RBC 4.42 L, Hgb 13.5 L, Hct 44.5, MCV 100.7 H, MCH 30.4, MCHC 30.2 L, RDW 18.2 H, Plt Count 363, MPV 7.5, Neut % (Auto) 78.4, Lymph % (Auto) 18.6, [place] % (Auto) 1.4 L, Eos % (Auto) 1.5, Baso % (Auto) 0.2, Neut # (Auto) 5.1, Lymph # (Auto) 1.2, [place] # (Auto) 0.1, Eos # (Auto) 0.1, Baso # (Auto) 0.0, PT 11.8, INR 1.10, Sodium 134 L, Potassium 4.1, Chloride 103, Carbon Dioxide 31 H, Anion Gap 4.1 L, BUN 9 D, Creatinine 0.70, Estimated Creat Clear 62, Estimated GFR 110, Est GFR ( Amer) 133, Glucose 97, Lactate 2.1, Calcium 8.5, Magnesium 2.1, Total Bilirubin 0.2, AST 43 D, ALT 21 D, Alkaline Phosphatase 97, Troponin I < 0.01, Total Protein 5.6 L, Albumin 3.0 L, Globulin 2.6, Albumin/Globulin Ratio 1.2 04/30/23 17:06 04/30/23 17:06 Response Orders (Tests/Meds): ED MEDICATIONS Discontinued Medications Generic Name Dose Route Start Last Admin Trade Name Cielo PRN Reason Stop Dose Admin Acetaminophen 1,000 mg 04/30/23 17:18 Acetaminophen 1,000mg/100ml Vial IV 04/30/23 17:19 ONCE ONE Albumin Human 25 gm 04/30/23 17:23 Albumin 25% (12.5 Gm) Soln 50ml Bottle IV 04/30/23 17:24 ONCE ONE Albuterol/Ipratropium 6 ml 04/30/23 17:13 Ipratropium/Albuterol 3 Ml Neb IH 04/30/23 17:14 ONCE ONE ORDERS Category Date Time Status CTA Chest [CT angio chest PE protocol] Stat Cat Scan 04/30/23 17:12 Ordered Chest XR -- portable [XR chest portable] Stat Exams 04/30/23 17:02 Completed CBC w/Auto Diff [Complete Blood Count Auto Diff] Stat Lab 04/30/23 17:06 Completed CMP [Comprehensive Metabolic Panel] Stat Lab 04/30/23 17:06 Completed Full Resp Panel w/COVID ([facility]) Routine Lab 04/30/23 17:18 Ordered INR [Prothrombin Time INR] Stat Lab 04/30/23 17:06 Completed Lactic Acid Stat Lab 04/30/23 17:06 Completed Magnesium Stat Lab 04/30/23 17:06 Completed Trop I [Troponin I] Stat Lab 04/30/23 17:06 Completed Troponin I Q3H Lab 04/30/23 20:30 Ordered Troponin I Q3H Lab 04/30/23 23:30 Ordered ABG [Arterial Blood Gas] Stat RT 04/30/23 17:02 Completed MDM Narrative Medical Decision Narrative: In summary patient is a [age, sex] who presents to the emergency department for evaluation of [complaint]. Patient is [hemodynamically stable/unstable] upon arrival, [febrile/afebrile]. [Unremarkable physical exam, nonfocal exam versus focal remarkable exam]. Differential diagnosis includes [DDx]. Initial workup will be conducted with [hematologic labs, imaging, respiratory swab, describe workup]. Initial interventions include [crystalloid bolus, medications, p.o. challenge, etc.] initial workup reviewed by me [hematologic labs are remarkable for... Imaging remarkable for... Urinalysis remarkable for]. Upon repeat evaluation [patient had acceptable resolution of symptoms, had persistent pain for which additional interventions were conducted (describe interventions), tolerated p.o., was ambulatory, etc.]. Given this [patient is appropriate for discharge at this time and will be discharged with a prescription for... The case was discussed with hospital medicine regarding management and they will admit the patient their service for continued evaluation at this time... Etc.] 1050 cc on the right and 650 cc on the left Places where you can increase complexity: I informally interpreted the patient's chest x-ray or CT read and is remarkable for... Documenting what the air sampling and monitoring shows with rate and rhythm Consideration of test but deferring. Ex: I considered chest x-ray on this patient however given that they have no oxygen requirement and are clear to auscultation all lung garcia will be deferred. Social determinants of health: Given that patient is undomiciled increases complexity. Given that patient has polysubstance abuse compounds all aspects of care
--- NOTE | 2023-04-30 17:12 | CT_ITS ---
PROCEDURE INFORMATION: Exam: CTA Chest With Contrast Exam date and time: 04/30/2023 6:17 PM Age: 77 years old Clinical indication: Other: Malignant effusion, acute on chronic hypoxemic res TECHNIQUE: Imaging protocol: Computed tomographic angiography of the chest with contrast. Exam focused on the arteries. 3D rendering (Not supervised by radiologist): MIP and/or 3D reconstructed images were created by the technologist. Radiation optimization: All CT scans at this facility use at least one of these dose optimization techniques: automated exposure control; mA and/or kV adjustment per patient size (includes targeted exams where dose is matched to clinical indication); or iterative reconstruction. Contrast material: ISOVUE; Contrast volume: 75 ml; Contrast route: INTRAVENOUS (IV); COMPARISON: CT ANGIO CHEST PE PROTOCOL 02/26/2023 1:17 PM FINDINGS: Tubes, catheters and devices: Bilateral chest tubes in place with left catheter tip in the posterior upper left hemithorax and right catheter tip coiled in the posteromedial lower right hemithorax. Left subclavian approach central venous port catheter in place with tip in the right atrium. Pulmonary arteries: No evidence of pulmonary embolism. Dilated main pulmonary artery compatible with longstanding pulmonary arterial hypertension, not significantly changed from prior exam. Aorta: No evidence of thoracic aortic aneurysm or dissection. Lungs: Interstitial pulmonary edema in the lower lungs. No evidence of acute airspace infiltrate. Calcified pulmonary granuloma in the right upper lobe consistent with chronic sequelae of prior granulomatous disease, unchanged. Pleural spaces: Trace right pleural effusion. No left pleural effusion. No pneumothorax. Heart: Small pericardial effusion, not significantly changed from 02/26/2023 CT. No cardiomegaly. Mediastinal space: Diffuse esophageal wall thickening and mucosal hyperenhancement consistent with acute esophagitis. Layering fluid in the esophagus to the level of the upper mediastinum posing increased risk for aspiration. Lymph nodes: Enlarged subcarinal lymph nodes measuring 12 mm in short axis, nonspecific. Calcified mediastinal lymph nodes consistent with chronic sequelae of prior granulomatous disease. Gallbladder and bile ducts: Trace pericholecystic fluid partially visualized in the upper abdomen, nonspecific. Bones/joints: Multi-level bridging disc osteophytes in the lower thoracic spine compatible with diffuse idiopathic skeletal hyperostosis (DISH). No evidence of acute osseous abnormality or suspicious bone lesions. Soft tissues: Unremarkable. IMPRESSION: 1. No evidence of pulmonary embolism. 2. Interstitial pulmonary edema in the lower lungs. 3. Trace right pleural effusion. 4. Small pericardial effusion, not significantly changed from 02/26/2023 CT. 5. Diffuse esophageal wall thickening and mucosal hyperenhancement consistent with acute esophagitis. 6. Layering fluid in the esophagus to the level of the upper mediastinum posing increased risk for aspiration. 7. Trace pericholecystic fluid partially visualized in the upper abdomen, nonspecific. Findings could reflect hepatic venous congestion vs acute cholecystitis. Please correlate with patient history and/or physical exam. 8. Dilated main pulmonary artery compatible with longstanding pulmonary arterial hypertension, not significantly changed from prior exam. 9. Diffuse idiopathic skeletal hyperostosis (DISH). 10. Additional non-acute ancillary findings are detailed above. COMMENTS: Small pericardial effusion (< 10 mm) correlates with 50 - 250 ml of fluid, moderate (10 - 20 mm) correlates with 250 - 500 ml, and > 500 ml for a large effusion.
[2023-04-30 17:14] LABS: ABG Base Excess 0.6 mmol/L (-2.4-2.3); ABG HCO3 26.8 mmhg (22.0-26.0); ABG Oxygen Saturation 93 % (90-100); ABG PH 7.32 mmol/L (7.35-7.45); ABG PO2 68.8 mmhg (80-100); ABG TCO2 28.4 mmhg (23-27)
[2023-04-30 17:15] LABS: Allen's Test Y; Oxygen 10L AEROSOL %; Source Right Radial
[2023-04-30 17:16] LABS: ABG PCO2 53.4 mmhg (35.0-45.0)
--- NOTE | 2023-04-30 17:22 | ED_ITS ---
Discharge Plan Disposition Patient Disposition: Admitted Condition: Serious Clinical Impressions Clinical Impression: Acute on chronic respiratory failure with hypoxia and hypercapnia, Bilateral pleural effusion, Malignant neoplasm of lower third of esophagus Acute exacerbation of CHF (congestive heart failure) Qualifiers: Heart failure type: unspecified Qualified Code(s): I50.9 - Heart failure, unspecified Discharge ED Provider: Dalton Mccarthy HPI <ROLO Pascal - Last Filed: 04/30/23 20:03> General Chief Complaint: Shortness of Breath/Dyspnea Stated Complaint: vomiting,diarrhea, SOA Time Seen by Provider: 04/30/23 16:57 Mode of Arrival: Wheelchair Source of Information: Patient and Spouse Limitations: Physical Limitations Description of Symptoms (Recalled from ER Triage Doc. by RN): nausea vomiting. shortnedd of breath History of Present Illness HPI narrative: Patient is a 77-year-old gent presented to the emergency department initially with chief complaint of respiratory distress. 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 Patient was actually getting chemo today and afterwards was trying to walk to his vehicle when he became profoundly dyspneic. On arrival he was satting in the 70s while on his 2 L by nasal cannula. He was quickly brought back to the emergency department placed in the bed where he was noted to be in the low 80s despite nonrebreather mask. Patient reports air hunger but no cardiac chest pain fever chills hemoptysis hematochezia melena nausea vomit diarrhea. Related Data Home Medications Medication Instructions Recorded Confirmed aspirin 81 mg tablet,delayed 81 mg PO DAILY 11/26/22 04/30/23 release famotidine 20 mg tablet (Pepcid) 20 mg PO DAILY 02/22/23 04/30/23 cetirizine 10 mg tablet 10 mg PO DAILY 02/27/23 05/01/23 ipratropium 0.5 mg-albuterol 3 mg 3 ml inhalation QID PRN Shortness 02/27/23 04/30/23 (2.5 mg base)/3 mL nebulization Of Breath Or Wheezing soln capecitabine 150 mg tablet 900 mg PO BID 04/11/23 04/30/23 prochlorperazine maleate 10 mg 10 mg PO Q6 PRN Nausea And Vomiting 04/11/23 04/30/23 tablet Previous Rx's Medication Instructions Recorded fluticasone fur. 100 mcg-umeclid 1 inh inhalation DAILY 90 days #1 03/26/23 62.5 mcg-vilant 25 mcg ea inhalat.powder (Trelegy Ellipta) Allergies Allergy/AdvReac Type Severity Reaction Status Date / Time No Known Allergies Allergy Verified 04/30/23 10:40 PFS <ROLO Pascal - Last Filed: 04/30/23 20:03> PFS Disclaimer: The information contained in this section may have been updated after the patient was seen, as this information can be updated by other users. Medical History (Updated 05/01/23 @ 12:42 by Radha Jimenez MD) HAP (hospital-acquired pneumonia) Septic shock Acute hypercapnic respiratory failure Ascites Pneumonia Pulmonary edema Chronic cough Tachycardia Respiratory failure with hypoxia Adenocarcinoma Pleural effusion on right Encounter for screening for malignant neoplasm of lung Smoking greater than 30 pack years Dyspnea on exertion Pulmonary emphysema Pneumonia Viral pneumonia Tobacco user Hyperlipidemia Sepsis NSTEMI (non-ST elevated myocardial infarction) Acute exacerbation of chronic obstructive pulmonary disease Acute respiratory failure with hypoxia Community acquired pneumonia COPD (chronic obstructive pulmonary disease) Surgical History History of hip replacement Family History Other Lung cancer Social History (Updated 04/30/23 @ 10:39 by Jesus Belle RN) Smoking Status: Current some day smoker alcohol intake: never substance use type: denies use current occupational status: retired Travel in the last 8 weeks: None household members: spouse lives independently: Yes marital status: education level: college caffeine: Yes physical activity: walking <ROLO Pascal - Last Filed: 04/30/23 20:03> ROS Obtained: Yes Systems reviewed as appropriate & no additional complaints except as documented Physical Exam <ROLO Pascal - Last Filed: 04/30/23 20:03> General General appearance: alert and other (In severe respiratory distress) Head Head exam: atraumatic and normal inspection Eye Eye exam: Present normal appearance, PERRL and EOMI ENT ENT exam: Present normal exam, normal oropharynx, mucous membranes moist and other (Breathless speech) Neck Neck exam: Present normal inspection, full ROM and trachea midline; Absent lymphadenopathy Chest Chest inspection: Present normal inspection and symmetric chest wall rise; Absent tenderness Respiratory Respiratory exam: Present accessory muscle use and other (Patient is not in respiratory distress breathing approximately 30 times a minute with retractions. Breath sounds are diminished at the bilateral bases with diminished air entry and rales heard on auscultation.) Cardiovascular Cardiovascular exam: Present normal rhythm, tachycardia, normal heart sounds, +S1 and +S2 Abdominal Exam Abdominal exam: Present soft and normal bowel sounds; Absent tenderness, guarding or rebound Extremities Exam Extremities exam: Present normal inspection and full ROM Back Exam Back exam: Present normal inspection and full ROM Neurological Exam Neurological exam: Present alert, oriented X3 and CN II-XII intact Psychiatric Psychiatric exam: Present anxious Skin Skin exam: Present warm, dry and normal color Lymphatic Lymphatic Findings: no adenopathy HEART Score <ROLO Pascal - Last Filed: 04/30/23 20:03> HEART Score HEART Score assessment performed?: Yes History (anamnesis): Moderately suspicious ECG: Normal Age: >65 years Risk factors: 3 or more risk factors Troponin: </= normal limit HEART Score: 5 <Dalton Mccarthy DO - Last Filed: 05/01/23 15:42> HEART Score HEART Score: 5 Critical Care <ROLO Pascal - Last Filed: 04/30/23 20:03> Critical Care Time Critical Care Time: Yes Attestation: On 04/30/23, the high probability of a clinically significant, sudden or life threatening deterioration of the following system(s) required my full and direct attention, intervention and personal management. The time I documented below is in addition to time spent performing reported procedures but includes the following listed in this critical care notation. Total Time Total Critical Care Time: 60 Medical Decision Making <ROLO Pascal Last Filed: 04/30/23 20:03> Medical Records Medical records reviewed: Yes I reviewed the patient's medical records. Raghu Inquiry Pt receiving controlled substance: No Vital Signs Vital Signs: 04/30/23 16:55 04/30/23 18:01 04/30/23 18:30 Temperature 99.3 F Temperature Source Axillary Pulse Rate 114 H 116 H Pulse Rate [Right Radial] 136 H Respiratory Rate 28 H Blood Pressure 97/56 L 97/49 L Blood Pressure [Right Arm] 126/81 Blood Pressure Mean Blood Pressure Mean [Right Arm] 96 Blood Pressure Source 02 Sat by Pulse Oximetry 48 L 92 L 97 Oxygen Delivery Method Room Air Non-Rebreather Non-Rebreather 04/30/23 19:15 04/30/23 19:17 04/30/23 19:19 Temperature Temperature Source Pulse Rate 115 H 111 H 114 H Pulse Rate [Right Radial] Respiratory Rate 22 21 21 Blood Pressure 78/51 L 85/46 L 94/47 L Blood Pressure [Right Arm] Blood Pressure Mean 55 53 52 Blood Pressure Mean [Right Arm] Blood Pressure Source 02 Sat by Pulse Oximetry 95 97 97 Oxygen Delivery Method BiPAP BiPAP BiPAP 04/30/23 19:30 04/30/23 19:38 04/30/23 19:42 Temperature Temperature Source Pulse Rate 111 H 114 H 110 H Pulse Rate [Right Radial] Respiratory Rate 22 17 19 Blood Pressure 78/47 L 94/54 L 100/59 L Blood Pressure [Right Arm] Blood Pressure Mean 51 61 67 Blood Pressure Mean [Right Arm] Blood Pressure Source 02 Sat by Pulse Oximetry 95 78 L 86 L Oxygen Delivery Method BiPAP Venturi Mask Venturi Mask 04/30/23 19:45 04/30/23 19:50 04/30/23 19:53 Temperature Temperature Source Pulse Rate 110 H 109 H 108 H Pulse Rate [Right Radial] Respiratory Rate 19 22 22 Blood Pressure 104/61 L 112/63 105/56 L Blood Pressure [Right Arm] Blood Pressure Mean 73 79 69 Blood Pressure Mean [Right Arm] Blood Pressure Source 02 Sat by Pulse Oximetry 93 L 96 95 Oxygen Delivery Method Venturi Mask Venturi Mask Venturi Mask 04/30/23 20:00 04/30/23 20:10 04/30/23 20:20 Temperature Temperature Source Pulse Rate 109 H 110 H 107 H Pulse Rate [Right Radial] Respiratory Rate 17 19 21 Blood Pressure 100/58 L 100/56 L 89/49 L Blood Pressure [Right Arm] Blood Pressure Mean 71 65 59 Blood Pressure Mean [Right Arm] Blood Pressure Source 02 Sat by Pulse Oximetry 95 94 L 94 L Oxygen Delivery Method Venturi Mask Venturi Mask Venturi Mask 04/30/23 20:30 04/30/23 20:32 04/30/23 20:40 Temperature Temperature Source Pulse Rate 104 H 103 H 103 H Pulse Rate [Right Radial] Respiratory Rate 22 Blood Pressure 86/48 L 92/47 L 86/40 L Blood Pressure [Right Arm] Blood Pressure Mean 55 53 49 Blood Pressure Mean [Right Arm] Blood Pressure Source 02 Sat by Pulse Oximetry 94 L 95 95 Oxygen Delivery Method Venturi Mask Venturi Mask Venturi Mask 04/30/23 20:50 04/30/23 21:00 04/30/23 21:10 Temperature Temperature Source Pulse Rate 101 H 99 H 98 H Pulse Rate [Right Radial] Respiratory Rate 21 21 20 Blood Pressure 76/39 L 74/42 L 84/49 L Blood Pressure [Right Arm] Blood Pressure Mean 51 46 55 Blood Pressure Mean [Right Arm] Blood Pressure Source 02 Sat by Pulse Oximetry 96 96 97 Oxygen Delivery Method Venturi Mask Venturi Mask Venturi Mask 04/30/23 21:20 04/30/23 21:30 04/30/23 21:36 Temperature Temperature Source Pulse Rate 98 H 97 H 107 H Pulse Rate [Right Radial] Respiratory Rate 19 15 17 Blood Pressure 82/48 L 95/48 L 83/43 L Blood Pressure [Right Arm] Blood Pressure Mean 58 55 48 Blood Pressure Mean [Right Arm] Blood Pressure Source 02 Sat by Pulse Oximetry 96 96 93 L Oxygen Delivery Method Venturi Mask Venturi Mask Venturi Mask 04/30/23 21:39 04/30/23 21:50 04/30/23 22:35 Temperature 98.1 F Temperature Source Oral Pulse Rate 102 H 96 H 91 H Pulse Rate [Right Radial] Respiratory Rate 20 22 18 Blood Pressure 81/45 L 89/51 L 97/52 L Blood Pressure [Right Arm] Blood Pressure Mean 51 58 Blood Pressure Mean [Right Arm] Blood Pressure Source Automatic Cuff 02 Sat by Pulse Oximetry 88 L 92 L Oxygen Delivery Method Venturi Mask Venturi Mask Non-Rebreather Lab Data Lab results reviewed: Yes I reviewed the patient's lab results. Labs: Lab Results 04/30/23 17:02: Specimen Source Right radial, O2 % 10l aerosol, ABG pH 7.32 L, A BG pCO2 53.4 H, ABG pO2 68.8 L, ABG HCO3 26.8 H, ABG Total CO2 28.4 H, ABG O2 Saturation 93, ABG Base Excess 0.6, Yuri Test Y 04/30/23 17:06: WBC 6.5, RBC 4.42 L, Hgb 13.5 L, Hct 44.5, MCV 100.7 H, MCH 30.4, MCHC 30.2 L, RDW 18.2 H, Plt Count 363, MPV 7.5, Neut % (Auto) 78.4, Lymph % (Auto) 18.6, [place] % (Auto) 1.4 L, Eos % (Auto) 1.5, Baso % (Auto) 0.2, Neut # (Auto) 5.1, Lymph # (Auto) 1.2, [place] # (Auto) 0.1, Eos # (Auto) 0.1, Baso # (Auto) 0.0, PT 11.8, INR 1.10, Sodium 134 L, Potassium 4.1, Chloride 103, Carbon Dioxide 31 H, Anion Gap 4.1 L, BUN 9 D, Creatinine 0.70, Estimated Creat Clear 62, Estimated GFR 110, Est GFR ( Amer) 133, Glucose 97, Lactate 2.1, Calcium 8.5, Magnesium 2.1, Total Bilirubin 0.2, AST 43 D, ALT 21 D, Alkaline Phosphatase 97, Troponin I < 0.01, Total Protein 5.6 L, Albumin 3.0 L, Globulin 2.6, Albumin/Globulin Ratio 1.2 04/30/23 18:08: Chlamy pneumoniae PCR TNP, Adenovirus (PCR) Not detected, B. pertussis DNA (PCR) TNP, Coronavirus OC43 (PCR) Not detected, Coronavirus HKU1 (PCR) Not detected, Coronavirus 229E (PCR) Not detected, SARS-CoV-2 (PCR) Not detected, Coronavirus NL63 (PCR) Not detected, Human Metapneumovir PCR Not detected, Influenza A (H1) PCR Not detected, Influ A (H1N1/09) PCR Not detected, Influenza A (H3) PCR Not detected, Influenza Type A (PCR) Not detected, Influenza Type B (PCR) Not detected, M. pneumoniae (PCR) TNP, Parainfluenza 1 (PCR) Not detected, Parainfluenza 2 (PCR) Not detected, Parainfluenza 3 (PCR) Not detected, Parainfluenza 4 (PCR) Not detected, RSV (PCR) Not detected, Entero/Rhino (PCR) Not detected 04/30/23 20:20: Lactate 1.4, Troponin I 0.02 04/30/23 22:17: VBG Lactic Acid 1.9 05/01/23 06:15 05/01/23 06:15 Response Orders (Tests/Meds): ED MEDICATIONS Generic Name Dose Route Start Last Admin Trade Name Freq PRN Reason Stop Dose Admin Acetaminophen 650 mg 04/30/23 20:05 Acetaminophen 325mg Tab PO 05/30/23 20:04 Q4HP PRN Fever or Mild Pain (1-3) Enoxaparin Sodium 40 mg 04/30/23 20:15 05/01/23 10:15 Enoxaparin 40mg/0.4ml Syringe SQ 05/30/23 20:14 40 mg DAILY MALIKA Administration Norepinephrine/Dextrose 8 mg in 250 mls @ 22.5 mls/hr 04/30/23 19:36 05/01/23 13:15 Norepinephrine 8mg/250ml-D5w Premix IV 05/30/23 19:35 6 mcg/min .Q11H7M MALIKA 11.25 mls/hr Infusion Protocol Piperacillin Sod/Tazobactam 100 mls @ 200 mls/hr 05/01/23 13:00 05/01/23 13:52 Sod 4.5 gm/ Sodium Chloride IV 05/11/23 12:59 200 mls/hr Q6H MALIKA Administration Morphine Sulfate 2 mg 04/30/23 20:05 Morphine 2mg/Ml Syringe IV 05/30/23 20:04 Q2HP PRN Severe Pain (7-10) Nicotine 21 mg 04/30/23 20:05 Nicotine 21mg/24hr Patch TD 05/30/23 20:04 DAILYP PRN Nicotine Cravings Pantoprazole Sodium 40 mg 05/01/23 07:32 Pantoprazole 40mg Tablet PO 05/30/23 20:14 HS MALIKA Promethazine HCl 25 mg 04/30/23 20:05 Promethazine Hcl 25mg/Ml 1ml Vial IV 05/30/23 20:04 Q6HP PRN Nausea And Vomiting Sodium Chloride 3 ml 05/01/23 12:43 Sodium Chloride 3% 15ml Neb IH 05/31/23 12:42 ONCE PRN INDUCE SPUTUM COLLECTION Sodium Chloride 10 ml 05/01/23 12:47 Sodium Chloride 0.9% 10ml Flush Syringe IV 05/31/23 12:46 NEEDED PRN Maintain IV Site Discontinued Medications Generic Name Dose Route Start Last Admin Trade Name Freq PRN Reason Stop Dose Admin Acetaminophen 1,000 mg 04/30/23 17:18 04/30/23 19:40 Acetaminophen 1,000mg/100ml Vial IV 04/30/23 17:19 1,000 mg ONCE ONE Administration Albumin Human 25 gm 04/30/23 17:23 04/30/23 19:44 Albumin 25% (12.5 Gm) Soln 50ml Bottle IV 04/30/23 17:24 25 gm ONCE ONE Administration Albuterol/Ipratropium 6 ml 04/30/23 17:13 04/30/23 22:17 Ipratropium/Albuterol 3 Ml Neb 04/30/23 17:14 Not Given ONCE ONE Furosemide 80 mg 04/30/23 18:10 04/30/23 22:32 Furosemide 40mg/4ml Vial IV 04/30/23 18:11 40 mg ONCE ONE Administration Lactated Ringer's 500 mls @ 500 mls/hr 04/30/23 19:18 04/30/23 19:39 Lactated Ringer's 500ml IV 04/30/23 20:17 500 mls/hr .Q1H ONE Administration Levofloxacin/Dextrose 750 mg in 150 mls @ 100 mls/hr 04/30/23 19:45 04/30/23 20:30 Levofloxacin 750mg/150ml Premix IV 04/30/23 21:14 100 mls/hr ONCE ONE Administration Sodium Chloride 1,000 mls @ 500 mls/hr 04/30/23 21:45 04/30/23 23:33 Sod Chlor 0.9% 1000ml Bag IV 05/30/23 21:44 Not Given .Q2H MALIKA Piperacillin Sod/Tazobactam 50 mls @ 100 mls/hr 05/01/23 12:30 Sod 3.375 gm/ Sodium Chloride IV 05/11/23 12:29 Q8H MALIKA Iopamidol 75 ml 04/30/23 18:25 04/30/23 18:26 Iopamidol-370 (76%);100ml Bottle IV 04/30/23 18:26 75 ml ONCE ONE Administration Pantoprazole Sodium 40 mg 04/30/23 20:15 04/30/23 20:30 Pantoprazole 40mg Tablet PO 05/30/23 20:14 40 mg DAILY MALIKA Administration Sodium Chloride 50 ml 04/30/23 18:25 04/30/23 18:25 0.9 % Sodium Chloride 50 Ml Vial IV 04/30/23 18:26 50 ml ONCE ONE Administration Sodium Chloride 10 ml 04/30/23 18:25 04/30/23 18:26 Sodium Chloride 0.9% 10ml Syr (Rad Only) IV 05/30/23 18:24 10 ml NEEDED PRN Administration Maintain IV Site Sodium Chloride 25 ml 04/30/23 20:05 04/30/23 22:18 Sodium Chloride 0.9% 25ml Bag IV 04/30/23 20:06 Not Given ONCE ONE ORDERS Category Date Time Status CTA Chest [CT angio chest PE protocol] Stat Cat Scan 04/30/23 17:12 Completed Pulmonology Consult [Consult to Pulmonology] [CONS] Cons 04/30/23 20:05 Active Stat Chest XR -- portable [XR chest portable] Stat Exams 04/30/23 17:02 Completed CBC w/Auto Diff [Complete Blood Count Auto Diff] Stat Lab 04/30/23 17:06 Completed CMP [Comprehensive Metabolic Panel] Stat Lab 04/30/23 17:06 Completed Complete Blood Count Auto Diff AMLAB Lab 05/01/23 06:15 Completed Comprehensive Metabolic Panel AMLAB Lab 05/01/23 06:15 Completed Full Resp Panel w/COVID ([facility]) Routine Lab 04/30/23 18:08 Completed INR [Prothrombin Time INR] Stat Lab 04/30/23 17:06 Completed Lactate Venous Routine Lab 04/30/23 22:17 Completed Lactic Acid Follow Up (RFLX 1) Stat Lab 04/30/23 20:20 Completed Lactic Acid Stat Lab 04/30/23 17:06 Completed Magnesium AMLAB Lab 05/01/23 06:15 Completed Magnesium Stat Lab 04/30/23 17:06 Completed Trop I [Troponin I] Stat Lab 04/30/23 17:06 Completed Troponin I Q3H Lab 04/30/23 20:20 Completed Troponin I Q3H Lab 04/30/23 23:30 Completed Blood Culture Stat Micro 04/30/23 20:15 Received ABG [Arterial Blood Gas] Stat RT 04/30/23 17:02 Completed MDM Narrative Medical Decision Narrative: In summary patient is a 77-year-old male who presents to the emergency department for evaluation of acute respiratory distress. Patient is normotensive tachycardic tachypneic initially satting 48% on 2 L by nasal cannula on arrival upon arrival, with a temperature of 99.3. Physical exam revealed a patient in acute respiratory distress with accessory muscle use rales on auscultation and diminished breath sounds bilateral bases. My informal review of his plain film x-ray at the bedside shows bilateral pleural effusions and bilateral pulmonary edema. The remainder of his physical exam is unremarkable and nonfocal. Differential diagnosis includes acute on chronic respiratory failure versus ACS versus PE versus compressive atelectasis versus CHF exacerbation versus worsening pleural effusions etc. Initial workup will be conducted with hematologic labs CTA PE protocol. Initial interventions include Toradol Tylenol and bilateral draining of his Pleurx catheters, BiPAP. Initial workup reviewed by me again shows via my informal interpretation of the CTA PE protocol no evidence of thrombus however does show that we have significantly drained his pleural effusions and he still has remaining bilateral pulmonary edema. Patient initially had dramatic improvement in both his work of breathing as well as his oxygenation and was tolerating nonrebreather with ease. However ABG showed hypercarbia and hypoxemia and thus patient was transitioned to BiPAP due to the pulmonary edema. Patient given a dose of 80 of Lasix. After initiation of BiPAP however patient continued to have low pressures so patient was initiated on Levophed. Given his immunosuppressed status he was started on Levaquin. Attempted to transition off of BiPAP onto Ventimask was unsuccessful as patient dropped sats into the 70s. Patient had a total of 1050 cc taken off on the right and 650 cc taken off on the left. Patient was also given 1 bottle of albumin after thoracentesis. I contacted hospital medicine at 1945 discussed patient management and they graciously agreed to admit the patient. <Dalton Mccarthy, DO - Last Filed: 05/01/23 15:42> Vital Signs Vital Signs: 04/30/23 16:55 04/30/23 18:01 04/30/23 18:30 Temperature 99.3 F Temperature Source Axillary Pulse Rate 114 H 116 H Pulse Rate [Right Radial] 136 H Respiratory Rate 28 H Blood Pressure 97/56 L 97/49 L Blood Pressure [Right Arm] 126/81 Blood Pressure Mean Blood Pressure Mean [Right Arm] 96 Blood Pressure Source 02 Sat by Pulse Oximetry 48 L 92 L 97 Oxygen Delivery Method Room Air Non-Rebreather Non-Rebreather 04/30/23 19:15 04/30/23 19:17 04/30/23 19:19 Temperature Temperature Source Pulse Rate 115 H 111 H 114 H Pulse Rate [Right Radial] Respiratory Rate 22 21 21 Blood Pressure 78/51 L 85/46 L 94/47 L Blood Pressure [Right Arm] Blood Pressure Mean 55 53 52 Blood Pressure Mean [Right Arm] Blood Pressure Source 02 Sat by Pulse Oximetry 95 97 97 Oxygen Delivery Method BiPAP BiPAP BiPAP 04/30/23 19:30 04/30/23 19:38 04/30/23 19:42 Temperature Temperature Source Pulse Rate 111 H 114 H 110 H Pulse Rate [Right Radial] Respiratory Rate 22 17 19 Blood Pressure 78/47 L 94/54 L 100/59 L Blood Pressure [Right Arm] Blood Pressure Mean 51 61 67 Blood Pressure Mean [Right Arm] Blood Pressure Source 02 Sat by Pulse Oximetry 95 78 L 86 L Oxygen Delivery Method BiPAP Venturi Mask Venturi Mask 04/30/23 19:45 04/30/23 19:50 04/30/23 19:53 Temperature Temperature Source Pulse Rate 110 H 109 H 108 H Pulse Rate [Right Radial] Respiratory Rate 19 22 22 Blood Pressure 104/61 L 112/63 105/56 L Blood Pressure [Right Arm] Blood Pressure Mean 73 79 69 Blood Pressure Mean [Right Arm] Blood Pressure Source 02 Sat by Pulse Oximetry 93 L 96 95 Oxygen Delivery Method Venturi Mask Venturi Mask Venturi Mask 04/30/23 20:00 04/30/23 20:10 04/30/23 20:20 Temperature Temperature Source Pulse Rate 109 H 110 H 107 H Pulse Rate [Right Radial] Respiratory Rate 17 19 21 Blood Pressure 100/58 L 100/56 L 89/49 L Blood Pressure [Right Arm] Blood Pressure Mean 71 65 59 Blood Pressure Mean [Right Arm] Blood Pressure Source 02 Sat by Pulse Oximetry 95 94 L 94 L Oxygen Delivery Method Venturi Mask Venturi Mask Venturi Mask 04/30/23 20:30 04/30/23 20:32 04/30/23 20:40 Temperature Temperature Source Pulse Rate 104 H 103 H 103 H Pulse Rate [Right Radial] Respiratory Rate 22 Blood Pressure 86/48 L 92/47 L 86/40 L Blood Pressure [Right Arm] Blood Pressure Mean 55 53 49 Blood Pressure Mean [Right Arm] Blood Pressure Source 02 Sat by Pulse Oximetry 94 L 95 95 Oxygen Delivery Method Venturi Mask Venturi Mask Venturi Mask 04/30/23 20:50 04/30/23 21:00 04/30/23 21:10 Temperature Temperature Source Pulse Rate 101 H 99 H 98 H Pulse Rate [Right Radial] Respiratory Rate 21 21 20 Blood Pressure 76/39 L 74/42 L 84/49 L Blood Pressure [Right Arm] Blood Pressure Mean 51 46 55 Blood Pressure Mean [Right Arm] Blood Pressure Source 02 Sat by Pulse Oximetry 96 96 97 Oxygen Delivery Method Venturi Mask Venturi Mask Venturi Mask 04/30/23 21:20 04/30/23 21:30 04/30/23 21:36 Temperature Temperature Source Pulse Rate 98 H 97 H 107 H Pulse Rate [Right Radial] Respiratory Rate 19 15 17 Blood Pressure 82/48 L 95/48 L 83/43 L Blood Pressure [Right Arm] Blood Pressure Mean 58 55 48 Blood Pressure Mean [Right Arm] Blood Pressure Source 02 Sat by Pulse Oximetry 96 96 93 L Oxygen Delivery Method Venturi Mask Venturi Mask Venturi Mask 04/30/23 21:39 04/30/23 21:50 04/30/23 22:35 Temperature 98.1 F Temperature Source Oral Pulse Rate 102 H 96 H 91 H Pulse Rate [Right Radial] Respiratory Rate 20 22 18 Blood Pressure 81/45 L 89/51 L 97/52 L Blood Pressure [Right Arm] Blood Pressure Mean 51 58 Blood Pressure Mean [Right Arm] Blood Pressure Source Automatic Cuff 02 Sat by Pulse Oximetry 88 L 92 L Oxygen Delivery Method Venturi Mask Venturi Mask Non-Rebreather Lab Data Labs: Lab Results 04/30/23 17:02: Specimen Source Right radial, O2 % 10l aerosol, ABG pH 7.32 L, A BG pCO2 53.4 H, ABG pO2 68.8 L, ABG HCO3 26.8 H, ABG Total CO2 28.4 H, ABG O2 Saturation 93, ABG Base Excess 0.6, Yuri Test Y 04/30/23 17:06: WBC 6.5, RBC 4.42 L, Hgb 13.5 L, Hct 44.5, MCV 100.7 H, MCH 30.4, MCHC 30.2 L, RDW 18.2 H, Plt Count 363, MPV 7.5, Neut % (Auto) 78.4, Lymph % (Auto) 18.6, [place] % (Auto) 1.4 L, Eos % (Auto) 1.5, Baso % (Auto) 0.2, Neut # (Auto) 5.1, Lymph # (Auto) 1.2, [place] # (Auto) 0.1, Eos # (Auto) 0.1, Baso # (Auto) 0.0, PT 11.8, INR 1.10, Sodium 134 L, Potassium 4.1, Chloride 103, Carbon Dioxide 31 H, Anion Gap 4.1 L, BUN 9 D, Creatinine 0.70, Estimated Creat Clear 62, Estimated GFR 110, Est GFR ( Amer) 133, Glucose 97, Lactate 2.1, Calcium 8.5, Magnesium 2.1, Total Bilirubin 0.2, AST 43 D, ALT 21 D, Alkaline Phosphatase 97, Troponin I < 0.01, Total Protein 5.6 L, Albumin 3.0 L, Globulin 2.6, Albumin/Globulin Ratio 1.2 04/30/23 18:08: Chlamy pneumoniae PCR TNP, Adenovirus (PCR) Not detected, B. pertussis DNA (PCR) TNP, Coronavirus OC43 (PCR) Not detected, Coronavirus HKU1 (PCR) Not detected, Coronavirus 229E (PCR) Not detected, SARS-CoV-2 (PCR) Not detected, Coronavirus NL63 (PCR) Not detected, Human Metapneumovir PCR Not detected, Influenza A (H1) PCR Not detected, Influ A (H1N1/09) PCR Not detected, Influenza A (H3) PCR Not detected, Influenza Type A (PCR) Not detected, Influenza Type B (PCR) Not detected, M. pneumoniae (PCR) TNP, Parainfluenza 1 (PCR) Not detected, Parainfluenza 2 (PCR) Not detected, Parainfluenza 3 (PCR) Not detected, Parainfluenza 4 (PCR) Not detected, RSV (PCR) Not detected, Entero/Rhino (PCR) Not detected 04/30/23 20:20: Lactate 1.4, Troponin I 0.02 04/30/23 22:17: VBG Lactic Acid 1.9 Response Orders (Tests/Meds): ED MEDICATIONS Generic Name Dose Route Start Last Admin Trade Name Freq PRN Reason Stop Dose Admin Acetaminophen 650 mg 04/30/23 20:05 Acetaminophen 325mg Tab PO 05/30/23 20:04 Q4HP PRN Fever or Mild Pain (1-3) Enoxaparin Sodium 40 mg 04/30/23 20:15 05/01/23 10:15 Enoxaparin 40mg/0.4ml Syringe SQ 05/30/23 20:14 40 mg DAILY MALIKA Administration Norepinephrine/Dextrose 8 mg in 250 mls @ 22.5 mls/hr 04/30/23 19:36 05/01/23 13:15 Norepinephrine 8mg/250ml-D5w Premix IV 05/30/23 19:35 6 mcg/min .Q11H7M MALIKA 11.25 mls/hr Infusion Protocol Piperacillin Sod/Tazobactam 100 mls @ 200 mls/hr 05/01/23 13:00 05/01/23 13:52 Sod 4.5 gm/ Sodium Chloride IV 05/11/23 12:59 200 mls/hr Q6H MALIKA Administration Morphine Sulfate 2 mg 04/30/23 20:05 Morphine 2mg/Ml Syringe IV 05/30/23 20:04 Q2HP PRN Severe Pain (7-10) Nicotine 21 mg 04/30/23 20:05 Nicotine 21mg/24hr Patch TD 05/30/23 20:04 DAILYP PRN Nicotine Cravings Pantoprazole Sodium 40 mg 05/01/23 07:32 Pantoprazole 40mg Tablet PO 05/30/23 20:14 HS MALIKA Promethazine HCl 25 mg 04/30/23 20:05 Promethazine Hcl 25mg/Ml 1ml Vial IV 05/30/23 20:04 Q6HP PRN Nausea And Vomiting Sodium Chloride 3 ml 05/01/23 12:43 Sodium Chloride 3% 15ml Neb IH 05/31/23 12:42 ONCE PRN INDUCE SPUTUM COLLECTION Sodium Chloride 10 ml 05/01/23 12:47 Sodium Chloride 0.9% 10ml Flush Syringe IV 05/31/23 12:46 NEEDED PRN Maintain IV Site Discontinued Medications Generic Name Dose Route Start Last Admin Trade Name Freq PRN Reason Stop Dose Admin Acetaminophen 1,000 mg 04/30/23 17:18 04/30/23 19:40 Acetaminophen 1,000mg/100ml Vial IV 04/30/23 17:19 1,000 mg ONCE ONE Administration Albumin Human 25 gm 04/30/23 17:23 04/30/23 19:44 Albumin 25% (12.5 Gm) Soln 50ml Bottle IV 04/30/23 17:24 25 gm ONCE ONE Administration Albuterol/Ipratropium 6 ml 04/30/23 17:13 04/30/23 22:17 Ipratropium/Albuterol 3 Ml Neb IH 04/30/23 17:14 Not Given ONCE ONE Furosemide 80 mg 04/30/23 18:10 04/30/23 22:32 Furosemide 40mg/4ml Vial IV 04/30/23 18:11 40 mg ONCE ONE Administration Lactated Ringer's 500 mls @ 500 mls/hr 04/30/23 19:18 04/30/23 19:39 Lactated Ringer's 500ml IV 04/30/23 20:17 500 mls/hr .Q1H ONE Administration Levofloxacin/Dextrose 750 mg in 150 mls @ 100 mls/hr 04/30/23 19:45 04/30/23 20:30 Levofloxacin 750mg/150ml Premix IV 04/30/23 21:14 100 mls/hr ONCE ONE Administration Sodium Chloride 1,000 mls @ 500 mls/hr 04/30/23 21:45 04/30/23 23:33 Sod Chlor 0.9% 1000ml Bag IV 05/30/23 21:44 Not Given .Q2H MALIKA Piperacillin Sod/Tazobactam 50 mls @ 100 mls/hr 05/01/23 12:30 Sod 3.375 gm/ Sodium Chloride IV 05/11/23 12:29 Q8H MALIKA Iopamidol 75 ml 04/30/23 18:25 04/30/23 18:26 Iopamidol-370 (76%);100ml Bottle IV 04/30/23 18:26 75 ml ONCE ONE Administration Pantoprazole Sodium 40 mg 04/30/23 20:15 04/30/23 20:30 Pantoprazole 40mg Tablet PO 05/30/23 20:14 40 mg DAILY MALIKA Administration Sodium Chloride 50 ml 04/30/23 18:25 04/30/23 18:25 0.9 % Sodium Chloride 50 Ml Vial IV 04/30/23 18:26 50 ml ONCE ONE Administration Sodium Chloride 10 ml 04/30/23 18:25 04/30/23 18:26 Sodium Chloride 0.9% 10ml Syr (Rad Only) IV 05/30/23 18:24 10 ml NEEDED PRN Administration Maintain IV Site Sodium Chloride 25 ml 04/30/23 20:05 04/30/23 22:18 Sodium Chloride 0.9% 25ml Bag IV 04/30/23 20:06 Not Given ONCE ONE ORDERS Category Date Time Status CTA Chest [CT angio chest PE protocol] Stat Cat Scan 04/30/23 17:12 Completed Pulmonology Consult [Consult to Pulmonology] [CONS] Cons 04/30/23 20:05 Active Stat Chest XR -- portable [XR chest portable] Stat Exams 04/30/23 17:02 Completed CBC w/Auto Diff [Complete Blood Count Auto Diff] Stat Lab 04/30/23 17:06 Completed CMP [Comprehensive Metabolic Panel] Stat Lab 04/30/23 17:06 Completed Complete Blood Count Auto Diff AMLAB Lab 05/01/23 06:15 Completed Comprehensive Metabolic Panel AMLAB Lab 05/01/23 06:15 Completed Full Resp Panel w/COVID ([facility]) Routine Lab 04/30/23 18:08 Completed INR [Prothrombin Time INR] Stat Lab 04/30/23 17:06 Completed Lactate Venous Routine Lab 04/30/23 22:17 Completed Lactic Acid Follow Up (RFLX 1) Stat Lab 04/30/23 20:20 Completed Lactic Acid Stat Lab 04/30/23 17:06 Completed Magnesium AMLAB Lab 05/01/23 06:15 Completed Magnesium Stat Lab 04/30/23 17:06 Completed Trop I [Troponin I] Stat Lab 04/30/23 17:06 Completed Troponin I Q3H Lab 04/30/23 20:20 Completed Troponin I Q3H Lab 04/30/23 23:30 Completed Blood Culture Stat Micro 04/30/23 20:15 Received ABG [Arterial Blood Gas] Stat RT 04/30/23 17:02 Completed MDM Narrative Medical Decision Narrative: In summary patient is a 77-year-old male who presents to the emergency department for evaluation of acute respiratory distress. Patient is normotensive tachycardic tachypneic initially satting 48% on 2 L by nasal cannula on arrival upon arrival, with a temperature of 99.3. Physical exam revealed a patient in acute respiratory distress with accessory muscle use rales on auscultation and diminished breath sounds bilateral bases. My informal review of his plain film x-ray at the bedside shows bilateral pleural effusions and bilateral pulmonary edema. The remainder of his physical exam is unremarkable and nonfocal. Differential diagnosis includes acute on chronic respiratory failure versus ACS versus PE versus compressive atelectasis versus CHF exacerbation versus worsening pleural effusions etc. Initial workup will be conducted with hematologic labs CTA PE protocol. Initial interventions include Toradol Tylenol and bilateral draining of his Pleurx catheters, BiPAP. Initial workup reviewed by me again shows via my informal interpretation of the CTA PE protocol no evidence of thrombus however does show that we have significantly drained his pleural effusions and he still has remaining bilateral pulmonary edema. Patient initially had dramatic improvement in both his work of breathing as well as his oxygenation and was tolerating nonrebreather with ease. However ABG showed hypercarbia and hypoxemia and thus patient was transitioned to BiPAP due to the pulmonary edema. Patient given a dose of 80 of Lasix. After initiation of BiPAP however patient continued to have low pressures so patient was initiated on Levophed. Given his immunosuppressed status he was started on Levaquin. Attempted to transition off of BiPAP onto Ventimask was unsuccessful as patient dropped sats into the 70s. Patient had a total of 1050 cc taken off on the right and 650 cc taken off on the left. Patient was also given 1 bottle of albumin after thoracentesis. I contacted [facility] medicine at 1945 discussed patient management and they graciously agreed to admit the patient. EKG personally interpreted by me. Sinus tachycardia with a rate of 131 bpm. PVC noted. No ischemic changes. Artifactual. I was consulted by the ALTAGRACIA, and we discussed the complexity of the problems being addressed. I approved the treatment and management plan for this patient's care in the Emergency Department, thus performing a substantive portion of the medical decision making. Dalton Mccarthy DO
--- NOTE | 2023-04-30 17:22 | PC.NURSE ---
Addendum entered by Mila Cornelius, SRNA 04/30/23 18:30: RESPIRATORY DID NOT PLACE PT ON BIPAP AT THIS TIME BUT WAS AT BS Original Note: Respiratory at bs placing pt on bipap
[2023-04-30 17:31] LABS: Basophils % 0.2 % (0.1-2.0); Eosinophils # 0.1 K/mm3 (0.0-0.4); Eosinophils % 1.5 % (0.1-12.0); Hematocrit 44.5 % (42.0-52.0); Hemoglobin 13.5 g/dL (14.1-18.0); Lymphocytes # 1.2 K/mm3 (0.7-4.5); Lymphocytes % 18.6 % (10-50); Mean Corpuscular HGB Conc 30.2 g/dL (31.8-35.4); Mean Corpuscular Hemoglobin 30.4 pg (27.0-31.2); Mean Corpuscular Volume 100.7 fl (80-94); Mean Platelet Volume 7.5 fl (7.4-10.4); Monocytes # 0.1 K/mm3 (0.1-1.0); Monocytes % 1.4 % (1.7-9.3); Neutrophils # 5.1 K/mm3 (1.8-7.8); Neutrophils % 78.4 % (37.0-80.0); Platelet Count 363 K/mm3 (142-424); Red Blood Count 4.42 M/mm3 (4.60-6.20); Red Cell Distribution Width 18.2 % (11.5-17.5); White Blood Count 6.5 K/mm3 (4.8-10.8)
[2023-04-30 17:32] LABS: Chloride 103 mmol/L (98-107)
[2023-04-30 17:33] LABS: Potassium 4.1 mmoL/L (3.5-5.1); Sodium 134 mmol/L (136-145)
[2023-04-30 17:35] LABS: Alanine Aminotransferase 21 U/L (12-78); Alkaline Phosphatase 97 U/L (38-126); Anion Gap 4.1 mEq/L (5-15); Aspartate Amino Transferase 43 U/L (17-59); Bilirubin,Total 0.2 mg/dl (0.2-1.3); Blood Urea Nitrogen 9 mg/dl (9-20); Carbon Dioxide 31 mmol/L (22.0-30.0); Creatinine Clearance Estimated 62 mL/min (50-200); Estimated Glomerular Filt Rate 110 ml/min (>60); GFR (African American) 133 ML/MIN (>60)
[2023-04-30 17:36] LABS: Albumin/Globulin Ratio 1.2 (1.1-1.8); Calcium 8.5 mg/dl (8.4-10.2); Globulin 2.6 g/dL (1.3-3.2); Glucose 97 mg/dl (74-100); Magnesium 2.1 mg/dl (1.6-2.3); Total Protein,Serum 5.6 g/dl (6.3-8.2)
[2023-04-30 17:40] LABS: Lactic Acid 2.1 mmol/L (0.7-2.1)
[2023-04-30 17:43] LABS: Prothrombin Time 11.8 seconds (10.1-12.5)
[2023-04-30 17:48] LABS: Troponin I < 0.01 ng/ml (0.00-0.034)
--- NOTE | 2023-04-30 18:02 | PC.NURSE ---
1050 ml removed off of right side plurex drain, 600ml removed off of left side plurex drain
--- NOTE | 2023-04-30 18:10 | PC.NURSE ---
PT WAS GIVEN WARM BLANKET AND PILLOW WITH CASE AND WATER PER DON APPROVAL
--- NOTE | 2023-04-30 18:15 | PC.NURSE ---
PT GOING TO CT
[2023-04-30 18:16] LABS: Adenovirus,PCR Not Detected (NotDetected); Coronavirus 19, PCR Not Detected (NotDetected); Coronavirus 229E Not Detected (NotDetected); Coronavirus NL63 Not Detected (NotDetected); Coronavirus OC43 Not Detected (NotDetected); Coronovirus HKU1,PCR Not Detected (NotDetected); Human Metapneumovirus Not Detected (NotDetected); Influenza A, PCR Not Detected (NotDetected); Influenza AH1, 2009 Not Detected (NotDetected); Influenza AH1, PCR Not Detected (NotDetected); Influenza AH3,PCR Not Detected (NotDetected); Influenza B, PCR Not Detected (NotDetected); Parainfluenza 1, PCR Not Detected (NotDetected); Parainfluenza 2, PCR Not Detected (NotDetected); Parainfluenza 3, PCR Not Detected (NotDetected); Parainfluenza 4, PCR Not Detected (NotDetected); Respiratory Syncytial Virus Not Detected (NotDetected); Rhinovirus/Enterovirus Not Detected (NotDetected)
[2023-04-30] MEDS: 0.9 % SODIUM CHLORIDE 50 ML VIAL IV (18:25)
[2023-04-30] MEDS: SODIUM CHLORIDE 0.9% 10ML SYR (RAD ONLY) 10 ML IV (18:26)
[2023-04-30] MEDS: IOPAMIDOL-370 (76%);100ML BOTTLE 75 ML IV (18:26)
--- NOTE | 2023-04-30 18:29 | PC.NURSE ---
PT ARRIVED BACK TO ROOM FROM CT
--- NOTE | 2023-04-30 18:39 | PC.NURSE ---
WILL FROM RESPIRATORY IS NOW AT BS PLACING PT ON BIPAP
[2023-04-30] MEDS: RINGERS SOLUTION,LACTATED 500 ML IV (19:39)
[2023-04-30] MEDS: ACETAMINOPHEN 1,000MG/100ML VIAL 1000 MG IV (19:40)
[2023-04-30] MEDS: ALBUMIN 25% (12.5 GM) SOLN 50ML BOTTLE IV (19:44)
--- NOTE | 2023-04-30 19:58 | PC.NURSE ---
Pt BP 105/56 ordered not to start Levo at this time per Dr torres
--- NOTE | 2023-04-30 20:08 | P.HP_ITS ---
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 Patient was actually getting chemo today and afterwards was trying to walk to his vehicle when he became profoundly dyspneic. On arrival he was satting in the 70s while on his 2 L by nasal cannula. He was quickly brought back to the emergency department placed in the bed where he was noted to be in the low 80s despite nonrebreather mask. Patient reports air hunger but no cardiac chest pain fever chills hemoptysis hematochezia melena nausea vomit diarrhea. Admitted for treatment and management [facility] Disclaimer: The information contained in this section may have been updated after the patient was seen, as this information can be updated by other users. Medical History (Updated 05/01/23 @ 12:42 by Radha Jimenez MD) HAP (hospital-acquired pneumonia) Septic shock Acute hypercapnic respiratory failure Ascites Pneumonia Pulmonary edema Chronic cough Tachycardia Respiratory failure with hypoxia Adenocarcinoma Pleural effusion on right Encounter for screening for malignant neoplasm of lung Smoking greater than 30 pack years Dyspnea on exertion Pulmonary emphysema Pneumonia Viral pneumonia Tobacco user Hyperlipidemia Sepsis NSTEMI (non-ST elevated myocardial infarction) Acute exacerbation of chronic obstructive pulmonary disease Acute respiratory failure with hypoxia Community acquired pneumonia COPD (chronic obstructive pulmonary disease) Surgical History History of hip replacement Family History Other Lung cancer Social History (Updated 04/30/23 @ 10:39 by Jesus Belle RN) Smoking Status: Current some day smoker alcohol intake: never substance use type: denies use current occupational status: retired Travel in the last 8 weeks: None household members: spouse lives independently: Yes marital status: education level: college caffeine: Yes physical activity: walking Review of Systems Review of Systems Review of systems:: pertinent systems reviewed and negative unless documented below Meds Home Medications and Allergies Home Medications Medication Instructions Recorded Confirmed Type aspirin 81 mg tablet,delayed 81 mg PO DAILY 11/26/22 04/30/23 History release famotidine 20 mg tablet (Pepcid) 20 mg PO DAILY 02/22/23 04/30/23 History cetirizine 10 mg tablet 10 mg PO DAILY 02/27/23 05/01/23 History ipratropium 0.5 mg-albuterol 3 mg 3 ml inhalation QID PRN Shortness 02/27/23 04/30/23 History (2.5 mg base)/3 mL nebulization Of Breath Or Wheezing soln fluticasone fur. 100 mcg-umeclid 1 inh inhalation DAILY 90 days #1 03/26/23 04/30/23 Rx 62.5 mcg-vilant 25 mcg ea inhalat.powder (Trelegy Ellipta) capecitabine 150 mg tablet 900 mg PO BID 04/11/23 04/30/23 History prochlorperazine maleate 10 mg 10 mg PO Q6 PRN Nausea And Vomiting 04/11/23 04/30/23 History tablet New Prescriptions to Start Prescriptions: Allergies Allergy/AdvReac Type Severity Reaction Status Date / Time No Known Allergies Allergy Verified 04/30/23 10:40 Exam Data for Last 24 hours Vital signs and Labs for Last 24 Hours: Temp Pulse Resp BP Pulse Ox O2 Del Method 99.3 F 116 H 28 H 97/49 L 97 Non-Rebreather 04/30/23 16:55 04/30/23 18:30 04/30/23 16:55 04/30/23 18:30 04/30/23 18:30 04/30/23 18:30 Laboratory Results - last 24 hr 04/30/23 17:02: Specimen Source Right radial, O2 % 10l aerosol, ABG pH 7.32 L, ABG pCO2 53.4 H, ABG pO2 68.8 L, ABG HCO3 26.8 H, ABG Total CO2 28.4 H, ABG O2 Saturation 93, ABG Base Excess 0.6, Yuri Test Y 04/30/23 17:06: WBC 6.5, RBC 4.42 L, Hgb 13.5 L, Hct 44.5, MCV 100.7 H, MCH 30.4, MCHC 30.2 L, RDW 18.2 H, Plt Count 363, MPV 7.5, Neut % (Auto) 78.4, Lymph % (Auto) 18.6, [place] % (Auto) 1.4 L, Eos % (Auto) 1.5, Baso % (Auto) 0.2, Neut # (Auto) 5.1, Lymph # (Auto) 1.2, [place] # (Auto) 0.1, Eos # (Auto) 0.1, Baso # (Auto) 0.0, PT 11.8, INR 1.10, Sodium 134 L, Potassium 4.1, Chloride 103, Carbon Dioxide 31 H, Anion Gap 4.1 L, BUN 9 D, Creatinine 0.70, Estimated Creat Clear 62, Estimated GFR 110, Est GFR ( Amer) 133, Glucose 97, Lactate 2.1, Calcium 8.5, Magnesium 2.1, Total Bilirubin 0.2, AST 43 D, ALT 21 D, Alkaline Phosphatase 97, Troponin I < 0.01, Total Protein 5.6 L, Albumin 3.0 L, Globulin 2.6, Albumin/Globulin Ratio 1.2 I & O for Last 24 hours: Intake & Output 04/27/23 04/28/23 04/29/23 04/30/23 22:59 23:59 23:59 23:59 Weight 69.853 kg Constitutional Constitutional: no acute distress, average body habitus, chronically ill appearing and cooperative *Routine HEENT Exam Head: Present normocephalic Eye: Present EOMI and PERRL ENT: Present mucous membranes moist *Routine Neck Exam Neck: Present supple; Absent lymphadenopathy *Routine Respiratory Exam Respiratory: Present accessory muscle use, crackles (bases) and diminished air movement (in bases); Absent rhonchi or wheezes *Routine Cardiovascular Exam Cardiovascular: Present RRR *Routine Abdominal Exam Abdominal: Present soft and normoactive bowel sounds; Absent tenderness *Routine Rectal Exam Rectal:: deferred *Routine Genitalia Exam Genitalia:: deferred *Routine Extremities Exam Extremities: Absent cyanosis, clubbing or edema *Routine Skin Exam Skin: Present warm; Absent rash *Routine Neurological Exam Neurological: Present alert, oriented X3 and moving all extremities; Absent altered mental status H&P: Result Imaging and Cardiology EKG: Status: image reviewed by me, Preliminary report and final report CT scan - chest: Status: image reviewed by me, Preliminary report and final report Assessment and Plan *Assessment and plan (1) Acute on chronic respiratory failure with hypoxia and hypercapnia: Status: Acute Category: Medical Code(s): J96.21 - Acute and chronic respiratory failure with hypoxia; J96.22 - Acute and chronic respiratory failure with hypercapnia (2) Pulmonary edema: Status: Acute Qualifiers: Chronicity: chronic Qualified Code(s): J81.1 - Chronic pulmonary edema Category: Medical Code(s): J81.1 - Chronic pulmonary edema (3) Bilateral pleural effusion: Status: Acute Category: Medical Code(s): J90 - Pleural effusion, not elsewhere classified (4) Malignant neoplasm of lower third of esophagus: Status: Acute Category: Medical Code(s): C15.5 - Malignant neoplasm of lower third of esophagus Plan 77-year-old with PMHx of COPD on chronic 2 L by nasal cannula, coronary artery disease, hyperlipidemia, continuing tobaccoism, and 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 on arrival patient presented hypoxic satting in the 40's, hypotensive. ABG showed hypercarbia and hypoxemia and thus patient was transitioned to BiPAP due to the pulmonary edema. Patient given a dose of 80 of Lasix. After initiation of BiPAP however patient continued to have low pressures so patient was initiated on Levophed. CTA reviewed. Discussed with ED for admission. Plan as follow: -Acute on chronic hypercapnic hypoxic respiratory failure secondary to pulmonary edema: With bilateral pleural effusion status post Pleurx catheter bilateral hypotensive Admit patient. Dispo stepdown Pulmonary consult On continuous BiPAP. Respiratory to assist with weaning off Started on Levaquin DuoNeb Q6h Intermittent drain as needed Continue Levophed -Malignant neoplasm of the esophagus: Patient on chemotherapy. Had the dose before admission. Continue follow-up as an outpatient -Lovenox for DVT prophylax. On Protonix Full code Attending attestation Patient was seen and evaluated at the bedside myself, agree with ALTAGRACIA note.
--- NOTE | 2023-04-30 20:15 | PC.NURSE ---
Notified house tableau administrator for bed request.
--- NOTE | 2023-04-30 20:17 | PC.NURSE ---
House senior linux systems administrator notified the ER that we will be boarding patient at this time.
[2023-04-30] MEDS: ENOXAPARIN 40MG/0.4ML SYRINGE 40 MG SQ (20:29)
[2023-04-30] MEDS: PANTOPRAZOLE 40MG TABLET 40 MG PO (20:30)
[2023-04-30] MEDS: LEVOFLOXACIN/D5W 750 MG/150 ML 750 MG/150 ML PIGGYBACK 100 MG IV (20:30)
[2023-04-30] MEDS: NOREPINEPHRINE BITARTRATE/D5W 8 MG/250 ML PLAST..BAG 3.75 MG IV (20:38)
[2023-04-30 21:01] LABS: Troponin I 0.02 ng/ml (0.00-0.034)
[2023-04-30 21:23] LABS: Reflex Lactic Add Lactic Reflex
[2023-04-30] MEDS: 0.9 % SODIUM CHLORIDE 1000ML 1,000 ML 500 ML IV (21:43)
[2023-04-30 21:45] LABS: Lactic Acid Follow Up (RFLX 1) 1.4 mmol/L (0.7-2.1)
--- NOTE | 2023-04-30 21:46 | PC.NURSE ---
Pt responded to fluid bolus, Dr Pizarro to order 500ml/hr for total of 1L. Titrating Levo at this time
--- NOTE | 2023-04-30 21:49 | PC.NURSE ---
Pt is A/O x4 a this time, at bedside, pulse ox replaced pt sat 93% on NRB.
--- NOTE | 2023-04-30 22:00 | PC.NURSE ---
Left upper chest port accessed by dayshift, line flushes well with blood return. Levo is running in this access
[2023-04-30 22:18] LABS: Lactate Venous 1.9 mmol/L (0.4-2.0)
[2023-04-30] MEDS: FUROSEMIDE 40MG/4ML VIAL 80 MG IV (22:32)
--- NOTE | 2023-04-30 22:34 | PC.NURSE ---
Report called to Daphnie PRESLEY
--- NOTE | 2023-04-30 22:36 | PC.NURSE ---
PT ARRIVED TO FLOOR AT THIS TIME
[2023-05-01] VITALS (49 sets, daily range): BP systolic 79–121; BP diastolic 38–67; PULSE 83–105; RESP 8–27; TEMP 37.7–38.2; O2SAT 93–100; BMI 156.1
--- NOTE | 2023-05-01 00:26 | PC.NURSE ---
@ 0002 THIS PT NOTIFIED THIS NURSE THAT HE FELT WET NEAR HIS PORT SITE; THIS RN ASSESSED THE PT'S PORT AND NOTED THAT IT WAS NO LONGER ACCESS AND THE NEEDLE WAS SITTING ON TOP OF THE PORT SITE; THE OLD PORT NEEDLE WAS DISCARDED, LEVO MOVED TO A PIV, AND @ 0015 PORT WAS ACCESS WITH A NEW 20G NEEDLE PER THIS RN; PT TOLERATED WELL AND PORT FLUSHED WELL AND BLOOD RETURNED NOTED; LEVO WAS TAKEN OFF PIV AND MOVED BACK TO PORT; BP HAS IMPROVED NOW THAT PORT IS PROPERLY ACCESSED.
[2023-05-01 00:45] LABS: Troponin I 0.03 ng/ml (0.00-0.034)
[2023-05-01 07:33] LABS: Basophils # 0.1 K/mm3 (0-0.2); Basophils % 0.4 % (0.1-2.0); Eosinophils # 0.1 K/mm3 (0.0-0.4); Eosinophils % 0.4 % (0.1-12.0); Hematocrit 40.9 % (42.0-52.0); Hemoglobin 12.6 g/dL (14.1-18.0); Lymphocytes # 1.3 K/mm3 (0.7-4.5); Lymphocytes % 8.3 % (10-50); Mean Corpuscular HGB Conc 30.9 g/dL (31.8-35.4); Mean Corpuscular Hemoglobin 30.8 pg (27.0-31.2); Mean Corpuscular Volume 99.6 fl (80-94); Mean Platelet Volume 7.7 fl (7.4-10.4); Monocytes # 0.4 K/mm3 (0.1-1.0); Monocytes % 2.3 % (1.7-9.3); Neutrophils # 13.6 K/mm3 (1.8-7.8); Neutrophils % 88.5 % (37.0-80.0); Platelet Count 326 K/mm3 (142-424); Red Blood Count 4.11 M/mm3 (4.60-6.20); Red Cell Distribution Width 18.3 % (11.5-17.5); White Blood Count 15.3 K/mm3 (4.8-10.8)
[2023-05-01 07:37] LABS: MANUAL DIFFERENTIAL MANUAL DIFFERENTIAL (MANUAL DIFF)
[2023-05-01 07:45] LABS: Alanine Aminotransferase 17 U/L (12-78); Albumin Level 2.4 g/dl (3.5-5.0); Alkaline Phosphatase 64 U/L (38-126); Anion Gap 5.6 mEq/L (5-15); Aspartate Amino Transferase 35 U/L (17-59); Bilirubin,Total 0.3 mg/dl (0.2-1.3); Blood Urea Nitrogen 12 mg/dl (9-20); Calcium 7.7 mg/dl (8.4-10.2); Carbon Dioxide 30 mmol/L (22.0-30.0); Chloride 100 mmol/L (98-107); Creatinine Clearance Estimated -25 mL/min (50-200); Estimated Glomerular Filt Rate 82 ml/min (>60); GFR (African American) 99 ML/MIN (>60); Globulin 2.4 g/dL (1.3-3.2); Glucose 111 mg/dl (74-100); Magnesium 1.9 mg/dl (1.6-2.3); Potassium 4.6 mmoL/L (3.5-5.1); Sodium 131 mmol/L (136-145); Total Protein,Serum 4.8 g/dl (6.3-8.2)
[2023-05-01] MEDS: NOREPINEPHRINE BITARTRATE/D5W 8 MG/250 ML PLAST..BAG 22.5 MG IV (07:45)
--- NOTE | 2023-05-01 08:45 | PC.NURSE ---
verbally alerted nurse of 100.4 temp
--- NOTE | 2023-05-01 09:05 | PC.NURSE ---
PT HAS CHEMOTHERAPY MEDICATION BROUGHT FROM HOME, PLACED IN YELLOW BAG AND PLACED IN PT'S LOCKED AUTO STRIPER ROOM AND NOTIFIED PHARMACY OF SUCH SO THEY CAN PUT LABEL ON MEDICATION, NOTIFIED MD ELIAS DURING ROUNDS THAT PT'S HOME MEDICATIONS HAVE NOT BEEN RESTARTED
--- NOTE | 2023-05-01 09:06 | [facility].PHAINT1 ---
Pharmacy Intervention Comments: Confirmed medications using pharmacy external fill history and provider notes from office visit in March.
[2023-05-01 09:32] LABS: Lymphocytes % 7 % (10-50); Monocytes % 4 % (2-9); Neutrophils % 89 % (42-76); Total Cells Counted 100
[2023-05-01 09:33] LABS: Platelet Estimate Normal; RBC Morphology Normal
--- NOTE | 2023-05-01 09:44 | P.CONS_ITS ---
History of Present Illness History of present illness: Mr. 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 Patient admits receiving hematuria followed by nausea vomiting severe respiratory send presented to the ER. [facility] Disclaimer: The information contained in this section may have been updated after the patient was seen, as this information can be updated by other users. Medical History (Updated 05/01/23 @ 12:42 by Radha Jimenez MD) HAP (hospital-acquired pneumonia) Septic shock Acute hypercapnic respiratory failure Ascites Pneumonia Pulmonary edema Chronic cough Tachycardia Respiratory failure with hypoxia Adenocarcinoma Pleural effusion on right Encounter for screening for malignant neoplasm of lung Smoking greater than 30 pack years Dyspnea on exertion Pulmonary emphysema Pneumonia Viral pneumonia Tobacco user Hyperlipidemia Sepsis NSTEMI (non-ST elevated myocardial infarction) Acute exacerbation of chronic obstructive pulmonary disease Acute respiratory failure with hypoxia Community acquired pneumonia COPD (chronic obstructive pulmonary disease) Surgical History History of hip replacement Family History Other Lung cancer Social History (Updated 04/30/23 @ 10:39 by Jesus Belle RN) Smoking Status: Current some day smoker alcohol intake: never substance use type: denies use current occupational status: retired Travel in the last 8 weeks: None household members: spouse lives independently: Yes marital status: education level: college caffeine: Yes physical activity: walking Review of Systems Constitutional Constitutional: Reports anorexia, Reports body ache(s), Reports fatigue, Reports poor appetite and Reports lethargy Eyes Eyes: Denies eye discharge, Denies dry eyes, Denies irritation and Denies itchy eyes ENT Ears, Nose, Mouth, and Throat: Denies epistaxis, Denies facial pain, Denies lip swelling and Denies throat swelling *Cardiovascular Cardiovascular: Reports dyspnea and Reports dyspnea on exertion *Respiratory Respiratory: Reports chest congestion, Reports cough, Reports dyspnea, Reports dyspnea on exertion, Denies excessive phlegm production and Denies wheezing *Gastrointestinal Gastrointestinal: Denies abdominal pain, Denies belching, Denies cramping and Reports vomiting *Musculoskeletal Musculoskeletal: Reports back pain, Reports myalgias and Reports other (No small joint swelling or Pain) Psychiatric Psychiatric: Denies homicidal ideation and Denies suicidal ideation Endocrine Endocrine: Reports fatigue and Denies heat intolerance Hematologic/Lymphatic Hematologic/Lymphatic: Denies easy bleeding and Denies lymphadenopathy Allergic/Immunologic Allergic/Immunologic: Denies itchy eyes, Denies lip swelling, Denies throat swelling and Denies wheezing Pulmonology Exam Inpatient Vital signs and Labs for Last 24 Hours: Temp Pulse Resp BP Pulse Ox O2 Del Method 100.4 F H 91 H 18 107/52 L 99 Venturi Mask 05/01/23 07:50 05/01/23 06:00 05/01/23 06:00 05/01/23 06:00 05/01/23 05:15 05/01/23 07:00 Laboratory Results - last 24 hr 04/30/23 17:02: Specimen Source Right radial, O2 % 10l aerosol, ABG pH 7.32 L, A BG pCO2 53.4 H, ABG pO2 68.8 L, ABG HCO3 26.8 H, ABG Total CO2 28.4 H, ABG O2 Saturation 93, ABG Base Excess 0.6, Yuri Test Y 04/30/23 17:06: WBC 6.5, RBC 4.42 L, Hgb 13.5 L, Hct 44.5, MCV 100.7 H, MCH 30.4, MCHC 30.2 L, RDW 18.2 H, Plt Count 363, MPV 7.5, Neut % (Auto) 78.4, Lymph % (Auto) 18.6, [place] % (Auto) 1.4 L, Eos % (Auto) 1.5, Baso % (Auto) 0.2, Neut # (Auto) 5.1, Lymph # (Auto) 1.2, [place] # (Auto) 0.1, Eos # (Auto) 0.1, Baso # (Auto) 0.0, PT 11.8, INR 1.10, Sodium 134 L, Potassium 4.1, Chloride 103, Carbon Dioxide 31 H, Anion Gap 4.1 L, BUN 9 D, Creatinine 0.70, Estimated Creat Clear 62, Estimated GFR 110, Est GFR ( Amer) 133, Glucose 97, Lactate 2.1, Calcium 8.5, Magnesium 2.1, Total Bilirubin 0.2, AST 43 D, ALT 21 D, Alkaline Phosphatase 97, Troponin I < 0.01, Total Protein 5.6 L, Albumin 3.0 L, Globulin 2.6, Albumin/Globulin Ratio 1.2 04/30/23 18:08: Chlamy pneumoniae PCR TNP, Adenovirus (PCR) Not detected, B. pertussis DNA (PCR) TNP, Coronavirus OC43 (PCR) Not detected, Coronavirus HKU1 (PCR) Not detected, Coronavirus 229E (PCR) Not detected, SARS-CoV-2 (PCR) Not detected, Coronavirus NL63 (PCR) Not detected, Human Metapneumovir PCR Not detected, Influenza A (H1) PCR Not detected, Influ A (H1N1/09) PCR Not detected, Influenza A (H3) PCR Not detected, Influenza Type A (PCR) Not detected, Influenza Type B (PCR) Not detected, M. pneumoniae (PCR) TNP, Parainfluenza 1 (PCR) Not detected, Parainfluenza 2 (PCR) Not detected, Parainfluenza 3 (PCR) Not detected, Parainfluenza 4 (PCR) Not detected, RSV (PCR) Not detected, Entero/Rhino (PCR) Not detected 04/30/23 20:20: Lactate 1.4, Troponin I 0.02 04/30/23 22:17: VBG Lactic Acid 1.9 05/01/23 00:20: Troponin I 0.03 05/01/23 06:15: WBC 15.3 H D, RBC 4.11 L, Hgb 12.6 L, Hct 40.9 L, MCV 99.6 H, MCH 30.8, MCHC 30.9 L, RDW 18.3 H, Plt Count 326, MPV 7.7, Neut % (Auto) 88.5 H, Lymph % (Auto) 8.3 L, [place] % (Auto) 2.3, Eos % (Auto) 0.4, Baso % (Auto) 0.4, N eut # (Auto) 13.6 H, Lymph # (Auto) 1.3, [place] # (Auto) 0.4, Eos # (Auto) 0.1, Baso # (Auto) 0.1, Total Counted 100, Neutrophils % (Manual) 89 H, Lymphocytes % (Manual) 7 L, Monocytes % (Manual) 4, Platelet Estimate Normal, RBC Morphology Normal, Sodium 131 L, Potassium 4.6, Chloride 100, Carbon Dioxide 30, Anion Gap 5.6, BUN 12 D, Creatinine 0.90 D, Estimated Creat Clear -25 L, Estimated GFR 82, Est GFR ( Amer) 99 D, Glucose 111 H, Calcium 7.7 L, Magnesium 1.9, Total Bilirubin 0.3, AST 35, ALT 17, Alkaline Phosphatase 64, Total Protein 4.8 L, Albumin 2.4 L D, Globulin 2.4, Albumin/Globulin Ratio 1.0 L I & O for Labs for Last 24 Hours: Intake & Output 04/28/23 04/29/23 04/30/23 05/01/23 23:59 23:59 23:59 23:59 Intake Total 42.001 / 79.501 313.818 / 313.818 Output Total 1000 / 1000 Balance 42.001 / 79.501 -686.182 / -686.182 Weight 150 lb 2 oz 154 lb 9.6 oz Constitutional: Present moderate distress Head: Present normocephalic and atraumatic ENT: Present normal exam, normal oropharynx and mucous membranes moist Neck: Present normal inspection and full ROM Respiratory: Present respiratory distress, rhonchi, wheezes, diminished air movement and able to speak in complete sentences Cardiac: Present S1/S2, Tachycardia and radial pulses present GI: Present soft and distention; Absent tenderness or guarding Skin: Present intact; Absent cyanosis or jaundice Neuro: Present alert, awake and oriented x 3 Extremities: Present normal inspection; Absent clubbing or cyanosis Psychiatric: Present normal affect and cooperative Meds Home Medications and Allergies Home Medications Medication Instructions Recorded Confirmed Type aspirin 81 mg tablet,delayed 81 mg PO DAILY 11/26/22 04/30/23 History release famotidine 20 mg tablet (Pepcid) 20 mg PO DAILY 02/22/23 04/30/23 History cetirizine 10 mg tablet 10 mg PO DAILY 02/27/23 05/01/23 History ipratropium 0.5 mg-albuterol 3 mg 3 ml inhalation QID PRN Shortness 02/27/23 04/30/23 History (2.5 mg base)/3 mL nebulization Of Breath Or Wheezing soln fluticasone fur. 100 mcg-umeclid 1 inh inhalation DAILY 90 days #1 03/26/23 04/30/23 Rx 62.5 mcg-vilant 25 mcg ea inhalat.powder (Trelegy Ellipta) capecitabine 150 mg tablet 900 mg PO BID 04/11/23 04/30/23 History prochlorperazine maleate 10 mg 10 mg PO Q6 PRN Nausea And Vomiting 04/11/23 04/30/23 History tablet New Prescriptions to Start Prescriptions: Allergies Allergy/AdvReac Type Severity Reaction Status Date / Time No Known Allergies Allergy Verified 04/30/23 10:40 Results Laboratory Findings 05/01/23 06:15 05/01/23 06:15 ABG ABG pH 7.32 mmol/L (7.35-7.45) L 04/30/23 17:02 ABG pCO2 53.4 mmhg (35.0-45.0) H 04/30/23 17:02 ABG pO2 68.8 mmhg (80-100) L 04/30/23 17:02 ABG O2 Saturation 93 % (90-100) 04/30/23 17:02 PT/INR, D-dimer PT 11.8 seconds (10.1-12.5) 04/30/23 17:06 INR 1.10 (0.9-1.1) 04/30/23 17:06 Abnormal lab findings: Abnormal Labs 04/30/23 04/30/23 05/01/23 17:02 17:06 06:15 WBC 15.3 H D RBC 4.42 L 4.11 L Hgb 13.5 L 12.6 L Hct 40.9 L MCV 100.7 H 99.6 H MCHC 30.2 L 30.9 L RDW 18.2 H 18.3 H Neut % (Auto) 88.5 H Lymph % (Auto) 8.3 L [place] % (Auto) 1.4 L Neut # (Auto) 13.6 H Neutrophils % (Manual) 89 H Lymphocytes % (Manual) 7 L ABG pH 7.32 L ABG pCO2 53.4 H ABG pO2 68.8 L ABG HCO3 26.8 H ABG Total CO2 28.4 H Sodium 134 L 131 L Carbon Dioxide 31 H Anion Gap 4.1 L Estimated Creat Clear -25 L Glucose 111 H Calcium 7.7 L Total Protein 5.6 L 4.8 L Albumin 3.0 L 2.4 L D Albumin/Globulin Ratio 1.0 L Assessment and Plan *Assessment and plan (1) Acute on chronic respiratory failure with hypoxia and hypercapnia: Status: Acute Category: Medical Code(s): J96.21 - Acute and chronic respiratory failure with hypoxia; J96.22 - Acute and chronic respiratory failure with hypercapnia (2) Septic shock: Status: Acute Category: Medical Code(s): A41.9 - Sepsis, unspecified organism; R65.21 - Severe sepsis with septic shock (3) Bilateral pleural effusion: Status: Acute Category: Medical Code(s): J90 - Pleural effusion, not elsewhere classified (4) HAP (hospital-acquired pneumonia): Status: Acute Category: Medical Code(s): J18.9 - Pneumonia, unspecified organism; Y95 - Nosocomial condition Plan Mr. 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 CTA on admission evidence of pulmonary embolism. No significant effusions. Bilateral lower lobe predominant micronodular opacities and bronchial thickening. CT also concerning for acute esophagitis. Right lower lobe airspace disease noted. No other significant dense consolidation noted in the noted lung garcia. Febrile. Hemodynamically unstable on pressors. Neutrophilic leukocytosis. Plan: -Change antibiotics to Zosyn pending blood, sputum culture results and nasal MRSA PCR -Prior sputum culture showing Yari Albicans Will closely monitor before initiating antifungal therapy at this point of time -One Liter LR bolus. Continue pressors to maintain MAP goal of greater than 65. Initial lactate within normal limits at 2.1, improved to 1.4 #Currently draining pleural fluid every other day, significant amount of fluid was drained the ER yesterday, 650cc on left and 1050 on right, they are due to be drained yesterday. Recommend draining left effusion every other day and right every day from now on.
[2023-05-01] MEDS: ENOXAPARIN 40MG/0.4ML SYRINGE 40 MG SQ (10:15)
--- NOTE | 2023-05-01 11:52 | PC.NURSE ---
verbally informed nurse of 100.6 temperature
--- NOTE | 2023-05-01 11:55 | PC.NURSE ---
Addendum entered by Itzel Osuna RN 05/01/23 12:01: NOTIFIED MD ELIAS THAT PT HAD LEVOFLOXACIN IN ER UPON ARRIVAL BUT NOTHING CONTINUED AFTERWARD FOR IN THE FUTURE, MD ELIAS STATED WILL TAKE CARE OF IT Original Note: NOTIFIED MD ELIAS THAT PT TRIGGERED FOR SEPSIS, ASKED IF PT WAS ON ANTIBIOTICS, TOLD MD ELIAS THAT PT IS NOT ON ANY ANTIBIOTICS AT THIS TIME, MD ELIAS TO PLACE ORDERS FOR ANTIBIOTICS
--- NOTE | 2023-05-01 12:51 | PC.NURSE ---
MD SINCLAIR ORDERED 1L LR BOLUS, BOLUS STARTED PER TELEPHONE ORDER FROM MD SINCLAIR
[2023-05-01] MEDS: PIPERACILLIN/TAZO 4.5 GM in 0.9 % SODIUM CHLORIDE 100 ML IV ×2 (13:52→18:27)
--- NOTE | 2023-05-01 15:55 | PC.NURSE ---
PT CALLED OUT AND ASKED TO INCREASE HIS AIR , NOTED PT VERY SHORT OF AIR WITH PURSED LIP BREATHING, OXYGEN SATURATIONS ON 2LNC 96% BUT WAS VERY LABORED WITH RESPIRATIONS, INCREASED OXYGEN TO 3LNC AND OXYGEN SATURATIONS 97-100% AND PT FELT MORE AT EASE AND LESS DISTRESSED
--- NOTE | 2023-05-01 17:11 | EXP.PN ---
Subjective *Date: 05/01/23 *Time: 17:11 Interval history: patient seen and examined at the bedside, alert awake holding conversations Exam Data for Last 24 hours Vital signs and Labs for Last 24 Hours: Temp Pulse Resp BP Pulse Ox O2 Del Method O2 Flow Rate 99.8 F H 105 H 15 104/53 L 98 Nasal Cannula 3 05/01/23 16:00 05/01/23 17:00 05/01/23 17:00 05/01/23 17:00 05/01/23 17:00 05/01/23 17:00 05/01/23 17:00 Laboratory Results - last 24 hr 04/30/23 17:02: Specimen Source Right radial, O2 % 10l aerosol, ABG pH 7.32 L, ABG pCO2 53.4 H, ABG pO2 68.8 L, ABG HCO3 26.8 H, ABG Total CO2 28.4 H, ABG O2 Saturation 93, ABG Base Excess 0.6, Yuri Test Y 04/30/23 17:06: WBC 6.5, RBC 4.42 L, Hgb 13.5 L, Hct 44.5, MCV 100.7 H, MCH 30.4, MCHC 30.2 L, RDW 18.2 H, Plt Count 363, MPV 7.5, Neut % (Auto) 78.4, Lymph % (Auto) 18.6, [place] % (Auto) 1.4 L, Eos % (Auto) 1.5, Baso % (Auto) 0.2, Neut # (Auto) 5.1, Lymph # (Auto) 1.2, [place] # (Auto) 0.1, Eos # (Auto) 0.1, Baso # (Auto) 0.0, PT 11.8, INR 1.10, Sodium 134 L, Potassium 4.1, Chloride 103, Carbon Dioxide 31 H, Anion Gap 4.1 L, BUN 9 D, Creatinine 0.70, Estimated Creat Clear 62, Estimated GFR 110, Est GFR ( Amer) 133, Glucose 97, Lactate 2.1, Calcium 8.5, Magnesium 2.1, Total Bilirubin 0.2, AST 43 D, ALT 21 D, Alkaline Phosphatase 97, Troponin I < 0.01, Total Protein 5.6 L, Albumin 3.0 L, Globulin 2.6, Albumin/Globulin Ratio 1.2 04/30/23 18:08: Chlamy pneumoniae PCR TNP, Adenovirus (PCR) Not detected, B. pertussis DNA (PCR) TNP, Coronavirus OC43 (PCR) Not detected, Coronavirus HKU1 (PCR) Not detected, Coronavirus 229E (PCR) Not detected, SARS-CoV-2 (PCR) Not detected, Coronavirus NL63 (PCR) Not detected, Human Metapneumovir PCR Not detected, Influenza A (H1) PCR Not detected, Influ A (H1N1/09) PCR Not detected, Influenza A (H3) PCR Not detected, Influenza Type A (PCR) Not detected, Influenza Type B (PCR) Not detected, M. pneumoniae (PCR) TNP, Parainfluenza 1 (PCR) Not detected, Parainfluenza 2 (PCR) Not detected, Parainfluenza 3 (PCR) Not detected, Parainfluenza 4 (PCR) Not detected, RSV (PCR) Not detected, Entero/Rhino (PCR) Not detected 04/30/23 20:20: Lactate 1.4, Troponin I 0.02 04/30/23 22:17: VBG Lactic Acid 1.9 05/01/23 00:20: Troponin I 0.03 05/01/23 06:15: WBC 15.3 H D, RBC 4.11 L, Hgb 12.6 L, Hct 40.9 L, MCV 99.6 H, MCH 30.8, MCHC 30.9 L, RDW 18.3 H, Plt Count 326, MPV 7.7, Neut % (Auto) 88.5 H, Lymph % (Auto) 8.3 L, [place] % (Auto) 2.3, Eos % (Auto) 0.4, Baso % (Auto) 0.4, Neut # (Auto) 13.6 H, Lymph # (Auto) 1.3, [place] # (Auto) 0.4, Eos # (Auto) 0.1, Baso # (Auto) 0.1, Total Counted 100, Neutrophils % (Manual) 89 H, Lymphocytes % (Manual) 7 L, Monocytes % (Manual) 4, Platelet Estimate Normal, RBC Morphology Normal, Sodium 131 L, Potassium 4.6, Chloride 100, Carbon Dioxide 30, Anion Gap 5.6, BUN 12 D, Creatinine 0.90 D, Estimated Creat Clear -25 L, Estimated GFR 82, Est GFR ( Amer) 99 D, Glucose 111 H, Calcium 7.7 L, Magnesium 1.9, Total Bilirubin 0.3, AST 35, ALT 17, Alkaline Phosphatase 64, Total Protein 4.8 L, Albumin 2.4 L D, Globulin 2.4, Albumin/Globulin Ratio 1.0 L I & O for Last 24 hours: Intake & Output 04/28/23 04/29/23 04/30/23 05/01/23 23:59 23:59 23:59 23:59 Intake Total 42.001 / 79.501 1966.006 / 1966.006 Output Total 1500 / 1500 Balance 42.001 / 79.501 466.006 / 466.006 Weight 68.096 kg 70.125 kg Constitutional Constitutional: no acute distress *Routine HEENT Exam Head: Present normocephalic Eye: Present EOMI and PERRL ENT: Present mucous membranes moist *Routine Neck Exam Neck: Present supple; Absent lymphadenopathy *Routine Respiratory Exam Respiratory: Present respiratory distress, rhonchi and wheezes *Routine Cardiovascular Exam Cardiovascular: Present RRR *Routine Abdominal Exam Abdominal: Present soft and normoactive bowel sounds; Absent tenderness *Routine Extremities Exam Extremities: Absent cyanosis, clubbing or edema *Routine Skin Exam Skin: Present warm; Absent rash *Routine Neurological Exam Neurological: Present alert and oriented X3 Assessment and Plan *Assessment and plan (1) Acute on chronic respiratory failure with hypoxia and hypercapnia: Status: Acute Category: Medical Code(s): J96.21 - Acute and chronic respiratory failure with hypoxia; J96.22 - Acute and chronic respiratory failure with hypercapnia (2) Pulmonary edema: Status: Acute Qualifiers: Chronicity: chronic Qualified Code(s): J81.1 - Chronic pulmonary edema Category: Medical Code(s): J81.1 - Chronic pulmonary edema (3) Bilateral pleural effusion: Status: Acute Category: Medical Code(s): J90 - Pleural effusion, not elsewhere classified (4) Malignant neoplasm of lower third of esophagus: Status: Acute Category: Medical Code(s): C15.5 - Malignant neoplasm of lower third of esophagus Plan 77-year-old with PMHx of COPD on chronic 2 L by nasal cannula, coronary artery disease, hyperlipidemia, and 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 -Acute on chronic hypercapnic hypoxic respiratory failure secondary to pulmonary edema: With bilateral pleural effusion status post Pleurx catheter bilateral hypotensive Pulmonary consult started on zpsyn s/p pleural effusion drainage in ED DuoNeb Q6h Intermittent drain as needed Continue Levophed -Malignant neoplasm of the esophagus: Patient on chemotherapy. Had the dose before admission. Continue follow-up as an outpatient -Lovenox for DVT prophylax. On Protonix Full code continue IV abx, monitor CXR
[2023-05-01] MEDS: PANTOPRAZOLE 40MG TABLET 40 MG PO (20:21)
[2023-05-01] MEDS: NOREPINEPHRINE BITARTRATE/D5W 8 MG/250 ML PLAST..BAG 18.75 MG IV (20:21)
--- NOTE | 2023-05-01 23:57 | PC.NURSE ---
ROOM AIR SAT PT DROPPED T0 88% ON ROOM AIR. PT WAS PREVIOUSLY SATTING 96% ON 3L NC. PLACED PATIENT BACK ON 2L NC WITH A SAT OF 93%
[2023-05-02] VITALS (30 sets, daily range): BP systolic 85–124; BP diastolic 40–74; PULSE 80–99; RESP 10–31; TEMP 36.5–37.3; O2SAT 92–100; BMI 25.2
[2023-05-02] MEDS: PIPERACILLIN/TAZO 4.5 GM in 0.9 % SODIUM CHLORIDE 100 ML IV ×4 (06:59→18:02)
--- NOTE | 2023-05-02 08:41 | PC.NURSE ---
notified lab that sputem sample still showing ordered, lab said has received specimen and will go out to lab [facility] notified MD Travis during rounds that pt did not have am labs ordered if would like to order them now, stated would put in orders for am labs
[2023-05-02] MEDS: ENOXAPARIN 40MG/0.4ML SYRINGE 40 MG SQ (09:08)
[2023-05-02] MEDS: NOREPINEPHRINE BITARTRATE/D5W 8 MG/250 ML PLAST..BAG 22.5 MG IV (09:08)
--- NOTE | 2023-05-02 09:10 | PC.NURSE ---
SRNA's got pt bathed, changed bed, and up to chair
[2023-05-02 09:37] LABS: Basophils % 0.3 % (0.1-2.0); Eosinophils # 0.5 K/mm3 (0.0-0.4); Eosinophils % 3.6 % (0.1-12.0); Hematocrit 39.6 % (42.0-52.0); Hemoglobin 12.6 g/dL (14.1-18.0); Lymphocytes # 0.6 K/mm3 (0.7-4.5); Lymphocytes % 4.2 % (10-50); Mean Corpuscular HGB Conc 31.7 g/dL (31.8-35.4); Mean Corpuscular Hemoglobin 31.3 pg (27.0-31.2); Mean Corpuscular Volume 98.7 fl (80-94); Monocytes # 0.5 K/mm3 (0.1-1.0); Monocytes % 3.5 % (1.7-9.3); Neutrophils # 12.4 K/mm3 (1.8-7.8); Neutrophils % 88.5 % (37.0-80.0); Platelet Count 255 K/mm3 (142-424); Red Blood Count 4.01 M/mm3 (4.60-6.20); Red Cell Distribution Width 18.1 % (11.5-17.5)
[2023-05-02 09:38] LABS: MANUAL DIFFERENTIAL MANUAL DIFFERENTIAL (MANUAL DIFF)
--- NOTE | 2023-05-02 09:41 | PC.NURSE ---
removed vargas catheter, pt voided immediately after removal
[2023-05-02 09:44] LABS: Chloride 99 mmol/L (98-107); Sodium 129 mmol/L (136-145)
[2023-05-02 09:47] LABS: Blood Urea Nitrogen 20 mg/dl (9-20); Creatinine Clearance Estimated 65 mL/min (50-200); Estimated Glomerular Filt Rate 73 ml/min (>60); GFR (African American) 88 ML/MIN (>60)
[2023-05-02 09:48] LABS: Calcium 7.7 mg/dl (8.4-10.2); Carbon Dioxide 30 mmol/L (22.0-30.0); Glucose 115 mg/dl (74-100)
--- NOTE | 2023-05-02 09:56 | EXP.PULM.PN ---
Subjective *Date: 05/02/23 *Time: 13:24 Interval history: No acute respiratory events overnight. Patient admits continued improvement in his respiratory status. Pulmonology Exam Inpatient Vital signs and Labs for Last 24 Hours: Temp Pulse Resp BP Pulse Ox O2 Del Method O2 Flow Rate 97.7 F 91 H 10 L 88/43 L 97 Nasal Cannula 2 05/02/23 07:56 05/02/23 09:00 05/02/23 09:00 05/02/23 09:00 05/02/23 09:00 05/02/23 09:00 05/02/23 09:00 Laboratory Results - last 24 hr 05/02/23 09:15: WBC 14.0 H, RBC 4.01 L, Hgb 12.6 L, Hct 39.6 L, MCV 98.7 H, MCH 31.3 H, MCHC 31.7 L, RDW 18.1 H, Plt Count 255, MPV 8.0, Neut % (Auto) 88.5 H, Lymph % (Auto) 4.2 L, [place] % (Auto) 3.5, Eos % (Auto) 3.6, Baso % (Auto) 0.3, Neut # (Auto) 12.4 H, Lymph # (Auto) 0.6 L, [place] # (Auto) 0.5, Eos # (Auto) 0.5 H, Baso # (Auto) 0.0 I & O for Labs for Last 24 Hours: Intake & Output 04/29/23 04/30/23 05/01/23 05/02/23 23:59 23:59 23:59 23:59 Intake Total 42.001 / 79.501 2428.506 / 2428.506 1047.375 / 1047.375 Output Total 1650 / 1650 1475 / 1475 Balance 42.001 / 79.501 778.506 / 778.506 -427.625 / -427.625 Weight 150 lb 2 oz 154 lb 9.6 oz 160 lb 9.6 oz Constitutional: Present moderate distress Head: Present normocephalic and atraumatic ENT: Present normal exam, normal oropharynx and mucous membranes moist Neck: Present normal inspection and full ROM Respiratory: Present respiratory distress, rhonchi, wheezes, diminished air movement and able to speak in complete sentences Cardiac: Present S1/S2, Tachycardia and radial pulses present GI: Present soft and distention; Absent tenderness or guarding Skin: Present intact; Absent cyanosis or jaundice Neuro: Present alert, awake and oriented x 3 Extremities: Present normal inspection; Absent clubbing or cyanosis Psychiatric: Present normal affect and cooperative Assessment and Plan *Assessment and plan (1) Acute on chronic respiratory failure with hypoxia and hypercapnia: Status: Acute Category: Medical Code(s): J96.21 - Acute and chronic respiratory failure with hypoxia; J96.22 - Acute and chronic respiratory failure with hypercapnia (2) Septic shock: Status: Acute Category: Medical Code(s): A41.9 - Sepsis, unspecified organism; R65.21 - Severe sepsis with septic shock (3) Bilateral pleural effusion: Status: Acute Category: Medical Code(s): J90 - Pleural effusion, not elsewhere classified (4) HAP (hospital-acquired pneumonia): Status: Acute Category: Medical Code(s): J18.9 - Pneumonia, unspecified organism; Y95 - Nosocomial condition Plan Mr. 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 CTA on admission NO evidence of pulmonary embolism. No significant effusions. Bilateral lower lobe predominant micronodular opacities and bronchial thickening. CT also concerning for acute esophagitis. Right lower lobe airspace disease noted. No other significant dense consolidation noted in the noted lung garcia. On admission Febrile. Hemodynamically unstable on pressors. Neutrophilic leukocytosis. Interval update: No acute respiratory events overnight. Weaned to nasal cannula. Afebrile in the last 12 hours. Improving leukocytosis. Continue to receive Zosyn. Plan: Recommend to continue Zosyn for a total of 7 days. Hemodynamically stable. Continue to be needing pressor support on norepinephrine at 8 mcg. 1 L LR bolus again today. Follow-up with serum beta D glucan Continue oxygen supplementation to maintain O2 saturation goal of 90 to 95%. Prior sputum culture showing Yari Albicans Will closely monitor before initiating antifungal therapy at this point of time Given a worsening right-sided effusion more than the left. The plan was made to drain right-sided effusion every day on the left every other day. Patient was drained at 1050 from the right and 650 from the left. He was drained again today at 750 from [facility] and 500 from left.
--- NOTE | 2023-05-02 11:05 | PC.NURSE ---
MD SINCLAIR AT BEDSIDE ORDERED 1L LR BOLUS, 1L LR BOLUS STARTED
[2023-05-02 12:59] LABS: Eosinophils % 5 % (0-3); Lymphocytes % 3 % (10-50); Monocytes % 3 % (2-9); Neutrophils % 77 % (42-76); Total Cells Counted 100
[2023-05-02 13:05] LABS: Anisocytosis 1+; Macrocytosis 1+; Platelet Estimate Normal
[2023-05-02 13:08] LABS: Burr Cells 1+; Poikilocytosis 1+; Spherocytes 1+
--- NOTE | 2023-05-02 14:07 | PC.NURSE ---
unable to titrate drip on emar... 1030-bp 122/68 decreased levophed drip to 8mcg/min 1230-bp 129/68 decreased levophed drip to 6mcg/min
--- NOTE | 2023-05-02 17:17 | P.PN_ITS ---
Subjective *Date: 05/02/23 *Time: 17:17 Interval history: patient seen and examined at the bedside, alert awake holding conversations, he mentions his SOB is better Exam Data for Last 24 hours Vital signs and Labs for Last 24 Hours: Temp Pulse Resp BP Pulse Ox O2 Del Method O2 Flow Rate 98.2 F 86 16 90/62 L 96 Nasal Cannula 2 05/02/23 15:53 05/02/23 17:05 05/02/23 17:05 05/02/23 17:05 05/02/23 17:05 05/02/23 17:05 05/02/23 17:05 Laboratory Results - last 24 hr 05/02/23 09:15: WBC 14.0 H, RBC 4.01 L, Hgb 12.6 L, Hct 39.6 L, MCV 98.7 H, MCH 31.3 H, MCHC 31.7 L, RDW 18.1 H, Plt Count 255, MPV 8.0, Neut % (Auto) 88.5 H, Lymph % (Auto) 4.2 L, [place] % (Auto) 3.5, Eos % (Auto) 3.6, Baso % (Auto) 0.3, Neut # (Auto) 12.4 H, Lymph # (Auto) 0.6 L, [place] # (Auto) 0.5, Eos # (Auto) 0.5 H, Baso # (Auto) 0.0, Total Counted 100, Neutrophils % (Manual) 77 H, Band Neutrophils % 12.0 H, Lymphocytes % (Manual) 3 L, Monocytes % (Manual) 3, Eosinophils % (Manual) 5 H, Platelet Estimate Normal, Poikilocytosis 1+, Anisocytosis 1+, Macrocytosis 1+, Spherocytes 1+, [place] Cells 1+, Sodium 129 L, Potassium 4.0, Chloride 99, Carbon Dioxide 30, Anion Gap 4.0 L, BUN 20 D, Creatinine 1.00, Estimated Creat Clear 65, Estimated GFR 73, Est GFR ( Amer) 88, Glucose 115 H, Calcium 7.7 L I & O for Last 24 hours: Intake & Output 04/29/23 04/30/23 05/01/23 05/02/23 23:59 23:59 23:59 23:59 Intake Total 42.001 / 79.501 2428.506 / 2428.506 1706.125 / 1706.125 Output Total 1650 / 1650 1475 / 1475 Balance 42.001 / 79.501 778.506 / 778.506 231.125 / 231.125 Weight 68.096 kg 70.125 kg 72.84 kg Constitutional Constitutional: no acute distress *Routine HEENT Exam Head: Present normocephalic Eye: Present EOMI and PERRL ENT: Present mucous membranes moist *Routine Neck Exam Neck: Present supple; Absent lymphadenopathy *Routine Respiratory Exam Respiratory: Present respiratory distress, rhonchi and wheezes *Routine Cardiovascular Exam Cardiovascular: Present RRR *Routine Abdominal Exam Abdominal: Present soft and normoactive bowel sounds; Absent tenderness *Routine Extremities Exam Extremities: Absent cyanosis, clubbing or edema *Routine Skin Exam Skin: Present warm; Absent rash *Routine Neurological Exam Neurological: Present alert and oriented X3 Assessment and Plan *Assessment and plan (1) Acute on chronic respiratory failure with hypoxia and hypercapnia: Status: Acute Category: Medical Code(s): J96.21 - Acute and chronic respiratory failure with hypoxia; J96.22 - Acute and chronic respiratory failure with hypercapnia (2) Pulmonary edema: Status: Acute Qualifiers: Chronicity: chronic Qualified Code(s): J81.1 - Chronic pulmonary edema Category: Medical Code(s): J81.1 - Chronic pulmonary edema (3) Bilateral pleural effusion: Status: Acute Category: Medical Code(s): J90 - Pleural effusion, not elsewhere classified (4) Malignant neoplasm of lower third of esophagus: Status: Acute Category: Medical Code(s): C15.5 - Malignant neoplasm of lower third of esophagus Plan 77-year-old with PMHx of COPD on chronic 2 L by nasal cannula, coronary artery disease, hyperlipidemia, and 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 Acute on chronic hypercapnic hypoxic respiratory failure secondary to pulmonary edema: With bilateral pleural effusion status post Pleurex catheter bilateral Hypotensive on Levophed Pulmonary consult - started on zosyn s/p pleural effusion drainage in ED DuoNeb Q6h Intermittent drain as needed Continue Levophed Malignant neoplasm of the esophagus: Patient on chemotherapy. Had the dose before admission. Continue follow-up as an outpatient Lovenox for DVT prophylax. On Protonix Full code continue IV abx, monitor CXR, continue to wean off levophed
[2023-05-02] MEDS: PANTOPRAZOLE 40MG TABLET 40 MG PO (20:06)
[2023-05-03] VITALS (15 sets, daily range): BP systolic 95–139; BP diastolic 45–72; PULSE 70–100; RESP 17–24; TEMP 36.5–36.8; O2SAT 94–100; BMI 24.7
--- NOTE | 2023-05-03 00:19 | PC.NURSE ---
1930 Levo was titrated up to 4mcg/min with BP 85/40 2330 RT weaned pt to RA with oxygen saturation 96-98% at this time.
--- NOTE | 2023-05-03 01:08 | PC.NURSE ---
ROOM AIR SAT 96% Pt placed on RA after being on a 2LNC satting 100%, Pt maintained sat around 95%-98% on RA
[2023-05-03] MEDS: PIPERACILLIN/TAZO 4.5 GM in 0.9 % SODIUM CHLORIDE 100 ML IV ×2 (01:15→07:47)
[2023-05-03 05:49] LABS: Basophils % 0.2 % (0.1-2.0); Eosinophils # 0.7 K/mm3 (0.0-0.4); Eosinophils % 7.9 % (0.1-12.0); Hematocrit 34.8 % (42.0-52.0); Hemoglobin 11.4 g/dL (14.1-18.0); Lymphocytes # 0.6 K/mm3 (0.7-4.5); Lymphocytes % 7.8 % (10-50); Mean Corpuscular HGB Conc 32.6 g/dL (31.8-35.4); Mean Corpuscular Hemoglobin 31.9 pg (27.0-31.2); Mean Corpuscular Volume 97.7 fl (80-94); Mean Platelet Volume 8.2 fl (7.4-10.4); Monocytes # 0.3 K/mm3 (0.1-1.0); Monocytes % 4.1 % (1.7-9.3); Neutrophils # 6.6 K/mm3 (1.8-7.8); Platelet Count 176 K/mm3 (142-424); Red Blood Count 3.56 M/mm3 (4.60-6.20); Red Cell Distribution Width 18.3 % (11.5-17.5); White Blood Count 8.2 K/mm3 (4.8-10.8)
--- NOTE | 2023-05-03 05:49 | PC.NURSE ---
Pt has rested intermittently this shift. Pt remains on RA, sats have been >94%. Pt remains on Levo gtt, currently at a rate of 2mcg/min. Last BP 104/55 with HR of 91. Bilateral drains remain in place and are CDI. Pt has had x1 continent BM per bedpan. remains at bedside, no complaints at this time.
[2023-05-03 05:57] LABS: Anion Gap 2.6 mEq/L (5-15); Blood Urea Nitrogen 18 mg/dl (9-20); Calcium 7.5 mg/dl (8.4-10.2); Carbon Dioxide 30 mmol/L (22.0-30.0); Chloride 102 mmol/L (98-107); Creatinine Clearance Estimated 64 mL/min (50-200); Estimated Glomerular Filt Rate 110 ml/min (>60); GFR (African American) 133 ML/MIN (>60); Glucose 120 mg/dl (74-100); Potassium 3.6 mmoL/L (3.5-5.1); Sodium 131 mmol/L (136-145)
[2023-05-03] MEDS: ENOXAPARIN 40MG/0.4ML SYRINGE 40 MG SQ (08:00)
--- NOTE | 2023-05-03 08:18 | PC.NURSE ---
COURTESY TECH NOTE; ROUNDED ON PT, ASSISTED PRIMARY TECH TO TAKE PT OFF BEDPAN. CALL LIGHT WITHIN REACH, NO FURTHER REQUESTS AT THIS TIME Сергей MARTIN, MARIO
--- NOTE | 2023-05-03 09:48 | EXP.PULM.PN ---
Subjective *Date: 05/03/23 *Time: 12:51 Interval history: No acute respiratory vents overnight. Pulmonology Exam Inpatient Vital signs and Labs for Last 24 Hours: Temp Pulse Resp BP Pulse Ox O2 Del Method O2 Flow Rate 98.2 F 90 20 95/45 L 96 Room Air 2 05/03/23 08:00 05/03/23 09:00 05/03/23 09:00 05/03/23 09:00 05/03/23 09:00 05/03/23 09:00 05/02/23 23:00 Laboratory Results - last 24 hr 05/02/23 09:15: Total Counted 100, Neutrophils % (Manual) 77 H, Band Neutrophils % 12.0 H, Lymphocytes % (Manual) 3 L, Monocytes % (Manual) 3, Eosinophils % (Manual) 5 H, Platelet Estimate Normal, Poikilocytosis 1+, Anisocytosis 1+, Macrocytosis 1+, Spherocytes 1+, [place] Cells 1+, Sodium 129 L, Potassium 4.0, Chloride 99, Carbon Dioxide 30, Anion Gap 4.0 L, BUN 20 D, Creatinine 1.00, Estimated Creat Clear 65, Estimated GFR 73, Est GFR ( Amer) 88, Glucose 115 H, Calcium 7.7 L 05/03/23 05:35: WBC 8.2 D, RBC 3.56 L, Hgb 11.4 L, Hct 34.8 L, MCV 97.7 H, MCH 31.9 H, MCHC 32.6, RDW 18.3 H, Plt Count 176 D, MPV 8.2, Neut % (Auto) 80.0, Lymph % (Auto) 7.8 L, [place] % (Auto) 4.1, Eos % (Auto) 7.9, Baso % (Auto) 0.2, Neut # (Auto) 6.6, Lymph # (Auto) 0.6 L, [place] # (Auto) 0.3, Eos # (Auto) 0.7 H, Baso # (Auto) 0.0, Sodium 131 L, Potassium 3.6, Chloride 102, Carbon Dioxide 30, Anion Gap 2.6 L, BUN 18, Creatinine 0.70 D, Estimated Creat Clear 64, Estimated GFR 110, Est GFR ( Amer) 133 D, Glucose 120 H, Calcium 7.5 L I & O for Labs for Last 24 Hours: Intake & Output 04/30/23 05/01/23 05/02/23 05/03/23 23:59 23:59 23:59 23:59 Intake Total 42.001 / 79.501 2428.506 / 2428.506 1826.125 / 1826.125 848 / 848 Output Total 1650 / 1650 1575 / 1575 500 / 500 Balance 42.001 / 79.501 778.506 / 778.506 251.125 / 251.125 348 / 348 Weight 150 lb 2 oz 154 lb 9.6 oz 160 lb 9.355 oz 157 lb 11.2 oz Constitutional: Present moderate distress Head: Present normocephalic and atraumatic ENT: Present normal exam, normal oropharynx and mucous membranes moist Neck: Present normal inspection and full ROM Respiratory: Present respiratory distress, rhonchi, wheezes, diminished air movement and able to speak in complete sentences Cardiac: Present S1/S2, Tachycardia and radial pulses present GI: Present soft and distention; Absent tenderness or guarding Skin: Present intact; Absent cyanosis or jaundice Neuro: Present alert, awake and oriented x 3 Extremities: Present normal inspection; Absent clubbing or cyanosis Psychiatric: Present normal affect and cooperative Assessment and Plan *Assessment and plan (1) Acute on chronic respiratory failure with hypoxia and hypercapnia: Status: Acute Category: Medical Code(s): J96.21 - Acute and chronic respiratory failure with hypoxia; J96.22 - Acute and chronic respiratory failure with hypercapnia (2) Septic shock: Status: Acute Category: Medical Code(s): A41.9 - Sepsis, unspecified organism; R65.21 - Severe sepsis with septic shock (3) Bilateral pleural effusion: Status: Acute Category: Medical Code(s): J90 - Pleural effusion, not elsewhere classified (4) HAP (hospital-acquired pneumonia): Status: Acute Category: Medical Code(s): J18.9 - Pneumonia, unspecified organism; Y95 - Nosocomial condition Plan Mr. 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 CTA on admission NO evidence of pulmonary embolism. No significant effusions. Bilateral lower lobe predominant micronodular opacities and bronchial thickening. CT also concerning for acute esophagitis. Right lower lobe airspace disease noted. No other significant dense consolidation noted in the noted lung garcia. On admission Febrile. Hemodynamically unstable on pressors. Neutrophilic leukocytosis. Interval update: No acute respiratory events overnight. Continued remain on nasal cannula/room air. Status post thoracentesis yesterday.. Improving leukocytosis. Afebrile last 24 hrs Blood cultures and nasal MRSA PCR from admission still pending. Off pressors. Hemodynamically stable. Plan: Continue Zosyn/cefepime for total of 7 days for hospital-acquired pneumonia gram-negative coverage. Patient otherwise can be discharged from pulmonary standpoint. Will defer the management of septic shock / pending blood cultures to primary team Follow-up with serum beta D glucan Continue oxygen supplementation to maintain O2 saturation goal of 90 to 95%. Prior sputum culture showing Yari Albicans Will closely monitor before initiating antifungal therapy at this point of time Recommend draining right pleural effusion every day and left every other day. # Thank you for involving pulmonary in this patient care. Will continue to follow.
[2023-05-03] MEDS: CEFEPIME HCL 2 GM in 0.9 % SODIUM CHLORIDE 100 ML IV (12:22)
--- NOTE | 2023-05-03 13:14 | P.DS_ITS ---
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 Patient was actually getting chemo today and afterwards was trying to walk to his vehicle when he became profoundly dyspneic. On arrival he was satting in the 70s while on his 2 L by nasal cannula. He was quickly brought back to the emergency department placed in the bed where he was noted to be in the low 80s despite nonrebreather mask. Patient reports air hunger but no cardiac chest pain fever chills hemoptysis hematochezia melena nausea vomit diarrhea. Admitted for treatment and management Hospital Course Hospital Course Hospital Course: Patient was seen and evaluated at the bedside on the day of discharge. Patient wishes to be discharged. All patient questions were answered and patient was given time to ask questions. Patient was discharged in stable condition. Patient understands that she can return to ER in case of any sudden changes in health. 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 Acute on chronic hypercapnic hypoxic respiratory failure secondary to pulmonary edema: - improved With bilateral pleural effusion status post Pleurex catheter bilateral - improved Hypotensive on Levophed - improved Pulmonary consult - noted, rec dc on cefepime/zosyn - will order Cefepime at DC with home health services, will f/u on blood cultures Malignant neoplasm of the esophagus: Patient on chemotherapy. Had the dose before admission. Continue follow-up as an outpatient Lovenox for DVT prophylax. On Protonix Full code Exam Data for Last 24 hours Vital signs and Labs for Last 24 Hours: Temp Pulse Resp BP Pulse Ox O2 Del Method O2 Flow Rate 97.7 F 94 H 22 103/55 L 97 Room Air 2 05/03/23 12:01 05/03/23 13:00 05/03/23 13:00 05/03/23 13:00 05/03/23 13:00 05/03/23 13:00 05/02/23 23:00 Laboratory Results - last 24 hr 05/03/23 05:35: WBC 8.2 D, RBC 3.56 L, Hgb 11.4 L, Hct 34.8 L, MCV 97.7 H, MCH 31.9 H, MCHC 32.6, RDW 18.3 H, Plt Count 176 D, MPV 8.2, Neut % (Auto) 80.0, Lymph % (Auto) 7.8 L, [place] % (Auto) 4.1, Eos % (Auto) 7.9, Baso % (Auto) 0.2, Neut # (Auto) 6.6, Lymph # (Auto) 0.6 L, [place] # (Auto) 0.3, Eos # (Auto) 0.7 H, Baso # (Auto) 0.0, Sodium 131 L, Potassium 3.6, Chloride 102, Carbon Dioxide 30, Anion Gap 2.6 L, BUN 18, Creatinine 0.70 D, Estimated Creat Clear 64, Estimated GFR 110, Est GFR ( Amer) 133 D, Glucose 120 H, Calcium 7.5 L I & O for Last 24 hours: Intake & Output 04/30/23 05/01/23 05/02/23 05/03/23 23:59 23:59 23:59 23:59 Intake Total 42.001 / 79.501 2428.506 / 2428.506 1826.125 / 9161.439 7741 / 1318 Output Total 1650 / 1650 1575 / 1575 500 / 500 Balance 42.001 / 79.501 778.506 / 778.506 251.125 / 251.125 818 / 818 Weight 68.096 kg 70.125 kg 72.84 kg 71.532 kg Constitutional Constitutional: no acute distress *Routine HEENT Exam Head: Present normocephalic Eye: Present EOMI and PERRL ENT: Present mucous membranes moist *Routine Neck Exam Neck: Present supple; Absent lymphadenopathy *Routine Respiratory Exam Respiratory: Present CTA bilaterally *Routine Cardiovascular Exam Cardiovascular: Present RRR *Routine Abdominal Exam Abdominal: Present soft and normoactive bowel sounds; Absent tenderness *Routine Extremities Exam Extremities: Absent cyanosis, clubbing or edema *Routine Skin Exam Skin: Present warm; Absent rash *Routine Neurological Exam Neurological: Present alert and oriented X3 Results Data Completed and Pending Labs on day of discharge: Labs from last 24 hours 05/03/23 05:35 WBC 8.2 D RBC 3.56 L Hgb 11.4 L Hct 34.8 L MCV 97.7 H MCH 31.9 H MCHC 32.6 RDW 18.3 H Plt Count 176 D MPV 8.2 Neut % (Auto) 80.0 Lymph % (Auto) 7.8 L [place] % (Auto) 4.1 Eos % (Auto) 7.9 Baso % (Auto) 0.2 Neut # (Auto) 6.6 Lymph # (Auto) 0.6 L [place] # (Auto) 0.3 Eos # (Auto) 0.7 H Baso # (Auto) 0.0 Sodium 131 L Potassium 3.6 Chloride 102 Carbon Dioxide 30 Anion Gap 2.6 L BUN 18 Creatinine 0.70 D Estimated Creat Clear 64 Estimated GFR 110 Est GFR ( Amer) 133 D Glucose 120 H Calcium 7.5 L DS: Diagnosis Discharge Diagnosis (1) Acute on chronic respiratory failure with hypoxia and hypercapnia: Status: Acute Code(s): J96.21 - Acute and chronic respiratory failure with hypoxia; J96.22 - Acute and chronic respiratory failure with hypercapnia (2) Septic shock: Status: Acute Code(s): A41.9 - Sepsis, unspecified organism; R65.21 - Severe sepsis with septic shock (3) Bilateral pleural effusion: Status: Acute Code(s): J90 - Pleural effusion, not elsewhere classified (4) HAP (hospital-acquired pneumonia): Status: Acute Code(s): J18.9 - Pneumonia, unspecified organism; Y95 - Nosocomial condition Meds Home Medications and Allergies Home Medications Medication Instructions Recorded Confirmed Type aspirin 81 mg tablet,delayed 81 mg PO DAILY 11/26/22 04/30/23 History release famotidine 20 mg tablet (Pepcid) 20 mg PO DAILY 02/22/23 04/30/23 History cetirizine 10 mg tablet 10 mg PO DAILY 02/27/23 05/01/23 History ipratropium 0.5 mg-albuterol 3 mg 3 ml inhalation QID PRN Shortness 02/27/23 04/30/23 History (2.5 mg base)/3 mL nebulization Of Breath Or Wheezing soln fluticasone fur. 100 mcg-umeclid 1 inh inhalation DAILY 90 days #1 03/26/23 04/30/23 Rx 62.5 mcg-vilant 25 mcg ea inhalat.powder (Trelegy Ellipta) capecitabine 150 mg tablet 900 mg PO BID 04/11/23 04/30/23 History prochlorperazine maleate 10 mg 10 mg PO Q6 PRN Nausea And Vomiting 04/11/23 04/30/23 History tablet New Prescriptions to Start Prescriptions: Allergies Allergy/AdvReac Type Severity Reaction Status Date / Time No Known Allergies Allergy Verified 04/30/23 10:40 Discharge Plan Disposition Patient Disposition: Home Health Service Condition: Fair Discharge Order Discharge Orders: Discharge Order (Routine); Ordered 05/03/23 Ordered By: Brenda Travis Follow up Plan Follow up with: Radha Jimenez MD [Physician] - 2 weeks Prescriptions/Medication Reconciliation: Continued Trelegy Ellipta 100-62.5-25 mcg blister with device 1 inh inhalation DAILY 90 Days Qty: 1 3RF aspirin 81 mg tablet,delayed release (DR/EC) 81 mg PO DAILY famotidine [Pepcid] 20 mg Tablet 20 mg PO DAILY ipratropium-albuterol 0.5 mg-3 mg(2.5 mg base)/3 mL solution for nebulization 3 ml inhalation QID PRN (Reason: Shortness Of Breath Or Wheezing) cetirizine 10 mg tablet 10 mg PO DAILY prochlorperazine maleate 10 mg tablet 10 mg PO Q6 PRN (Reason: Nausea And Vomiting) Patient Comments: TAKE ONE TABLET BY MOUTH EVERY 6 HOURS NEEDED FOR NAUSEA AND VOMITING capecitabine 150 mg tablet 900 mg PO BID Rx Instructions: TAKE 6 TABLETS BY MOUTH TWICE A DAY FOR 21 DAYS, THEN REPEAT WITH NO DAYS OFF. Problem Reconciliation Problems Reviewed?: Yes Patient Discharge Instructions ACTIVITY: Ambulate as tolerated Patient Instructions: DI for Surgical Site Infection, DI for Respiratory F ailure Providers Primary Care Provider: Adia Lemus Admit Provider: Brenda Travis Attending Provider: Brenda Travis
--- NOTE | 2023-05-03 13:50 | CARE MANAGER ---
Addendum entered by Angella Penny RN 05/03/23 16:06: Unable to get accepting HH agency, denied by [facility], [facility] and [facility]. Patient home with [facility], patient and aware. Original Note: Spoke with patient in regards to discharge planning. Patient will discharge home with IV antibiotics. [facility] signed for HH and [facility]. Order/clinical faxed.
--- NOTE | 2023-05-03 20:38 | PC.NURSE ---
Family called inquiring about IV abx, stated [facility] had not delivered medication and unable to contact anyone. Spoke with [facility] scheduled for delivery, stated that some had spoken with daughter and information was given. I spoke with son Kirit and gave information.
--- NOTE | 2023-05-07 15:23 | CARE MANAGER ---
Contacted patient and related to hospital discharge. They state he is doing well. Finishes antibiotics today. They have left a message for Dr. davis regarding whether to start his chemo drug back or not. They deny questions or concerns at this time. FERNANDEZ Dennis
[2023-05-09 05:21] LABS: Fungitell(Beta D-Glucan) Serum NEGATIVE
== END 2023-05-03 15:55 | disposition home or self-care (01) | DRG 871 ==
LOC: ER 20:59 → 2ND 22:40
PROVIDERS: Internal Medicine Pulmonary Disease; Nurse Practitioner Family; Physician Assistant; Admitting Provider Internal Medicine; Emergency Provider Emergency Medicine; PCP Student in an Organized Health Care Education/Training Program; Visit Provider Internal Medicine
DX: A41.9 Sepsis, unspecified organism (principal); J18.1 Lobar pneumonia, unspecified organism; J96.21 Acute and chronic respiratory failure with hypoxia; R65.21 Severe sepsis with septic shock; J96.22 Acute and chronic respiratory failure with hypercapnia; C15.5 Malignant neoplasm of lower third of esophagus; C79.9 Secondary malignant neoplasm of unspecified site; J44.9 Chronic obstructive pulmonary disease, unspecified; Z99.81 Dependence on supplemental oxygen; I25.10 Atherosclerotic heart disease of native coronary artery without angina pectoris; E78.5 Hyperlipidemia, unspecified
CPT/HCPCS: 36415; 51702; 71045; 71275; 80048; 80053; 82803; 83605; 83735; 84484; 85007; 85025; 85610; 87040; 87081; 87449; 87632; 87635; 93005; 94760; 94761; 96413; 96415; 99291; J0131; J1642; J1956; J2543; J9263; Q9967

== ENCOUNTER 2023-05-09 14:55 | Outpatient (CLI) | payer MEDICARE, SELFPAY ==
[2023-05-09] MEDS: SODIUM CHLORIDE 0.9% 10ML FLUSH SYRINGE 10 ML IV (15:31)
== END 2023-05-09 15:30 | disposition home or self-care (01) ==
LOC: INF 14:56
PROVIDERS: PCP Student in an Organized Health Care Education/Training Program; Visit Provider Internal Medicine Pulmonary Disease
DX: J96.21 Acute and chronic respiratory failure with hypoxia (principal); Z45.2 Encounter for adjustment and management of vascular access device
CPT/HCPCS: 96523; J1642

== ENCOUNTER 2023-05-21 09:32 | Outpatient (CLI) | payer MEDICARE, SELFPAY ==
[2023-05-21 09:33] VITALS: BMI 24.5
[2023-05-21 09:46] LABS: Basophils # 0.1 K/mm3 (0-0.2); Basophils % 2.2 % (0.1-2.0); Eosinophils # 0.3 K/mm3 (0.0-0.4); Eosinophils % 4.6 % (0.1-12.0); Hematocrit 40.3 % (42.0-52.0); Hemoglobin 12.3 g/dL (14.1-18.0); Lymphocytes # 1.5 K/mm3 (0.7-4.5); Mean Corpuscular HGB Conc 30.6 g/dL (31.8-35.4); Mean Corpuscular Hemoglobin 30.6 pg (27.0-31.2); Mean Corpuscular Volume 100.1 fl (80-94); Monocytes # 0.6 K/mm3 (0.1-1.0); Monocytes % 9.5 % (1.7-9.3); Neutrophils # 3.5 K/mm3 (1.8-7.8); Neutrophils % 58.7 % (37.0-80.0); Platelet Count 390 K/mm3 (142-424); Red Blood Count 4.03 M/mm3 (4.60-6.20); White Blood Count 5.9 K/mm3 (4.8-10.8)
[2023-05-21 10:09] LABS: Chloride 104 mmol/L (98-107); Potassium 3.8 mmoL/L (3.5-5.1); Sodium 137 mmol/L (136-145)
[2023-05-21 10:12] LABS: Alanine Aminotransferase 24 U/L (12-78); Albumin Level 2.9 g/dl (3.5-5.0); Albumin/Globulin Ratio 1.1 (1.1-1.8); Alkaline Phosphatase 108 U/L (38-126); Anion Gap 2.8 mEq/L (5-15); Aspartate Amino Transferase 43 U/L (17-59); Bilirubin,Total 0.2 mg/dl (0.2-1.3); Blood Urea Nitrogen 8 mg/dl (9-20); Carbon Dioxide 34 mmol/L (22.0-30.0); Creatinine Clearance Estimated 63 mL/min (50-200); Estimated Glomerular Filt Rate 131 ml/min (>60); GFR (African American) 159 ML/MIN (>60); Globulin 2.7 g/dL (1.3-3.2); Total Protein,Serum 5.6 g/dl (6.3-8.2)
[2023-05-21 10:13] LABS: Calcium 8.5 mg/dl (8.4-10.2); Glucose 111 mg/dl (74-100)
== END 2023-05-21 23:59 ==
LOC: INF 09:32
PROVIDERS: PCP Student in an Organized Health Care Education/Training Program; Visit Provider Internal Medicine Medical Oncology
DX: C15.4 Malignant neoplasm of middle third of esophagus (principal)
CPT/HCPCS: 36591; 80053; 85025; J1642

== ENCOUNTER 2023-05-27 14:09 | Outpatient (CLI) | payer MEDICARE, SELFPAY ==
--- NOTE | 2023-05-27 14:09 | CA_ITS ---
APPROVED REPORT EXAM: Comprehensive 2D, Doppler, and color-flow Echocardiogram Payroll And Benefits Manager: Alecia Galvan RDCS Ht: 5 ft 7 in Wt: 154lbs BSA: 1.81 BP: 107/51 mmHg Indications: SOA, ESOPHAGEAL CA WITH CHEMO,COPD,SMOKER, H/O PERICARDIAL EFFUSION WITH DRAINAGE POST 2 MONTHS TUBES PLACED M-Mode Dimensions RVDd 2.62 cm (0.9-2.6) LA Diam 2.67 cm (1.9-4.0) LVDd 4.82 cm (3.5-5.7) LVDs 3.49 cm (3.5-5.7) IVSd 0.91 cm (0.6-1.1) PWd 0.83 cm (0.6-1.1) EF (Teich) 53.50% FS 27.60% EDV (Teich) 108.60 mL TAPSE 1.94 (<1.7) ESV (Teich) 50.50 mL LV Diastology E Decel Time 217 (160-240 msec) E/A Ratio 0.7 Mitral Valve MV E Max Suhail. 46.0 (40-130 cm/s) MV A Velocity 64.0 (40-130 cm/s) E/A Ratio 0.72 MV PHT 63.0 ms Left Ventricle The left ventricle is normal size. The left ventricular systolic function is normal. The left ventricular ejection fraction is within the normal range. Proximal septal thickening is noted. There is normal LV segmental wall motion. The left ventricular diastolic function is normal. LVEF is 55%. Right Ventricle The right ventricle is mildly dilated. Right ventricle is mildly hypokinetic. Atria The left atrium size is normal. The right atrium size is normal. There is no Doppler evidence of interatrial shunt. Aortic Valve The aortic valve is mildly thickened. There is no aortic valvular stenosis. No aortic regurgitation is present. Mitral Valve The mitral valve is normal in structure. No evidence of mitral valve stenosis. There is no mitral valve regurgitation noted. Tricuspid Valve The tricuspid valve leaflets are thin and pliable. Trace tricuspid regurgitation. There is insufficient TR jet to estimate RVSP. Pulmonic Valve The pulmonary valve is normal in structure. Trace pulmonic regurgitation. Great Vessels The aortic root is normal in size. The ascending aorta is not well-visualized. IVC is normal in size and collapses >50% with inspiration. Pericardium There is a small sized, circumferential pericardial effusion present. The largest pocket measures 0.7 cm in diastole. There is a slight invagination of the RA during systole, but no chamber collapse is seen. Overall, no clear echo indications of tamponade. Other Information Study Quality: Fair Conclusion Normal LV systolic function. Mild RV dilation with mild reduction in RV function. Small sized, circumferential pericardial effusion present. The largest pocket measures 0.7 cm in diastole. There is a slight invagination of the RA during systole, but no chamber collapse is seen. Overall, no clear echo indications of tamponade. IVC normal in size and collapsibility. Short-term serial limited TTE evaluations for the pericardial effusion and serial clinical assessments are recommended. Electronically signed by : Rita De La Paz MD 05/29/2023 22:57:37
== END 2023-05-27 23:59 ==
LOC: RT 14:09
PROVIDERS: PCP Student in an Organized Health Care Education/Training Program; Visit Provider Nurse Practitioner Family
DX: R06.02 Shortness of breath (principal)
CPT/HCPCS: 93306

== ENCOUNTER 2023-06-10 07:57 | Outpatient (CLI) | payer MEDICARE, SELFPAY ==
--- NOTE | 2023-06-10 08:01 | CT_ITS ---
FINAL REPORT TECHNIQUE: After the administration of oral and intravenous contrast, axial images were obtained through the abdomen and pelvis by computed tomography. The study was performed with techniques to keep radiation dose as low as reasonably achievable, (ALARA). Individual dose reduction techniques using automated exposure control or adjustment of mA and/or kV according to the patient's size were employed. CLINICAL HISTORY: esophageal cancer COMPARISON: 02/14/2023 FINDINGS: Abdomen: The liver parenchyma is homogeneous. There is mild gallbladder wall thickening. Calcified granulomas are seen in the spleen. The pancreas and adrenal glands are unremarkable. There is a cyst in the lower pole of the right kidney measuring 2.2 x 1.8 cm. The left kidney is unremarkable. The aorta is normal in caliber. There is no free fluid or adenopathy. Pelvis: There is streak artifact arising from a right hip prosthesis. The GI tract demonstrates no obstruction. The appendix is not identified. The urinary bladder is unremarkable. There is no free fluid or adenopathy. IMPRESSION: Mild gallbladder wall thickening. Right renal cyst. Reviewed, Interpreted and Dictated by Mauricio Stockton MD Transcribed by Mi Jovel Authenticated and . [facility]
--- NOTE | 2023-06-10 08:01 | CT_ITS ---
FINAL REPORT TECHNIQUE: Routine axial images were obtained from the lung apices to below the diaphragm following IV contrast administration. Individualized dose reduction techniques using automated exposure control or adjustment of the mA and/or kV according to the patient size were employed. CLINICAL HISTORY: ESOPHAGEAL CANCER COMPARISON: 02/14/2023 FINDINGS: There is a left anterior chest port with the tip in the SVC. There are moderate bilateral pleural effusions which have increased in size compared to the prior exam. A pericardial effusion appears larger measuring 1.6 cm. Bilateral pleural drains are present. There is dense bibasilar consolidation. There are moderate changes of centrilobular emphysema. IMPRESSION: Increase in size of pericardial effusion and bilateral effusions with bibasilar consolidation. Stable position of pleural drains. Reviewed, Interpreted and Dictated by Mauricio Stockton MD Transcribed by Mi Jovel Authenticated and [facility]
[2023-06-10] MEDS: SODIUM CHLORIDE 0.9% 10ML SYR (RAD ONLY) 10 ML IV (08:58)
[2023-06-10] MEDS: IOPAMIDOL-370 (76%);100ML BOTTLE 75 ML IV (08:58)
[2023-06-10] MEDS: SODIUM CHLORIDE 0.9% 10ML FLUSH SYRINGE 10 ML IV (09:01)
== END 2023-06-10 23:59 | disposition home or self-care (01) ==
LOC: RAD 07:59
PROVIDERS: PCP Student in an Organized Health Care Education/Training Program; Visit Provider Internal Medicine Medical Oncology
DX: C15.4 Malignant neoplasm of middle third of esophagus (principal)
CPT/HCPCS: 71260; 74177; 96523; J1642; Q9967

== ENCOUNTER 2023-06-11 08:47 | Inpatient (IN) | payer MEDICARE, SELFPAY ==
[2023-06-11] VITALS (32 sets, daily range): BP systolic 71–123; BP diastolic 41–70; PULSE 53–141; RESP 13–25; TEMP 36.5–36.8; O2SAT 71–100; BMI 24.1
--- NOTE | 2023-06-11 | ECG_ITS ---
APPROVED REPORT Exam: Resting ECG HR:148 bpm ECG Measurements Heart Rate 148 AXES QRSd 105 QRS 123 QT 276 T -10 QTc 361 Conclusion ATRIAL FIBRILLATION WITH RAPID VENTRICULAR RESPONSE T wave inversions leads III and aVF without reciprocal change Electronically signed by : VONDA RIVAS, 06/13/2023 19:38:08
--- NOTE | 2023-06-11 08:46 | ECG_ITS ---
APPROVED REPORT Exam: Resting ECG HR:104 bpm ECG Measurements Heart Rate 104 AXES QRSd 93 QRS 102 QT 319 T 43 QTc 380 Conclusion ATRIAL FIBRILLATION WITH RAPID VENTRICULAR RESPONSE RIGHT AXIS DEVIATION Electronically signed by : VONDA RIVAS, 06/13/2023 19:31:39
--- NOTE | 2023-06-11 08:50 | ED_ITS ---
Discharge Plan Disposition Patient Disposition: Admitted Discharge ED Provider: Samson Matos General Adult HPI General Chief complaint: Shortness of Breath/Dyspnea Stated complaint: cp Time Seen by Provider: 06/11/23 08:50 History of Present Illness HPI narrative: This patient presents for evaluation of shortness of breath, this was gradual in onset starting approximately 3 to 4 days ago, possibly preceded by sick contacts with upper respiratory symptoms. He has noted exertional dyspnea, occasional dull nonradiating nonexertional pain in his substernal area, but denies any unilateral leg pain, leg swelling, changes in medications, new medications. Patient multiple comorbidities including esophageal cancer, history of respiratory failure, COPD, and pleural effusions with bilateral pleural drains in place. These have had appropriate output and have continued to function, and color of the output from each drain has started to become more clear and output has gradually decreased over time. Patient does not take blood thinners. Last chemotherapy approximately 3 weeks ago. Patient denies any hemoptysis. Denies any abdominal pain, he does report cough productive of clear sputum. Please note that above description of symptoms, in this electronic medical record under categorization of recalled from ER triage doctor by RN are reflective of an initial nursing assessment, however, is not reflective of my full history and physical exam that was personally taken and clarified. Consequentially, this preceding description of symptoms, which may include the patient's categorized chief complaint in the EMR, do not reflect my personal clinical impression, and the ultimate description of history of present illness and patient stated complaints should be deferred to this section of the note. Unless stated otherwise or congruent with this section of the note, additional signs, symptoms, or incongruence should be interpreted as inaccurate with my clinical impression. Related Data Home Medications Medication Instructions Recorded Confirmed aspirin 81 mg tablet,delayed 81 mg PO DAILY 11/26/22 06/11/23 release famotidine 20 mg tablet (Pepcid) 20 mg PO DAILY 02/22/23 06/11/23 ipratropium 0.5 mg-albuterol 3 mg 3 ml inhalation QID PRN Shortness 02/27/23 06/11/23 (2.5 mg base)/3 mL nebulization Of Breath Or Wheezing soln capecitabine 150 mg tablet 900 mg PO BID 04/11/23 06/11/23 prochlorperazine maleate 10 mg 10 mg PO Q6 PRN Nausea And Vomiting 04/11/23 06/11/23 tablet megestrol 400 mg/10 mL (40 mg/mL) 400 mg PO BID 06/11/23 06/11/23 oral suspension Previous Rx's Medication Instructions Recorded fluticasone fur. 100 mcg-umeclid 1 inh inhalation DAILY 90 days #1 03/26/23 62.5 mcg-vilant 25 mcg ea inhalat.powder (Trelegy Ellipta) Allergies Allergy/AdvReac Type Severity Reaction Status Date / Time oxaliplatin Allergy Other Verified 05/30/23 12:22 [facility] Disclaimer: The information contained in this section may have been updated after the patient was seen, as this information can be updated by other users. Medical History Pericardial effusion HAP (hospital-acquired pneumonia) Septic shock Acute hypercapnic respiratory failure Ascites Pneumonia Pulmonary edema Chronic cough Tachycardia Respiratory failure with hypoxia Adenocarcinoma Pleural effusion on right Encounter for screening for malignant neoplasm of lung Smoking greater than 30 pack years Dyspnea on exertion Pulmonary emphysema Pneumonia Viral pneumonia Tobacco user Hyperlipidemia Sepsis NSTEMI (non-ST elevated myocardial infarction) Acute exacerbation of chronic obstructive pulmonary disease Acute respiratory failure with hypoxia Community acquired pneumonia COPD (chronic obstructive pulmonary disease) Surgical History History of hip replacement Family History Other Lung cancer Social History (Updated 06/11/23 @ 15:39 by Katie Lazaro RN) Smoking Status: Current every day smoker alcohol intake: never substance use type: denies use current occupational status: retired Travel in the last 8 weeks: None household members: spouse lives independently: Yes marital status: education level: college caffeine: Yes physical activity: walking ROS Obtained: Yes other As per HPI Physical Exam General General appearance: alert Head Head exam: atraumatic and normocephalic Eye Eye exam: Present normal appearance Neck Neck exam: Present normal inspection Chest Chest inspection: Present normal inspection and symmetric chest wall rise Respiratory Respiratory exam: Present wheezes and other (Crackles bilaterally, faint expiratory wheeze) Cardiovascular Cardiovascular exam: Present normal rhythm and tachycardia Abdominal Exam Abdominal exam: Present soft Neurological Exam Neurological exam: Present alert and oriented X3 Psychiatric Psychiatric exam: Present normal affect and normal mood Skin Skin exam: Present warm and dry Other Other exam information: Bilateral chest tubes in place, not to active drain at this time. No surrounding erythema or edema Medical Decision Making Medical Records Medical records reviewed: Yes I reviewed the patient's medical records. Raghu Inquiry Pt receiving controlled substance: No Vital Signs: 06/11/23 08:48 06/11/23 08:59 06/11/23 09:00 Temperature 97.7 F Temperature Source Oral Pulse Rate 90 82 Pulse Rate [Left Radial] 106 H Respiratory Rate 24 25 H Blood Pressure 102/63 L 112/66 Blood Pressure [Right Arm] 102/63 L Blood Pressure Mean Blood Pressure Mean [Right Arm] 76 02 Sat by Pulse Oximetry 71 L 93 L 88 L Oxygen Delivery Method Nasal Cannula Nasal Cannula Nasal Cannula Oxygen Flow Rate (LPM) 2.5 2.5 2.5 06/11/23 09:30 06/11/23 10:30 06/11/23 11:00 Temperature Temperature Source Pulse Rate 94 H 90 74 Pulse Rate [Left Radial] Respiratory Rate 18 17 18 Blood Pressure 103/63 L 123/70 106/54 L Blood Pressure [Right Arm] Blood Pressure Mean 81 71 Blood Pressure Mean [Right Arm] 02 Sat by Pulse Oximetry 98 98 97 Oxygen Delivery Method Oxygen Flow Rate (LPM) 06/11/23 11:30 06/11/23 11:45 06/11/23 12:15 Temperature Temperature Source Pulse Rate 91 H 86 93 H Pulse Rate [Left Radial] Respiratory Rate 18 19 18 Blood Pressure 100/56 L 99/54 L 104/59 L Blood Pressure [Right Arm] Blood Pressure Mean 71 Blood Pressure Mean [Right Arm] 02 Sat by Pulse Oximetry 95 89 L 97 Oxygen Delivery Method Oxygen Flow Rate (LPM) 06/11/23 13:10 06/11/23 13:30 06/11/23 14:01 Temperature Temperature Source Pulse Rate 53 L 85 98 H Pulse Rate [Left Radial] Respiratory Rate 21 20 19 Blood Pressure 122/57 L 113/61 93/55 L Blood Pressure [Right Arm] Blood Pressure Mean Blood Pressure Mean [Right Arm] 02 Sat by Pulse Oximetry 91 L 93 L 91 L Oxygen Delivery Method Nasal Cannula Nasal Cannula Nasal Cannula Oxygen Flow Rate (LPM) 2.5 2.5 2.5 06/11/23 14:30 06/11/23 14:50 06/11/23 14:55 Temperature Temperature Source Pulse Rate 97 H 111 H 104 H Pulse Rate [Left Radial] Respiratory Rate 21 17 17 Blood Pressure 91/53 L 104/46 L 97/51 L Blood Pressure [Right Arm] Blood Pressure Mean Blood Pressure Mean [Right Arm] 02 Sat by Pulse Oximetry 92 L 92 L 88 L Oxygen Delivery Method Nasal Cannula Nasal Cannula Nasal Cannula Oxygen Flow Rate (LPM) 2.5 2.5 2.5 06/11/23 15:05 06/11/23 15:10 06/11/23 15:15 Temperature Temperature Source Pulse Rate 101 H 68 124 H Pulse Rate [Left Radial] Respiratory Rate 21 17 17 Blood Pressure 83/51 L 88/45 L 90/46 L Blood Pressure [Right Arm] Blood Pressure Mean Blood Pressure Mean [Right Arm] 02 Sat by Pulse Oximetry 88 L 91 L 91 L Oxygen Delivery Method Nasal Cannula Nasal Cannula Nasal Cannula Oxygen Flow Rate (LPM) 2.5 2.5 2.5 06/11/23 15:18 06/11/23 15:20 06/11/23 15:20 Temperature Temperature Source Pulse Rate 95 H 105 H 105 H Pulse Rate [Left Radial] Respiratory Rate 19 25 H Blood Pressure 73/52 L 88/56 L 89/58 L Blood Pressure [Right Arm] Blood Pressure Mean 66 Blood Pressure Mean [Right Arm] 02 Sat by Pulse Oximetry 92 L 91 L 91 L Oxygen Delivery Method Nasal Cannula Nasal Cannula Nasal Cannula Oxygen Flow Rate (LPM) 2.5 2.5 2.5 06/11/23 15:25 06/11/23 15:32 06/11/23 15:37 Temperature Temperature Source Pulse Rate 113 H 141 H 134 H Pulse Rate [Left Radial] Respiratory Rate 16 13 Blood Pressure 90/59 L 114/56 L 82/58 L Blood Pressure [Right Arm] Blood Pressure Mean 63 Blood Pressure Mean [Right Arm] 02 Sat by Pulse Oximetry 93 L 85 L 93 L Oxygen Delivery Method Nasal Cannula Room Air Oxygen Flow Rate (LPM) 2.5 2.5 06/11/23 15:43 06/11/23 15:51 06/11/23 16:10 Temperature 97.7 F Temperature Source Oral Pulse Rate 138 H 121 H 131 H Pulse Rate [Left Radial] Respiratory Rate 20 Blood Pressure 71/51 L 92/55 L 90/64 L Blood Pressure [Right Arm] Blood Pressure Mean 54 68 Blood Pressure Mean [Right Arm] 02 Sat by Pulse Oximetry 94 L 94 L Oxygen Delivery Method Nasal Cannula Oxygen Flow Rate (LPM) 2.5 Lab Data Lab Results 06/11/23 08:59: WBC 12.3 H, RBC 4.01 L, Hgb 12.8 L, Hct 41.4 L, MCV 103.2 H, MCH 31.8 H, MCHC 30.8 L, RDW 19.6 H, Plt Count 340, MPV 8.0, Neut % (Auto) 87.6 H, L ymph % (Auto) 4.2 L, [place] % (Auto) 3.2, Eos % (Auto) 4.3, Baso % (Auto) 0.7, N eut # (Auto) 10.8 H, Lymph # (Auto) 0.5 L, [place] # (Auto) 0.4, Eos # (Auto) 0.5 H , Baso # (Auto) 0.1, Total Counted 100, Neutrophils % (Manual) 90 H, Lymphocytes % (Manual) 8 L, Monocytes % (Manual) 1 L, Eosinophils % (Manual) 1, Platelet Estimate Normal, Macrocytosis 1+, PT 13.0 H, INR 1.22 H, Sodium 134 L, Potassium 4.4, Chloride 102, Carbon Dioxide 34 H, Anion Gap 2.4 L, BUN 15, Creatinine 0.60 L, Estimated Creat Clear 62, Estimated GFR 131, Est GFR ( Amer) 159, G lucose 114 H, Calcium 8.1 L, Magnesium 1.7, Total Bilirubin 0.6, AST 32, ALT 14, Alkaline Phosphatase 78, Troponin I < 0.01, NT-Pro-B Natriuret Pep 677 H, Total Protein 5.4 L, Albumin 2.7 L, Globulin 2.7, Albumin/Globulin Ratio 1.0 L, Lipase 66 06/11/23 09:43: SARS-CoV-2 (PCR) Not detected, Influenza A Untype (PCR) Not detected, Influenza Type B (PCR) Not detected 06/11/23 09:50: Specimen Source Left brachial, O2 % 30% via nasal cannul, ABG pH 7.40, ABG pCO2 47.6 H, ABG pO2 67.6 L, ABG HCO3 29.1 H, ABG Total CO2 30.6 H, ABG O2 Saturation 93, ABG Base Excess 4.4 H, Yuri Test Acceptable 06/11/23 12:21: Troponin I < 0.01 06/11/23 08:59 06/11/23 08:59 Orders (Tests/Meds): ED MEDICATIONS Generic Name Dose Route Start Last Admin Trade Name Freq PRN Reason Stop Dose Admin Sodium Chloride 1,000 mls @ 999 mls/hr 06/11/23 16:01 06/11/23 16:02 Sod Chlor 0.9% 1000ml Bag IV 06/11/23 17:01 999 mls/hr .Q1H1M ONE Administration Amiodarone HCl 900 mg/ 518 mls @ 34.533 mls/hr 06/11/23 16:15 Dextrose IV 06/12/23 07:15 .Q15H1M MALIKA Protocol 1 MG/MIN Discontinued Medications Generic Name Dose Route Start Last Admin Trade Name Freq PRN Reason Stop Dose Admin Albuterol/Ipratropium 3 ml 06/11/23 09:48 06/11/23 10:29 Ipratropium/Albuterol 3 Ml Neb 06/11/23 09:49 3 ml ONCE ONE Administration Albuterol/Ipratropium 3 ml 06/11/23 13:07 06/11/23 13:36 Ipratropium/Albuterol 3 Ml [facility] 06/11/23 13:08 3 ml ONCE ONE Administration Furosemide 20 mg 06/11/23 09:48 06/11/23 10:34 Furosemide 40mg/4ml Vial IV 06/11/23 09:49 Not Given ONCE ONE Furosemide 40 mg 06/11/23 12:29 06/11/23 12:48 Furosemide 40mg/4ml Vial IV 06/11/23 12:30 40 mg ONCE ONE Administration Piperacillin Sod/Tazobactam 100 mls @ 200 mls/hr 06/11/23 13:07 06/11/23 14:15 Sod 4.5 gm/ Sodium Chloride IV 06/11/23 13:36 Not Given ONCE STA Amiodarone HCl 150 mg/ 103 mls @ 618 mls/hr 06/11/23 16:02 Dextrose IV 06/11/23 16:11 ONCE ONE Protocol Iopamidol 75 ml 06/11/23 10:15 06/11/23 10:17 Iopamidol-370 (76%);100ml Bottle IV 06/11/23 10:16 75 ml ONCE ONE Administration Methylprednisolone Sodium Succinate 60 mg 06/11/23 13:07 06/11/23 13:36 Methylprednisolone Sod Succ 125mg Vial IV 06/11/23 13:08 60 mg ONCE STA Administration Metoprolol Tartrate 5 mg 06/11/23 15:21 06/11/23 15:21 Metoprolol Tartrate 5mg/5ml Vial IV 06/11/23 15:22 5 mg ONCE ONE Administration Sodium Chloride 50 ml 06/11/23 10:15 06/11/23 10:16 0.9 % Sodium Chloride 50 Ml Vial IV 06/11/23 10:16 50 ml ONCE ONE Administration Sodium Chloride 10 ml 06/11/23 10:15 06/11/23 10:17 Sodium Chloride 0.9% 10ml Syr (Rad Only) IV 07/11/23 10:14 10 ml NEEDED PRN Administration Maintain IV Site ORDERS Category Date Time Status CTA Chest [CT angio chest PE protocol] Stat Cat Scan 06/11/23 09:26 Completed Pulmonology Consult [Consult to Pulmonology] [CONS] Cons 06/11/23 14:10 Active Routine BNP [NT Pro Brain Natriuretic Pep.] Stat Lab 06/11/23 08:59 Completed Complete Blood Count Auto Diff AMLAB Lab 06/12/23 06:00 Ordered Complete Blood Count Auto Diff Stat Lab 06/11/23 08:59 Completed Comprehensive Metabolic Panel AMLAB Lab 06/12/23 06:00 Ordered Comprehensive Metabolic Panel Stat Lab 06/11/23 08:59 Completed Lipase Stat Lab 06/11/23 08:59 Completed MAG [Magnesium] Stat Lab 06/11/23 08:59 Completed Magnesium AMLAB Lab 06/12/23 06:00 Ordered PT INR [Prothrombin Time INR] Stat Lab 06/11/23 08:59 Completed Rapid PCR Covid and Flu A/B Stat Lab 06/11/23 09:43 Completed Troponin I Q3H Lab 06/11/23 12:21 Completed Troponin I Q3H Lab 06/11/23 15:15 Ordered Troponin I Stat Lab 06/11/23 08:59 Completed ABG [Arterial Blood Gas] Stat RT 06/11/23 09:50 Completed HEART Score History (anamnesis): Slightly suspicious ECG: Non-specific disturbance Age: >65 years Risk factors: 3 or more risk factors Troponin: </= normal limit HEART Score: 5 Medical Decision Narrative: Patient with history and exam per above presenting for evaluation of shortness of breath Diagnoses considered include mass, asthma, PE, COPD exacerbation, recurrent pleural effusion, noncardiogenic edema, pneumonia, CHF exacerbation, ACS, anemia ED workup and treatment included: ED MEDICATIONS Generic Name Dose Route Start Last Admin Trade Name Freq PRN Reason Stop Dose Admin Sodium Chloride 1,000 mls @ 999 mls/hr 06/11/23 16:01 06/11/23 16:02 Sod Chlor 0.9% 1000ml Bag IV 06/11/23 17:01 999 mls/hr .Q1H1M ONE Administration Amiodarone HCl 900 mg/ 518 mls @ 34.533 mls/hr 06/11/23 16:15 Dextrose IV 06/12/23 07:15 .Q15H1M MALIKA Protocol 1 MG/MIN Discontinued Medications Generic Name Dose Route Start Last Admin Trade Name Freq PRN Reason Stop Dose Admin Albuterol/Ipratropium 3 ml 06/11/23 09:48 06/11/23 10:29 Ipratropium/Albuterol 3 Ml Neb 06/11/23 09:49 3 ml ONCE ONE Administration Albuterol/Ipratropium 3 ml 06/11/23 13:07 06/11/23 13:36 Ipratropium/Albuterol 3 Ml Neb 06/11/23 13:08 3 ml ONCE ONE Administration Furosemide 20 mg 06/11/23 09:48 06/11/23 10:34 Furosemide 40mg/4ml Vial IV 06/11/23 09:49 Not Given ONCE ONE Furosemide 40 mg 06/11/23 12:29 06/11/23 12:48 Furosemide 40mg/4ml Vial IV 06/11/23 12:30 40 mg ONCE ONE Administration Piperacillin Sod/Tazobactam 100 mls @ 200 mls/hr 06/11/23 13:07 06/11/23 14:15 Sod 4.5 gm/ Sodium Chloride IV 06/11/23 13:36 Not Given ONCE STA Amiodarone HCl 150 mg/ 103 mls @ 618 mls/hr 06/11/23 16:02 06/11/23 16:28 Dextrose IV 06/11/23 16:11 618 mls/hr ONCE ONE Administration Protocol Iopamidol 75 ml 06/11/23 10:15 06/11/23 10:17 Iopamidol-370 (76%);100ml Bottle IV 06/11/23 10:16 75 ml ONCE ONE Administration Methylprednisolone Sodium Succinate 60 mg 06/11/23 13:07 06/11/23 13:36 Methylprednisolone Sod Succ 125mg Vial IV 06/11/23 13:08 60 mg ONCE STA Administration Metoprolol Tartrate 5 mg 06/11/23 15:21 06/11/23 15:21 Metoprolol Tartrate 5mg/5ml Vial IV 06/11/23 15:22 5 mg ONCE ONE Administration Sodium Chloride 50 ml 06/11/23 10:15 06/11/23 10:16 0.9 % Sodium Chloride 50 Ml Vial IV 06/11/23 10:16 50 ml ONCE ONE Administration Sodium Chloride 10 ml 06/11/23 10:15 06/11/23 10:17 Sodium Chloride 0.9% 10ml Syr (Rad Only) IV 07/11/23 10:14 10 ml NEEDED PRN Administration Maintain IV Site ORDERS Category Date Time Status CTA Chest [CT angio chest PE protocol] Stat Cat Scan 06/11/23 09:26 Completed Pulmonology Consult [Consult to Pulmonology] [CONS] Cons 06/11/23 14:10 Active Routine BNP [NT Pro Brain Natriuretic Pep.] Stat Lab 06/11/23 08:59 Completed Complete Blood Count Auto Diff AMLAB Lab 06/12/23 06:00 Ordered Complete Blood Count Auto Diff Stat Lab 06/11/23 08:59 Completed Comprehensive Metabolic Panel AMLAB Lab 06/12/23 06:00 Ordered Comprehensive Metabolic Panel Stat Lab 06/11/23 08:59 Completed Lipase Stat Lab 06/11/23 08:59 Completed MAG [Magnesium] Stat Lab 06/11/23 08:59 Completed Magnesium AMLAB Lab 06/12/23 06:00 Ordered PT INR [Prothrombin Time INR] Stat Lab 06/11/23 08:59 Completed Rapid PCR Covid and Flu A/B Stat Lab 06/11/23 09:43 Completed Troponin I Q3H Lab 06/11/23 12:21 Completed Troponin I Q3H Lab 06/11/23 15:15 Ordered Troponin I Stat Lab 06/11/23 08:59 Completed ABG [Arterial Blood Gas] Stat RT 06/11/23 09:50 Completed Labs were independently interpreted by me, significant for new leukocytosis, ABG without acidosis, BNP 677, COVID not detected Imaging was independently visualized and interpreted by me, significant for stable bilateral pleural effusions, no acute pulmonary embolism, no consolidative process in the lung parenchyma Patient at this Time is requiring supplemental oxygen, which she reports is new for him although he has required oxygen in the past, unreliable pulse ox however ABG shows appropriate oxygen saturation with the supplemental oxygen requirement. Given recent sick contacts, productive cough, worsening dyspnea, wheezing, and hypoxemia, in the setting of stable effusions from prior, I do believe there is a component of intraparenchymal lung disease that is acute and precipitating many of the symptoms for which he presents today. Patient has multiple comorbidities including his pericardial effusion, documented pulmonary edema, and [id number] ultrasound per my visualization shows no evidence of tamponade physiology, does reveal dilated IVC, and likely concurrent component of pulmonary edema. He did report some improvement of symptoms after administration of DuoNebs, steroids, IV Lasix x 1. This, however, unfortunately did not change his supplemental oxygen requirement. At this time I contacted hospitalist for admission for further management. At request of hospitalist I trialed drainage from his bilateral chest tubes, he had approximately 350 cc out from left side and 550 cc out from right side, did have some mild clinical improvement of symptoms transiently however again no change in his objective findings. Hospitalist was contacted again for admission who agreed to admit patient. Critical Care Critical Care Time Critical Care Time: No
--- NOTE | 2023-06-11 09:11 | PC.NURSE ---
in room talking with patient at this time.
[2023-06-11 09:17] LABS: Basophils # 0.1 K/mm3 (0-0.2); Basophils % 0.7 % (0.1-2.0); Eosinophils # 0.5 K/mm3 (0.0-0.4); Eosinophils % 4.3 % (0.1-12.0); Hematocrit 41.4 % (42.0-52.0); Hemoglobin 12.8 g/dL (14.1-18.0); Lymphocytes # 0.5 K/mm3 (0.7-4.5); Lymphocytes % 4.2 % (10-50); Mean Corpuscular HGB Conc 30.8 g/dL (31.8-35.4); Mean Corpuscular Hemoglobin 31.8 pg (27.0-31.2); Mean Corpuscular Volume 103.2 fl (80-94); Monocytes # 0.4 K/mm3 (0.1-1.0); Monocytes % 3.2 % (1.7-9.3); Neutrophils # 10.8 K/mm3 (1.8-7.8); Neutrophils % 87.6 % (37.0-80.0); Platelet Count 340 K/mm3 (142-424); Red Blood Count 4.01 M/mm3 (4.60-6.20); Red Cell Distribution Width 19.6 % (11.5-17.5); White Blood Count 12.3 K/mm3 (4.8-10.8)
[2023-06-11 09:18] LABS: Chloride 102 mmol/L (98-107); Potassium 4.4 mmoL/L (3.5-5.1); Sodium 134 mmol/L (136-145)
[2023-06-11 09:20] LABS: Blood Urea Nitrogen 15 mg/dl (9-20); Creatinine Clearance Estimated 62 mL/min (50-200); Estimated Glomerular Filt Rate 131 ml/min (>60); GFR (African American) 159 ML/MIN (>60); MANUAL DIFFERENTIAL MANUAL DIFFERENTIAL (MANUAL DIFF)
[2023-06-11 09:21] LABS: Alanine Aminotransferase 14 U/L (12-78); Albumin Level 2.7 g/dl (3.5-5.0); Alkaline Phosphatase 78 U/L (38-126); Anion Gap 2.4 mEq/L (5-15); Aspartate Amino Transferase 32 U/L (17-59); Bilirubin,Total 0.6 mg/dl (0.2-1.3); Calcium 8.1 mg/dl (8.4-10.2); Carbon Dioxide 34 mmol/L (22.0-30.0); Globulin 2.7 g/dL (1.3-3.2); Glucose 114 mg/dl (74-100); Total Protein,Serum 5.4 g/dl (6.3-8.2)
--- NOTE | 2023-06-11 09:26 | CT_ITS ---
FINAL REPORT TECHNIQUE: The patient was injected with IV contrast. Axial images were obtained through the chest in a PE protocol. 3-D reconstruction images were also performed. Individualized dose reduction techniques using automated exposure control or adjustment of the MA and/or KV according to patient's size were employed. CLINICAL HISTORY: soa, hx cancer, tachycardia, CP COMPARISON: 06/10/2023 FINDINGS: Mediastinal vasculature is adequately opacified. No pulmonary artery filling defects are identified to suggest PE. There is no aortic dissection. There is no axillary adenopathy. There is moderate mediastinal adenopathy in the right paratracheal and subcarinal regions. The heart size is normal. There are moderate bilateral pleural effusions. Bilateral chest tubes are identified. Limited images of the upper abdomen are unremarkable. There is bibasilar atelectasis and consolidation. Abnormal peribronchial thickening is seen throughout the perihilar regions. IMPRESSION: No pulmonary embolus or dissection. Moderate mediastinal adenopathy, could be neoplastic or reactive. Moderate bilateral effusions with bilateral chest tubes, similar to previous. Bibasilar atelectasis and consolidation. Peribronchial thickening throughout the perihilar regions. Reviewed, Interpreted and Dictated by Mauricio Stockton MD Transcribed by Darline Dior Authenticated and [facility]
[2023-06-11 09:38] LABS: Troponin I < 0.01 ng/ml (0.00-0.034)
[2023-06-11 09:40] LABS: INR 1.22 (0.9-1.1)
--- NOTE | 2023-06-11 09:40 | PC.NURSE ---
RT notified of ABG
[2023-06-11 09:42] LABS: Magnesium 1.7 mg/dl (1.6-2.3)
[2023-06-11 09:53] LABS: ABG Base Excess 4.4 mmol/L (-2.4-2.3); ABG HCO3 29.1 mmhg (22.0-26.0); ABG Oxygen Saturation 93 % (90-100); ABG PCO2 47.6 mmhg (35.0-45.0); ABG PO2 67.6 mmhg (80-100); ABG TCO2 30.6 mmhg (23-27)
[2023-06-11 09:53] LABS: Eosinophils % 1 % (0-3); Lymphocytes % 8 % (10-50); Monocytes % 1 % (2-9); Neutrophils % 90 % (42-76); Total Cells Counted 100
[2023-06-11 09:54] LABS: Macrocytosis 1+; Platelet Estimate Normal
[2023-06-11 09:56] LABS: Allen's Test Acceptable; Oxygen 30% via nasal cannul %; Source Left Brachial
--- NOTE | 2023-06-11 09:57 | PC.NURSE ---
pt gone to ct
[2023-06-11 10:07] LABS: NT Pro Brain Natriuretic Pep. 677 pg/mL (0-450)
[2023-06-11 10:12] LABS: Coronavirus 19, PCR Not Detected (NotDetected); Influenza A, PCR Not Detected (NotDetected); Influenza B, PCR Not Detected (NotDetected)
[2023-06-11] MEDS: 0.9 % SODIUM CHLORIDE 50 ML VIAL IV (10:16)
[2023-06-11 10:17] LABS: Lipase 66 U/L (23-300)
[2023-06-11] MEDS: SODIUM CHLORIDE 0.9% 10ML SYR (RAD ONLY) 10 ML IV (10:17)
[2023-06-11] MEDS: IOPAMIDOL-370 (76%);100ML BOTTLE 75 ML IV (10:17)
--- NOTE | 2023-06-11 10:20 | PC.NURSE ---
patient back in room at this time.
[2023-06-11] MEDS: IPRATROPIUM/ALBUTEROL 3 ML NEB IH ×2 (10:29→13:36)
--- NOTE | 2023-06-11 12:36 | PC.NURSE ---
SECOND TROP DRAWN AND SENT TO LAB
[2023-06-11] MEDS: FUROSEMIDE 40MG/4ML VIAL 40 MG IV (12:48)
--- NOTE | 2023-06-11 13:00 | PC.NURSE ---
DR. HANNA AT BS TO UPDATE PT ON RESULTS AND POC
[2023-06-11 13:02] LABS: Troponin I < 0.01 ng/ml (0.00-0.034)
--- NOTE | 2023-06-11 13:35 | PC.NURSE ---
AT FOR PROCEDURE
[2023-06-11] MEDS: METHYLPREDNISOLONE SOD SUCC 125MG VIAL 60 MG IV (13:36)
--- NOTE | 2023-06-11 14:16 | PC.NURSE ---
Admissions notified of admit to room 207 for COPD exacerbation to . Acute inpatient.
--- NOTE | 2023-06-11 14:27 | HMH.PHAINT1 ---
Pharmacy Intervention Comments: HOME MEDICATION LIST VERIFIED VIA OUTSIDE PHARMACY AND PHYSICAN NOTE
--- NOTE | 2023-06-11 14:40 | PC.NURSE ---
report called to FERNANDEZ ochoa
--- NOTE | 2023-06-11 14:54 | PC.NURSE ---
PT HAS A NEW ONSET OF A-FIB RVR TRANSPORT TO FLOOR IS BEING DELAYED AT THIS TIME
--- NOTE | 2023-06-11 14:56 | PC.NURSE ---
HS AWARE OF STATUS CHANGE OF PT DUE TO INCREASED HR AND BED CHANGE FOR STEP DOWN PER KATHY PRESLEY
--- NOTE | 2023-06-11 15:03 | PC.NURSE ---
No Sd bed available at this time. Will update ED staff when a room is available to transport pt to 2nd floor.
[2023-06-11] MEDS: METOPROLOL TARTRATE 5MG/5ML VIAL 5 MG IV (15:21)
--- NOTE | 2023-06-11 15:35 | CA_ITS ---
APPROVED REPORT EXAM: Limited 2D Echocardiogram [facility]: Gloria Lane RCS, RVS Ht: 5 ft 7 in Wt: 154lbs BSA: 1.81 BP: 107/51 mmHg Indications: COPD, Cancer, pericardial effusionpost chemotherapy,HAP Echo Enhancing Agent Comments: Unable to access apical window due to chest tubes dressings. 2D Dimensions IVSd 0.74 cm LVEF (Visual) 71.10 % PWd 0.92 cm LVDd 4.22 cm LVDs 2.53 cm Other Information Study Quality: Fair Conclusion This is a limited TTE to evaluate for pericardial effusion. Limited windows were obtained. There is a moderate-sized, circumferential pericardial effusion present. Okay to largest pockets are noted anteriorly and posteriorly, each measuring 1.4 cm in diastole. There is slight invagination of the RA and RV in systole and diastole, respectively, but no evidence of chamber collapse. The IVC is not well-visualized. The TV and MV respirophasic flow is not assessed in this study. The study is limited to evaluate conclusively presence versus absence of tamponade features on echo. Clinical correlation is recommended. , The inpatient cardiology consult team was notified in real-time during image acquisition of the above findings. Electronically signed by : Rita De La Paz MD 06/12/2023 11:39:37
--- NOTE | 2023-06-11 15:47 | P.HP_ITS ---
History of Present Illness *Admission Date: 06/11/23 *Reason for visit:: Dyspnea *History of present illness: Mr. 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 He follows with pulmonology and oncology at [facility]. He is currently draining his pleural effusions every other day. He presented to the ER today for evaluation of worsening shortness of breath. Is been gradual in onset over the past 3 to 4 days. Possible sick contacts per his report. Worsening dyspnea with exertion. Has some occasional dull pain in his chest. Denies any leg swelling, syncope, productive cough. No reported fever or chills. Continues to have adequate output from his Pleurx drains, color reportedly per has started to become m ore clear and has less sediment and clots in it. He is not on any blood thinners at this time. Last chemotherapy approximately 3 weeks ago. Workup in the ER concerning for effusions and possible pneumonia. Elevated white count. After draining effusions, patient still necessitating oxygen above his baseline. Medicine consulted for admission. Prior to arriving to the floor, patient developed new onset A-fib with RVR, heart rate in the 150s. Patient was asymptomatic and had no sensation of his A- fib. Was treated with single dose of metoprolol which slowed his heart rate from 150s to 120s. Blood pressure became soft with systolics in the 80s and 90s. Started on IV fluids. On arrival to the floor, patient is alert and oriented x 3. In no acute distress. Responding to fluids with improvement in systolic blood pressure to a little above 100. Cardiology and pulmonology consulted to assist with care. [facility] Disclaimer: The information contained in this section may have been updated after the patient was seen, as this information can be updated by other users. Medical History Pericardial effusion HAP (hospital-acquired pneumonia) Septic shock Acute hypercapnic respiratory failure Ascites Pneumonia Pulmonary edema Chronic cough Tachycardia Respiratory failure with hypoxia Adenocarcinoma Pleural effusion on right Encounter for screening for malignant neoplasm of lung Smoking greater than 30 pack years Dyspnea on exertion Pulmonary emphysema Pneumonia Viral pneumonia Tobacco user Hyperlipidemia Sepsis NSTEMI (non-ST elevated myocardial infarction) Acute exacerbation of chronic obstructive pulmonary disease Acute respiratory failure with hypoxia Community acquired pneumonia COPD (chronic obstructive pulmonary disease) Surgical History History of hip replacement Family History Other Lung cancer Social History Smoking Status: Current every day smoker alcohol intake: never substance use type: denies use current occupational status: retired Travel in the last 8 weeks: None household members: spouse lives independently: Yes marital status: education level: college caffeine: Yes physical activity: walking Review of Systems Review of Systems Review of systems (narrative): 14 point review of systems performed, pertinent positives and negatives as per [facility] Meds Home Medications and Allergies Home Medications Medication Instructions Recorded Confirmed Type aspirin 81 mg tablet,delayed 81 mg PO DAILY 11/26/22 06/11/23 History release famotidine 20 mg tablet (Pepcid) 20 mg PO DAILY 02/22/23 06/11/23 History ipratropium 0.5 mg-albuterol 3 mg 3 ml inhalation QID PRN Shortness 02/27/23 06/11/23 History (2.5 mg base)/3 mL nebulization Of Breath Or Wheezing soln fluticasone fur. 100 mcg-umeclid 1 inh inhalation DAILY 90 days #1 03/26/23 06/11/23 Rx 62.5 mcg-vilant 25 mcg ea inhalat.powder (Trelegy Ellipta) capecitabine 150 mg tablet 900 mg PO BID 04/11/23 06/11/23 History prochlorperazine maleate 10 mg 10 mg PO Q6 PRN Nausea And Vomiting 04/11/23 06/11/23 History tablet megestrol 400 mg/10 mL (40 mg/mL) 400 mg PO BID 06/11/23 06/11/23 History oral suspension New Prescriptions to Start Prescriptions: Allergies Allergy/AdvReac Type Severity Reaction Status Date / Time oxaliplatin Allergy Other Verified 05/30/23 12:22 Exam Data for Last 24 hours Vital signs and Labs for Last 24 Hours: Temp Pulse Resp BP Pulse Ox O2 Del Method O2 Flow Rate 97.7 F 141 H 13 114/56 L 85 L Room Air 2.5 06/11/23 08:59 06/11/23 15:32 06/11/23 15:32 06/11/23 15:32 06/11/23 15:32 06/11/23 15:32 06/11/23 15:32 Laboratory Results - last 24 hr 06/11/23 08:59: WBC 12.3 H, RBC 4.01 L, Hgb 12.8 L, Hct 41.4 L, MCV 103.2 H, MCH 31.8 H, MCHC 30.8 L, RDW 19.6 H, Plt Count 340, MPV 8.0, Neut % (Auto) 87.6 H, Lymph % (Auto) 4.2 L, [place] % (Auto) 3.2, Eos % (Auto) 4.3, Baso % (Auto) 0.7, Neut # (Auto) 10.8 H, Lymph # (Auto) 0.5 L, [place] # (Auto) 0.4, Eos # (Auto) 0.5 H, Baso # (Auto) 0.1, Total Counted 100, Neutrophils % (Manual) 90 H, Lymphocytes % (Manual) 8 L, Monocytes % (Manual) 1 L, Eosinophils % (Manual) 1, Platelet Estimate Normal, Macrocytosis 1+, PT 13.0 H, INR 1.22 H, Sodium 134 L, Potassium 4.4, Chloride 102, Carbon Dioxide 34 H, Anion Gap 2.4 L, BUN 15, Creatinine 0.60 L, Estimated Creat Clear 62, Estimated GFR 131, Est GFR ( Amer) 159, Glucose 114 H, Calcium 8.1 L, Magnesium 1.7, Total Bilirubin 0.6, AST 32, ALT 14, Alkaline Phosphatase 78, Troponin I < 0.01, NT-Pro-B Natriuret Pep 677 H, Total Protein 5.4 L, Albumin 2.7 L, Globulin 2.7, Albumin/Globulin Ratio 1.0 L, Lipase 66 06/11/23 09:43: SARS-CoV-2 (PCR) Not detected, Influenza A Untype (PCR) Not detected, Influenza Type B (PCR) Not detected 06/11/23 09:50: Specimen Source Left brachial, O2 % 30% via nasal cannul, ABG pH 7.40, ABG pCO2 47.6 H, ABG pO2 67.6 L, ABG HCO3 29.1 H, ABG Total CO2 30.6 H, ABG O2 Saturation 93, ABG Base Excess 4.4 H, Yuri Test Acceptable 06/11/23 12:21: Troponin I < 0.01 I & O for Last 24 hours: Intake & Output 06/08/23 06/09/23 06/10/23 06/11/23 23:59 23:59 23:59 23:59 Weight 69.853 kg Constitutional Constitutional: no acute distress, average body habitus, chronically ill appearing and cooperative *Routine HEENT Exam Head: Present normocephalic Eye: Present EOMI and PERRL ENT: Present mucous membranes moist *Routine Neck Exam Neck: Present supple; Absent lymphadenopathy *Routine Respiratory Exam Respiratory: Present accessory muscle use, crackles (bases) and diminished air movement (in bases); Absent rhonchi or wheezes *Routine Cardiovascular Exam Cardiovascular: Present tachycardia and irregularly irregular *Routine Abdominal Exam Abdominal: Present soft and normoactive bowel sounds; Absent tenderness *Routine Rectal Exam Rectal:: deferred *Routine Genitalia Exam Genitalia:: deferred *Routine Extremities Exam Extremities: Absent cyanosis, clubbing or edema *Routine Skin Exam Skin: Present warm; Absent rash *Routine Neurological Exam Neurological: Present alert, oriented X3 and moving all extremities; Absent altered mental status Assessment and Plan *Assessment and plan (1) Acute on chronic respiratory failure with hypoxia and hypercapnia: Status: Acute Category: Medical Code(s): J96.21 - Acute and chronic respiratory failure with hypoxia; J96.22 - Acute and chronic respiratory failure with hypercapnia (2) Bilateral pleural effusion: Status: Acute Category: Medical Code(s): J90 - Pleural effusion, not elsewhere classified (3) Pericardial effusion: Status: Acute Category: Medical Code(s): I31.39 - Other pericardial effusion (noninflammatory) (4) New onset a-fib: Status: Acute Category: Medical Code(s): I48.91 - Unspecified atrial fibrillation (5) Malignant neoplasm of lower third of esophagus: Status: Acute Category: Medical Code(s): C15.5 - Malignant neoplasm of lower third of esophagus (6) PNA (pneumonia): Status: Acute Qualifiers: Pneumonia type: due to unspecified organism Laterality: right Lung location: lower lobe of lung Qualified Code(s): J18.9 - Pneumonia, unspecified organism Category: Medical Code(s): J18.9 - Pneumonia, unspecified organism (7) CAD in [place] artery: Status: Acute Category: Medical Code(s): I25.10 - Atherosclerotic heart disease of [place] coronary artery without angina pectoris (8) COPD mixed type: Status: Acute Category: Medical Code(s): J44.9 - Chronic obstructive pulmonary disease, unspecified (9) Adenocarcinoma: Status: Acute Category: Medical Code(s): C80.1 - Malignant (primary) neoplasm, unspecified Plan Mr. Whitaker is a 77-year-old male with a recent history of adenocarcinoma, malignant pleural effusions, following with oncology and pulmonology. Has Pleurx drains in place. Presented to the ER with worsening shortness of breath. Chest imaging with bilateral effusions and suspicious for pneumonia. Initiated on IV antibiotics. Discussed case with ER physician, request admission for further treatment of effusions, increased oxygen requirement from baseline, and hypotension with new onset A-fib. Medicine agreed to admit for further management. Cardiology and pulmonology consulted. Patient initiated on amiodarone drip upon arrival to the floor. Necessitating inpatient management. Problems addressed as follows: Acute hypoxic respiratory failure: Bilateral pleural effusions metastatic: COPD -Initiate levofloxacin 750 mg daily for suspected pneumonia given exposure to he [employer] system regularly and risk for healthcare acquired pathogens -Continue supplemental oxygen, goal sats greater 90%. Currently on 2 L -Pulmonology consulted, appreciate their assistance in care. -Will continue drainage every 48 hours for recurrent pleural effusions. Patient with metastatic effusion secondary to adenocarcinoma. - Trelegy 100 inhaler along with DuoNebs every 6 hours on as-needed basis -CBC, CMP, magnesium ordered for the morning. - White cell count elevated at 12.3, neutrophil predominance. Hemoglobin 12.8 with platelets of 340. Albumin low at 2.7. New onset A-fib Hypotension - cardiology consulted, appreciate their recommendations. Will initiate amiodarone bolus and drip. Monitor for transition back to sinus rhythm. Reevaluate need for anticoagulation in the morning pending response to amiodarone. -If patient becomes hypotensive with MAP less than 60, will initiate phenylephrine drip -Continue IV fluids, status post 1 L in the ER. Will administer second liter at 250 cc an hour over 4 hours given output with effusions. HLD: on aspirin Lovenox for DVT ppx resume home famotidine Full code
--- NOTE | 2023-06-11 15:57 | PC.NURSE ---
pt being admitted to room Erik Alberts to receive pt and updates will be given at the bedside. spoke with dr pina to update on pt condition.
[2023-06-11] MEDS: 0.9 % SODIUM CHLORIDE 1000ML 1,000 ML 999 ML IV (16:02)
[2023-06-11] MEDS: AMIODARONE HCL 150 MG in DEXTROSE 5 % IN WATER 100 ML 618 MG IV (16:28)
[2023-06-11] MEDS: AMIODARONE HCL 900 MG in DEXTROSE 5 % IN WATER 500 ML 34.5300000000000011 MG IV (16:41)
--- NOTE | 2023-06-11 18:24 | ECG_ITS ---
APPROVED REPORT Exam: Resting ECG HR:73 bpm ECG Measurements Heart Rate 73 AXES CO 149 P 59 QRSd 85 QRS 79 QT 386 T 66 QTc 412 Conclusion SINUS RHYTHM LOW QRS VOLTAGE [QRS DEFLECTION < 0.5/1.0 mV IN LIMB/CHEST LEADS] Old anteroseptal changes ABNORMAL ECG UNCONFIRMED REPORT Electronically signed by : Samm Shaw MD 06/12/2023 08:27:34
[2023-06-11] MEDS: LACTATED RINGERS 1000ML 1,000 ML 250 ML IV (18:44)
[2023-06-11] MEDS: LEVOFLOXACIN/D5W 750 MG/150 ML 750 MG/150 ML PIGGYBACK 100 MG IV (20:24)
[2023-06-11] MEDS: PHENYLEPHRINE HCL 10 MG in 0.9 % SODIUM CHLORIDE 250 ML 75.2999999999999972 MG IV (20:36)
--- NOTE | 2023-06-11 22:10 | PC.NURSE ---
Nurse and student nurse walked into patients room to ask about his home medication that was present on the APR. Patient stated he had just took it right before we walked in. Nurse verified it was the correct medication he was suppose to take. Patient was then educated on the importance of not taking medications unless they are given by the nurse. Charge nurse was notified. Medication was locked up in patients drawer.
[2023-06-11] MEDS: PHENYLEPHRINE HCL 10 MG in 0.9 % SODIUM CHLORIDE 250 ML 112.950000000000003 MG IV (23:29)
[2023-06-12] VITALS (28 sets, daily range): BP systolic 94–120; BP diastolic 47–74; PULSE 60–90; RESP 14–22; TEMP 36.4–37.2; O2SAT 96–100; BMI 25.0
[2023-06-12] MEDS: IPRATROPIUM/ALBUTEROL 3 ML NEB IH ×3 (00:08→10:52)
[2023-06-12] MEDS: PHENYLEPHRINE HCL 10 MG in 0.9 % SODIUM CHLORIDE 250 ML 112.950000000000003 MG IV ×2 (01:41→03:55)
[2023-06-12 06:46] LABS: Chloride 103 mmol/L (98-107); Potassium 4.3 mmoL/L (3.5-5.1); Sodium 132 mmol/L (136-145)
[2023-06-12] MEDS: PHENYLEPHRINE HCL 10 MG in 0.9 % SODIUM CHLORIDE 250 ML 97.8900000000000006 MG IV ×2 (06:47→09:00)
[2023-06-12 06:48] LABS: Blood Urea Nitrogen 13 mg/dl (9-20); Creatinine Clearance Estimated 64 mL/min (50-200); Estimated Glomerular Filt Rate 162 ml/min (>60); GFR (African American) 196 ML/MIN (>60)
[2023-06-12 06:49] LABS: Alanine Aminotransferase 13 U/L (12-78); Albumin Level 2.3 g/dl (3.5-5.0); Albumin/Globulin Ratio 0.9 (1.1-1.8); Alkaline Phosphatase 70 U/L (38-126); Anion Gap 3.3 mEq/L (5-15); Aspartate Amino Transferase 28 U/L (17-59); Bilirubin,Total 0.3 mg/dl (0.2-1.3); Calcium 7.7 mg/dl (8.4-10.2); Carbon Dioxide 30 mmol/L (22.0-30.0); Globulin 2.6 g/dL (1.3-3.2); Glucose 120 mg/dl (74-100); Total Protein,Serum 4.9 g/dl (6.3-8.2)
[2023-06-12 06:50] LABS: Magnesium 1.7 mg/dl (1.6-2.3)
[2023-06-12 06:53] LABS: Basophils % 0.3 % (0.1-2.0); Eosinophils % 0.1 % (0.1-12.0); Hemoglobin 12.8 g/dL (14.1-18.0); Lymphocytes # 0.4 K/mm3 (0.7-4.5); Lymphocytes % 4.7 % (10-50); Mean Corpuscular HGB Conc 31.1 g/dL (31.8-35.4); Mean Corpuscular Hemoglobin 31.8 pg (27.0-31.2); Mean Corpuscular Volume 102.1 fl (80-94); Mean Platelet Volume 8.3 fl (7.4-10.4); Monocytes # 0.3 K/mm3 (0.1-1.0); Monocytes % 3.4 % (1.7-9.3); Neutrophils # 8.3 K/mm3 (1.8-7.8); Neutrophils % 91.6 % (37.0-80.0); Platelet Count 404 K/mm3 (142-424); Red Blood Count 4.02 M/mm3 (4.60-6.20); Red Cell Distribution Width 19.4 % (11.5-17.5); White Blood Count 9.1 K/mm3 (4.8-10.8)
[2023-06-12 06:56] LABS: MANUAL DIFFERENTIAL MANUAL DIFFERENTIAL (MANUAL DIFF)
--- NOTE | 2023-06-12 07:38 | PC.NURSE ---
Pt unable to produce sputum at this time; specimen cup at bedside
[2023-06-12] MEDS: ENOXAPARIN 40MG/0.4ML SYRINGE 40 MG SQ (09:01)
[2023-06-12] MEDS: CAPECITABINE 150 MG 900 EACH PO ×2 (09:01→20:44)
[2023-06-12] MEDS: ASPIRIN EC 81MG TABLET 81 MG PO (09:01)
[2023-06-12] MEDS: FAMOTIDINE 20MG TABLET 20 MG PO (09:01)
[2023-06-12] MEDS: FLUTICASONE/UMECLIDIN/VILANTER 100/62.5/25MCG INHALER 1 PUFF IH (09:10)
[2023-06-12 09:26] LABS: Lymphocytes % 5 % (10-50); Macrocytosis 1+; Monocytes % 4 % (2-9); Neutrophils % 91 % (42-76); Total Cells Counted 100
[2023-06-12 09:27] LABS: Platelet Estimate Normal
--- NOTE | 2023-06-12 10:23 | P.CONCA_ITS ---
History of Present Illness History of Present Illness Consult date: 06/12/23 Requesting physician: Marciano Bond Consult reason: shortness of breath Chief complaint: SOA, A. fib with RVR Additional Medical History:: 1. CAD A. C, 2022, mild non-occlusive disease of LAD, Normal EF and normal LVEDP 2. Hypertension A. Echocardiogram, 03/30/2022, EF 55% with no regional WMA. Mild RV enlargement normal contractility. Trace MR and TR. 3. Hyperlipidemia 4. COPD with history of tobacco use 5. 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 Diagnosed by pleural fluid from ultrasound-guided thoracentesis, 02/08/[address] of the chest abdomen and pelvis pertinent for bilateral pleural effusions right greater than left with small pericardial effusion but no other findings. C. MRI of the brain, 02/20/2023 no evidence of metastatic disease D. Initiation of capecitabine/oxaliplatin chemotherapy, 03/19/23 E. ALLERGIC reaction to oxaliplitan therapy 6. New onset atrial fibrillation, 06/11/2023 A. Converted to sinus rhythm with IV amiodarone therapy, 06/12/2023 History of present illness: Mr. 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 He follows with pulmonology and oncology at [facility]. He is currently draining his pleural effusions every other day. He presented to the ER today for evaluation of worsening shortness of breath. Is been gradual in onset over the past 3 to 4 days. Possible sick contacts per his report. Worsening dyspnea with exertion. Has some occasional dull pain in his chest. Denies any leg swelling, syncope, productive cough. No reported fever or chills. Continues to have adequate output from his Pleurx drains, color reportedly per has started to become m ore clear and has less sediment and clots in it. He is not on any blood thinners at this time. Last chemotherapy approximately 3 weeks ago. Workup in the ER concerning for effusions and possible pneumonia. Elevated white count. After draining effusions, patient still necessitating oxygen above his baseline. Medicine consulted for admission. Prior to arriving to the floor, patient developed new onset A-fib with RVR, heart rate in the 150s. Patient was asymptomatic and had no sensation of his A- fib. Was treated with single dose of metoprolol which slowed his heart rate from 150s to 120s. Blood pressure became soft with systolics in the 80s and 90s. Started on IV fluids. On arrival to the floor, patient is alert and oriented x 3. In no acute distress. Responding to fluids with improvement in systolic blood pressure to a little above 100. Cardiology and pulmonology consulted to assist with care. The above per Dr. Bond Cardiology consulted for treatment of A-fib with RVR and also evaluation of pericardial effusion. Patient was started on IV amiodarone and did subsequently convert back to sinus rhythm. Limited echocardiogram did confirm pericardial effusion with increase compared to recent CT of the chest last month. No evidence of tamponade noted. CTA of the chest yesterday showed no evidence of PE or dissection. Moderate mediastinal adenopathy, could be neoplastic or reactive. Moderate bilateral effusions with bilateral chest tubes, similar to previous. [facility] Disclaimer: The information contained in this section may have been updated after the patient was seen, as this information can be updated by other users. Medical History (Updated 06/12/23 @ 10:35 by Radha Jimenez MD) Acute and chronic respiratory failure with hypoxia Pericardial effusion HAP (hospital-acquired pneumonia) Septic shock Acute hypercapnic respiratory failure Ascites Pneumonia Pulmonary edema Chronic cough Tachycardia Respiratory failure with hypoxia Adenocarcinoma Pleural effusion on right Encounter for screening for malignant neoplasm of lung Smoking greater than 30 pack years Dyspnea on exertion Pulmonary emphysema Pneumonia Viral pneumonia Tobacco user Hyperlipidemia Sepsis NSTEMI (non-ST elevated myocardial infarction) Acute exacerbation of chronic obstructive pulmonary disease Acute respiratory failure with hypoxia Community acquired pneumonia COPD (chronic obstructive pulmonary disease) Surgical History History of hip replacement Family History Other Lung cancer Social History Smoking Status: Current every day smoker alcohol intake: never substance use type: denies use current occupational status: retired Travel in the last 8 weeks: None household members: spouse lives independently: Yes marital status: education level: college caffeine: Yes physical activity: walking Review of Systems Review of Systems Review of systems:: pertinent systems reviewed and negative unless documented below *Cardiovascular Cardiovascular: Denies chest pain and Reports dyspnea *Respiratory Respiratory: Reports dyspnea Exam Data for Last 24 hours Vital signs and Labs for Last 24 Hours: Temp Pulse Resp BP Pulse Ox O2 Del Method O2 Flow Rate 97.7 F 82 16 100/53 L 100 Nasal Cannula 2 06/12/23 07:48 06/12/23 09:00 06/12/23 09:00 06/12/23 09:00 06/12/23 09:00 06/12/23 09:00 06/12/23 09:00 Laboratory Results - last 24 hr 06/11/23 09:43: SARS-CoV-2 (PCR) Not detected, Influenza A Untype (PCR) Not detected, Influenza Type B (PCR) Not detected 06/11/23 12:21: Troponin I < 0.01 06/12/23 05:32: WBC 9.1 D, RBC 4.02 L, Hgb 12.8 L, Hct 41.0 L, MCV 102.1 H, MCH 31.8 H, MCHC 31.1 L, RDW 19.4 H, Plt Count 404, MPV 8.3, Neut % (Auto) 91.6 H, Lymph % (Auto) 4.7 L, [place] % (Auto) 3.4, Eos % (Auto) 0.1, Baso % (Auto) 0.3, Neut # (Auto) 8.3 H, Lymph # (Auto) 0.4 L, [place] # (Auto) 0.3, Eos # (Auto) 0.0, Baso # (Auto) 0.0, Total Counted 100, Neutrophils % (Manual) 91 H, Lymphocytes % (Manual) 5 L, Monocytes % (Manual) 4, Platelet Estimate Normal, Macrocytosis 1+, Sodium 132 L, Potassium 4.3, Chloride 103, Carbon Dioxide 30, Anion Gap 3.3 L, BUN 13, Creatinine 0.50 L, Estimated Creat Clear 64, Estimated GFR 162, Est GFR ( Amer) 196 D, Glucose 120 H, Calcium 7.7 L, Magnesium 1.7, Total Bilirubin 0.3, AST 28, ALT 13, Alkaline Phosphatase 70, Total Protein 4.9 L, Albumin 2.3 L D, Globulin 2.6, Albumin/Globulin Ratio 0.9 L I & O for Last 24 hours: Intake & Output 06/09/23 06/10/23 06/11/23 06/12/23 11:59 11:59 11:59 11:59 Intake Total 4621.876 / 4621.876 Output Total 450 / 450 Balance 4171.876 / 4171.876 Weight 154 lb 159 lb 1.6 oz Constitutional Constitutional: no acute distress *Routine Respiratory Exam Respiratory: Present crackles and diminished air movement *Routine Cardiovascular Exam Cardiovascular: Present RRR *Routine Extremities Exam Extremities: Absent edema *Routine Neurological Exam Neurological: Present alert, oriented X3 and CN II-XII intact Meds Home Medications and Allergies Home Medications Medication Instructions Recorded Confirmed Type aspirin 81 mg tablet,delayed 81 mg PO DAILY 11/26/22 06/11/23 History release famotidine 20 mg tablet (Pepcid) 20 mg PO DAILY 02/22/23 06/11/23 History ipratropium 0.5 mg-albuterol 3 mg 3 ml inhalation QID PRN Shortness 02/27/23 06/11/23 History (2.5 mg base)/3 mL nebulization Of Breath Or Wheezing soln fluticasone fur. 100 mcg-umeclid 1 inh inhalation DAILY 90 days #1 03/26/23 06/11/23 Rx 62.5 mcg-vilant 25 mcg ea inhalat.powder (Trelegy Ellipta) capecitabine 150 mg tablet 900 mg PO BID 04/11/23 06/11/23 History prochlorperazine maleate 10 mg 10 mg PO Q6 PRN Nausea And Vomiting 04/11/23 06/11/23 History tablet megestrol 400 mg/10 mL (40 mg/mL) 400 mg PO BID 06/11/23 06/11/23 History oral suspension New Prescriptions to Start Prescriptions: Allergies Allergy/AdvReac Type Severity Reaction Status Date / Time oxaliplatin Allergy Other Verified 05/30/23 12:22 Assessment and Plan *Assessment and plan (1) New onset a-fib: Status: Acute Category: Medical Code(s): I48.91 - Unspecified atrial fibrillation (2) Pericardial effusion: Status: Acute Category: Medical Code(s): I31.39 - Other pericardial effusion (noninflammatory) (3) Dyspnea: Status: Acute Qualifiers: Dyspnea type: dyspnea on exertion Qualified Code(s): R06.09 - Other forms of dyspnea Category: Medical Code(s): R06.00 - Dyspnea, unspecified (4) Malignant neoplasm of lower third of esophagus: Status: Acute Category: Medical Code(s): C15.5 - Malignant neoplasm of lower third of esophagus (5) Tobacco user: Status: Acute Category: Social Hx Code(s): Z72.0 - Tobacco use Plan 1. New onset atrial fibrillation -Converted to sinus rhythm after IV amiodarone therapy -Will transition to oral amiodarone -CHADS-VASC of at least 4 (age, HTN, Vasc dz) but will not add anticoagulation due to high risk for hemorrhagic bleeding into pleural and pericardial spaces 2. Pericardial effusion without tamponade, increasing in size since last month -will consider pericardiocentesis if he becomes symptomatic or has evidence of tamponade 3. 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 Mild CAD by [facility] in with normal troponins 5. History of hypertension -Currently on phenylephrine for blood pressure support but will wean off Patient remains clinically stable, he could be discharged home later today after weaning off of phenylephrine. Home medication recommendations: Amiodarone 400 mg twice daily Aspirin 81 mg daily Follow-up in our office in 1 week
--- NOTE | 2023-06-12 10:30 | P.CONS_ITS ---
History of Present Illness History of present illness: Mr. 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 [facility] Disclaimer: The information contained in this section may have been updated after the patient was seen, as this information can be updated by other users. Medical History (Updated 06/12/23 @ 10:35 by Radha Jimenez MD) Acute and chronic respiratory failure with hypoxia Pericardial effusion HAP (hospital-acquired pneumonia) Septic shock Acute hypercapnic respiratory failure Ascites Pneumonia Pulmonary edema Chronic cough Tachycardia Respiratory failure with hypoxia Adenocarcinoma Pleural effusion on right Encounter for screening for malignant neoplasm of lung Smoking greater than 30 pack years Dyspnea on exertion Pulmonary emphysema Pneumonia Viral pneumonia Tobacco user Hyperlipidemia Sepsis NSTEMI (non-ST elevated myocardial infarction) Acute exacerbation of chronic obstructive pulmonary disease Acute respiratory failure with hypoxia Community acquired pneumonia COPD (chronic obstructive pulmonary disease) Surgical History History of hip replacement Family History Other Lung cancer Social History Smoking Status: Current every day smoker alcohol intake: never substance use type: denies use current occupational status: retired Travel in the last 8 weeks: None household members: spouse lives independently: Yes marital status: education level: college caffeine: Yes physical activity: walking Review of Systems Constitutional Constitutional: Reports anorexia, Reports body ache(s), Reports fatigue, Reports poor appetite and Reports lethargy Eyes Eyes: Denies eye discharge, Denies dry eyes, Denies irritation and Denies itchy eyes ENT Ears, Nose, Mouth, and Throat: Denies epistaxis, Denies facial pain, Denies lip swelling and Denies throat swelling *Cardiovascular Cardiovascular: Reports dyspnea and Reports dyspnea on exertion *Respiratory Respiratory: Reports chest congestion, Reports cough, Reports dyspnea, Reports dyspnea on exertion, Denies excessive phlegm production and Denies wheezing *Gastrointestinal Gastrointestinal: Denies abdominal pain, Denies belching, Denies cramping and Reports vomiting *Musculoskeletal Musculoskeletal: Reports back pain, Reports myalgias and Reports other (No small joint swelling or Pain) Psychiatric Psychiatric: Denies homicidal ideation and Denies suicidal ideation Endocrine Endocrine: Reports fatigue and Denies heat intolerance Hematologic/Lymphatic Hematologic/Lymphatic: Denies easy bleeding and Denies lymphadenopathy Allergic/Immunologic Allergic/Immunologic: Denies itchy eyes, Denies lip swelling, Denies throat swelling and Denies wheezing Pulmonology Exam Inpatient Vital signs and Labs for Last 24 Hours: Temp Pulse Resp BP Pulse Ox O2 Del Method O2 Flow Rate 97.7 F 82 16 100/53 L 100 Nasal Cannula 2 06/12/23 07:48 06/12/23 09:00 06/12/23 09:00 06/12/23 09:00 06/12/23 09:00 06/12/23 09:00 06/12/23 09:00 Laboratory Results - last 24 hr 06/11/23 09:43: SARS-CoV-2 (PCR) Not detected, Influenza A Untype (PCR) Not detected, Influenza Type B (PCR) Not detected 06/11/23 12:21: Troponin I < 0.01 06/12/23 05:32: WBC 9.1 D, RBC 4.02 L, Hgb 12.8 L, Hct 41.0 L, MCV 102.1 H, MCH 31.8 H, MCHC 31.1 L, RDW 19.4 H, Plt Count 404, MPV 8.3, Neut % (Auto) 91.6 H, L ymph % (Auto) 4.7 L, [place] % (Auto) 3.4, Eos % (Auto) 0.1, Baso % (Auto) 0.3, N eut # (Auto) 8.3 H, Lymph # (Auto) 0.4 L, [place] # (Auto) 0.3, Eos # (Auto) 0.0, Baso # (Auto) 0.0, Total Counted 100, Neutrophils % (Manual) 91 H, Lymphocytes % (Manual) 5 L, Monocytes % (Manual) 4, Platelet Estimate Normal, Macrocytosis 1+, Sodium 132 L, Potassium 4.3, Chloride 103, Carbon Dioxide 30, Anion Gap 3.3 L, BUN 13, Creatinine 0.50 L, Estimated Creat Clear 64, Estimated GFR 162, Est GFR ( Amer) 196 D, Glucose 120 H, Calcium 7.7 L, Magnesium 1.7, Total Bilirubin 0.3, AST 28, ALT 13, Alkaline Phosphatase 70, Total Protein 4.9 L, A lbumin 2.3 L D, Globulin 2.6, Albumin/Globulin Ratio 0.9 L I & O for Labs for Last 24 Hours: Intake & Output 06/09/23 06/10/23 06/11/23 06/12/23 23:59 23:59 23:59 23:59 Intake Total 1722.396 / 2931.450 6389.48 / 2899.48 Output Total 450 / 450 Balance 1722.396 / 9113.382 9343.48 / 2449.48 Weight 154 lb 159 lb 1.6 oz Constitutional: Present moderate distress Head: Present normocephalic and atraumatic ENT: Present normal exam, normal oropharynx and mucous membranes moist Neck: Present normal inspection and full ROM Respiratory: Present respiratory distress, rhonchi and able to speak in complete sentences; Absent prolonged expiratory phase or wheezes Cardiac: Present S1/S2, Tachycardia and radial pulses present GI: Present soft and distention; Absent tenderness or guarding Skin: Present intact; Absent cyanosis or jaundice Neuro: Present alert, awake and oriented x 3 Extremities: Present normal inspection; Absent clubbing or cyanosis Psychiatric: Present normal affect and cooperative Meds Home Medications and Allergies Home Medications Medication Instructions Recorded Confirmed Type aspirin 81 mg tablet,delayed 81 mg PO DAILY 11/26/22 06/11/23 History release famotidine 20 mg tablet (Pepcid) 20 mg PO DAILY 02/22/23 06/11/23 History ipratropium 0.5 mg-albuterol 3 mg 3 ml inhalation QID PRN Shortness 02/27/23 06/11/23 History (2.5 mg base)/3 mL nebulization Of Breath Or Wheezing soln fluticasone fur. 100 mcg-umeclid 1 inh inhalation DAILY 90 days #1 03/26/23 06/11/23 Rx 62.5 mcg-vilant 25 mcg ea inhalat.powder (Trelegy Ellipta) capecitabine 150 mg tablet 900 mg PO BID 04/11/23 06/11/23 History prochlorperazine maleate 10 mg 10 mg PO Q6 PRN Nausea And Vomiting 04/11/23 06/11/23 History tablet megestrol 400 mg/10 mL (40 mg/mL) 400 mg PO BID 06/11/23 06/11/23 History oral suspension New Prescriptions to Start Prescriptions: Allergies Allergy/AdvReac Type Severity Reaction Status Date / Time oxaliplatin Allergy Other Verified 05/30/23 12:22 Results Laboratory Findings 06/12/23 05:32 06/12/23 05:32 ABG ABG pH 7.40 mmol/L (7.35-7.45) 06/11/23 09:50 ABG pCO2 47.6 mmhg (35.0-45.0) H 06/11/23 09:50 ABG pO2 67.6 mmhg (80-100) L 06/11/23 09:50 ABG O2 Saturation 93 % (90-100) 06/11/23 09:50 PT/INR, D-dimer PT 13.0 seconds (10.1-12.5) H 06/11/23 08:59 INR 1.22 (0.9-1.1) H 06/11/23 08:59 Abnormal lab findings: Abnormal Labs 06/11/23 06/11/23 06/12/23 08:59 09:50 05:32 WBC 12.3 H RBC 4.01 L 4.02 L Hgb 12.8 L 12.8 L Hct 41.4 L 41.0 L MCV 103.2 H 102.1 H MCH 31.8 H 31.8 H MCHC 30.8 L 31.1 L RDW 19.6 H 19.4 H Neut % (Auto) 87.6 H 91.6 H Lymph % (Auto) 4.2 L 4.7 L Neut # (Auto) 10.8 H 8.3 H Lymph # (Auto) 0.5 L 0.4 L Eos # (Auto) 0.5 H Neutrophils % (Manual) 90 H 91 H Lymphocytes % (Manual) 8 L 5 L Monocytes % (Manual) 1 L PT 13.0 H INR 1.22 H ABG pCO2 47.6 H ABG pO2 67.6 L ABG HCO3 29.1 H ABG Total CO2 30.6 H ABG Base Excess 4.4 H Sodium 134 L 132 L Carbon Dioxide 34 H Anion Gap 2.4 L 3.3 L Creatinine 0.60 L 0.50 L Glucose 114 H 120 H Calcium 8.1 L 7.7 L NT-Pro-B Natriuret Pep 677 H Total Protein 5.4 L 4.9 L Albumin 2.7 L 2.3 L D Albumin/Globulin Ratio 1.0 L 0.9 L Assessment and Plan *Assessment and plan (1) Pleural effusion: Status: Acute Category: Medical Code(s): J90 - Pleural effusion, not elsewhere classified (2) Shortness of breath: Status: Acute Category: Medical Code(s): R06.02 - Shortness of breath (3) PNA (pneumonia): Status: Acute Qualifiers: Pneumonia type: due to unspecified organism Laterality: right Lung location: lower lobe of lung Qualified Code(s): J18.9 - Pneumonia, unspecified organism Category: Medical Code(s): J18.9 - Pneumonia, unspecified organism (4) Acute and chronic respiratory failure with hypoxia: Status: Acute Category: Medical Code(s): J96.21 - Acute and chronic respiratory failure with hypoxia Plan Mr. Whitaker is a 77-year-old male current smoker greater than 30 PPD pulm emphysema with a diagnosis of stage IV adenocarcinoma with bilateral malignant pleural effusions status post Pleurx catheter placement presented to the ER with worsening respiratory distress needing oxygen at 2l despite draining bilateral effusions in the ER and was admitted to the hospital for further evaluation and management pulmonary was consulted. CTA upon admission no evidence of pulmonary embolism. Bilateral pleural effusions right greater than left. Worsening lymphadenopathy. Bronchial thickening. Patient has not been compliant with his flutter valve. He is also noncompliant with draining his pleural fluid. He is draining both in right and left chest every other day and the plan was to go invite every day on the left every other day. Patient also getting only half liter bottles instead of 1 L bottles as previous one and only getting 30/month. Will talk to DME. On examination this morning patient does not appear to be in any respiratory distress. Saturating 100% on 2 L nasal cannula, weaned to room air with saturations maintained at 95% and above. Plan: -Drain left pleural effusion every other day with 1 L bottles right effusion every day with 1 L bottles until further follow-up in the clinic. -Continue Trelegy 100 inhaler along with DuoNebs every 6 hours on as-needed basis continue nasal cannula oxygen supplementation to maintain O2 saturation goal of 90 to 95% -Obtain sputum cultures prior to discharge. -Continue levofloxacin to complete a total of 3-day course -Flutter valve 3-5 times a day # Thank you for involving pulmonary in this patient care. Will follow the patient in pulmonary clinic 5-7 days post discharge with a chest x-ray PA lateral prior to clinic visit
[2023-06-12] MEDS: PHENYLEPHRINE HCL 10 MG in 0.9 % SODIUM CHLORIDE 250 ML 75.2999999999999972 MG IV (11:47)
[2023-06-12] MEDS: AMIODARONE 200MG TABLET 400 MG PO ×2 (14:25→20:43)
--- NOTE | 2023-06-12 17:22 | PC.NURSE ---
Pt is alert and oriented x4. Lungs with wheezes and rhonchi, diminished t/o. He's been 98-100% on RA. BP has been 90's-100's sys with maps > 60. NSR on tele. He's used the urinal at the bedside. 700 mls of clear, straw colored urine out this shift. 1 BM this shift. is currently at bedside. No complaints or questions at this time. Bed is locked and in the lowest position, call light within reach.
[2023-06-12] MEDS: LEVOFLOXACIN/D5W 750 MG/150 ML 750 MG/150 ML PIGGYBACK 100 MG IV (18:34)
--- NOTE | 2023-06-12 18:48 | P.PN_ITS ---
Subjective *Date: 06/12/23 *Time: 23:25 Interval history: Patient feeling better today. Weaned to room air. Weaning off of phenylephrine. states he has been having soft blood pressure at home. Patient denies any chest pain, nausea, vomiting, diarrhea. Heart rate back in sinus rhythm. Tolerating IV amiodarone Medical Exam Vital signs and Labs for Last 24 Hours: Vital Signs Temp Pulse Pulse Pulse Resp BP Pulse Ox 06/12/23 18:34 06/12/23 18:00 89 14 106/58 L 100 06/12/23 16:40 06/12/23 16:00 90 06/12/23 16:00 79 22 94/51 L 100 06/12/23 16:00 06/12/23 16:00 06/12/23 15:45 98.9 F 06/12/23 14:50 06/12/23 14:00 82 16 96/47 L 100 06/12/23 13:40 81 20 95/49 L 100 06/12/23 13:20 82 18 110/63 100 06/12/23 13:00 06/12/23 13:00 83 20 106/54 L 100 06/12/23 12:40 83 17 102/56 L 100 06/12/23 12:20 84 16 120/64 96 06/12/23 12:00 97.7 F 06/12/23 12:00 80 06/12/23 12:00 78 18 94/50 L 100 06/12/23 11:40 75 18 105/54 L 99 06/12/23 11:20 74 16 103/53 L 97 06/12/23 11:00 78 20 110/54 L 100 06/12/23 10:57 06/12/23 10:53 80 06/12/23 10:53 80 06/12/23 10:40 74 16 105/67 L 99 06/12/23 10:20 79 111/58 L 98 06/12/23 10:00 74 18 94/74 L 100 06/12/23 09:00 82 16 100/53 L 100 06/12/23 09:00 06/12/23 08:00 80 06/12/23 08:00 74 18 105/54 L 100 06/12/23 07:48 97.7 F 06/12/23 07:45 06/12/23 06:35 64 04/24/24 06:35 66 06/12/23 06:35 100 06/12/23 06:00 63 18 101/53 L 100 06/12/23 05:00 06/12/23 04:00 64 06/12/23 04:00 97.6 F 06/12/23 04:00 66 18 103/49 L 100 06/12/23 04:00 63 100 06/12/23 03:00 06/12/23 02:00 76 20 102/52 L 99 06/12/23 01:00 06/12/23 00:37 97.6 F 06/12/23 00:08 68 06/12/23 00:08 66 06/12/23 00:00 60 18 99/50 L 100 06/12/23 00:00 63 06/11/23 23:00 06/11/23 22:00 65 22 94/52 L 100 06/11/23 21:00 06/11/23 20:00 63 100 06/11/23 20:00 67 06/11/23 20:00 98.3 F 06/11/23 20:00 63 20 76/43 L 100 06/11/23 19:00 72 20 73/45 L 100 06/11/23 18:51 O2 Del Method O2 Flow Rate 06/12/23 18:34 Room Air 06/12/23 18:00 Room Air 06/12/23 16:40 Room Air 06/12/23 16:00 06/12/23 16:00 Room Air 06/12/23 16:00 Room Air 06/12/23 16:00 Room Air 06/12/23 15:45 06/12/23 14:50 Room Air 06/12/23 14:00 Room Air 06/12/23 13:40 Room Air 06/12/23 13:20 Room Air 06/12/23 13:00 Room Air 06/12/23 13:00 Room Air 06/12/23 12:40 Room Air 06/12/23 12:20 Room Air 06/12/23 12:00 06/12/23 12:00 06/12/23 12:00 Room Air 06/12/23 11:40 Room Air 06/12/23 11:20 Room Air 06/12/23 11:00 Room Air 06/12/23 10:57 Room Air 06/12/23 10:53 06/12/23 10:53 06/12/23 10:40 Room Air 06/12/23 10:20 Room Air 06/12/23 10:00 Room Air 06/12/23 09:00 Nasal Cannula 2 06/12/23 09:00 Nasal Cannula 2 06/12/23 08:00 06/12/23 08:00 Nasal Cannula 2 06/12/23 07:48 06/12/23 07:45 Nasal Cannula 06/12/23 06:35 06/12/23 06:35 06/12/23 06:35 Nasal Cannula 2 06/12/23 06:00 Nasal Cannula 06/12/23 05:00 Nasal Cannula 2 06/12/23 04:00 06/12/23 04:00 06/12/23 04:00 Nasal Cannula 2 06/12/23 04:00 Nasal Cannula 2 06/12/23 03:00 Nasal Cannula 2 06/12/23 02:00 Nasal Cannula 2 06/12/23 01:00 Nasal Cannula 2 06/12/23 00:37 06/12/23 00:08 06/12/23 00:08 06/12/23 00:00 Nasal Cannula 2 06/12/23 00:00 06/11/23 23:00 Nasal Cannula 2 06/11/23 22:00 Nasal Cannula 2 06/11/23 21:00 Nasal Cannula 2 06/11/23 20:00 Nasal Cannula 2 06/11/23 20:00 06/11/23 20:00 06/11/23 20:00 Nasal Cannula 2 06/11/23 19:00 Nasal Cannula 06/11/23 18:51 Nasal Cannula 2.5 Intake and Output 06/12/23 06/12/23 06/12/23 07:59 15:59 23:59 Intake Total 2142.49 / 3899.115 1104.625 / 3899.115 652 / 3899.115 Output Total 450 / 950 200 / 950 300 / 950 Balance 1692.49 / 2949.115 904.625 / 2949.115 352 / 2949.115 Intake: Intake, Oral Amount 540 / 540 Intake, Total IV Amount 2142.49 / 3359.115 564.625 / 3359.115 652 / 3359.115 Amiodarone HCl 900 mg In 443 / 606 163 / 606 Dextrose 5 % in Water 500 ml @ 1 MG/MIN 34.533 mls/hr IV . Q15H1M [facility] Rx#:[id number] Phenylephrine HCl 10 mg In 0.9 949 / 1438 489 / 1438 % Sodium Chloride 250 ml @ 65 MCG/MIN 97.89 mls/hr IV .Q2H34M [facility] Rx#:[id number] Output: Output, Urine Amount 450 / 950 200 / 950 300 / 950 Other: Number of Unmeasured Voids 0 Number of Bowel Movements 1 Weight 72.167 kg Patient Weight 06/12/23 23:59 Weight 72.167 kg Laboratory Results - last 24 hr 06/12/23 05:32: WBC 9.1 D, RBC 4.02 L, Hgb 12.8 L, Hct 41.0 L, MCV 102.1 H, MCH 31.8 H, MCHC 31.1 L, RDW 19.4 H, Plt Count 404, MPV 8.3, Neut % (Auto) 91.6 H, Lymph % (Auto) 4.7 L, [place] % (Auto) 3.4, Eos % (Auto) 0.1, Baso % (Auto) 0.3, Neut # (Auto) 8.3 H, Lymph # (Auto) 0.4 L, [place] # (Auto) 0.3, Eos # (Auto) 0.0, Baso # (Auto) 0.0, Total Counted 100, Neutrophils % (Manual) 91 H, Lymphocytes % (Manual) 5 L, Monocytes % (Manual) 4, Platelet Estimate Normal, Macrocytosis 1+, Sodium 132 L, Potassium 4.3, Chloride 103, Carbon Dioxide 30, Anion Gap 3.3 L, BUN 13, Creatinine 0.50 L, Estimated Creat Clear 64, Estimated GFR 162, Est GFR ( Amer) 196 D, Glucose 120 H, Calcium 7.7 L, Magnesium 1.7, Total Bilirubin 0.3, AST 28, ALT 13, Alkaline Phosphatase 70, Total Protein 4.9 L, Albumin 2.3 L D, Globulin 2.6, Albumin/Globulin Ratio 0.9 L I & O for Labs for Last 24 Hours: Intake & Output 06/09/23 06/10/23 06/11/23 06/12/23 23:59 23:59 23:59 23:59 Intake Total 1722.396 / 0839.635 4913.115 / 3899.115 Output Total 950 / 950 Balance 1722.396 / 9309.895 9968.115 / 2949.115 Weight 69.853 kg 72.167 kg Constitutional: Present no acute distress, average body habitus and chronically ill appearing Head: Present atraumatic and normocephalic ENT: Present normal oropharynx and mucous membranes moist Comment:: poor dentition Neck: Present normal inspection Respiratory: Present crackles (Improved aeration in right lung field; diminished in left) and normal respiratory effort; Absent accessory muscle use, rhonchi or wheezes Comment:: Bandages over right lower and left lower thorax mid axillary line covering Pleurx drains. Cardiac: Present Reg Rate and Rhythm GI: Present soft and normal bowel sounds; Absent distention or tenderness Extremities: Present normal inspection and full ROM; Absent edema Skin: Present intact; Absent erythema Neuro: Present Grossly Intact, alert, awake, oriented x 3 and moves all extremities Assessment and Plan *Assessment and plan (1) Acute on chronic respiratory failure with hypoxia and hypercapnia: Status: Acute Category: Medical Code(s): J96.21 - Acute and chronic respiratory failure with hypoxia; J96.22 - Acute and chronic respiratory failure with hypercapnia (2) Bilateral pleural effusion: Status: Acute Category: Medical Code(s): J90 - Pleural effusion, not elsewhere classified (3) Pericardial effusion: Status: Acute Category: Medical Code(s): I31.39 - Other pericardial effusion (noninflammatory) (4) New onset a-fib: Status: Acute Category: Medical Code(s): I48.91 - Unspecified atrial fibrillation (5) Malignant neoplasm of lower third of esophagus: Status: Acute Category: Medical Code(s): C15.5 - Malignant neoplasm of lower third of esophagus (6) PNA (pneumonia): Status: Acute Qualifiers: Pneumonia type: due to unspecified organism Laterality: right Lung location: lower lobe of lung Qualified Code(s): J18.9 - Pneumonia, unspecified organism Category: Medical Code(s): J18.9 - Pneumonia, unspecified organism (7) CAD in [place] artery: Status: Acute Category: Medical Code(s): I25.10 - Atherosclerotic heart disease of [place] coronary artery without angina pectoris (8) COPD mixed type: Status: Acute Category: Medical Code(s): J44.9 - Chronic obstructive pulmonary disease, unspecified (9) Adenocarcinoma: Status: Acute Category: Medical Code(s): C80.1 - Malignant (primary) neoplasm, unspecified Plan Mr. Whitaker is a 77-year-old male with a recent history of adenocarcinoma, malignant pleural effusions, following with oncology and pulmonology. Has Pleurx drains in place. Presented to the ER with worsening shortness of breath. Chest imaging with bilateral effusions and suspicious for pneumonia. Initiated on IV antibiotics. Discussed case with ER physician, request admission for further treatment of effusions, increased oxygen requirement from baseline, and hypotension with new onset A-fib. Medicine agreed to admit for further management. Cardiology and pulmonology consulted. Patient initiated on amiodarone drip upon arrival to the floor. Will transition to oral amiodarone. Has converted to sinus rhythm overnight. Necessitating inpatient management. Problems addressed as follows: Acute hypoxic respiratory failure: Bilateral pleural effusions metastatic: COPD -Pulmonology evaluated today, discussed case, recommend continuing to drain left pleural effusion every other day and right effusion daily. Continue Trelegy 100 inhaler and DuoNebs every 6 hours as needed. Weaned to room air today. Attempt to obtain sputum culture. Continue levofloxacin to complete 3 days of antibiotics. Flutter valve 3-5 times a day. -White cell count normal at 9.1. Hemoglobin 12.8. -CBC, CMP, magnesium ordered for the morning. -Potassium 4.3, magnesium 1.7, kidney function normal with BUN 13, creatinine 0.5. New onset A-fib Hypotension - cardiology consulted, appreciate their recommendations. Complete amiodarone bolus and load. Transition to oral amiodarone this evening. Hold on anticoagu lation in the setting of effusions and risk for bleeding. -Wean off phenylephrine today. Initiate midodrine 5 mg 3 times a day HLD: on aspirin Lovenox for DVT ppx home famotidine Full code
[2023-06-12] MEDS: MIDODRINE HCL 5 MG TABLET PO (20:43)
[2023-06-13] VITALS: BP 94/52; PULSE 75; PULSE 76; RESP 15; TEMP 36.7; O2SAT 98
[2023-06-13 04:00] VITALS: BP 97/52; PULSE 70; PULSE 71; RESP 15; TEMP 36.8; O2SAT 100; BMI 25.4
[2023-06-13 05:00] VITALS: BP 89/33
[2023-06-13 06:11] VITALS: O2SAT 91
[2023-06-13] MEDS: FLUTICASONE/UMECLIDIN/VILANTER 100/62.5/25MCG INHALER 1 PUFF IH (06:11)
[2023-06-13 08:00] VITALS: BP 99/51; PULSE 80; PULSE 81; RESP 20; TEMP 36.6; O2SAT 100; O2SAT 95
--- NOTE | 2023-06-13 08:27 | P.DS_ITS ---
General Admission date:: 06/11/23 Discharge date: 06/13/23 HPI HPI HPI: Mr. 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 He follows with pulmonology and oncology at [facility]. He is currently draining his pleural effusions every other day. He presented to the ER today for evaluation of worsening shortness of breath. Is been gradual in onset over the past 3 to 4 days. Possible sick contacts per his report. Worsening dyspnea with exertion. Has some occasional dull pain in his chest. Denies any leg swelling, syncope, productive cough. No reported fever or chills. Continues to have adequate output from his Pleurx drains, color reportedly per has started to become more clear and has less sediment and clots in it. He is not on any blood thinners at this time. Last chemotherapy approximately 3 weeks ago. Workup in the ER concerning for effusions and possible pneumonia. Elevated white count. After draining effusions, patient still necessitating oxygen above his baseline. Medicine consulted for admission. Prior to arriving to the floor, patient developed new onset A-fib with RVR, heart rate in the 150s. Patient was asymptomatic and had no sensation of his A- fib. Was treated with single dose of metoprolol which slowed his heart rate from 150s to 120s. Blood pressure became soft with systolics in the 80s and 90s. Started on IV fluids. On arrival to the floor, patient is alert and oriented x 3. In no acute distress. Responding to fluids with improvement in systolic blood pressure to a little above 100. Cardiology and pulmonology consulted to assist with care. Hospital Course Hospital Course Hospital Course: Mr. Whitaker is a 77-year-old male with a recent history of adenocarcinoma, malignant pleural effusions, following with oncology and pulmonology. Has Pleurx drains in place. Presented to the ER with worsening shortness of breath. Chest imaging with bilateral effusions and suspicious for pneumonia. Initiated on IV antibiotics. Discussed case with ER physician, request admission for further treatment of effusions, increased oxygen requirement from baseline, and hypotension with new onset A-fib. Medicine agreed to admit for further management. Cardiology and pulmonology consulted. Patient initiated on amiodarone drip upon arrival to the floor. Converted to sinus rhythm. Transiti on to oral amiodarone. Blood pressure responding to midodrine. Stable on room air meeting criteria to discharge home. Problems addressed as follows: Acute hypoxic respiratory failure: Bilateral pleural effusions metastatic: COPD -Pulmonology consulted to assist with care. Patient has done well. Recommend continuing to drain left pleural effusion every other day and right effusion daily. Continue Trelegy 100 inhaler and DuoNebs every 6 hours as needed. Weaned to room air, has oxygen at home if he needs however. Continue levofloxacin to complete 3 days of antibiotics. Flutter valve 3-5 times a day. -White cell count normal. New onset A-fib Hypotension - cardiology consulted, appreciate their recommendations. Recommend completing amiodarone bolus and drip. Transition to oral amiodarone. Continue 400 mg twice daily for 2 weeks, transition to 200 mg twice daily thereafter. Hold on anticoagulation in the setting of effusions and risk for bleeding. Initially necessitated phenylephrine due to hypotension. Was weaned off phenylephrine and initiated on midodrine. Tolerating well with normal blood pressures. Continue at discharge. HLD: on aspirin Total time spent on discharge 35 minutes in counseling, documentation, chart review, and direct care with patient. Exam Data for Last 24 hours Vital signs and Labs for Last 24 Hours: Temp Pulse Resp BP Pulse Ox O2 Del Method O2 Flow Rate 97.9 F 81 20 99/51 L 100 Room Air 2 06/13/23 08:00 06/13/23 08:00 06/13/23 08:00 06/13/23 08:00 06/13/23 08:00 06/13/23 08:00 06/12/23 09:00 Laboratory Results - last 24 hr 06/12/23 05:32: Total Counted 100, Neutrophils % (Manual) 91 H, Lymphocytes % (Manual) 5 L, Monocytes % (Manual) 4, Platelet Estimate Normal, Macrocytosis 1+ I & O for Last 24 hours: Intake & Output 06/10/23 06/11/23 06/12/23 06/13/23 23:59 23:59 23:59 23:59 Intake Total 1722.396 / 1224.363 0683.115 / 5009.115 430 / 430 Output Total 1150 / 1600 1000 / 1000 Balance 1722.396 / 3155.991 1964.115 / 3409.115 -570 / -570 Weight 69.853 kg 72.167 kg 73.391 kg Constitutional Constitutional: no acute distress, average body habitus, chronically ill appearing and cooperative *Routine HEENT Exam Head: Present normocephalic Eye: Present EOMI and PERRL ENT: Present mucous membranes moist *Routine Neck Exam Neck: Present supple; Absent lymphadenopathy Routine Chest/Breast/Axilla Exam Comments: Pleurx drains bilaterally, no drainage or bleeding. Bandages clean dry and intact *Routine Respiratory Exam Respiratory: Present rhonchi, crackles (In bases bilaterally posterior lung field), normal respiratory effort and symmetric chest movement *Routine Cardiovascular Exam Cardiovascular: Present RRR *Routine Abdominal Exam Abdominal: Present soft and normoactive bowel sounds; Absent tenderness *Routine Extremities Exam Extremities: Absent cyanosis, clubbing or edema *Routine Skin Exam Skin: Present warm; Absent rash *Routine Neurological Exam Neurological: Present alert, oriented X3, moving all extremities, vision grossly intact, hearing grossly intact and normal speech Routine Psychiatric Exam Psychiatric: Present normal affect, normal thought process, cooperative, good insight and good judgment Results Data Completed and Pending Labs on day of discharge: Labs from last 24 hours 06/12/23 05:32 Total Counted 100 Neutrophils % (Manual) 91 H Lymphocytes % (Manual) 5 L Monocytes % (Manual) 4 Platelet Estimate Normal Macrocytosis 1+ DS: Diagnosis Discharge Diagnosis (1) Acute on chronic respiratory failure with hypoxia and hypercapnia: Status: Acute Code(s): J96.21 - Acute and chronic respiratory failure with hypoxia; J96.22 - Acute and chronic respiratory failure with hypercapnia (2) Bilateral pleural effusion: Status: Acute Code(s): J90 - Pleural effusion, not elsewhere classified (3) Pericardial effusion: Status: Acute Code(s): I31.39 - Other pericardial effusion (noninflammatory) (4) New onset a-fib: Status: Acute Code(s): I48.91 - Unspecified atrial fibrillation (5) Malignant neoplasm of lower third of esophagus: Status: Acute Code(s): C15.5 - Malignant neoplasm of lower third of esophagus (6) PNA (pneumonia): Status: Acute Code(s): J18.9 - Pneumonia, unspecified organism Qualifiers: Laterality: right Lung location: lower lobe of lung Pneumonia type: due to unspecified organism Qualified Code(s): J18.9 - Pneumonia, unspecified organism (7) CAD in [place] artery: Status: Acute Code(s): I25.10 - Atherosclerotic heart disease of [place] coronary artery without angina pectoris (8) COPD mixed type: Status: Acute Code(s): J44.9 - Chronic obstructive pulmonary disease, unspecified (9) Adenocarcinoma: Status: Acute Code(s): C80.1 - Malignant (primary) neoplasm, unspecified Meds Home Medications and Allergies Home Medications Medication Instructions Recorded Confirmed Type aspirin 81 mg tablet,delayed 81 mg PO DAILY 11/26/22 06/11/23 History release famotidine 20 mg tablet (Pepcid) 20 mg PO DAILY 02/22/23 06/11/23 History ipratropium 0.5 mg-albuterol 3 mg 3 ml inhalation QID PRN Shortness 02/27/23 06/11/23 History (2.5 mg base)/3 mL nebulization Of Breath Or Wheezing soln fluticasone fur. 100 mcg-umeclid 1 inh inhalation DAILY 90 days #1 03/26/23 06/11/23 Rx 62.5 mcg-vilant 25 mcg ea inhalat.powder (Trelegy Ellipta) capecitabine 150 mg tablet 900 mg PO BID 04/11/23 06/11/23 History prochlorperazine maleate 10 mg 10 mg PO Q6 PRN Nausea And Vomiting 04/11/23 06/11/23 History tablet megestrol 400 mg/10 mL (40 mg/mL) 400 mg PO BID 06/11/23 06/11/23 History oral suspension amiodarone 200 mg tablet 400 mg (2 x 200 mg) PO BID 30 days 06/13/23 Rx #120 tabs levofloxacin 750 mg tablet 750 mg PO DAILY 1 day #1 tab 06/13/23 Rx midodrine 5 mg tablet 10 mg (2 x 5 mg) PO TID 30 days 06/13/23 Rx #180 tabs New Prescriptions to Start Prescriptions: amiodarone Marciano Bond levofloxacin Ronda,Marciano midodrine Marciano Bond Allergies Allergy/AdvReac Type Severity Reaction Status Date / Time oxaliplatin Allergy Other Verified 05/30/23 12:22 Discharge Plan Disposition Patient Disposition: Home, Self-Care Condition: Fair Discharge Order Discharge Orders: Discharge Order (Routine); Ordered 06/13/23 Ordered By: Marciano Bond Follow up Plan Follow up with: Sea Love MD [Staff Physician] - 06/18/23 2:15 pm Radha Jimenez MD [Physician] - 06/19/23 11:00 am Adelso De La Paz MD [Staff Physician] - 06/24/23 1:00 pm Prescriptions/Medication Reconciliation: New amiodarone 200 mg Tablet 400 mg PO BID 30 Days Qty: 120 0RF midodrine 5 mg Tablet 10 mg PO TID 30 Days Qty: 180 0RF levofloxacin 750 mg tablet 750 mg PO DAILY 1 Days Qty: 1 0RF Continued Trelegy Ellipta 100-62.5-25 mcg blister with device 1 inh inhalation DAILY 90 Days Qty: 1 3RF aspirin 81 mg tablet,delayed release (DR/EC) 81 mg PO DAILY famotidine [Pepcid] 20 mg Tablet 20 mg PO DAILY ipratropium-albuterol 0.5 mg-3 mg(2.5 mg base)/3 mL solution for nebulization 3 ml inhalation QID PRN (Reason: Shortness Of Breath Or Wheezing) prochlorperazine maleate 10 mg tablet 10 mg PO Q6 PRN (Reason: Nausea And Vomiting) Patient Comments: TAKE ONE TABLET BY MOUTH EVERY 6 HOURS NEEDED FOR NAUSEA AND VOMITING capecitabine 150 mg tablet 900 mg PO BID Rx Instructions: TAKE 6 TABLETS BY MOUTH TWICE A DAY FOR 21 DAYS, THEN REPEAT WITH NO DAYS OFF. megestrol 400 mg/10 mL (40 mg/mL) suspension 400 mg PO BID Patient Comments: TAKE 10ML BY MOUTH TWICE DAILY Problem Reconciliation Problems Reviewed?: Yes Patient Discharge Instructions ACTIVITY: Continue current activity DIET: continue same diet Patient Instructions: DI for Chronic Obstructive Pulmonary Disease, DI for Atrial Fibrillation Providers Primary Care Provider: Adia Lemus Admit Provider: Marciano Bond Attending Provider: Marciano Bond
[2023-06-13] MEDS: AMIODARONE 200MG TABLET 400 MG PO (09:15)
[2023-06-13] MEDS: CAPECITABINE 150 MG 900 EACH PO (09:15)
[2023-06-13] MEDS: ASPIRIN EC 81MG TABLET 81 MG PO (09:15)
[2023-06-13] MEDS: ENOXAPARIN 40MG/0.4ML SYRINGE 40 MG SQ (09:16)
[2023-06-13] MEDS: MIDODRINE HCL 5 MG TABLET 10 MG PO ×2 (09:16→13:19)
[2023-06-13] MEDS: FAMOTIDINE 20MG TABLET 20 MG PO (09:16)
--- NOTE | 2023-06-13 09:39 | EXP.PULM.PN ---
Subjective *Date: 06/13/23 *Time: 11:21 Interval history: No acute respiratory events overnight. Patient denies any new respiratory complaints. Pulmonology Exam Inpatient Vital signs and Labs for Last 24 Hours: Temp Pulse Resp BP Pulse Ox O2 Del Method O2 Flow Rate 97.9 F 81 20 99/51 L 95 Room Air 2 06/13/23 08:00 06/13/23 08:00 06/13/23 08:00 06/13/23 08:00 06/13/23 08:00 06/13/23 09:00 06/12/23 09:00 Temp Pulse Resp BP Pulse Ox O2 Del Method O2 Flow Rate 97.7 F 82 16 100/53 L 100 Nasal Cannula 2 06/12/23 07:48 06/12/23 09:00 06/12/23 09:00 06/12/23 09:00 06/12/23 09:00 06/12/23 09:00 06/12/23 09:00 Laboratory Results - last 24 hr 06/11/23 09:43: SARS-CoV-2 (PCR) Not detected, Influenza A Untype (PCR) Not detected, Influenza Type B (PCR) Not detected 06/11/23 12:21: Troponin I < 0.01 06/12/23 05:32: WBC 9.1 D, RBC 4.02 L, Hgb 12.8 L, Hct 41.0 L, MCV 102.1 H, MCH 31.8 H, MCHC 31.1 L, RDW 19.4 H, Plt Count 404, MPV 8.3, Neut % (Auto) 91.6 H, Lymph % (Auto) 4.7 L, [place] % (Auto) 3.4, Eos % (Auto) 0.1, Baso % (Auto) 0.3, Neut # (Auto) 8.3 H, Lymph # (Auto) 0.4 L, [place] # (Auto) 0.3, Eos # (Auto) 0.0, Baso # (Auto) 0.0, Total Counted 100, Neutrophils % (Manual) 91 H, Lymphocytes % (Manual) 5 L, Monocytes % (Manual) 4, Platelet Estimate Normal, Macrocytosis 1+, Sodium 132 L, Potassium 4.3, Chloride 103, Carbon Dioxide 30, Anion Gap 3.3 L, BUN 13, Creatinine 0.50 L, Estimated Creat Clear 64, Estimated GFR 162, Est GFR ( Amer) 196 D, Glucose 120 H, Calcium 7.7 L, Magnesium 1.7, Total Bilirubin 0.3, AST 28, ALT 13, Alkaline Phosphatase 70, Total Protein 4.9 L, Albumin 2.3 L D, Globulin 2.6, Albumin/Globulin Ratio 0.9 L I & O for Labs for Last 24 Hours: Intake & Output 06/10/23 06/11/23 06/12/23 06/13/23 23:59 23:59 23:59 23:59 Intake Total 1722.396 / 8081.284 3906.115 / 5009.115 430 / 430 Output Total 1150 / 1600 1000 / 1000 Balance 1722.396 / 6703.383 6569.115 / 3409.115 -570 / -570 Weight 154 lb 159 lb 1.6 oz 161 lb 12.8 oz Intake & Output 06/09/23 06/10/23 06/11/23 06/12/23 23:59 23:59 23:59 23:59 Intake Total 1722.396 / 7784.718 6594.48 / 2899.48 Output Total 450 / 450 Balance 1722.396 / 9626.958 1221.48 / 2449.48 Weight 154 lb 159 lb 1.6 oz Constitutional: Present moderate distress Head: Present normocephalic and atraumatic ENT: Present normal exam, normal oropharynx and mucous membranes moist Neck: Present normal inspection and full ROM Respiratory: Present respiratory distress, rhonchi and able to speak in complete sentences; Absent prolonged expiratory phase or wheezes Cardiac: Present S1/S2, Tachycardia and radial pulses present GI: Present soft and distention; Absent tenderness or guarding Skin: Present intact; Absent cyanosis or jaundice Neuro: Present alert, awake and oriented x 3 Extremities: Present normal inspection; Absent clubbing or cyanosis Psychiatric: Present normal affect and cooperative Assessment and Plan *Assessment and plan (1) Pleural effusion: Status: Acute Category: Medical Code(s): J90 - Pleural effusion, not elsewhere classified (2) Shortness of breath: Status: Acute Category: Medical Code(s): R06.02 - Shortness of breath (3) PNA (pneumonia): Status: Acute Qualifiers: Laterality: right Lung location: lower lobe of lung Pneumonia type: due to unspecified organism Qualified Code(s): J18.9 - Pneumonia, unspecified organism Category: Medical Code(s): J18.9 - Pneumonia, unspecified organism (4) Acute and chronic respiratory failure with hypoxia: Status: Acute Category: Medical Code(s): J96.21 - Acute and chronic respiratory failure with hypoxia Plan Mr. Whitaker is a 77-year-old male current smoker greater than 30 PPD pulm emphysema with a diagnosis of stage IV adenocarcinoma with bilateral malignant pleural effusions status post Pleurx catheter placement presented to the ER with worsening respiratory distress needing oxygen at 2l despite draining bilateral effusions in the ER and was admitted to the hospital for further evaluation and management pulmonary was consulted. CTA upon admission no evidence of pulmonary embolism. Bilateral pleural effusions right greater than left. Worsening lymphadenopathy. Bronchial thickening. Patient has not been compliant with his flutter valve. He is also noncompliant with draining his pleural fluid. He is draining both in right and left chest every other day and the plan was to go invite every day on the left every other day. Patient also getting only half liter bottles instead of 1 L bottles as previous one and only getting 30/month. Will talk to DME. On initial examination this morning patient does not appear to be in any respiratory distress. Saturating 100% on 2 L nasal cannula, weaned to room air with saturations maintained at 95% and above. Interval update: No acute respiratory events. Continue to remain on room air. Tolerating well. No new respiratory complaints. Cardiology following for his A-fib RVR. Plan: -Drain left pleural effusion every other day with 1 L bottles right effusion every day with 1 L bottles until further follow-up in the clinic. -Continue Trelegy 100 inhaler along with DuoNebs every 6 hours on as-needed basis continue nasal cannula oxygen supplementation to maintain O2 saturation goal of 90 to 95 -Continue levofloxacin to complete a total of 3-day course. Follow with final sputum culture results -Flutter valve 3-5 times a day # Thank you for involving pulmonary in this patient care. Will follow the patient in pulmonary clinic 5-7 days post discharge with a chest x-ray PA lateral prior to clinic visit
[2023-06-13 12:00] VITALS: BP 108/50; PULSE 71; PULSE 80; RESP 20; TEMP 36.6; O2SAT 98
--- NOTE | 2023-06-13 14:59 | HMH.PHAINT1 ---
Pharmacy Intervention Comments: DISCHARGE MEDICATION COUNSELING PROVIDED. DISCUSSED STARTING THE FOLLOWING: -AMIODARONE (FOR HEART RATE, TWICE DAILY, DIZZINESS, LIGHTHEADEDNESS, SLOWED HEART RATE POSSIBLE) -LEVOFLOXACIN (ANTIBIOTICS, DAILY, TAKE WITH FOOD, N/V/D POSSIBLE) -MIDODRINE (FOR LOW BP, THREE TIMES DAILY, TAKE WITH BREAKFAST, LUNCH, DINNER, TINGLING IN EXTREMITIES, ITCHING, URINARY SYMPTOMS). PATIENT VERBALIZED NO QUESTIONS AT THIS TIME.
--- NOTE | 2023-06-14 15:24 | CARE MANAGER ---
Called and spoke with patient regarding recent discharge. Patient stated that he is doing ok, wasn't sure of his appts so we went over dates and times. Has started new medication. No concerns at time of call.
== END 2023-06-13 14:55 | disposition home or self-care (01) | DRG 193 ==
LOC: ER 09:04 → 2ND 14:21
PROVIDERS: Admitting Provider Internal Medicine Adolescent Medicine; Emergency Provider Emergency Medicine; PCP Student in an Organized Health Care Education/Training Program; Visit Provider Internal Medicine Adolescent Medicine
DX: J18.9 Pneumonia, unspecified organism (principal); J96.21 Acute and chronic respiratory failure with hypoxia; J96.22 Acute and chronic respiratory failure with hypercapnia; I31.39 Other pericardial effusion (noninflammatory); C15.5 Malignant neoplasm of lower third of esophagus; J91.0 Malignant pleural effusion; J44.0 Chronic obstructive pulmonary disease with (acute) lower respiratory infection; C34.90 Malignant neoplasm of unspecified part of unspecified bronchus or lung; I48.91 Unspecified atrial fibrillation; I25.10 Atherosclerotic heart disease of native coronary artery without angina pectoris; F17.210 Nicotine dependence, cigarettes, uncomplicated; J43.9 Emphysema, unspecified; I25.2 Old myocardial infarction; Z91.199 Patient's noncompliance with other medical treatment and regimen due to unspecified reason
CPT/HCPCS: 36415; 71260; 71275; 74177; 80053; 82803; 83690; 83735; 83880; 84484; 85007; 85025; 85610; 87070; 87205; 87636; 93005; 93308; 94640; 94667; 96523; 99285; J0282; J1642; J1956; J7060; Q9967

== ENCOUNTER 2023-06-24 08:36 | Outpatient (CLI) | payer MEDICARE, SELFPAY ==
--- NOTE | 2023-06-24 08:40 | NM_ITS ---
FINAL REPORT CLINICAL HISTORY: ESOPHAGEAL CANCER,LT HIP PAIN 8:50AM 26.7 MCI TC MDP COMPARISON: CT abdomen and pelvis 06/10/2023 FINDINGS: WHOLE BODY BONE SCAN PROCEDURE: The patient was injected with 26.7 mCi of technetium 99M MDP. Images were obtained after a three-hour delay. There is increased tracer activity in the right L4 vertebral body corresponding to a lytic and sclerotic mass seen on CT scan dated 06/10/2023 measuring 18 mm and consistent with bony metastasis. There is increased tracer activity in the shoulders and knees consistent with degenerative changes. There is also mild increased tracer activity in the L2 vertebral body also worrisome for bony metastatic disease. No other abnormal radiotracer activity identified. IMPRESSION: Increased tracer activity in the L4 and L2 vertebral bodies worrisome for bony metastatic disease. Reviewed, Interpreted and Dictated by Delta Bowman III, MD Transcribed by Abena Chavira Authenticated and . [facility]
[2023-06-24] MEDS: SODIUM CHLORIDE 0.9% 10ML SYR (RAD ONLY) 10 ML IV (12:52)
[2023-06-24] MEDS: ISOTOPE MDP (BONE);1 DOSE VIAL IV (12:52)
== END 2023-06-24 23:59 | disposition home or self-care (01) ==
LOC: RAD 08:36
PROVIDERS: PCP Student in an Organized Health Care Education/Training Program; Visit Provider Internal Medicine Medical Oncology
DX: C15.4 Malignant neoplasm of middle third of esophagus (principal); M25.552 Pain in left hip
CPT/HCPCS: 78306; A9503

== ENCOUNTER 2023-06-26 11:51 | Outpatient (CLI) | payer MEDICARE, SELFPAY ==
--- NOTE | 2023-06-26 11:53 | MR_ITS ---
FINAL REPORT CLINICAL HISTORY: HISTORY OF ESOPHAGEAL CANCER ,HIP PAIN FINDINGS: Multiplanar MR imaging of the lumbar spine was performed without and with contrast. On the sagittal T2-weighted images, disc degeneration is seen at multiple levels. There are several masses in the lumbar spine including L2 and L4. Largest mass in L4 measures 20 mm. There is partial contrast enhancement consistent with bony metastatic disease. There is a mild L3 superior endplate compression fracture which appears chronic. The vertebral alignment is normal. The conus is seen at approximately the L1 level and has an unremarkable appearance. L1-2: An annular disc bulge and facet arthropathy are present. There is no significant canal stenosis or neural foraminal narrowing. L2-3: An annular disc bulge and facet arthropathy are present. There is mild bilateral neural foraminal narrowing. L3-4: An annular disc bulge and facet arthropathy are present. There is mild bilateral neural foraminal narrowing. L4-5: An annular bulge is present. Facet arthropathy and osteophytes are present. There is a broad-based left foraminal disc protrusion with mild right and moderate left neural foraminal narrowing. L5-S1: An annular bulge is present. Facet arthropathy and osteophytes are present. There is a small central disc protrusion with severe bilateral neural foraminal narrowing. IMPRESSION: Findings consistent with bony metastatic disease. Multilevel degenerative disc disease and spondylosis. Disc protrusions at L4-5 and L5-S1. Reviewed, Interpreted and Dictated by Delta Bowman III, MD Transcribed by Darline Dior Authenticated and [facility]
[2023-06-26] MEDS: GADOTERIDOL INJ 17ML SYRINGE 14 ML IV (12:43)
[2023-06-26] MEDS: SODIUM CHLORIDE 0.9% 10ML SYR (RAD ONLY) 10 ML IV (12:43)
== END 2023-06-26 23:59 | disposition home or self-care (01) ==
LOC: RAD 11:52
PROVIDERS: PCP Student in an Organized Health Care Education/Training Program; Visit Provider Internal Medicine Medical Oncology
DX: C15.4 Malignant neoplasm of middle third of esophagus (principal); M54.50 Low back pain, unspecified
CPT/HCPCS: 72158; 76376; A9576

== ENCOUNTER 2023-06-27 09:41 | Outpatient (CLI) | payer MEDICARE, SELFPAY ==
[2023-06-27] VITALS (7 sets, daily range): BP systolic 97–139; BP diastolic 49–57; PULSE 42–76; RESP 18–21; TEMP 36.7; O2SAT 95–96; BMI 24.3
[2023-06-27 10:09] LABS: Basophils # 0.1 K/mm3 (0-0.2); Basophils % 1.1 % (0.1-2.0); Eosinophils # 0.2 K/mm3 (0.0-0.4); Eosinophils % 2.6 % (0.1-12.0); Hematocrit 39.5 % (42.0-52.0); Hemoglobin 12.2 g/dL (14.1-18.0); Mean Corpuscular Hemoglobin 31.8 pg (27.0-31.2); Mean Corpuscular Volume 102.7 fl (80-94); Mean Platelet Volume 8.2 fl (7.4-10.4); Monocytes # 0.4 K/mm3 (0.1-1.0); Monocytes % 5.3 % (1.7-9.3); Neutrophils # 5.7 K/mm3 (1.8-7.8); Platelet Count 304 K/mm3 (142-424); Red Blood Count 3.85 M/mm3 (4.60-6.20); Red Cell Distribution Width 18.6 % (11.5-17.5); White Blood Count 7.4 K/mm3 (4.8-10.8)
[2023-06-27 10:22] LABS: Chloride 104 mmol/L (98-107); Sodium 136 mmol/L (136-145)
[2023-06-27 10:23] LABS: Potassium 3.9 mmoL/L (3.5-5.1)
[2023-06-27 10:25] LABS: Alanine Aminotransferase 10 U/L (12-78); Albumin Level 2.7 g/dl (3.5-5.0); Alkaline Phosphatase 88 U/L (38-126); Anion Gap 3.9 mEq/L (5-15); Aspartate Amino Transferase 28 U/L (17-59); Bilirubin,Total 0.4 mg/dl (0.2-1.3); Blood Urea Nitrogen 12 mg/dl (9-20); Calcium 8.2 mg/dl (8.4-10.2); Carbon Dioxide 32 mmol/L (22.0-30.0); Creatinine Clearance Estimated 62 mL/min (50-200); Estimated Glomerular Filt Rate 94 ml/min (>60); GFR (African American) 114 ML/MIN (>60); Globulin 2.8 g/dL (1.3-3.2); Glucose 105 mg/dl (74-100); Total Protein,Serum 5.5 g/dl (6.3-8.2)
[2023-06-27] MEDS: DEXAMETHASONE 4MG TABLET 12 MG (10:34)
[2023-06-27] MEDS: LORATADINE 10MG TABLET 10 MG PO (10:34)
[2023-06-27] MEDS: FAMOTIDINE 20MG TABLET 20 MG (10:34)
[2023-06-27] MEDS: 0.9 % SODIUM CHLORIDE 50 ML 100 ML IV (10:35)
[2023-06-27] MEDS: PACLITAXEL IV (11:11)
[2023-06-27] MEDS: DEXTROSE 5% IV (11:11)
[2023-06-27] MEDS: WATER IV (11:11)
--- NOTE | 2023-06-27 12:20 | PC.NURSE ---
1220-pt to wait extra time just to make sure he does not have a reaction.
[2023-06-27] MEDS: SODIUM CHLORIDE 0.9% 10ML FLUSH SYRINGE 10 ML IV (12:55)
== END 2023-06-27 13:00 | disposition home or self-care (01) ==
LOC: INF 09:42
PROVIDERS: PCP Student in an Organized Health Care Education/Training Program; Visit Provider Internal Medicine Medical Oncology
DX: C15.4 Malignant neoplasm of middle third of esophagus (principal)
CPT/HCPCS: 80053; 85025; 96413; J1642; J9267

== ENCOUNTER 2023-06-30 07:32 | Emergency (ER) | payer MEDICARE, SELFPAY ==
[2023-06-30 07:37] VITALS: BP 114/60; PULSE 90; RESP 25; TEMP 36.4; O2SAT 93; BMI 24.1
--- NOTE | 2023-06-30 07:37 | ECG_ITS ---
APPROVED REPORT Exam: Resting ECG HR:86 bpm ECG Measurements Heart Rate 86 AXES MT 154 P 59 QRSd 88 QRS 97 QT 345 T 263 QTc 388 Conclusion SINUS RHYTHM BORDERLINE RIGHT AXIS DEVIATION [QRS AXIS > 90] LOW QRS VOLTAGE [QRS DEFLECTION < 0.5/1.0 mV IN LIMB/CHEST LEADS] ANTEROSEPTAL MYOCARDIAL INFARCTION , OF INDETERMINATE AGE [40+ ms Q WAVE IN V1-V4] ABNORMAL ECG UNCONFIRMED REPORT Electronically signed by : Marciano Guevara, 06/30/2023 15:19:54
--- NOTE | 2023-06-30 07:38 | PC.NURSE ---
Dr. Guevara at bedside with u/s
--- NOTE | 2023-06-30 07:49 | CT_ITS ---
PROCEDURE INFORMATION: Exam: CTA Chest With Contrast Exam date and time: 06/30/2023 8:40 AM Age: 77 years old Clinical indication: Dyspnea; Additional info: Acute dyspnea, ho CA recurrent pl effusions TECHNIQUE: Imaging protocol: Computed tomographic angiography of the chest with contrast. Exam focused on the arteries. 3D rendering (Not supervised by radiologist): MIP and/or 3D reconstructed images were created by the technologist. Radiation optimization: All CT scans at this facility use at least one of these dose optimization techniques: automated exposure control; mA and/or kV adjustment per patient size (includes targeted exams where dose is matched to clinical indication); or iterative reconstruction. Contrast material: ISOVUE 370; Contrast volume: 75 ml; Contrast route: INTRAVENOUS (IV); COMPARISON: CT ANGIO CHEST PE PROTOCOL 06/11/2023 9:46 AM FINDINGS: Tubes, catheters and devices: Bilateral pleural drains evident. Pulmonary arteries: Negative for acute pulmonary embolism. Aorta: Unremarkable. No aortic aneurysm. No aortic dissection. Lungs: Emphysematous changes. Bibasilar atelectasis. Stable peribronchial thickening bilaterally. Pleural spaces: Small to moderate pleural effusions bilaterally, slightly decreased on the right since previous examination. Heart: Stable large pericardial effusion measuring 2.1 cm in greatest thickness. Lymph nodes: Stable mediastinal lymphadenopathy, with right paratracheal lymph node measuring 1.3 cm, containing coarse calcifications. Bones/joints: Unremarkable. No acute fracture. Soft tissues: Unremarkable. IMPRESSION: 1. Negative for acute pulmonary embolism. 2. Bilateral pleural drains evident. Small to moderate pleural effusions bilaterally, slightly decreased on the right since previous examination. 3. Stable large pericardial effusion measuring 2.1 cm in greatest thickness. 4. Stable mediastinal lymphadenopathy, with right paratracheal lymph node measuring 1.3 cm, containing coarse calcifications. COMMENTS: The presence of pulmonary emphysema on CT is an independent risk factor for lung cancer. In the absence of a history or active diagnosis of lung cancer, it is recommended that this patient with emphysema be evaluated for enrollment in a low dose CT lung cancer screening program.
--- NOTE | 2023-06-30 07:53 | ED_ITS ---
Discharge Plan Disposition Patient Disposition: Home, Self-Care Prescriptions Prescriptions: New prednisone 50 mg tablet 50 mg PO DAILY 5 Days Qty: 5 0RF Rx Instructions: Please begin 1 day after ED visit albuterol sulfate 90 mcg/actuation HFA aerosol inhaler 4 inh inhalation Q4H PRN (Reason: shortness of breath or wheezing) Qty: 8.5 0RF Rx Instructions: 4 puffs every 4 hours for 48 hours then as needed for shortness of breath or wheezing following amoxicillin-pot clavulanate 875-125 mg tablet 1 tab PO BID 10 Days Qty: 20 0RF No Action amiodarone 200 mg tablet 200 mg PO BID 30 Days Qty: 60 3RF midodrine 5 mg tablet 10 mg PO TID 30 Days Qty: 180 3RF Trelegy Ellipta 100-62.5-25 mcg blister with device 1 inh inhalation DAILY 90 Days Qty: 1 3RF aspirin 81 mg tablet,delayed release (DR/EC) 81 mg PO DAILY famotidine [Pepcid] 20 mg Tablet 20 mg PO DAILY ipratropium-albuterol 0.5 mg-3 mg(2.5 mg base)/3 mL solution for nebulization 3 ml inhalation QID PRN (Reason: Shortness Of Breath Or Wheezing) prochlorperazine maleate 10 mg tablet 10 mg PO Q6 PRN (Reason: Nausea And Vomiting) Patient Comments: TAKE ONE TABLET BY MOUTH EVERY 6 HOURS NEEDED FOR NAUSEA AND VOMITING capecitabine 150 mg tablet 900 mg PO BID Rx Instructions: TAKE 6 TABLETS BY MOUTH TWICE A DAY FOR 21 DAYS, THEN REPEAT WITH NO DAYS OFF. megestrol 400 mg/10 mL (40 mg/mL) suspension 400 mg PO BID Patient Comments: TAKE 10ML BY MOUTH TWICE DAILY levofloxacin 750 mg tablet 750 mg PO DAILY 1 Days Qty: 1 0RF Clinical Impressions Clinical Impression: Acute hypoxic respiratory failure, Acute exacerbation of chronic obstructive pulmonary disease, Bilateral pleural effusion, Chronic pericardial effusion, Adenocarcinoma of esophagus, Metastatic cancer to lung Discharge ED Provider: Hilary Guevara HPI General Chief Complaint: Shortness of Breath/Dyspnea Stated Complaint: Recent Chemo- SOA Time Seen by Provider: 06/30/23 07:34 Mode of Arrival: Ambulatory Source of Information: Patient Limitations: No Limitations Description of Symptoms (Recalled from ER Triage Doc. by RN): pt to ed c/o SOA and bilateral hand burning. pt states he started a new chemo medication on . pt states he woke up and was unable to catch his breath. pt reports to using home o2 at night. 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 States he felt good yesterday and they have been intermittently draining the pleural effusions getting 500 cc out of the right and occasionally some out of the left but that he had sudden onset of shortness of breath this morning. Does not require oxygen at home oxygen saturations were in the 70s prior to my evaluation. States he has a known pericardial effusion and also has had some increasing bilateral lower extremity edema. Additionally he states that he has some burning in his hands and started a recent new chemotherapeutic agent. He is followed here at [facility] and has seen Dr. Edgar at [facility] for management of his Pleurx drains. Related Data Home Medications Medication Instructions Recorded Confirmed aspirin 81 mg tablet,delayed 81 mg PO DAILY 11/26/22 06/26/23 release famotidine 20 mg tablet (Pepcid) 20 mg PO DAILY 02/22/23 06/26/23 ipratropium 0.5 mg-albuterol 3 mg 3 ml inhalation QID PRN Shortness 02/27/23 06/26/23 (2.5 mg base)/3 mL nebulization Of Breath Or Wheezing soln capecitabine 150 mg tablet 900 mg PO BID 04/11/23 06/26/23 prochlorperazine maleate 10 mg 10 mg PO Q6 PRN Nausea And Vomiting 04/11/23 06/26/23 tablet megestrol 400 mg/10 mL (40 mg/mL) 400 mg PO BID 06/11/23 06/26/23 oral suspension Previous Rx's Medication Instructions Recorded levofloxacin 750 mg tablet 750 mg PO DAILY 1 day #1 tab 06/13/23 midodrine 5 mg tablet 10 mg (2 x 5 mg) PO TID 30 days 06/20/23 #180 tabs fluticasone fur. 100 mcg-umeclid 1 inh inhalation DAILY 90 days #1 06/24/23 62.5 mcg-vilant 25 mcg ea inhalat.powder (Trelegy Ellipta) amiodarone 200 mg tablet 200 mg PO BID 30 days #60 tabs 06/25/23 albuterol sulfate 90 mcg/actuation 4 inh inhalation Q4H PRN shortness 06/30/23 aerosol inhaler of breath or wheezing #8.5 grams amoxicillin 875 mg-potassium 1 tab PO BID 10 days #20 tabs 06/30/23 clavulanate 125 mg tablet prednisone 50 mg tablet 50 mg PO DAILY 5 days #5 tabs 06/30/23 Allergies Allergy/AdvReac Type Severity Reaction Status Date / Time oxaliplatin Allergy Other Verified 06/26/23 13:41 [facility] Disclaimer: The information contained in this section may have been updated after the patient was seen, as this information can be updated by other users. Medical History Paroxysmal atrial fibrillation Acute and chronic respiratory failure with hypoxia Pericardial effusion HAP (hospital-acquired pneumonia) Septic shock Acute hypercapnic respiratory failure Ascites Pneumonia Pulmonary edema Chronic cough Tachycardia Respiratory failure with hypoxia Adenocarcinoma Pleural effusion on right Encounter for screening for malignant neoplasm of lung Smoking greater than 30 pack years Dyspnea on exertion Pulmonary emphysema Pneumonia Viral pneumonia Tobacco user Hyperlipidemia Sepsis NSTEMI (non-ST elevated myocardial infarction) Acute exacerbation of chronic obstructive pulmonary disease Acute respiratory failure with hypoxia Community acquired pneumonia COPD (chronic obstructive pulmonary disease) Surgical History History of hip replacement Family History Other Lung cancer Social History Smoking Status: Never smoker alcohol intake: never substance use type: denies use current occupational status: retired Travel in the last 8 weeks: None household members: spouse lives independently: Yes marital status: education level: college caffeine: Yes physical activity: walking ROS Obtained: Yes All systems reviewed & no additional complaints except as documented Physical Exam General General appearance: in distress Comment: Oxygen saturation 79% on room air normalized with 2 L nasal cannula Respiratory Respiratory exam: Present other (Diffuse expiratory wheezing with prolonged expiratory phase otherwise nonfocal he is tachypneic) Cardiovascular Cardiovascular exam: Present regular rate (90 on my exam) and normal rhythm Abdominal Exam Abdominal exam: Present soft; Absent distention or tenderness Neurological Exam Neurological exam: Present alert and oriented X3 HEART Score HEART Score HEART Score assessment performed?: No Procedures Miscellaneous Procedure Procedure Performed: Limited cardiac ultrasound Indication: Dyspnea Identified structures: The heart was visualized in the parasternal long axis, parastenal short axis, apical four chamber and subxyphiod views. The IVC was visualized in the short axis and long axis at its entry into the right atrium. Findings: Normal LVEF there is a moderate-sized pericardial effusion no obvious chamber collapse specifically no right ventricular diastolic collapse IVC is 2 cm but has normal respirophasic variation no significant right heart strain Impression: Moderate sized pericardial effusion with no definitive evidence of cardiac tamponade Images were saved to permanent archive The study was technically adequate CPT: 90974-43 This study was performed by [facility], and I personally interpreted all images/videos. Based on my clinical judgement, these images were adequate and did not necessitate further imaging. Limited lung ultrasound A focused ultrasound exam of the pleural spaces was performed to evaluate for pneumothorax, pulmonary edema, pleural effusion and/or consolidation. The ultrasound was performed with the following indications, as noted in the H&P: Dyspnea Identified structures: Right and left thoracic cavities were examined. Findings: Lung sliding was present bilaterally no definitive pleural effusions or B-lines throughout Impression: Bilateral B-lines consistent with pulmonary edema no definitive consolidations or pleural effusions etc. Images were saved to permanent archive The study was technically adequate CPT 81589-91 This study was performed by [facility], and I personally interpreted all images/videos. Based on my clinical judgement, these images were adequate and did not necessitate further imaging. Critical Care Critical Care Time Critical Care Time: Yes Attestation: On , the high probability of a clinically significant, sudden or life threatening deterioration of the following system(s) required my full and direct attention, intervention and personal management. The time I documented below is in addition to time spent performing reported procedures but includes the following listed in this critical care notation. Total Time Total Critical Care Time: 35 Medical Decision Making Raghu Inquiry Pt receiving controlled substance: No Vital Signs Vital Signs: 06/30/23 07:37 06/30/23 08:00 Temperature 97.6 F Temperature Source Oral Pulse Rate [Left Radial] 90 Respiratory Rate 25 H 19 Blood Pressure 112/59 L Blood Pressure [Right Arm] 114/60 Blood Pressure Mean [Right Arm] 78 02 Sat by Pulse Oximetry 93 L Oxygen Delivery Method Nasal Cannula Oxygen Flow Rate (LPM) 2 Lab Data Lab results reviewed: Yes I reviewed the patient's lab results. Labs: Lab Results 06/30/23 07:50: WBC 8.3, RBC 3.86 L, Hgb 12.5 L, Hct 40.3 L, MCV 104.5 H, MCH 32.3 H, MCHC 30.9 L, RDW 18.7 H, Plt Count 296, MPV 8.4, Neut % (Auto) 76.5, Lymph % (Auto) 19.3, [place] % (Auto) 2.0, Eos % (Auto) 1.9, Baso % (Auto) 0.3, Neut # (Auto) 6.3, Lymph # (Auto) 1.6, [place] # (Auto) 0.2, Eos # (Auto) 0.2, Baso # (Auto) 0.0, Sodium 136, Potassium 3.9, Chloride 102, Carbon Dioxide 33 H, A nion Gap 4.9 L, BUN 17 D, Creatinine 0.80, Estimated Creat Clear 62, Estimated GFR 94, Est GFR ( Amer) 114, Glucose 93, Lactate 1.4, Calcium 8.1 L, Total Bilirubin 0.3, AST 35, ALT 16 D, Alkaline Phosphatase 80, Troponin I < 0.01, Total Protein 5.4 L, Albumin 2.8 L, Globulin 2.6, Albumin/Globulin Ratio 1.1 06/30/23 07:57: VBG pH 7.33, VBG pCO2 49.9, VBG pO2 51.2 H, VBG HCO3 26.0, VBG Total CO2 27.5 H, VBG O2 Saturation 81.1 H, VBG Base Excess 0.1, VBG Lactic Acid 1.5 06/30/23 07:59: SARS-CoV-2 (PCR) Not detected, Influenza A Untype (PCR) Not detected, Influenza Type B (PCR) Not detected 06/30/23 07:50 06/30/23 07:50 Response Orders (Tests/Meds): ED MEDICATIONS Generic Name Dose Route Start Last Admin Trade Name Freq PRN Reason Stop Dose Admin Sodium Chloride 10 ml 06/30/23 08:49 06/30/23 08:51 Sodium Chloride 0.9% 10ml Syr (Rad Only) IV 07/30/23 08:48 10 ml NEEDED PRN Administration Maintain IV Site Discontinued Medications Generic Name Dose Route Start Last Admin Trade Name Cielo PRN Reason Stop Dose Admin Albuterol/Ipratropium 3 ml 06/30/23 07:49 06/30/23 08:05 Ipratropium/Albuterol 3 Ml Neb IH 06/30/23 07:50 3 ml ONCE ONE Administration Lactated Ringer's 500 mls @ 999 mls/hr 06/30/23 08:00 06/30/23 08:06 Lactated Ringer's 1000 Ml Bag IV 06/30/23 08:30 999 mls/hr .Q31M MALIKA Administration Magnesium Sulfate 2 gm in 50 mls @ 50 mls/hr 06/30/23 07:49 06/30/23 08:05 Magnesium Sulfate 2gm/50ml Premix IV 06/30/23 08:48 50 mls/hr ONCE ONE Administration Iopamidol 75 ml 06/30/23 08:49 06/30/23 08:51 Iopamidol-370 (76%);100ml Bottle IV 06/30/23 08:50 75 ml ONCE ONE Administration Methylprednisolone Sodium Succinate 125 mg 06/30/23 07:49 06/30/23 08:05 Methylprednisolone Sod Succ 125mg Vial IV 06/30/23 07:50 125 mg ONCE ONE Administration Sodium Chloride 50 ml 06/30/23 08:49 06/30/23 08:51 0.9 % Sodium Chloride 50 Ml Vial IV 06/30/23 08:50 50 ml ONCE ONE Administration ORDERS Category Date Time Status CT angio chest PE protocol Stat Cat Scan 06/30/23 07:49 Completed POCUS Point of Care (ER Only) Stat Exams 06/30/23 07:34 Completed CBC w/Auto Diff [Complete Blood Count Auto Diff] Stat Lab 06/30/23 07:50 Completed CMP [Comprehensive Metabolic Panel] Stat Lab 06/30/23 07:50 Completed Lactic Acid Stat Lab 06/30/23 07:50 Completed Rapid PCR Covid and Flu A/B Stat Lab 06/30/23 07:59 Completed Trop I [Troponin I] Stat Lab 06/30/23 07:50 Completed Troponin I Q3H Lab 06/30/23 11:00 Ordered Troponin I Q3H Lab 06/30/23 14:00 Ordered Blood Culture Stat Micro 06/30/23 08:16 Received Venous Blood Gas Stat RT 06/30/23 07:57 Completed ECG Data Tracing #1: Attestation: I reviewed this ECG and interpreted as documented below: ECG Narrative: Ventricular rate 86 sinus rhythm low voltage QRS no obvious ischemic changes noted there is a poor baseline patient is tremulous and difficult to determine definitive ST abnormalities MDM Narrative Medical Decision Narrative: 77-year-old male with stage IV metastatic adenocarcinoma with recurrent pleural effusions requiring bilateral Pleurx drains presented with sudden dyspnea. Differential includes flash pulmonary edema, pulmonary embolism, COPD exacerbation, recurrent pleural effusions etc. Limited bedside ultrasound was performed patient's heart or lungs he does have a moderate-sized pericardial effusion but no definitive evidence of cardiac tamponade. He also has diffuse pulmonary edema but no large radiographic pleural effusions on bedside ultrasound. Clinically he has significant wheezing and prolonged expiratory phase consistent with COPD exacerbation will initiate nebs steroids and magnesium holding off on antibiotics at the moment. CT PE it was going to be performed to get a better look at the patient's lung parenchyma and to further evaluate the above differential. Patient is stable now on 2 L nasal cannula will reassess shortly. Reassessment CT scan performed to person interpreted which shows metastatic disease in small to moderate pleural effusions no pulmonary embolism no significant pneumonia there is a moderate to large pericardial effusion. After reassessment of the patient he is clinically much improved his oxygen saturations are in the 90s on room air now he is breathing comfortably not in any distress. Working diagnosis is a COPD exacerbation. I initially felt as though I was going to admit the patient however his preference is to go home and he is much improved clinically. He will be sent home with antibiotics breathing treatments and further steroids. He will return with any significant worsening of his symptoms
[2023-06-30 08:00] VITALS: BP 112/59; RESP 19
[2023-06-30 08:00] LABS: Coronavirus 19, PCR Not Detected (NotDetected); Influenza A, PCR Not Detected (NotDetected); Influenza B, PCR Not Detected (NotDetected)
--- NOTE | 2023-06-30 08:00 | PC.NURSE ---
lab called for blood culture draw
[2023-06-30 08:01] LABS: Basophils % 0.3 % (0.1-2.0); Eosinophils # 0.2 K/mm3 (0.0-0.4); Eosinophils % 1.9 % (0.1-12.0); Hematocrit 40.3 % (42.0-52.0); Hemoglobin 12.5 g/dL (14.1-18.0); Lymphocytes # 1.6 K/mm3 (0.7-4.5); Lymphocytes % 19.3 % (10-50); Mean Corpuscular HGB Conc 30.9 g/dL (31.8-35.4); Mean Corpuscular Hemoglobin 32.3 pg (27.0-31.2); Mean Corpuscular Volume 104.5 fl (80-94); Mean Platelet Volume 8.4 fl (7.4-10.4); Monocytes # 0.2 K/mm3 (0.1-1.0); Neutrophils # 6.3 K/mm3 (1.8-7.8); Neutrophils % 76.5 % (37.0-80.0); Platelet Count 296 K/mm3 (142-424); Red Blood Count 3.86 M/mm3 (4.60-6.20); Red Cell Distribution Width 18.7 % (11.5-17.5); White Blood Count 8.3 K/mm3 (4.8-10.8)
[2023-06-30 08:03] LABS: Lactate Venous 1.5 mmol/L (0.4-2.0); VBG Base Excess 0.1 mmol/L (-2.4-2.3); VBG Oxygen Saturation 81.1 % (50-70); VBG PCO2 49.9 mmol/L (35-51); VBG PH 7.33 mmol/L (7.31-7.41); VBG PO2 51.2 mmol/L (28-40); VBG Total CO2 27.5 mmol/L (23-27)
[2023-06-30] MEDS: MAGNESIUM SULFATE IN WATER 2 GM/50 ML PIGGYBACK IV (08:05)
[2023-06-30] MEDS: IPRATROPIUM/ALBUTEROL 3 ML NEB IH (08:05)
[2023-06-30] MEDS: METHYLPREDNISOLONE SOD SUCC 125MG VIAL 125 MG IV (08:05)
[2023-06-30] MEDS: LACTATED RINGERS 1000ML 500 ML 999 ML IV (08:06)
[2023-06-30 08:13] LABS: Alanine Aminotransferase 16 U/L (12-78); Albumin Level 2.8 g/dl (3.5-5.0); Albumin/Globulin Ratio 1.1 (1.1-1.8); Alkaline Phosphatase 80 U/L (38-126); Anion Gap 4.9 mEq/L (5-15); Aspartate Amino Transferase 35 U/L (17-59); Bilirubin,Total 0.3 mg/dl (0.2-1.3); Blood Urea Nitrogen 17 mg/dl (9-20); Calcium 8.1 mg/dl (8.4-10.2); Carbon Dioxide 33 mmol/L (22.0-30.0); Chloride 102 mmol/L (98-107); Creatinine Clearance Estimated 62 mL/min (50-200); Estimated Glomerular Filt Rate 94 ml/min (>60); GFR (African American) 114 ML/MIN (>60); Globulin 2.6 g/dL (1.3-3.2); Glucose 93 mg/dl (74-100); Potassium 3.9 mmoL/L (3.5-5.1); Sodium 136 mmol/L (136-145); Total Protein,Serum 5.4 g/dl (6.3-8.2)
[2023-06-30 08:14] LABS: Lactic Acid 1.4 mmol/L (0.7-2.1)
[2023-06-30 08:34] LABS: Troponin I < 0.01 ng/ml (0.00-0.034)
[2023-06-30] MEDS: 0.9 % SODIUM CHLORIDE 50 ML VIAL IV (08:51)
[2023-06-30] MEDS: IOPAMIDOL-370 (76%);100ML BOTTLE 75 ML IV (08:51)
[2023-06-30] MEDS: SODIUM CHLORIDE 0.9% 10ML SYR (RAD ONLY) 10 ML IV (08:51)
--- NOTE | 2023-06-30 10:05 | PC.NURSE ---
updated patients family on the plan of care at this time.
[2023-06-30 10:45] VITALS: BP 115/60; PULSE 105; RESP 20; TEMP 36.4; O2SAT 94
== END 2023-06-30 10:47 | disposition home or self-care (01) ==
PROVIDERS: Emergency Provider Student in an Organized Health Care Education/Training Program; PCP Student in an Organized Health Care Education/Training Program
DX: J96.01 Acute respiratory failure with hypoxia (principal); J44.1 Chronic obstructive pulmonary disease with (acute) exacerbation; I31.39 Other pericardial effusion (noninflammatory); J90 Pleural effusion, not elsewhere classified; C78.00 Secondary malignant neoplasm of unspecified lung; C15.9 Malignant neoplasm of esophagus, unspecified; Z87.891 Personal history of nicotine dependence; Z92.21 Personal history of antineoplastic chemotherapy
CPT/HCPCS: 36415; 71275; 80053; 82803; 83605; 84484; 85025; 87040; 87636; 93005; 96365; 96375; 99291; J3475; Q9967

== ENCOUNTER 2023-07-04 08:22 | Outpatient (CLI) | payer MEDICARE, SELFPAY ==
--- NOTE | 2023-07-04 08:23 | CA_ITS ---
APPROVED REPORT EXAM: Comprehensive 2D, Doppler, and color-flow Echocardiogram Linux Network Engineer: EDIN Bradshaw, RVS Ht: 5 ft 7 in Wt: 104lbs BSA: 1.53 BP: 104/62 mmHg Indications: Pericardial effusion check, PAF, CAD, Cancer 2D Dimensions Left Atrium 3.77 cm M-Mode Dimensions RVDd 2.20 cm (0.9-2.6) LVDd 5.19 cm (3.5-5.7) Ao Diam 3.47 cm (2.0-3.7) LVDs 4.02 cm (3.5-5.7) IVSd 0.64 cm (0.6-1.1) PWd 0.76 cm (0.6-1.1) EF (Teich) 45.10% FS 22.50% EDV (Teich) 128.90 mL ESV (Teich) 70.80 mL Other Information Study Quality: Technically Difficult Conclusion This is a limited TTE to evaluate for pericardial effusion. Limited windows were obtained. Technically difficult study. There is a moderate-sized, circumferential pericardial effusion present. The largest pockets are noted anteriorly and posteriorly, each measuring 1.4 cm in diastole. The IVC is not well-visualized in the study. No chamber collapse is noted. Grossly, no clear echo indications of tamponade. When directly compared to prior study from 06/11/2023, there are no significant changes to the size or location of effusion. Electronically signed by : Rita De La Paz MD 07/04/2023 23:14:08
== END 2023-07-04 23:59 | disposition home or self-care (01) ==
LOC: RT 08:23
PROVIDERS: PCP Student in an Organized Health Care Education/Training Program; Visit Provider Nurse Practitioner Family
DX: I31.39 Other pericardial effusion (noninflammatory) (principal)
CPT/HCPCS: 93308

== ENCOUNTER 2023-07-28 16:03 | Emergency (ER) | payer MEDICARE, SELFPAY ==
[2023-07-28] VITALS (10 sets, daily range): BP systolic 100–117; BP diastolic 55–64; PULSE 59–88; RESP 16–20; TEMP 36.9–37.1; O2SAT 93–95; BMI 24.9
--- NOTE | 2023-07-28 | ECG_ITS ---
APPROVED REPORT Exam: Resting ECG HR:80 bpm ECG Measurements Heart Rate 80 AXES [place] 212 P 71 QRSd 88 QRS 81 QT 379 T 59 QTc 415 Conclusion SINUS RHYTHM WITH FIRST DEGREE AV BLOCK LOW QRS VOLTAGE [QRS DEFLECTION < 0.5/1.0 mV IN LIMB/CHEST LEADS] Electronically signed by : JOVITA HANNA, 07/29/2023 06:37:50
--- NOTE | 2023-07-28 16:29 | ECG_ITS ---
APPROVED REPORT Exam: Resting ECG HR:82 bpm ECG Measurements Heart Rate 82 AXES VA 172 P 60 QRSd 92 QRS 81 QT 368 T 66 QTc 406 Conclusion SINUS RHYTHM LOW QRS VOLTAGE [QRS DEFLECTION < 0.5/1.0 mV IN LIMB/CHEST LEADS] POSSIBLE ANTERIOR MYOCARDIAL INFARCTION , PROBABLY OLD [30 ms Q WAVE IN V3/V4, OR R < 0.2 mV IN V4] ABNORMAL ECG Electronically signed by : KARIME WHEELER, 07/28/2023 23:24:49
--- NOTE | 2023-07-28 16:31 | CT_ITS ---
PROCEDURE INFORMATION: Exam: CT Thoracic Spine Without Contrast Exam date and time: 07/28/2023 4:49 PM Age: 77 years old Clinical indication: Weakness; Additional info: H/o mets cancer, new ble weakness TECHNIQUE: Imaging protocol: Computed tomography of the thoracic spine without contrast. Radiation optimization: All CT scans at this facility use at least one of these dose optimization techniques: automated exposure control; mA and/or kV adjustment per patient size (includes targeted exams where dose is matched to clinical indication); or iterative reconstruction. COMPARISON: NM BONE SCAN WHOLE BODY 06/24/2023 12:30 PM FINDINGS: Bones/joints: There is no evidence of acute fracture.There is no evidence of malalignment or dislocation. Anterior and lateral osteophyte formation. No definite lytic lesion in the thoracic spine. 19 mm sclerotic lesion in the left aspect of the vertebral body of L2 (series 4, image 128). The spinal canal is not seen well on this region. Involvement of the spinal canal may be present. Recommend MRI for further evaluation. Mild compression of T1 and T3 and T4 may represent chronic compression fractures of unknown age. Soft tissues: Unremarkable. Lungs: Opacities in both lung garcia may represent atelectasis or pneumonia.. Debris in the bronchus to the right lower lobe. Pleural spaces: Bilateral pleural effusions. IMPRESSION: 1. There is no evidence of acute fracture.There is no evidence of malalignment or dislocation. 2. No definite lytic lesion in the thoracic spine. 3. The spinal canal is not seen well on this region. Involvement of the spinal canal may be present. Recommend MRI for further evaluation. 4. Mild compression of T1 and T3 and T4 may represent chronic compression fractures of unknown age. 5. Opacities in both lung garcia may represent atelectasis or pneumonia.. 6. Debris in the bronchus to the right lower lobe. 7. Bilateral pleural effusions.
--- NOTE | 2023-07-28 16:31 | CT_ITS ---
PROCEDURE INFORMATION: Exam: CT Lumbar Spine Without Contrast Exam date and time: 07/28/2023 4:51 PM Age: 77 years old Clinical indication: Weakness; Additional info: H/o mets cancer, new ble weakness TECHNIQUE: Imaging protocol: Computed tomography of the lumbar spine without contrast. Radiation optimization: All CT scans at this facility use at least one of these dose optimization techniques: automated exposure control; mA and/or kV adjustment per patient size (includes targeted exams where dose is matched to clinical indication); or iterative reconstruction. COMPARISON: MR LUMBAR SPINE WO/W CON 06/26/2023 11:46 AM FINDINGS: Bones/joints: 2 cm sclerotic lesion in the posterior left aspect of L2. . 2.1 cm sclerotic lesion in the right lateral aspect of L4. 8 mm sclerotic lesion in the central aspect of L5.. Mild broad-based disc bulge at L2/L3 and L5/S1 may represent degenerative disc disease. . Broad-based disc bulge, facet hypertrophy, and ligament hypertrophy at L3/L4 and L4/L5 consistent with spinal stenosis. .. Soft tissues: Unremarkable. IMPRESSION: 1. 2 cm sclerotic lesion in the posterior left aspect of L2. . 2. 2.1 cm sclerotic lesion in the right lateral aspect of L4. 3. 8 mm sclerotic lesion in the central aspect of L5.. 4. Mild broad-based disc bulge at L2/L3 and L5/S1 may represent degenerative disc disease. . 5. Broad-based disc bulge, facet hypertrophy, and ligament hypertrophy at L3/L4 and L4/L5 consistent with spinal stenosis. .. Multiple sclerotic lesions in the lumbar spine. Recommend MRI to evaluate the spinal canal
--- NOTE | 2023-07-28 16:31 | XR_ITS ---
PROCEDURE INFORMATION: Exam: XR Chest Exam date and time: 07/28/2023 4:48 PM Age: 77 years old Clinical indication: Cough; Additional info: Cough, general weakness TECHNIQUE: Imaging protocol: Radiologic exam of the chest. Views: 1 view. COMPARISON: CT ANGIO CHEST PE PROTOCOL 06/30/2023 8:40 AM FINDINGS: Tubes, catheters and devices: MediPort terminates in the superior vena cava. Parallel tubes in the posterior aspect of the lung garcia bilaterally Lungs: Opacities in both lung bases may represent atelectasis or pneumonia.. Pleural spaces: There may be mild bilateral pleural effusions. . Heart/Mediastinum: Cardiomegaly Bones/joints: Sclerotic density in the right humeral shaft may represent bone island or infarct IMPRESSION: 1. Opacities in both lung bases may represent atelectasis or pneumonia.. 2. There may be mild bilateral pleural effusions. .
--- NOTE | 2023-07-28 16:34 | CT_ITS ---
PROCEDURE INFORMATION: Exam: CT Cervical Spine Without Contrast Exam date and time: 07/28/2023 4:46 PM Age: 77 years old Clinical indication: Weakness; Additional info: Mets cancer, new leg weakness TECHNIQUE: Imaging protocol: Computed tomography of the cervical spine without contrast. Radiation optimization: All CT scans at this facility use at least one of these dose optimization techniques: automated exposure control; mA and/or kV adjustment per patient size (includes targeted exams where dose is matched to clinical indication); or iterative reconstruction. COMPARISON: NM BONE SCAN WHOLE BODY 06/24/2023 12:30 PM FINDINGS: Bones: No acute fracture of the cervical spine. No subluxation or dislocation of the cervical spine. Intervertebral disc space narrowing C5 through C7 may represent degenerative disc disease.. Anterior osteophyte formation C4 through C7. Posterior osteophyte formation C5 through C7. Degenerative changes in the facets at multiple levels. Degenerative changes at C1/C2 Lungs: Lung apices are normal. Thyroid: The thyroid is unremarkable Soft tissues: Unremarkable. IMPRESSION: 1. No acute fracture of the cervical spine. 2. No subluxation or dislocation of the cervical spine. 3. Intervertebral disc space narrowing C5 through C7 may represent degenerative disc disease..
[2023-07-28 16:37] LABS: VBG Base Excess 3.4 mmol/L (-2.4-2.3); VBG HCO3 29.3 mmol/L (23-30); VBG Oxygen Saturation 51.1 % (50-70); VBG PCO2 57.2 mmol/L (35-51); VBG PH 7.33 mmol/L (7.31-7.41); VBG PO2 28.1 mmol/L (28-40); VBG Total CO2 31.1 mmol/L (23-27)
--- NOTE | 2023-07-28 16:37 | ED_ITS ---
Discharge Plan Disposition Patient Disposition: Xfer Short-Term Hosp Condition: Good Prescriptions Prescriptions: No Action amiodarone 200 mg tablet 200 mg PO BID 30 Days Qty: 60 3RF gabapentin 300 mg capsule 300 mg PO BID Qty: 60 2RF azithromycin 250 mg tablet See Rx Instructions PO .COMPLEX Qty: 6 0RF Rx Instructions: For 250 mg dose pack: take 500 mg today (day 1), then 250 mg for 4 days (days 2-5) PO (DME) blood pressure monitor Kit See Rx Instructions .ROUTE .MEDSUPPLY Qty: 1 0RF Rx Instructions: As directed midodrine 5 mg tablet 10 mg PO TID 30 Days Qty: 180 3RF Trelegy Ellipta 100-62.5-25 mcg blister with device 1 inh inhalation DAILY 90 Days Qty: 1 3RF famotidine [Pepcid] 20 mg Tablet 20 mg PO DAILY ipratropium-albuterol 0.5 mg-3 mg(2.5 mg base)/3 mL solution for nebulization 3 ml inhalation QID PRN (Reason: Shortness Of Breath Or Wheezing) capecitabine 150 mg tablet 900 mg PO BID Rx Instructions: TAKE 6 TABLETS BY MOUTH TWICE A DAY FOR 21 DAYS, THEN REPEAT WITH NO DAYS OFF. Referrals Follow up/Referrals: Adia Lemus PA [Primary Care Provider] - See instructions Clinical Impressions Clinical Impression: Metastatic cancer to spine, Bilateral leg weakness Discharge ED Provider: Liya Peter General Adult HPI General Chief complaint: Weakness Stated complaint: dizzy,runny nose Time Seen by Provider: 07/28/23 16:09 Mode of Arrival: Wheelchair Source of Information: Patient and Spouse Limitations: No Limitations Description of Symptoms (Recalled from ER Triage Doc. by RN): pt reports weakness in BLE that started about 2h ago. pt states he ate on his way here and is now feeling some better. pt reports he is currently undergoing treatment with for esophageal cancer. pt is on chemo. 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 Patient states that he had been out in the sun a lot but has been doing okay and had been walking around, until about 2 hours ago when he suddenly felt like his knees were buckling. He states that he had to lower himself to the ground and crawl, as he was unable to walk because he felt his legs were so weak. He ate some food on the way here and is feeling a little bit better. He notes that he is not really feeling any numbness or tingling in his legs, he just feels like his knees are weak and buckling and he cannot control them. No back pain, leg pain, saddle anesthesia, incontinence, retention, or other concerns. No recent falls or traumatic injuries noted. No headaches, visual disturbance, discoordination, or other concerns. He does note that he has been dealing with a whole slew of side effects from chemotherapy, including diaz to his fingers for which she is currently on treatment. He states he was told to very closely watch his kidney function while on treatment for this. Related Data Home Medications Medication Instructions Recorded Confirmed famotidine 20 mg tablet (Pepcid) 20 mg PO DAILY 02/22/23 07/24/23 ipratropium 0.5 mg-albuterol 3 mg 3 ml inhalation QID PRN Shortness 02/27/23 07/24/23 (2.5 mg base)/3 mL nebulization Of Breath Or Wheezing soln capecitabine 150 mg tablet 900 mg PO BID 04/11/23 07/24/23 Previous Rx's Medication Instructions Recorded midodrine 5 mg tablet 10 mg (2 x 5 mg) PO TID 30 days 06/20/23 #180 tabs fluticasone fur. 100 mcg-umeclid 1 inh inhalation DAILY 90 days #1 06/24/23 62.5 mcg-vilant 25 mcg ea inhalat.powder (Trelegy Ellipta) amiodarone 200 mg tablet 200 mg PO BID 30 days #60 tabs 06/25/23 blood pressure monitor #1 ea 07/09/23 gabapentin 300 mg capsule 300 mg PO BID #60 caps 07/11/23 azithromycin 250 mg tablet See Rx Instructions PO .COMPLEX #6 07/24/23 tabs Allergies Allergy/AdvReac Type Severity Reaction Status Date / Time oxaliplatin Allergy Other Verified 07/24/23 13:47 [facility] Disclaimer: The information contained in this section may have been updated after the patient was seen, as this information can be updated by other users. Medical History Paroxysmal atrial fibrillation Acute and chronic respiratory failure with hypoxia Pericardial effusion HAP (hospital-acquired pneumonia) Septic shock Acute hypercapnic respiratory failure Ascites Pneumonia Pulmonary edema Chronic cough Tachycardia Respiratory failure with hypoxia Adenocarcinoma Pleural effusion on right Encounter for screening for malignant neoplasm of lung Smoking greater than 30 pack years Dyspnea on exertion Pulmonary emphysema Pneumonia Viral pneumonia Tobacco user Hyperlipidemia Sepsis NSTEMI (non-ST elevated myocardial infarction) Acute exacerbation of chronic obstructive pulmonary disease Acute respiratory failure with hypoxia Community acquired pneumonia COPD (chronic obstructive pulmonary disease) Surgical History History of hip replacement Family History Other Lung cancer Social History Smoking Status: Light tobacco smoker alcohol intake: never substance use type: denies use current occupational status: retired Travel in the last 8 weeks: None household members: spouse lives independently: Yes marital status: education level: college caffeine: Yes physical activity: walking ROS Obtained: Yes All systems reviewed & no additional complaints except as documented Physical Exam General General appearance: alert and in no apparent distress Head Head exam: atraumatic and normocephalic Eye Eye exam: Present normal appearance, PERRL and EOMI ENT ENT exam: Present normal exam, normal oropharynx, mucous membranes moist and normal external ear exam Neck Neck exam: Present normal inspection, full ROM and trachea midline; Absent tenderness Chest Chest inspection: Present normal inspection and symmetric chest wall rise; Absent tenderness Respiratory Respiratory exam: Present normal lung sounds bilaterally; Absent respiratory distress, wheezes, stridor or accessory muscle use Cardiovascular Cardiovascular exam: Present regular rate and normal rhythm Abdominal Exam Abdominal exam: Present soft; Absent distention, tenderness or guarding Extremities Exam Extremities exam: Present normal inspection, full ROM and normal capillary refill; Absent tenderness or edema Back Exam Back exam: Present normal inspection and full ROM; Absent tenderness Neurological Exam Neurological exam: Present alert, oriented X3, CN II-XII intact and motor sensory deficit Expanded Neurological Exam Motor strength - LUE: 5/5 Motor strength - RUE: 5/5 Motor strength - LLE: 3/5 Motor strength - RLE: 4/5 Upper motor neuron exam: Normal: kelly neglect Sensory exam upper extremity: Normal: light touch Sensory exam lower extremity: Normal: light touch Coma scale eye opening: Spontaneous Coma scale motor response: Obeys commands Coma scale verbal response: Oriented Coma scale total: 15 Comment: Patient has intact sensation to light touch in the bilateral lower extremities. He does have some motor weakness with strength approximately 4 out of 5 in the RLE, 3/5 in the LLE. He does note that his left leg is usually his bad leg. Psychiatric Psychiatric exam: Present normal affect and normal mood Skin Skin exam: Present warm and dry Medical Decision Making Medical Records Medical records reviewed: Yes I reviewed the patient's medical records. Raghu Inquiry Pt receiving controlled substance: No Vital Signs: 07/28/23 16:30 07/28/23 17:00 07/28/23 17:15 Temperature 98.7 F Temperature Source Oral Pulse Rate 78 59 L Pulse Rate [Left] 88 Respiratory Rate 16 Blood Pressure 117/57 L 110/58 L Blood Pressure [Right Arm] 105/59 L Blood Pressure Mean Blood Pressure Mean [Right Arm] 74 Blood Pressure Source [Right Arm] Automatic Cuff Blood Pressure Position [Right Arm] Sitting 02 Sat by Pulse Oximetry 95 95 93 L Oxygen Delivery Method Room Air Room Air Room Air 07/28/23 17:31 07/28/23 17:45 07/28/23 18:00 Temperature Temperature Source Pulse Rate 67 65 67 Pulse Rate [Left] Respiratory Rate Blood Pressure 112/55 L 106/59 L 105/58 L Blood Pressure [Right Arm] Blood Pressure Mean 70 70 72 Blood Pressure Mean [Right Arm] Blood Pressure Source [Right Arm] Blood Pressure Position [Right Arm] 02 Sat by Pulse Oximetry 94 L 95 94 L Oxygen Delivery Method Room Air Room Air Room Air 07/28/23 18:15 07/28/23 18:30 07/28/23 18:45 Temperature Temperature Source Pulse Rate 77 75 Pulse Rate [Left] Respiratory Rate Blood Pressure 113/59 L 100/55 L 112/64 Blood Pressure [Right Arm] Blood Pressure Mean 70 69 80 Blood Pressure Mean [Right Arm] Blood Pressure Source [Right Arm] Blood Pressure Position [Right Arm] 02 Sat by Pulse Oximetry 95 94 L Oxygen Delivery Method Room Air Room Air Lab Data Lab results reviewed: Yes I reviewed the patient's lab results. Lab Results 07/28/23 16:28: WBC 8.7, RBC 3.83 L, Hgb 12.2 L, Hct 40.1 L, MCV 104.9 H, MCH 32.0 H, MCHC 30.5 L, RDW 17.3, Plt Count 411, MPV 8.2, Neut % (Auto) 79.0, Lymph % (Auto) 10.2, [place] % (Auto) 7.5, Eos % (Auto) 1.8, Baso % (Auto) 1.4, Neut # (Auto) 6.9, Lymph # (Auto) 0.9, [place] # (Auto) 0.7, Eos # (Auto) 0.2, Baso # (Auto) 0.1, Sodium 134 L, Potassium 4.7, Chloride 94 L, Carbon Dioxide 34 H, Anion Gap 10.7, BUN 18, Creatinine 0.90, Estimated Creat Clear 64, Estimated GFR 82, Est GFR ( Amer) 99, Glucose 92, Calcium 8.7, Phosphorus 3.5, Magnesium 1.8, Total Bilirubin 0.4, AST 40, ALT 18, Alkaline Phosphatase 109, T otal Creatine Kinase 44 L, Total Protein 5.9 L, Albumin 3.1 L, Globulin 2.8, Albumin/Globulin Ratio 1.1, Vitamin B12 451, TSH 7.22 H, Thyroxine (T4) 8.5 07/28/23 16:31: VBG pH 7.33, VBG pCO2 57.2 H, VBG pO2 28.1, VBG HCO3 29.3, VBG Total CO2 31.1 H, VBG O2 Saturation 51.1, VBG Base Excess 3.4 H, VBG Lactic Acid 2.5 H 07/28/23 17:43: Urine Color Yellow, Urine Appearance Clear, Urine pH 6.0, Ur Specific [place] >= 1.030, Urine Protein Negative, Urine Glucose (UA) Negative, Urine Ketones Negative, Urine Blood Negative, Urine Nitrate Negative, Urine Bilirubin 1+ A, Urine Urobilinogen 0.2, Ur Leukocyte Esterase Negative, Urine RBC Occasional, Urine WBC Occasional, Ur Squamous Epith Cells 3-5, Urine Bacteria Trace, Hyaline Casts 3-5 07/28/23 16:28 07/28/23 16:28 Orders (Tests/Meds): ED MEDICATIONS Discontinued Medications Generic Name Dose Route Start Last Admin Trade Name Cielo PRN Reason Stop Dose Admin Lactated Ringer's 1,000 mls @ 999 mls/hr 07/28/23 16:34 07/28/23 16:38 Lactated Ringer's 1000 Ml Bag IV 07/28/23 17:34 999 mls/hr .Q1H1M ONE Administration ORDERS Category Date Time Status CT cervical spine wo con Stat Cat Scan 07/28/23 16:[address] lumbar spine wo con Stat Cat Scan 07/28/23 16:[address] thoracic spine wo con Stat Cat Scan 07/28/23 16:31 Completed CXR --portable [XR chest portable] Stat Exams 07/28/23 16:31 Completed CK [Creatine Kinase] Stat Lab 07/28/23 16:28 Completed Complete Blood Count Auto Diff Stat Lab 07/28/23 16:28 Completed Comprehensive Metabolic Panel Stat Lab 07/28/23 16:28 Completed Magnesium Stat Lab 07/28/23 16:28 Completed Phosphorous Stat Lab 07/28/23 16:28 Completed T4 (Thyroxine) Stat Lab 07/28/23 16:28 Completed TSH [Thyroid Stimulating Hormone] Stat Lab 07/28/23 16:28 Completed UA [Urinalysis and Microscopic] Stat Lab 07/28/23 17:43 Completed Vitamin B12 Stat Lab 07/28/23 16:28 Completed VBG [Venous Blood Gas] Stat RT 07/28/23 16:31 Completed ECG Data Tracing #1: I reviewed this ECG and interpreted as documented below: Normal sinus rhythm with a ventricular rate of [address] changes concerning for ischemia. Normal intervals. ECG initial impression date: 07/28/23 ECG initial impression time: 16:37 Medical Decision Narrative: RepeatIn summary, this patient is a 77-year-old male presenting to the Emergency Department for evaluation of bilateral leg weakness. Differential diagnoses considered include but are not limited to dehydration, heat exhaustion, electrolyte derangements, YOLANDA, Guillain-Garcia? syndrome, spinal cord compression from metastasis. Ruling out the most morbid conditions drove assessment. It should be noted patient's history includes metastatic cancer which is not at goal therapy. This complicates all aspects of care by increasing patient's risk for morbidity. Based on the patient's history and exam, it is unclear whether or not this is neurologic such as with spinal cord compression/peripheral neuropathy, or if the patient is just generally weak which could be related to his medications and/or sitting outside in the sun. It is reassuring that he started to feel a lot better after eating. He does not have any focal findings on exam to suggest spinal cord compression, such as saddle anesthesia, sensory deficits, or other concerns, but strength is 4/5 RLE 3/5 LLE. No other focal neurologic deficits on exam. Workup included broad lab evaluation including CBC, CMP, VBG, lactic acid, CK, TSH, T4, B12, magnesium, phosphorus as well as EKG and CTs of the spines. 1 L bolus of fluids was given to assess for symptomatic improvement, as the patient had been sitting out in the heat when he had started to feel bad. I independently interpreted CT scans prior to the radiologist read and noted concern for spinal metastasis. I had an interactive discussion with the radiologist via phone who recommended MRI to further evaluate for potential spinal cord compression. Please see their read for final interpretation. Labs were obtained that demonstrated very mild hyponatremia which is not significantly changed from patient's previous labs, mildly elevated lactic acid, and stable mild anemia. No other acutely concerning abnormalities. On reassessment, patient continues to have weakness with 3 out of 5 strength in his left lower extremity and 4 out of 5 strength in his right lower extremity. Sensation remains intact. Postvoid residual only demonstrated 34 mL of urine in the bladder, which is not concerning for acute urinary retention. Ultimately, given that he has new spinal metastasis as well as new neurologic deficits in his lower extremities, I feel that he would benefit from evaluation with MRI and by spine team. We do not have capabilities to do MRI here on this day given that it is the weekend, and we also do not have spine here. Given this, initiated discussions with [facility] per the patient's request. He initially did not want to be transferred at all and wanted to follow-up outpatient for MRI, as he wanted to go home and continue with care with his team here. I advised him that if he has a new nerve compression causing his issues, I feel that he would benefit from emergent evaluation as opposed to waiting several days. I advised that if he waits, he could have worsened and potentially permanent neurologic deficits. He expressed understanding and agreement. As of 1799, awaiting callback. I spoke with Dr. Ball with spine at [place] who advised that he felt the patient would benefit from transfer to higher level of care with multidisciplinary teams, such as oncology. He advised potential [facility]. Family is agreeable to this after a very long discussion. As of 1899, awaiting callback. At 191, I spoke with Dr. Rain in transfer center who advised that they would accept the patient to [facility] emergency department for further evaluation and management with his new motor deficits in his lower extremities. EMS transport was arranged, and the patient was transferred in stable condition. Critical Care Critical Care Time Critical Care Time: No
[2023-07-28 16:38] LABS: Lactate Venous 2.5 mmol/L (0.4-2.0)
[2023-07-28] MEDS: LACTATED RINGERS 1000ML 1,000 ML 999 ML IV (16:38)
[2023-07-28 16:43] LABS: Basophils # 0.1 K/mm3 (0-0.2); Basophils % 1.4 % (0.1-2.0); Eosinophils # 0.2 K/mm3 (0.0-0.4); Eosinophils % 1.8 % (0.1-12.0); Hematocrit 40.1 % (42.0-52.0); Hemoglobin 12.2 g/dL (14.1-18.0); Lymphocytes # 0.9 K/mm3 (0.7-4.5); Lymphocytes % 10.2 % (10-50); Mean Corpuscular HGB Conc 30.5 g/dL (31.8-35.4); Mean Corpuscular Volume 104.9 fl (80-94); Mean Platelet Volume 8.2 fl (7.4-10.4); Monocytes # 0.7 K/mm3 (0.1-1.0); Monocytes % 7.5 % (1.7-9.3); Neutrophils # 6.9 K/mm3 (1.8-7.8); Platelet Count 411 K/mm3 (142-424); Red Blood Count 3.83 M/mm3 (4.60-6.20); Red Cell Distribution Width 17.3 % (11.5-17.5); White Blood Count 8.7 K/mm3 (4.8-10.8)
[2023-07-28 16:52] LABS: Alanine Aminotransferase 18 U/L (12-78); Albumin Level 3.1 g/dl (3.5-5.0); Albumin/Globulin Ratio 1.1 (1.1-1.8); Alkaline Phosphatase 109 U/L (38-126); Anion Gap 10.7 mEq/L (5-15); Aspartate Amino Transferase 40 U/L (17-59); Bilirubin,Total 0.4 mg/dl (0.2-1.3); Blood Urea Nitrogen 18 mg/dl (9-20); Calcium 8.7 mg/dl (8.4-10.2); Carbon Dioxide 34 mmol/L (22.0-30.0); Chloride 94 mmol/L (98-107); Creatine Kinase 44 U/L (55-170); Creatinine Clearance Estimated 64 mL/min (50-200); Estimated Glomerular Filt Rate 82 ml/min (>60); GFR (African American) 99 ML/MIN (>60); Globulin 2.8 g/dL (1.3-3.2); Glucose 92 mg/dl (74-100); Magnesium 1.8 mg/dl (1.6-2.3); Phosphorous 3.5 mg/dl (2.5-4.5); Potassium 4.7 mmoL/L (3.5-5.1); Sodium 134 mmol/L (136-145); Total Protein,Serum 5.9 g/dl (6.3-8.2)
[2023-07-28 17:09] LABS: T4 (Thyroxine) 8.5 ug/dl (5.53-11.0)
[2023-07-28 17:23] LABS: Thyroid Stimulating Hormone 7.22 uIU/mL (0.465-4.68)
[2023-07-28 17:42] LABS: Vitamin B12 451 pg/mL (239-931)
[2023-07-28 17:52] LABS: Microscopic, Urine URINE MICROSCOPIC (MICROSCOPIC)
--- NOTE | 2023-07-28 17:54 | PC.NURSE ---
contacted transfer center, they will call back when they have a provider on the line.
--- NOTE | 2023-07-28 17:56 | PC.NURSE ---
calling [facility] at this time
--- NOTE | 2023-07-28 17:59 | PC.NURSE ---
PVR 34ml; 20 minutes PV
[2023-07-28 18:11] LABS: Appearance,Urine CLEAR (Clear); Blood, Urine Negative (Negative); Color,Urine YELLOW (Yellow); Glucose,Urine (UA) Negative (Negative); Ketones,Urine Negative (Negative); Leukocyte Esterase,Urine Negative (Negative); Nitrate,Urine Negative (Negative); Protein,Urine Negative (Negative); Specific Gravity, Urine >= 1.030 (1.005-1.030); Urobilinogen,Urine 0.2 EU/dl (0.2)
[2023-07-28 18:17] LABS: Bilirubin,Urine 1+ (Negative)
[2023-07-28 18:26] LABS: Bacteria,Urine Trace /lpf; RBC,Urine Occasional #/hpf (0-3); WBC,Urine Occasional #/hpf (0-3)
--- NOTE | 2023-07-28 18:51 | PC.NURSE ---
called [facility] for transfer update on patient at this time.
--- NOTE | 2023-07-28 19:17 | PC.NURSE ---
Report called to Corinne PRESLEY at [facility].
--- NOTE | 2023-07-28 19:28 | PC.NURSE ---
Ravinder Preston RN called EMS to notify them of the transfer
--- NOTE | 2023-07-28 20:06 | PC.NURSE ---
2003 pt c/o sternal/ epigasteric pain. EKG aquired. pt placed on 2LNC (he uses this PRN at home.)
[2023-07-28 20:38] LABS: Reflex Lactic Add Lactic Reflex
== END 2023-07-28 20:20 | disposition short-term general hospital (02) ==
PROVIDERS: Emergency Provider Emergency Medicine; PCP Student in an Organized Health Care Education/Training Program
DX: M62.81 Muscle weakness (generalized) (principal); C79.51 Secondary malignant neoplasm of bone; C15.9 Malignant neoplasm of esophagus, unspecified; I44.0 Atrioventricular block, first degree; J44.9 Chronic obstructive pulmonary disease, unspecified; F17.210 Nicotine dependence, cigarettes, uncomplicated; I10 Essential (primary) hypertension; E78.5 Hyperlipidemia, unspecified; I48.0 Paroxysmal atrial fibrillation; Z92.21 Personal history of antineoplastic chemotherapy; R74.02 Elevation of levels of lactic acid dehydrogenase [LDH]; E87.1 Hypo-osmolality and hyponatremia
CPT/HCPCS: 71045; 72125; 72128; 72131; 80053; 81001; 82550; 82607; 82803; 83735; 84100; 84436; 84443; 85025; 93005; 96360; 99285; J7120

== ENCOUNTER 2023-08-01 18:00 | Outpatient (CLI) | payer MEDICARE, SELFPAY | END 2023-08-01 23:59 | disposition home or self-care (01) | LOC: LAB.DROPOF 08-02 14:05 | PROVIDERS: PCP Student in an Organized Health Care Education/Training Program; Visit Provider Student in an Organized Health Care Education/Training Program | DX: R05.3 Chronic cough (principal); R53.83 Other fatigue | CPT/HCPCS: 87635 ==

== ENCOUNTER 2023-08-06 10:35 | Inpatient (IN) | payer MEDICARE, SELFPAY ==
[2023-08-06] VITALS (32 sets, daily range): BP systolic 88–128; BP diastolic 49–90; PULSE 56–126; RESP 11–31; TEMP 36.5–36.8; O2SAT 82–100; BMI 25.0
--- NOTE | 2023-08-06 | CA_ITS ---
APPROVED REPORT EXAM: Limited 2D Echocardiogram [employer] Worker: Lisbeth Gamboa CRT Ht: 5 ft 7 in Wt: 160lbs BSA: 1.84 BP: 100/68 mmHg Indications: pericardial effusion with drain, esophageal Ca with chemo, smoker Other Information Study Quality: Fair Conclusion This is a limited TTE to evaluate for pericardial effusion. Limited windows were obtained. There is a large sized, anterior, pericardial effusion present. The largest pocket measures approximately 3 cm in diastole. Full evaluation for tamponade cannot be made due to it on available images. The ED team inpatient cardiology consult service was made aware of the findings in real-time image acquisition in anticipation of pericardiocentesis. Electronically signed by : Rita De La Paz MD 08/07/2023 10:57:18
--- NOTE | 2023-08-06 10:43 | ECG_ITS ---
APPROVED REPORT Exam: Resting ECG HR:118 bpm ECG Measurements Heart Rate 118 AXES QRSd 107 QRS 106 QT 318 T 10 QTc 388 Conclusion ATRIAL FIBRILLATION WITH RAPID VENTRICULAR RESPONSE RIGHT AXIS DEVIATION [QRS AXIS > 100] LOW QRS VOLTAGE [QRS DEFLECTION < 0.5/1.0 mV IN LIMB/CHEST LEADS] POSSIBLE ANTERIOR MYOCARDIAL INFARCTION , PROBABLY OLD [30 ms Q WAVE IN V3/V4, OR R < 0.2 mV IN V4] ABNORMAL ECG Electronically signed by : JUSTO DOYLE, 08/06/2023 13:57:35
[2023-08-06] MEDS: IPRATROPIUM/ALBUTEROL 3 ML NEB IH ×2 (10:53→19:12)
--- NOTE | 2023-08-06 11:00 | PC.NURSE ---
Dr. Nagy at [facility]
--- NOTE | 2023-08-06 11:06 | PC.NURSE ---
Dr. Nagy s/w Dr. Cameron
--- NOTE | 2023-08-06 11:08 | PC.NURSE ---
Dr. Nagy speaking with Dr. Cameron
--- NOTE | 2023-08-06 11:09 | XR_ITS ---
FINAL REPORT CLINICAL HISTORY: Shortness of breath COMPARISON: 07/28/2023 FINDINGS: There are worsening bibasilar opacities compatible with enlarged pleural effusions with atelectasis. Mediastinum is unremarkable. Bilateral pleural drains are noted. Left Port-A-Cath is present. Heart size is normal. IMPRESSION: Worsening pleural effusions and atelectasis. Reviewed, Interpreted and Dictated by Rasta Rocha MD Transcribed by Abena Chavira Authenticated and [facility]
--- NOTE | 2023-08-06 11:11 | PC.NURSE ---
Dr. Cameron at bedside for emergent pericardialcentisis
[2023-08-06] MEDS: MIDAZOLAM 5MG/ML 1ML VIAL 1 MG IV (11:18)
[2023-08-06 11:30] LABS: Basophils # 0.2 K/mm3 (0-0.2); Basophils % 1.3 % (0.1-2.0); Eosinophils % 0.1 % (0.1-12.0); Hematocrit 34.7 % (42.0-52.0); Hemoglobin 10.8 g/dL (14.1-18.0); Lymphocytes # 0.7 K/mm3 (0.7-4.5); Lymphocytes % 4.6 % (10-50); Mean Corpuscular HGB Conc 31.2 g/dL (31.8-35.4); Mean Corpuscular Hemoglobin 32.7 pg (27.0-31.2); Mean Corpuscular Volume 104.8 fl (80-94); Mean Platelet Volume 7.7 fl (7.4-10.4); Neutrophils # 12.8 K/mm3 (1.8-7.8); Platelet Count 500 K/mm3 (142-424); Red Blood Count 3.32 M/mm3 (4.60-6.20); Red Cell Distribution Width 16.6 % (11.5-17.5); White Blood Count 14.8 K/mm3 (4.8-10.8)
[2023-08-06] MEDS: FENTANYL 250MCG/5ML VIAL 40 MCG IV (11:37)
[2023-08-06] MEDS: LIDOCAINE 1% 10ML MDV 10 ML SQ (11:43)
[2023-08-06 11:45] LABS: Chloride 93 mmol/L (98-107); Potassium 5.9 mmoL/L (3.5-5.1); Sodium 128 mmol/L (136-145)
[2023-08-06 11:48] LABS: Alanine Aminotransferase 75 U/L (12-78); Albumin Level 3.2 g/dl (3.5-5.0); Albumin/Globulin Ratio 1.1 (1.1-1.8); Alkaline Phosphatase 191 U/L (38-126); Anion Gap 13.9 mEq/L (5-15); Aspartate Amino Transferase 124 U/L (17-59); Bilirubin,Total 0.6 mg/dl (0.2-1.3); Blood Urea Nitrogen 63 mg/dl (9-20); Carbon Dioxide 27 mmol/L (22.0-30.0); Creatinine Clearance Estimated 28 mL/min (50-200); Estimated Glomerular Filt Rate 28 ml/min (>60); GFR (African American) 34 ML/MIN (>60); Globulin 2.9 g/dL (1.3-3.2); Glucose 147 mg/dl (74-100); Total Protein,Serum 6.1 g/dl (6.3-8.2)
[2023-08-06 11:54] LABS: MANUAL DIFFERENTIAL MANUAL DIFFERENTIAL (MANUAL DIFF)
[2023-08-06 11:54] LABS: VBG Base Excess -2.7 mmol/L (-2.4-2.3); VBG HCO3 23.2 mmol/L (23-30); VBG Oxygen Saturation 85.2 % (50-70); VBG PCO2 44.9 mmol/L (35-51); VBG PH 7.33 mmol/L (7.31-7.41); VBG PO2 54.3 mmol/L (28-40); VBG Total CO2 24.6 mmol/L (23-27)
--- NOTE | 2023-08-06 11:58 | [facility].EDCP ---
Discharge Plan Disposition Patient Disposition: Admitted Chief Complaint: Shortness of Breath/Dyspnea Prescriptions Prescriptions: No Action gabapentin 300 mg capsule 300 mg PO BID Qty: 60 2RF cetirizine [Zyrtec] 10 mg tablet 10 mg PO DAILY PRN (Reason: allergy symptoms) Qty: 30 4RF amiodarone 200 mg tablet 200 mg PO DAILY ondansetron HCl 8 mg tablet 8 mg PO Q12H aspirin [Adult Aspirin Regimen] 81 mg tablet,delayed release (DR/EC) 81 mg PO DAILY ascorbic acid (vitamin C) 250 mg tablet 250 mg PO BID Centrum Adult 50 Plus 80 mcg tablet,chewable 1 tab PO DAILY (DME) blood pressure monitor Kit See Rx Instructions .ROUTE .MEDSUPPLY Qty: 1 0RF Rx Instructions: As directed guaifenesin 400 mg tablet 400 mg PO TID PRN (Reason: cough) Qty: 10 0RF Ensure Liquid 1 ea PO DAILY Qty: 1422 3RF midodrine 5 mg tablet 10 mg PO TID 30 Days Qty: 180 3RF Trelegy Ellipta 100-62.5-25 mcg blister with device 1 inh inhalation DAILY 90 Days Qty: 1 3RF azelastine 205.5 mcg (0.15 %) spray,non-aerosol 2 spray intranasal HS Qty: 30 0RF Rx Instructions: administer into each nostril famotidine [Pepcid] 20 mg Tablet 20 mg PO DAILY ipratropium-albuterol 0.5 mg-3 mg(2.5 mg base)/3 mL solution for nebulization 3 ml inhalation QID PRN (Reason: Shortness Of Breath Or Wheezing) capecitabine 150 mg tablet 900 mg PO BID Rx Instructions: TAKE 6 TABLETS BY MOUTH TWICE A DAY FOR 21 DAYS, THEN REPEAT WITH NO DAYS OFF. Referrals Follow up/Referrals: Adia Lemus PA [Primary Care Provider] - See instructions Clinical Impressions Clinical Impression: Malignancy, Pleural effusion, Cardiac tamponade, Acute hyponatremia, Hypocalcemia, Hyperkalemia Discharge ED Provider: Juan Nagy General Chief Complaint: Shortness of Breath/Dyspnea Stated Complaint: congestion, soa Time Seen by Provider: 08/06/23 10:40 Mode of Arrival: Wheelchair Source of Information: Patient Limitations: No Limitations Description of Symptoms (Recalled from ER Triage Doc. by RN): pt to ed c/o increased SOA this am prior to his chemo treatment. at the bedside states he also has generalized weakness associated. at the bedside has suspicion for anxiety related to the fact he has had several chemo related reactions. History of Present Illness HPI narrative: Patient is a 77-year-old male with past medical history of metastatic lung cancer, adenocarcinoma of the esophagus, chronic pericardial effusion, atrial fibrillation who presents emergency department for evaluation of shortness of breath. Patient has had chemotherapy (see Dr. Canada's note), over the last 24 hours he has had progressive shortness of breath causing him to present for continued evaluation before his chemotherapy today. No significant chest pain. Related Data Home Medications Medication Instructions Recorded Confirmed famotidine 20 mg tablet (Pepcid) 20 mg PO DAILY 02/22/23 08/01/23 ipratropium 0.5 mg-albuterol 3 mg 3 ml inhalation QID PRN Shortness 02/27/23 08/01/23 (2.5 mg base)/3 mL nebulization Of Breath Or Wheezing soln capecitabine 150 mg tablet 900 mg PO BID 04/11/23 08/01/23 amiodarone 200 mg tablet 200 mg PO DAILY 08/05/23 08/05/23 ascorbic acid (vitamin C) 250 mg 250 mg PO BID 08/05/23 08/05/23 tablet aspirin 81 mg tablet,delayed 81 mg PO DAILY 08/05/23 08/05/23 release (Adult Aspirin Regimen) multivitamin with minerals-folic 1 tab PO DAILY 08/05/23 08/05/23 acid 80 mcg chewable tablet (Centrum Adult 50 Plus) ondansetron HCl 8 mg tablet 8 mg PO Q12H 08/05/23 08/05/23 Previous Rx's Medication Instructions Recorded midodrine 5 mg tablet 10 mg (2 x 5 mg) PO TID 30 days 06/20/23 #180 tabs fluticasone fur. 100 mcg-umeclid 1 inh inhalation DAILY 90 days #1 06/24/23 62.5 mcg-vilant 25 mcg ea inhalat.powder (Trelegy Ellipta) blood pressure monitor #1 ea 07/09/23 gabapentin 300 mg capsule 300 mg PO BID #60 caps 07/11/23 guaifenesin 400 mg tablet 400 mg PO TID PRN cough #10 tabs 08/01/23 food supplemt, lactose-reduced 1 ea PO DAILY #1,422 mL 08/02/23 (Ensure oral liquid) cetirizine 10 mg tablet (Zyrtec) 10 mg PO DAILY PRN allergy 08/05/23 symptoms #30 tabs azelastine 205.5 mcg (0.15 %) 2 spray intranasal HS #30 mL 08/06/23 nasal spray Allergies Allergy/AdvReac Type Severity Reaction Status Date / Time oxaliplatin Allergy Other Verified 08/05/23 08:57 [facility] Disclaimer: The information contained in this section may have been updated after the patient was seen, as this information can be updated by other users. Medical History Acute on chronic respiratory failure with hypoxia and hypercapnia Shortness of breath PNA (pneumonia) Paroxysmal atrial fibrillation Acute and chronic respiratory failure with hypoxia Pericardial effusion HAP (hospital-acquired pneumonia) Septic shock Acute hypercapnic respiratory failure Ascites Pneumonia Pulmonary edema Chronic cough Tachycardia Respiratory failure with hypoxia Adenocarcinoma Pleural effusion on right Encounter for screening for malignant neoplasm of lung Smoking greater than 30 pack years Dyspnea on exertion Pulmonary emphysema Pneumonia Viral pneumonia Tobacco user Hyperlipidemia Sepsis NSTEMI (non-ST elevated myocardial infarction) Acute exacerbation of chronic obstructive pulmonary disease Acute respiratory failure with hypoxia Community acquired pneumonia COPD (chronic obstructive pulmonary disease) Surgical History History of hip replacement Family History Other Lung cancer Social History Smoking Status: Light tobacco smoker alcohol intake: never substance use type: denies use current occupational status: retired Travel in the last 8 weeks: None household members: spouse lives independently: Yes marital status: education level: college caffeine: Yes physical activity: walking ROS Obtained: Yes Systems reviewed as appropriate & no additional complaints except as documented Physical Exam General General appearance: alert and in no apparent distress Head Head exam: atraumatic and normocephalic Eye Eye exam: Present PERRL ENT ENT exam: Present mucous membranes moist Neck Neck exam: Present normal inspection Chest Chest inspection: Present normal inspection and symmetric chest wall rise Respiratory Respiratory exam: Present respiratory distress, wheezes and accessory muscle use Cardiovascular Cardiovascular exam: Present normal rhythm and tachycardia Abdominal Exam Abdominal exam: Present soft; Absent tenderness Extremities Exam Extremities exam: Present normal inspection Neurological Exam Neurological exam: Present alert; Absent motor sensory deficit Psychiatric Psychiatric exam: Present normal affect Skin Skin exam: Present warm and dry HEART Score HEART Score HEART Score assessment performed?: Yes History (anamnesis): Slightly suspicious ECG: Non-specific disturbance Age: >65 years Risk factors: 3 or more risk factors Troponin: </= normal limit HEART Score: 5 Critical Care Critical Care Time Critical Care Time: Yes Attestation: On 08/06/23, the high probability of a clinically significant, sudden or life threatening deterioration of the following system(s) required my full and direct attention, intervention and personal management. The time I documented below is in addition to time spent performing reported procedures but includes the following listed in this critical care notation. Total Time Total Critical Care Time: 45 Medical Decision Making Raghu Inquiry Pt receiving controlled substance: No Vital Signs Vital Signs: 08/06/23 10:51 08/06/23 11:01 08/06/23 11:04 Temperature 97.7 F Temperature Source Oral Pulse Rate 61 Pulse Rate [Right] 126 H Respiratory Rate 17 31 H 24 Blood Pressure 112/90 120/69 Blood Pressure [Right Arm] 112/90 Blood Pressure Mean Blood Pressure Mean [Right Arm] 97 Blood Pressure Source [Right Arm] Automatic Cuff 02 Sat by Pulse Oximetry 97 93 L Oxygen Delivery Method Nasal Cannula Oxygen Flow Rate (LPM) 2 08/06/23 11:23 08/06/23 11:25 08/06/23 11:31 Temperature Temperature Source Pulse Rate Pulse Rate [Right] Respiratory Rate 20 16 18 Blood Pressure 109/76 L 114/81 127/52 L Blood Pressure [Right Arm] Blood Pressure Mean Blood Pressure Mean [Right Arm] Blood Pressure Source [Right Arm] 02 Sat by Pulse Oximetry Oxygen Delivery Method Oxygen Flow Rate (LPM) 08/06/23 11:35 08/06/23 11:40 08/06/23 11:45 Temperature Temperature Source Pulse Rate 69 69 Pulse Rate [Right] Respiratory Rate 15 12 15 Blood Pressure 114/64 112/64 118/59 L Blood Pressure [Right Arm] Blood Pressure Mean Blood Pressure Mean [Right Arm] Blood Pressure Source [Right Arm] 02 Sat by Pulse Oximetry 100 94 L Oxygen Delivery Method Oxygen Flow Rate (LPM) 08/06/23 11:50 06/18/24 12:06 08/06/23 12:15 Temperature Temperature Source Pulse Rate 69 68 69 Pulse Rate [Right] Respiratory Rate 14 Blood Pressure 108/53 L 98/57 L 117/69 Blood Pressure [Right Arm] Blood Pressure Mean 65 71 Blood Pressure Mean [Right Arm] Blood Pressure Source [Right Arm] 02 Sat by Pulse Oximetry 90 L 92 L 91 L Oxygen Delivery Method Oxygen Flow Rate (LPM) 08/06/23 12:26 08/06/23 13:00 Temperature Temperature Source Pulse Rate 66 65 Pulse Rate [Right] Respiratory Rate 11 L 14 Blood Pressure 107/78 L 113/61 Blood Pressure [Right Arm] Blood Pressure Mean Blood Pressure Mean [Right Arm] Blood Pressure Source [Right Arm] 02 Sat by Pulse Oximetry 90 L 89 L Oxygen Delivery Method Oxygen Flow Rate (LPM) Lab Data Labs: Lab Results 08/06/23 10:56: WBC 14.8 H, RBC 3.32 L, Hgb 10.8 L, Hct 34.7 L, MCV 104.8 H, MCH 32.7 H, MCHC 31.2 L, RDW 16.6, Plt Count 500 H, MPV 7.7, Neut % (Auto) 87.0 H, Lymph % (Auto) 4.6 L, [place] % (Auto) 7.0, Eos % (Auto) 0.1, Baso % (Auto) 1.3, Neut # (Auto) 12.8 H, Lymph # (Auto) 0.7, [place] # (Auto) 1.0, Eos # (Auto) 0.0, Baso # (Auto) 0.2, Total Counted 100, Neutrophils % (Manual) 85 H, Lymphocytes % (Manual) 9 L, Monocytes % (Manual) 6, Platelet Estimate Moderate increase, Macrocytosis 1+, Sodium 128 L, Potassium 5.9 H, Chloride 93 L, Carbon Dioxide 27, Anion Gap 13.9, BUN 63 H, Creatinine 2.30 H, Estimated Creat Clear 28, Estimated GFR 28 L, Est GFR ( Amer) 34 L, Glucose 147 H, Calcium 8.0 L, Total Bilirubin 0.6, AST 124 H, ALT 75, Alkaline Phosphatase 191 H, Troponin I < 0.01, Total Protein 6.1 L, Albumin 3.2 L, Globulin 2.9, Albumin/Globulin Ratio 1.1 08/06/23 11:46: VBG pH 7.33, VBG pCO2 44.9, VBG pO2 54.3 H, VBG HCO3 23.2, VBG Total CO2 24.6, VBG O2 Saturation 85.2 H, VBG Base Excess -2.7 L, VBG Lactic Acid 2.6 H 08/06/23 10:56 08/06/23 10:56 Response Orders (Tests/Meds): ED MEDICATIONS Generic Name Dose Route Start Last Admin Trade Name Freq PRN Reason Stop Dose Admin Calcium Gluconate/Sodium Chloride 2 gm in 100 mls @ 50 mls/hr 08/06/23 12:11 08/06/23 12:59 Calcium Gluconate 2,000mg/100ml Nacl Premix IV 08/06/23 14:10 50 mls/hr ONCE ONE Administration Discontinued Medications Generic Name Dose Route Start Last Admin Trade Name Freq PRN Reason Stop Dose Admin Albuterol/Ipratropium 3 ml 08/06/23 10:52 08/06/23 10:53 Ipratropium/Albuterol 3 Ml [facility] 08/06/23 10:53 3 ml ONCE ONE Administration Albuterol/Ipratropium 6 ml 08/06/23 11:09 08/06/23 12:52 Ipratropium/Albuterol 3 Ml [facility] 08/06/23 11:10 Not Given ONCE ONE Dextrose 50 ml 08/06/23 12:30 08/06/23 13:01 Dextrose 50% 50ml Syringe (Crash Cart) IVP 08/06/23 12:31 50 ml ONCE ONE Administration Fentanyl Citrate 40 mcg 08/06/23 11:35 08/06/23 11:37 Fentanyl 250mcg/5ml Vial IV 08/06/23 11:36 40 mcg ONCE ONE Administration Lactated Ringer's 1,000 mls @ 999 mls/hr 08/06/23 12:06 08/06/23 12:58 Lactated Ringer's 1000 Ml Bag IV 08/06/23 13:06 999 mls/hr .Q1H1M ONE Administration Insulin Human Regular 5 unit 08/06/23 12:30 08/06/23 13:01 Insulin Human Regular 100 Units/Ml 10ml Vial IV 08/06/23 12:31 5 unit ONCE ONE Administration Lidocaine HCl 10 ml 08/06/23 11:41 08/06/23 11:43 Lidocaine 1% 10ml Mdv SQ 08/06/23 11:42 10 ml ONCE ONE Administration Methylprednisolone Sodium Succinate 125 mg 08/06/23 11:09 08/06/23 12:58 Methylprednisolone Sod Succ 125mg Vial IV 08/06/23 11:10 125 mg ONCE ONE Administration Midazolam HCl 1 mg 08/06/23 11:18 08/06/23 11:18 Midazolam 5mg/Ml 1ml Vial IV 08/06/23 11:19 1 mg ONCE ONE Administration Propofol 100 mg 08/06/23 11:10 08/06/23 11:44 Propofol 10mg/Ml 20ml Vial IV 08/06/23 11:11 Not Given ONCE ONE Sodium Zirconium Cyclosilicate 10 gm 08/06/23 12:12 08/06/23 13:01 Lokelma 5gm Packet PO 08/06/23 12:13 10 gm ONCE ONE Administration ORDERS Category Date Time Status CA echo limited Routine Exams 08/06/23 Completed CA echo limited Routine Exams 08/07/23 06:00 Ordered CXR --portable [XR chest portable] Stat Exams 08/06/23 11:09 Completed POCUS Point of Care (ER Only) Stat Exams 08/06/23 10:49 Completed CBC w/Auto Diff [Complete Blood Count Auto Diff] Stat Lab 08/06/23 10:56 Completed CMP [Comprehensive Metabolic Panel] Stat Lab 08/06/23 10:56 Completed Trop I [Troponin I] Stat Lab 08/06/23 10:56 Completed Troponin I Q3H Lab 08/06/23 14:15 Ordered Troponin I Q3H Lab 08/06/23 17:15 Ordered VBG [Venous Blood Gas] Stat RT 08/06/23 11:46 Completed ECG Data Tracing #1: ECG Narrative: Independently interpreted by me, rate is 118, rhythm is irregular, atrial fibrillation with rapid ventricular response, no ST elevation in anatomical contiguous leads, low voltages. QTc 388. MDM Narrative Medical Decision Narrative: In summary patient is a 77-year-old male with past medical history described above who presents emergency department for evaluation of shortness of breath. Patient is tachycardic upon arrival, mottled hands and feet, dyspneic. Unable to get accurate Pleth due to cold extremities. Patient is mentating okay. Patient has wheezing for which DuoNeb will be initiated. [id number] ultrasound showed concern for tamponade. Immediately discussed the case with Dr. Cameron, pericardiocentesis performed by me under supervision of Dr. Cameron at bedside with significant improvement in symptoms. Wheezing completely resolved. Differential for pericardial effusion causing tamponade includes malignant effusion, chemotherapy related, chronic heart failure, among others. Hematologic labs will be obtained, chest x-ray will be obtained. Initial workup reviewed by me, hematologic labs remarkable for leukocytosis 14.8, compensated acid-base status, hyponatremia, hyperkalemia, YOLANDA, hypocalcemia. 2 g of calcium gluconate will be administered, glucose and bicarb will be administered for hyperkalemia as well as Lokelma. Patient has YOLANDA with normal baseline, normal ejection fraction in 2022 which will be resuscitated with 1 L of crystalloid. The case was discussed with hospital medicine and patient will be admitted to their service for continued evaluation at this time in conjunction with cardiology. Dr. Bond and I both agree patient would benefit from continued goals of care discussion. Procedure: Procedure performed was emergent pericardiocentesis. Procedure performed by Juan Nagy under the supervision of Dr. Cameron. Anxiolysis with 1 mg of Versed. Using sterile technique a pericardiocentesis needle was advanced along the subcostal margin until the ribs were felt, it was angled just underneath the rib along the left inferior sternal and costal margin and advanced, the angle of the needle was dropped, and was continued to advanced until bloody aspirate was aspirated. Needle was held in place and the syringe was disconnected. Guidewire fed without resistance, dilated without resistance, pericardial drain placed, post pull method removed approximately 800 cc of hemorrhagic effusion. Patient tolerated the procedure well. There were no immediate complications.
[2023-08-06 12:00] LABS: Lactate Venous 2.6 mmol/L (0.4-2.0)
[2023-08-06 12:06] LABS: Troponin I < 0.01 ng/ml (0.00-0.034)
[2023-08-06 12:30] LABS: Lymphocytes % 9 % (10-50); Macrocytosis 1+; Monocytes % 6 % (2-9); Neutrophils % 85 % (42-76); Platelet Estimate Moderate Increase; Total Cells Counted 100
--- NOTE | 2023-08-06 12:37 | PC.NURSE ---
Rounded on patient. [place] provided. No other needs at this time.
[2023-08-06] MEDS: METHYLPREDNISOLONE SOD SUCC 125MG VIAL 125 MG IV (12:58)
[2023-08-06] MEDS: LACTATED RINGERS 1000ML 1,000 ML 999 ML IV (12:58)
[2023-08-06] MEDS: CALCIUM GLUC IN NACL, ISO-OSM 2 GM/100 ML BAG IV (12:59)
[2023-08-06] MEDS: DEXTROSE 50% 50ML SYRINGE (CRASH CART) 50 ML IVP (13:01)
[2023-08-06] MEDS: LOKELMA 5GM PACKET 10 GM PO (13:01)
[2023-08-06] MEDS: INSULIN HUMAN REGULAR 100 UNITS/ML 10ML VIAL 5 UNIT IV (13:01)
--- NOTE | 2023-08-06 13:13 | P.CONCA_ITS ---
History of Present Illness History of Present Illness Consult date: 08/06/23 Requesting physician: Juan Nagy Consult reason: shortness of breath Chief complaint: Pericardial tamponade Additional Medical History:: 1. CAD A. LHC, 2022, mild non-occlusive disease of LAD, Normal EF and normal LVEDP 2. Hypertension A. Echocardiogram, 03/30/2022, EF 55% with no regional WMA. Mild RV enlargement normal contractility. Trace MR and TR. 3. Hyperlipidemia 4. COPD with history of tobacco use 5. 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 Diagnosed by pleural fluid from ultrasound-guided thoracentesis, 02/08/[address] chest/abdomen/pelvis, 05/2023, bilateral pleural effusions, R>L, with small pericardial effusion but no other findings. C. MRI of the brain, 02/20/2023 no evidence of metastatic disease D. Initiation of capecitabine/oxaliplatin chemotherapy, 03/19/23 E. ALLERGIC reaction to oxaliplitan therapy 6. New onset atrial fibrillation, 06/11/2023 A. Converted to sinus rhythm with IV amiodarone therapy, 06/12/2023 7. Pericardial effusion, first noticed about 02/[address] A. Cardiac tamponade, 08/06/2023, status post pericardiocentesis with 1 L of bloody fluid removed 8. Lower extremity weakness A. July 28, 2023: Admitted to [facility] with bilateral lower extremity weakness and unable to walk. Had CAT scans of the head chest abdomen and pelvis. Also underwent MRI of cervical/thoracic/lumbar spine. CAT scans revealed known pericardial effusion with small bilateral pleural effusions. No other significant findings. MRIs of the spine shows some small lesions that were potentially metastatic cancer but no nerve root or cord compression. Surgical consultation with orthopedics, as well as radiation oncology consultation led to recommendation for no intervention at this time and follow-up with medical oncology for further systemic therapy. Unclear what caused leg weakness but that recovered. History of present illness: Patient is a 77-year-old male with past medical history of metastatic lung cancer, adenocarcinoma of the esophagus, chronic pericardial effusion, atrial fibrillation who presents emergency department for evaluation of shortness of breath. Patient has had chemotherapy (see Dr. Canada's note), over the last 24 hours he has had progressive shortness of breath causing him to present for continued evaluation before his chemotherapy today. No significant chest pain. Bedside echo showed evidence of cardiac tamponade. Pericardiocentesis performed by Dr. Nagy under the supervision of Dr. Cameron. Approximate 100 cc of hemorrhagic effusion removed with improvement in shortness of breath. The above per Dr. Kamron Nagy Patient was seen in our office yesterday with no significant complaints of shortness of breath above his baseline. Pt will be admitted for further evaluation and treatment. Patient and relate patient's increased loss of balance and weakness in his legs recently. Recently admitted at [facility] for leg weakness with MRI of the back showing new lesion but reportedly is not metabolically active. Reportedly no lesions in the spine to cause weakness. He has been referred to physical therapy for strengthening. [facility] Disclaimer: The information contained in this section may have been updated after the patient was seen, as this information can be updated by other users. Medical History Acute on chronic respiratory failure with hypoxia and hypercapnia Shortness of breath PNA (pneumonia) Paroxysmal atrial fibrillation Acute and chronic respiratory failure with hypoxia Pericardial effusion HAP (hospital-acquired pneumonia) Septic shock Acute hypercapnic respiratory failure Ascites Pneumonia Pulmonary edema Chronic cough Tachycardia Respiratory failure with hypoxia Adenocarcinoma Pleural effusion on right Encounter for screening for malignant neoplasm of lung Smoking greater than 30 pack years Dyspnea on exertion Pulmonary emphysema Pneumonia Viral pneumonia Tobacco user Hyperlipidemia Sepsis NSTEMI (non-ST elevated myocardial infarction) Acute exacerbation of chronic obstructive pulmonary disease Acute respiratory failure with hypoxia Community acquired pneumonia COPD (chronic obstructive pulmonary disease) Surgical History History of hip replacement Family History Other Lung cancer Social History Smoking Status: Light tobacco smoker alcohol intake: never substance use type: denies use current occupational status: retired Travel in the last 8 weeks: None household members: spouse lives independently: Yes marital status: education level: college caffeine: Yes physical activity: walking Review of Systems Review of Systems Review of systems:: pertinent systems reviewed and negative unless documented below *Cardiovascular Cardiovascular: Reports chest pain and Reports dyspnea *Respiratory Respiratory: Reports dyspnea Exam Data for Last 24 hours Vital signs and Labs for Last 24 Hours: Temp Pulse Resp BP Pulse Ox O2 Del Method O2 Flow Rate 97.7 F 66 11 L 107/78 L 90 L Nasal Cannula 2 08/06/23 11:04 08/06/23 12:26 08/06/23 12:26 08/06/23 12:08/06/23 12:08/06/23 11:04 08/06/23 11:04 Laboratory Results - last 24 hr 08/06/23 10:56: WBC 14.8 H, RBC 3.32 L, Hgb 10.8 L, Hct 34.7 L, MCV 104.8 H, MCH 32.7 H, MCHC 31.2 L, RDW 16.6, Plt Count 500 H, MPV 7.7, Neut % (Auto) 87.0 H, Lymph % (Auto) 4.6 L, [place] % (Auto) 7.0, Eos % (Auto) 0.1, Baso % (Auto) 1.3, Neut # (Auto) 12.8 H, Lymph # (Auto) 0.7, [place] # (Auto) 1.0, Eos # (Auto) 0.0, Baso # (Auto) 0.2, Total Counted 100, Neutrophils % (Manual) 85 H, Lymphocytes % (Manual) 9 L, Monocytes % (Manual) 6, Platelet Estimate Moderate increase, Macrocytosis 1+, Sodium 128 L, Potassium 5.9 H, Chloride 93 L, Carbon Dioxide 27, Anion Gap 13.9, BUN 63 H, Creatinine 2.30 H, Estimated Creat Clear 28, Estimated GFR 28 L, Est GFR ( Amer) 34 L, Glucose 147 H, Calcium 8.0 L, Total Bilirubin 0.6, AST 124 H, ALT 75, Alkaline Phosphatase 191 H, Troponin I < 0.01, Total Protein 6.1 L, Albumin 3.2 L, Globulin 2.9, Albumin/Globulin Ratio 1.1 08/06/23 11:46: VBG pH 7.33, VBG pCO2 44.9, VBG pO2 54.3 H, VBG HCO3 23.2, VBG Total CO2 24.6, VBG O2 Saturation 85.2 H, VBG Base Excess -2.7 L, VBG Lactic Acid 2.6 H I & O for Last 24 hours: Intake & Output 08/04/23 08/05/23 08/06/23 08/07/23 11:59 11:59 11:59 11:59 Weight 160 lb Constitutional Constitutional: no acute distress *Routine Respiratory Exam Respiratory: Present decreased breath sounds, rhonchi and diminished air movement *Routine Cardiovascular Exam Cardiovascular: Present RRR and murmur *Routine Extremities Exam Extremities: Present edema *Routine Neurological Exam Neurological: Present alert and oriented X3 Meds Home Medications and Allergies Home Medications Medication Instructions Recorded Confirmed Type famotidine 20 mg tablet (Pepcid) 20 mg PO DAILY 02/22/23 08/01/23 History ipratropium 0.5 mg-albuterol 3 mg 3 ml inhalation QID PRN Shortness 02/27/23 08/01/23 History (2.5 mg base)/3 mL nebulization Of Breath Or Wheezing soln capecitabine 150 mg tablet 900 mg PO BID 04/11/23 08/01/23 History midodrine 5 mg tablet 10 mg (2 x 5 mg) PO TID 30 days 06/20/23 08/01/23 Rx #180 tabs fluticasone fur. 100 mcg-umeclid 1 inh inhalation DAILY 90 days #1 06/24/23 08/01/23 Rx 62.5 mcg-vilant 25 mcg ea inhalat.powder (Trelegy Ellipta) blood pressure monitor #1 ea 07/09/23 08/01/23 Rx gabapentin 300 mg capsule 300 mg PO BID #60 caps 07/11/23 08/01/23 Rx guaifenesin 400 mg tablet 400 mg PO TID PRN cough #10 tabs 08/01/23 08/01/23 Rx food supplemt, lactose-reduced 1 ea PO DAILY #1,422 mL 08/02/23 08/02/23 Rx (Ensure oral liquid) amiodarone 200 mg tablet 200 mg PO DAILY 08/05/23 08/05/23 History ascorbic acid (vitamin C) 250 mg 250 mg PO BID 08/05/23 08/05/23 History tablet aspirin 81 mg tablet,delayed 81 mg PO DAILY 08/05/23 08/05/23 History release (Adult Aspirin Regimen) cetirizine 10 mg tablet (Zyrtec) 10 mg PO DAILY PRN allergy 08/05/23 08/05/23 Rx symptoms #30 tabs multivitamin with minerals-folic 1 tab PO DAILY 08/05/23 08/05/23 History acid 80 mcg chewable tablet (Centrum Adult 50 Plus) ondansetron HCl 8 mg tablet 8 mg PO Q12H 08/05/23 08/05/23 History azelastine 205.5 mcg (0.15 %) 2 spray intranasal HS #30 mL 08/06/23 Rx nasal spray New Prescriptions to Start Prescriptions: Allergies Allergy/AdvReac Type Severity Reaction Status Date / Time oxaliplatin Allergy Other Verified 08/05/23 08:57 Assessment and Plan *Assessment and plan (1) Cardiac tamponade: Status: Acute Category: Medical Code(s): I31.4 - Cardiac tamponade (2) Pleural effusion: Status: Acute Category: Medical Code(s): J90 - Pleural effusion, not elsewhere classified (3) Malignancy: Status: Acute Category: Medical Code(s): C80.1 - Malignant (primary) neoplasm, unspecified (4) Acute hyponatremia: Status: Acute Category: Medical Code(s): E87.1 - Hypo-osmolality and hyponatremia (5) Hypocalcemia: Status: Acute Category: Medical Code(s): E83.51 - Hypocalcemia (6) Hyperkalemia: Status: Acute Category: Medical Code(s): E87.5 - Hyperkalemia (7) Adenocarcinoma of esophagus: Status: Acute Category: Medical Code(s): C15.9 - Malignant neoplasm of esophagus, unspecified (8) Paroxysmal atrial fibrillation: Status: Acute Category: Medical Code(s): I48.0 - Paroxysmal atrial fibrillation Plan 1. Cardiac tamponade -s/p pericardiocentesis with fluid being sent for analysis -pericardial drain in place 2. 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 Paroxysmal atrial fibrillation, [id number] of at least 4 -Not on anticoagulation -Amiodarone previously maintaining sinus rhythm, decrease to 200 mg daily on 08/05/2023 -EKG today shows A. fib with RVR at 118 bpm 4. Nonocclusive coronary artery disease by [facility], 2022 -initial troponin normal this admission 5. COPD with tobacco use continue 6. Lower extremity weakness with history of hand-foot syndrome, felt secondary to capecitabine treatment -Recent admission at for evaluation without etiology 7. YOLANDA -Cr 2.3 with GFR 28 8. Hyponatremia -Possibly related to malignancy 9. Hyperkalemia -Likely related to YOLANDA 10. Elevated white count 11. Slight worsening of chronic anemia with hemoglobin 10.8 12. Thrombocytosis with platelet count 500,000 Monitor pericardial drain, may need referral for pericardial window Echo in AM
--- NOTE | 2023-08-06 13:46 | P.HP_ITS ---
History of Present Illness *Admission Date: 08/06/23 *Reason for visit:: Tachycardia, shortness of breath *History of present illness: Mr. Whitaker is a pleasant 77-year-old male with metastatic esophageal adenocarcinoma, chronic pleural effusions, chronic pericardial effusion, progressive cancer. Follows with pulmonology and oncology at [facility]. Was supposed to start new course of chemotherapy today. Over the past 24 hours he has had progressive worsening of shortness of breath causing him to present to the ER for further evaluation. Denies any chest pain, palpitations. Bedside echo in the ER showed evidence of cardiac tamponade. Emergent pericardiocentesis performed by ER physician and Dr. Cameron. Significant hemorrhagic effusion removed with improvement in shortness of breath and tachycardia. Workup concerning for persistent effusions and consolidation in right lower lung field, leukocytosis, YOLANDA with hyperkalemia. Medically treating his hyperkalemia. Medicine consulted for admission and further management. Of note was recently admitted to [facility] for leg weakness with MRI of the back showing new lesion but reportedly is not metabolically active. Reportedly no lesions in the spine to cause weakness. He has been referred to physical therapy for strengthening. States he is feeling better after drainage of the pericardial effusion. Patient is afebrile and hemodynamically stable at this time. On 2 L nasal cannula oxygen. draining bilateral Pleurx drains daily with approximately 2-300 cc of output daily per side. [facility] Disclaimer: The information contained in this section may have been updated after the patient was seen, as this information can be updated by other users. Medical History Acute on chronic respiratory failure with hypoxia and hypercapnia Shortness of breath PNA (pneumonia) Paroxysmal atrial fibrillation Acute and chronic respiratory failure with hypoxia Pericardial effusion HAP (hospital-acquired pneumonia) Septic shock Acute hypercapnic respiratory failure Ascites Pneumonia Pulmonary edema Chronic cough Tachycardia Respiratory failure with hypoxia Adenocarcinoma Pleural effusion on right Encounter for screening for malignant neoplasm of lung Smoking greater than 30 pack years Dyspnea on exertion Pulmonary emphysema Pneumonia Viral pneumonia Tobacco user Hyperlipidemia Sepsis NSTEMI (non-ST elevated myocardial infarction) Acute exacerbation of chronic obstructive pulmonary disease Acute respiratory failure with hypoxia Community acquired pneumonia COPD (chronic obstructive pulmonary disease) Surgical History History of hip replacement Family History Lung cancer Social History (Updated 08/06/23 @ 16:29 by Ursula Carty RN) Smoking Status: Light tobacco smoker alcohol intake: never substance use type: denies use current occupational status: retired Travel in the last 8 weeks: None household members: spouse lives independently: Yes marital status: education level: college caffeine: Yes physical activity: walking Review of Systems Review of Systems Review of systems (narrative): 14 point review of systems performed, pertinent positives and negatives as per [facility] Meds Home Medications and Allergies Home Medications Medication Instructions Recorded Confirmed Type famotidine 20 mg tablet (Pepcid) 20 mg PO DAILY 02/22/23 08/06/23 History ipratropium 0.5 mg-albuterol 3 mg 3 ml inhalation QID PRN Shortness 02/27/23 08/06/23 History (2.5 mg base)/3 mL nebulization Of Breath Or Wheezing soln blood pressure monitor #1 ea 07/09/23 08/01/23 Rx gabapentin 300 mg capsule 300 mg PO BID #60 caps 07/11/23 08/06/23 Rx guaifenesin 400 mg tablet 400 mg PO TID PRN cough #10 tabs 08/01/23 08/06/23 Rx ascorbic acid (vitamin C) 250 mg 500 mg PO BID 08/05/23 08/06/23 History tablet aspirin 81 mg tablet,delayed 81 mg PO DAILY 08/05/23 08/06/23 History release (Adult Aspirin Regimen) cetirizine 10 mg tablet (Zyrtec) 10 mg PO DAILY PRN allergy 08/05/23 08/06/23 Rx symptoms #30 tabs multivitamin with minerals-folic 1 tab PO DAILY 08/05/23 08/06/23 History acid 80 mcg chewable tablet (Centrum Adult 50 Plus) ondansetron HCl 8 mg tablet 8 mg PO Q12H 08/05/23 08/06/23 History cholecalciferol (vitamin D3) 50 50 mcg PO DAILY 08/06/23 08/06/23 History mcg (2,000 unit) capsule New Prescriptions to Start Prescriptions: Allergies Allergy/AdvReac Type Severity Reaction Status Date / Time oxaliplatin Allergy Other Verified 08/05/23 08:57 Exam Data for Last 24 hours Vital signs and Labs for Last 24 Hours: Temp Pulse Resp BP Pulse Ox O2 Del Method O2 Flow Rate 97.7 F 70 14 108/75 L 93 L Nasal Cannula 2 08/06/23 11:04 08/06/23 13:30 08/06/23 13:30 08/06/23 13:30 08/06/23 13:30 08/06/23 13:30 08/06/23 13:30 Laboratory Results - last 24 hr 08/06/23 10:56: WBC 14.8 H, RBC 3.32 L, Hgb 10.8 L, Hct 34.7 L, MCV 104.8 H, MCH 32.7 H, MCHC 31.2 L, RDW 16.6, Plt Count 500 H, MPV 7.7, Neut % (Auto) 87.0 H, Lymph % (Auto) 4.6 L, [place] % (Auto) 7.0, Eos % (Auto) 0.1, Baso % (Auto) 1.3, Neut # (Auto) 12.8 H, Lymph # (Auto) 0.7, [place] # (Auto) 1.0, Eos # (Auto) 0.0, Baso # (Auto) 0.2, Total Counted 100, Neutrophils % (Manual) 85 H, Lymphocytes % (Manual) 9 L, Monocytes % (Manual) 6, Platelet Estimate Moderate increase, Macrocytosis 1+, Sodium 128 L, Potassium 5.9 H, Chloride 93 L, Carbon Dioxide 27, Anion Gap 13.9, BUN 63 H, Creatinine 2.30 H, Estimated Creat Clear 28, Estimated GFR 28 L, Est GFR ( Amer) 34 L, Glucose 147 H, Calcium 8.0 L, Total Bilirubin 0.6, AST 124 H, ALT 75, Alkaline Phosphatase 191 H, Troponin I < 0.01, Total Protein 6.1 L, Albumin 3.2 L, Globulin 2.9, Albumin/Globulin Ratio 1.1 08/06/23 11:46: VBG pH 7.33, VBG pCO2 44.9, VBG pO2 54.3 H, VBG HCO3 23.2, VBG Total CO2 24.6, VBG O2 Saturation 85.2 H, VBG Base Excess -2.7 L, VBG Lactic Acid 2.6 H I & O for Last 24 hours: Intake & Output 06/1508/04/23 08/05/23 08/06/23 23:59 23:59 23:59 23:59 Weight 72.575 kg Constitutional Constitutional: moderate distress, average body habitus, chronically ill appearing and cooperative *Routine HEENT Exam Head: Present normocephalic Eye: Present EOMI and PERRL ENT: Present mucous membranes moist *Routine Neck Exam Neck: Present supple; Absent lymphadenopathy Routine Chest/Breast/Axilla Exam Comments: Pericardial drain in place; bilateral Pleurx drains *Routine Respiratory Exam Respiratory: Present accessory muscle use, crackles (bases) and diminished air movement (in bases); Absent rhonchi or wheezes *Routine Cardiovascular Exam Cardiovascular: Present tachycardia and irregularly irregular *Routine Abdominal Exam Abdominal: Present soft and normoactive bowel sounds; Absent tenderness *Routine Rectal Exam Rectal:: deferred *Routine Genitalia Exam Genitalia:: deferred *Routine Extremities Exam Extremities: Absent cyanosis, clubbing or edema *Routine Skin Exam Skin: Present warm; Absent rash *Routine Neurological Exam Neurological: Present alert, oriented X3 and moving all extremities; Absent altered mental status Assessment and Plan *Assessment and plan (1) Cardiac tamponade: Status: Acute Category: Medical Code(s): I31.4 - Cardiac tamponade (2) Hyperkalemia: Status: Acute Category: Medical Code(s): E87.5 - Hyperkalemia (3) Hypocalcemia: Status: Acute Category: Medical Code(s): E83.51 - Hypocalcemia (4) Acute on chronic respiratory failure with hypoxia and hypercapnia: Status: Inactive Category: Medical Code(s): J96.21 - Acute and chronic respiratory failure with hypoxia; J96.22 - Acute and chronic respiratory failure with hypercapnia (5) Bilateral pleural effusion: Status: Acute Category: Medical Code(s): J90 - Pleural effusion, not elsewhere classified (6) Pericardial effusion: Status: Acute Category: Medical Code(s): I31.39 - Other pericardial effusion (noninflammatory) (7) New onset a-fib: Status: Acute Category: Medical Code(s): I48.91 - Unspecified atrial fibrillation (8) Malignant neoplasm of lower third of esophagus: Status: Acute Category: Medical Code(s): C15.5 - Malignant neoplasm of lower third of esophagus (9) PNA (pneumonia): Status: Inactive Qualifiers: Laterality: right Lung location: lower lobe of lung Pneumonia type: due to unspecified organism Qualified Code(s): J18.9 - Pneumonia, unspecified organism Category: Medical Code(s): J18.9 - Pneumonia, unspecified organism (10) CAD in [place] artery: Status: Acute Category: Medical Code(s): I25.10 - Atherosclerotic heart disease of [place] coronary artery without angina pectoris (11) COPD mixed type: Status: Acute Category: Medical Code(s): J44.9 - Chronic obstructive pulmonary disease, unspecified (12) Adenocarcinoma: Status: Acute Category: Medical Code(s): C80.1 - Malignant (primary) neoplasm, unspecified Plan Mr. Whitaker is a 77-year-old male with a recent history of adenocarcinoma, malignant pleural effusions, following with oncology and pulmonology. Has Pleurx drains in place. Presented to the ER with worsening shortness of breath. Chest imaging with bilateral effusions and suspicion for pneumonia. Also found to have tachycardia. Bedside ultrasound showed concern for pericardial effusion and tamponade. Bedside pericardiocentesis performed. Discussed case with ER physician, request admission for monitoring of pericardial drain output, cardiology eval, further medical management and goals of care discussions. I agreed to admit for further management. Patient admitted to ICU level of care given high risk of decompensation. Initiated on empiric Zosyn given leukocytosis. Problems addressed as follows: Pericardial tamponade Pericardial effusion -Status post pericardial drain placement in the ER. Cardiology consulted, assisting with care. -Will leave drain in place, monitor daily for output. -Malignant pleural effusions previously diagnosed. Pericardial effusion has gradually increased over the past few months. Developed tamponade today. Likely malignant and etiology. -Fluid studies ordered and pending Acute hypoxic respiratory failure: Bilateral pleural effusions metastatic: COPD vs pneumonia - Neutrophil predominant leukocytosis with white count of 14.8. Concerning for infection versus secondary to cancer. Will empirically cover with Zosyn. - Pericardial fluid culture pending. Sputum culture pending -Per my review of chest x-ray, concern for worsening atelectasis, effusions, consolidation. -I ordered CBC, CMP, magnesium for the morning Hyperkalemia YOLANDA - Potassium elevated at 5.9, BUN 63 with creatinine of 2.3. Worsening renal failure. -Hyperkalemia medically managed with dextrose and insulin x 1, calcium gluconate 2 g once. Received single dose of Lokelma in the ER. - Received 1 L LR in the ER. Monitor for improvement with treatment of tamponade and improve cardiac output along with increased volume resuscitation. HLD: on aspirin home famotidine Full code Goals of care discussion
[2023-08-06 15:17] LABS: Troponin I 0.06 ng/ml (0.00-0.034)
[2023-08-06 16:01] LABS: Reflex Lactic Add Lactic Reflex
[2023-08-06] MEDS: PIPERCILLIN/TAZO 3.375 GM in 0.9 % SODIUM CHLORIDE 50 ML IV ×2 (17:45→23:21)
[2023-08-06 18:01] LABS: Chloride 92 mmol/L (98-107); Potassium 5.3 mmoL/L (3.5-5.1); Sodium 126 mmol/L (136-145)
[2023-08-06 18:04] LABS: Anion Gap 8.3 mEq/L (5-15); Blood Urea Nitrogen 58 mg/dl (9-20); Calcium 8.2 mg/dl (8.4-10.2); Carbon Dioxide 31 mmol/L (22.0-30.0); Creatinine Clearance Estimated 38 mL/min (50-200); Estimated Glomerular Filt Rate 39 ml/min (>60); GFR (African American) 48 ML/MIN (>60); Glucose 110 mg/dl (74-100); Lactic Acid Follow Up (RFLX 1) 1.1 mmol/L (0.7-2.1)
[2023-08-06 18:16] LABS: Troponin I 0.12 ng/ml (0.00-0.034)
[2023-08-06] MEDS: ONDANSETRON HCL 8 MG 8 EACH PO (18:18)
[2023-08-06] MEDS: 0.9 % SODIUM CHLORIDE 1000ML 1,000 ML 100 ML IV (18:42)
[2023-08-06] MEDS: SODIUM CHLORIDE 3% 15ML NEB 3 ML IH (19:12)
[2023-08-06] MEDS: GABAPENTIN 300MG CAPSULE 300 MG PO (21:15)
[2023-08-07] VITALS (32 sets, daily range): BP systolic 91–121; BP diastolic 46–64; PULSE 64–85; RESP 12–27; TEMP 36.4–36.8; O2SAT 94–100; BMI 27.1
[2023-08-07] MEDS: PIPERCILLIN/TAZO 3.375 GM in 0.9 % SODIUM CHLORIDE 50 ML IV ×4 (05:06→22:44)
[2023-08-07] MEDS: 0.9 % SODIUM CHLORIDE 1000ML 1,000 ML 100 ML IV (05:06)
[2023-08-07 06:07] LABS: Basophils # 0.1 K/mm3 (0-0.2); Basophils % 0.6 % (0.1-2.0); Eosinophils % 0.1 % (0.1-12.0); Hematocrit 29.5 % (42.0-52.0); Lymphocytes # 0.3 K/mm3 (0.7-4.5); Lymphocytes % 3.4 % (10-50); Mean Corpuscular HGB Conc 31.5 g/dL (31.8-35.4); Mean Corpuscular Volume 101.6 fl (80-94); Mean Platelet Volume 7.9 fl (7.4-10.4); Monocytes # 0.4 K/mm3 (0.1-1.0); Monocytes % 3.9 % (1.7-9.3); Neutrophils # 8.6 K/mm3 (1.8-7.8); Platelet Count 363 K/mm3 (142-424); Red Blood Count 2.91 M/mm3 (4.60-6.20); Red Cell Distribution Width 16.4 % (11.5-17.5); White Blood Count 9.4 K/mm3 (4.8-10.8)
[2023-08-07 06:17] LABS: MANUAL DIFFERENTIAL MANUAL DIFFERENTIAL (MANUAL DIFF)
[2023-08-07 06:20] LABS: Chloride 95 mmol/L (98-107); Potassium 4.8 mmoL/L (3.5-5.1); Sodium 131 mmol/L (136-145)
[2023-08-07 06:22] LABS: Alanine Aminotransferase 73 U/L (12-78); Aspartate Amino Transferase 88 U/L (17-59); Blood Urea Nitrogen 50 mg/dl (9-20); Creatinine Clearance Estimated 47 mL/min (50-200); Estimated Glomerular Filt Rate 46 ml/min (>60); GFR (African American) 55 ML/MIN (>60)
[2023-08-07 06:23] LABS: Albumin Level 2.3 g/dl (3.5-5.0); Albumin/Globulin Ratio 0.9 (1.1-1.8); Alkaline Phosphatase 142 U/L (38-126); Anion Gap 9.8 mEq/L (5-15); Bilirubin,Total 0.2 mg/dl (0.2-1.3); Calcium 7.5 mg/dl (8.4-10.2); Carbon Dioxide 31 mmol/L (22.0-30.0); Globulin 2.7 g/dL (1.3-3.2); Glucose 116 mg/dl (74-100); Hemoglobin 9.3 g/dL (14.1-18.0); Magnesium 2.2 mg/dl (1.6-2.3)
[2023-08-07] MEDS: IPRATROPIUM/ALBUTEROL 3 ML NEB IH ×4 (06:34→19:40)
--- NOTE | 2023-08-07 08:00 | CA_ITS ---
APPROVED REPORT EXAM: Limited 2D Echocardiogram Curb Builder: Gloria Lane, RCS, RVS Ht: 5 ft 7 in Wt: 160lbs BSA: 1.84 BP: 90/47 mmHg Indications: Follow up post pericardial drainage 08/06/2023, Esophageal cancer M-Mode Dimensions RVDd 3.23 cm (0.9-2.6) LVDd 4.37 cm (3.5-5.7) LVDs 3.31 cm (3.5-5.7) IVSd 0.76 cm (0.6-1.1) PWd 0.76 cm (0.6-1.1) EF (Teich) 48.40% FS 24.30% EDV (Teich) 86.30 mL ESV (Teich) 44.50 mL Other Information Study Quality: Fair Conclusion This is a limited TTE to evaluate for pericardial effusion on day 1 post pericardiocentesis. Limited windows were obtained. There is a small sized, anterior pericardial effusion present. The largest pocket measures 0.5 cm in diastole. No acute indications of tamponade. Follow-up with serial limited TTEs is recommended. Electronically signed by : Rita De La Paz MD 08/07/2023 10:59:00
--- NOTE | 2023-08-07 08:18 | P.PN_ITS ---
Subjective *Date: 08/07/23 *Time: 19:08 Interval history: Patient feeling somewhat better today. Still necessitating 2 L nasal cannula oxygen. White cell count normalized. Kidney function improving. No nausea or vomiting. Minimal output from pericardial drain overnight. Medical Exam Vital signs and Labs for Last 24 Hours: Vital Signs Temp Pulse Pulse Resp BP BP Pulse Ox 08/07/23 07:00 70 23 91/53 L 98 08/07/23 06:35 64 08/07/23 06:35 67 08/07/23 06:35 97 08/07/23 06:32 08/07/23 06:00 64 15 93/50 L 98 08/07/23 05:00 08/07/23 05:00 64 18 100/46 L 100 08/07/23 04:00 64 08/07/23 04:00 97 08/07/23 04:00 97.7 F 08/07/23 04:00 74 15 91/52 L 100 08/07/23 03:00 08/07/23 03:00 65 18 99/56 L 100 08/07/23 02:00 65 18 106/55 L 100 08/07/23 01:00 08/07/23 01:00 67 17 121/57 L 100 08/07/23 00:00 98 08/07/23 00:00 68 08/07/23 00:00 97.6 F 67 18 91/57 L 99 08/06/23 23:30 96 08/06/23 23:26 103 H 08/06/23 23:00 62 14 100/51 L 91 L 08/06/23 22:40 08/06/23 22:35 82 L 08/06/23 22:00 84 15 94/52 L 94 L 08/06/23 21:00 88 15 88/53 L 94 L 08/06/23 21:00 08/06/23 20:00 100 08/06/23 20:00 98 F 98 H 20 128/52 L 100 08/06/23 19:13 60 22 08/06/23 19:13 60 08/06/23 19:13 62 08/06/23 19:13 95 08/06/23 19:00 90 22 102/63 L 100 08/06/23 18:37 08/06/23 18:00 56 L 18 125/78 97 08/06/23 18:00 68 22 125/78 94 L 08/06/23 17:00 67 14 120/49 L 96 08/06/23 16:54 63 12 120/49 L 96 08/06/23 16:53 08/06/23 16:00 75 08/06/23 16:00 64 30 H 124/69 92 L 08/06/23 15:16 64 26 H 124/69 95 08/06/23 15:16 08/06/23 14:53 98.2 F 63 21 106/54 L 08/06/23 14:00 59 L 15 118/62 96 08/06/23 13:30 70 14 108/75 L 93 L 08/06/23 13:15 75 15 110/55 L 92 L 08/06/23 13:00 65 14 113/61 89 L 08/06/23 12:26 66 11 L 107/78 L 90 L 08/06/23 12:15 69 117/69 91 L 08/06/23 12:06 68 98/57 L 92 L 08/06/23 11:50 69 14 108/53 L 90 L 08/06/23 11:45 69 15 118/59 L 94 L 08/06/23 11:40 69 12 112/64 100 08/06/23 11:35 15 114/64 08/06/23 11:31 18 127/52 L 08/06/23 11:25 16 114/81 08/06/23 11:23 20 109/76 L 08/06/23 11:04 97.7 F 126 H 24 112/90 93 L 08/06/23 11:01 31 H 120/69 08/06/23 10:51 61 17 112/90 97 O2 Del Method O2 Flow Rate 08/07/23 07:00 Nasal Cannula 2 08/07/23 06:35 08/07/23 06:35 08/07/23 06:35 Nasal Cannula 2 08/07/23 06:32 Nasal Cannula 2 08/07/23 06:00 Nasal Cannula 2 08/07/23 05:00 Nasal Cannula 2 08/07/23 05:00 Nasal Cannula 2 08/07/23 04:00 08/07/23 04:00 Nasal Cannula 2 08/07/23 04:00 08/07/23 04:00 Nasal Cannula 2 08/07/23 03:00 Nasal Cannula 2 08/07/23 03:00 Nasal Cannula 2 08/07/23 02:00 Nasal Cannula 2 08/07/23 01:00 Nasal Cannula 2 08/07/23 01:00 Nasal Cannula 2 08/07/23 00:00 Nasal Cannula 2 08/07/23 00:00 08/07/23 00:00 Nasal Cannula 3 08/06/23 23:30 Nasal Cannula 2 08/06/23 23:26 08/06/23 23:00 Nasal Cannula 3 08/06/23 22:40 Nasal Cannula 3 08/06/23 22:35 Nasal Cannula 2 08/06/23 22:00 Nasal Cannula 2 08/06/23 21:00 Nasal Cannula 2 08/06/23 21:00 Nasal Cannula 2 08/06/23 20:00 Nasal Cannula 2 08/06/23 20:00 Nasal Cannula 2 08/06/23 19:13 08/06/23 19:13 08/06/23 19:13 08/06/23 19:13 Nasal Cannula 2 08/06/23 19:00 Nasal Cannula 2 08/06/23 18:37 Nasal Cannula 2 08/06/23 18:00 Nasal Cannula 2 08/06/23 18:00 Nasal Cannula 2 08/06/23 17:00 Nasal Cannula 2 08/06/23 16:54 Nasal Cannula 2 08/06/23 16:53 Nasal Cannula 2 08/06/23 16:00 08/06/23 16:00 Nasal Cannula 2 08/06/23 15:16 Nasal Cannula 2 08/06/23 15:16 Nasal Cannula 2 08/06/23 14:53 Room Air 08/06/23 14:00 Nasal Cannula 2 08/06/23 13:30 Nasal Cannula 2 08/06/23 13:15 Nasal Cannula 2 08/06/23 13:00 08/06/23 12:26 08/06/23 12:15 08/06/23 12:06 08/06/23 11:50 08/06/23 11:45 08/06/23 11:40 08/06/23 11:35 08/06/23 11:31 08/06/23 11:25 08/06/23 11:23 08/06/23 11:04 Nasal Cannula 2 08/06/23 11:01 08/06/23 10:51 Intake and Output 08/06/23 08/07/23 08/07/23 23:59 07:59 15:59 Intake Total 1580 / 1580 Output Total 200 / 200 Balance 1580 / 1380 -200 / -200 Intake: Intake, Oral Amount 480 / 480 Intake, Total IV Amount 1100 / 1100 Calcium Gluc in NaCl, Iso-Osm 2 50 / 50 gm In 100 ml @ 50 mls/hr IV ONCE ONE Rx#:[id number] Lactated Ringers 1000ML 1,000 1000 / 1000 ml @ 999 mls/hr IV .Q1H1M ONE Rx#:[id number] Pipercillin/Tazo 3.375 gm In 0. 50 / 50 9 % Sodium Chloride 50 ml @ 100 mls/hr IV Q6H [facility] Rx#: [id number] Output: Output, Urine Amount 200 / 200 Other: Number of Unmeasured Voids 1 Weight 78.471 kg Patient Weight 08/07/23 23:59 Weight 78.471 kg Laboratory Results - last 24 hr 08/06/23 10:56: WBC 14.8 H, RBC 3.32 L, Hgb 10.8 L, Hct 34.7 L, MCV 104.8 H, MCH 32.7 H, MCHC 31.2 L, RDW 16.6, Plt Count 500 H, MPV 7.7, Neut % (Auto) 87.0 H, Lymph % (Auto) 4.6 L, [place] % (Auto) 7.0, Eos % (Auto) 0.1, Baso % (Auto) 1.3, Neut # (Auto) 12.8 H, Lymph # (Auto) 0.7, [place] # (Auto) 1.0, Eos # (Auto) 0.0, Baso # (Auto) 0.2, Total Counted 100, Neutrophils % (Manual) 85 H, Lymphocytes % (Manual) 9 L, Monocytes % (Manual) 6, Platelet Estimate Moderate increase, Macrocytosis 1+, Sodium 128 L, Potassium 5.9 H, Chloride 93 L, Carbon Dioxide 27, Anion Gap 13.9, BUN 63 H, Creatinine 2.30 H, Estimated Creat Clear 28, Estimated GFR 28 L, Est GFR ( Amer) 34 L, Glucose 147 H, Calcium 8.0 L, Total Bilirubin 0.6, AST 124 H, ALT 75, Alkaline Phosphatase 191 H, Troponin I < 0.01, Total Protein 6.1 L, Albumin 3.2 L, Globulin 2.9, Albumin/Globulin Ratio 1.1 08/06/23 11:46: VBG pH 7.33, VBG pCO2 44.9, VBG pO2 54.3 H, VBG HCO3 23.2, VBG Total CO2 24.6, VBG O2 Saturation 85.2 H, VBG Base Excess -2.7 L, VBG Lactic Acid 2.6 H 08/06/23 14:37: Troponin I 0.06 H 08/06/23 17:34: Sodium 126 L, Potassium 5.3 H, Chloride 92 L, Carbon Dioxide 31 H, Anion Gap 8.3, BUN 58 H, Creatinine 1.70 H D, Estimated Creat Clear 38, Estimated GFR 39 L, Est GFR ( Amer) 48 L D, Glucose 110 H D, Lactate 1.1, Calcium 8.2 L, Troponin I 0.12 H 08/07/23 05:30: WBC 9.4 D, RBC 2.91 L, Hgb 9.3 L D, Hct 29.5 L, MCV 101.6 H, MCH 32.0 H, MCHC 31.5 L, RDW 16.4, Plt Count 363 D, MPV 7.9, Neut % (Auto) 92.0 H, Lymph % (Auto) 3.4 L, [place] % (Auto) 3.9, Eos % (Auto) 0.1, Baso % (Auto) 0.6, Neut # (Auto) 8.6 H, Lymph # (Auto) 0.3 L, [place] # (Auto) 0.4, Eos # (Auto) 0.0, Baso # (Auto) 0.1, Sodium 131 L, Potassium 4.8, Chloride 95 L, Carbon Dioxide 31 H, Anion Gap 9.8, BUN 50 H, Creatinine 1.50 H, Estimated Creat Clear 47, Estimated GFR 46 L, Est GFR ( Amer) 55 L, Glucose 116 H, Calcium 7.5 L, Magnesium 2.2, Total Bilirubin 0.2, AST 88 H D, ALT 73, Alkaline Phosphatase 142 H, Total Protein 5.0 L, Albumin 2.3 L D, Globulin 2.7, Albumin/Globulin Ratio 0.9 L I & O for Labs for Last 24 Hours: Intake & Output 08/04/23 08/05/23 08/06/23 08/07/23 23:59 23:59 23:59 23:59 Intake Total 1580 / 1580 Output Total 200 / 200 Balance 1580 / 1380 -200 / -200 Weight 72.575 kg 78.471 kg Microbiology Reports for the Last 24 Hours: Microbiology 08/06/23 14:05 Pericardial Fluid - Drainage Gram Stain - Final Constitutional: Present no acute distress, average body habitus and chronically ill appearing Head: Present atraumatic and normocephalic ENT: Present mucous membranes moist Comment:: poor dentition Neck: Present normal inspection Respiratory: Present crackles (Improved aeration in right lung field; diminished in left) and normal respiratory effort; Absent accessory muscle use, rhonchi or wheezes Comment:: Bandages over right lower and left lower thorax mid axillary line covering Pleurx drains. Cardiac: Present Reg Rate and Rhythm GI: Present soft and normal bowel sounds; Absent distention or tenderness Extremities: Present normal inspection and full ROM; Absent edema Skin: Present intact; Absent erythema Neuro: Present Grossly Intact, alert, awake, oriented x 3 and moves all extremities Assessment and Plan *Assessment and plan (1) Cardiac tamponade: Status: Acute Category: Medical Code(s): I31.4 - Cardiac tamponade (2) Hyperkalemia: Status: Acute Category: Medical Code(s): E87.5 - Hyperkalemia (3) Hypocalcemia: Status: Acute Category: Medical Code(s): E83.51 - Hypocalcemia (4) Acute on chronic respiratory failure with hypoxia and hypercapnia: Status: Inactive Category: Medical Code(s): J96.21 - Acute and chronic respiratory failure with hypoxia; J96.22 - Acute and chronic respiratory failure with hypercapnia (5) Bilateral pleural effusion: Status: Acute Category: Medical Code(s): J90 - Pleural effusion, not elsewhere classified (6) Pericardial effusion: Status: Acute Category: Medical Code(s): I31.39 - Other pericardial effusion (noninflammatory) (7) New onset a-fib: Status: Acute Category: Medical Code(s): I48.91 - Unspecified atrial fibrillation (8) Malignant neoplasm of lower third of esophagus: Status: Acute Category: Medical Code(s): C15.5 - Malignant neoplasm of lower third of esophagus (9) PNA (pneumonia): Status: Inactive Qualifiers: Laterality: right Lung location: lower lobe of lung Pneumonia type: due to unspecified organism Qualified Code(s): J18.9 - Pneumonia, unspecified organism Category: Medical Code(s): J18.9 - Pneumonia, unspecified organism (10) CAD in [place] artery: Status: Acute Category: Medical Code(s): I25.10 - Atherosclerotic heart disease of [place] coronary artery without angina pectoris (11) COPD mixed type: Status: Acute Category: Medical Code(s): J44.9 - Chronic obstructive pulmonary disease, unspecified (12) Adenocarcinoma: Status: Acute Category: Medical Code(s): C80.1 - Malignant (primary) neoplasm, unspecified Plan Mr. Whitaker is a 77-year-old male with a recent history of adenocarcinoma, malignant pleural effusions, following with oncology and pulmonology. Has Pleurx drains in place. Presented to the ER with worsening shortness of breath. Chest imaging with bilateral effusions and suspicion for pneumonia. Also found to have tachycardia. Bedside ultrasound showed concern for pericardial effusion and tamponade. Bedside pericardiocentesis performed. Discussed case with ER physician, request admission for monitoring of pericardial drain output, cardiology eval, further medical management and goals of care discussions. I agreed to admit for further management. Patient's blood pressure appropriate overnight. Stable on 2 L oxygen. Continuing empiric antibiotics. Cardiology assisting with care. Problems addressed as follows: Pericardial tamponade Pericardial effusion -Blood pressure improved, 101/48 this morning -Path report on pericardial effusion shows malignant effusion -Cardiology consulted, discussed case this morning. Having minimal output from his drain with 25 cc overnight. Continue to leave pericardial drain in place, if output the same or less tomorrow, anticipate removal. Acute hypoxic respiratory failure: Bilateral pleural effusions metastatic: COPD vs pneumonia - Neutrophil predominant leukocytosis with white count of 14.8 on presentation, improved to 9 this morning.. Concerning for infection versus secondary to cancer. Continue IV Zosyn. - Pericardial fluid culture pending. Sputum culture pending -I ordered CBC, CMP, magnesium for the morning -Supplemental oxygen as needed, currently on 2 L this is his baseline at home. Paroxysmal atrial fibrillation, [id number] of at least 4 -Not on anticoagulation -Amiodarone previously maintaining sinus rhythm, decrease to 200 mg daily on 08/05/2023 -telemetry shows A. fib with CVR in the 70's bpm -Increase amiodarone to 400 mg BID for one week to try to convert back to NSR Hyperkalemia YOLANDA Hyponatremia - Potassium improved to 4.8 today, magnesium 2.2. BUN 50 creatinine 1.5, showing improvement. No further treatment for hyperkalemia. Complete 1 more liter of normal saline at 100 cc an hour. Tolerating p.o. fluids. -Repeat labs ordered for the morning. Caution with nephrotoxins. -Suspect low sodium related to dehydration and cancer (ADH), sodium 131 this morning. Monitor daily HLD: on aspirin home famotidine Full code Goals of care discussion daily
[2023-08-07 08:25] LABS: Lymphocytes % 7 % (10-50); Macrocytosis 1+; Monocytes % 7 % (2-9); Neutrophils % 86 % (42-76); Platelet Estimate Normal; Total Cells Counted 100
[2023-08-07] MEDS: ASPIRIN EC 81MG TABLET 81 MG PO (09:32)
[2023-08-07] MEDS: FAMOTIDINE 20MG TABLET 20 MG PO (09:32)
[2023-08-07] MEDS: GABAPENTIN 300MG CAPSULE 300 MG PO ×2 (09:33→20:31)
--- NOTE | 2023-08-07 10:54 | P.PN_ITS ---
Subjective Subjective Date: 08/07/23 Time: 10:54 Principal diagnosis: pericardial effusion with tamponade Interval history: 77 yo WM in bed in NAD. Breathing has improved pericardial drain has about 25 ml bloody fluid with clot since last night Exam Data for Last 24 hours Vital signs and Labs for Last 24 Hours: Temp Pulse Resp BP Pulse Ox O2 Del Method O2 Flow Rate 97.6 F 72 23 91/53 L 98 Nasal Cannula 2 08/07/23 08:00 08/07/23 09:48 08/07/23 07:00 08/07/23 07:00 08/07/23 07:00 08/07/23 07:00 08/07/23 07:00 Laboratory Results - last 24 hr 08/06/23 10:56: WBC 14.8 H, RBC 3.32 L, Hgb 10.8 L, Hct 34.7 L, MCV 104.8 H, MCH 32.7 H, MCHC 31.2 L, RDW 16.6, Plt Count 500 H, MPV 7.7, Neut % (Auto) 87.0 H, Lymph % (Auto) 4.6 L, [place] % (Auto) 7.0, Eos % (Auto) 0.1, Baso % (Auto) 1.3, Neut # (Auto) 12.8 H, Lymph # (Auto) 0.7, [place] # (Auto) 1.0, Eos # (Auto) 0.0, Baso # (Auto) 0.2, Total Counted 100, Neutrophils % (Manual) 85 H, Lymphocytes % (Manual) 9 L, Monocytes % (Manual) 6, Platelet Estimate Moderate increase, Macrocytosis 1+, Sodium 128 L, Potassium 5.9 H, Chloride 93 L, Carbon Dioxide 27, Anion Gap 13.9, BUN 63 H, Creatinine 2.30 H, Estimated Creat Clear 28, Estimated GFR 28 L, Est GFR ( Amer) 34 L, Glucose 147 H, Calcium 8.0 L, Total Bilirubin 0.6, AST 124 H, ALT 75, Alkaline Phosphatase 191 H, Troponin I < 0.01, Total Protein 6.1 L, Albumin 3.2 L, Globulin 2.9, Albumin/Globulin Ratio 1.1 08/06/23 11:46: VBG pH 7.33, VBG pCO2 44.9, VBG pO2 54.3 H, VBG HCO3 23.2, VBG Total CO2 24.6, VBG O2 Saturation 85.2 H, VBG Base Excess -2.7 L, VBG Lactic Acid 2.6 H 08/06/23 14:37: Troponin I 0.06 H 08/06/23 17:34: Sodium 126 L, Potassium 5.3 H, Chloride 92 L, Carbon Dioxide 31 H, Anion Gap 8.3, BUN 58 H, Creatinine 1.70 H D, Estimated Creat Clear 38, Estimated GFR 39 L, Est GFR ( Amer) 48 L D, Glucose 110 H D, Lactate 1.1, Calcium 8.2 L, Troponin I 0.12 H 08/07/23 05:30: WBC 9.4 D, RBC 2.91 L, Hgb 9.3 L D, Hct 29.5 L, MCV 101.6 H, MCH 32.0 H, MCHC 31.5 L, RDW 16.4, Plt Count 363 D, MPV 7.9, Neut % (Auto) 92.0 H, Lymph % (Auto) 3.4 L, [place] % (Auto) 3.9, Eos % (Auto) 0.1, Baso % (Auto) 0.6, Neut # (Auto) 8.6 H, Lymph # (Auto) 0.3 L, [place] # (Auto) 0.4, Eos # (Auto) 0.0, Baso # (Auto) 0.1, Total Counted 100, Neutrophils % (Manual) 86 H, Lymphocytes % (Manual) 7 L, Monocytes % (Manual) 7, Platelet Estimate Normal, RBC Morphology Not Reportable, Macrocytosis 1+, Sodium 131 L, Potassium 4.8, Chloride 95 L, Carbon Dioxide 31 H, Anion Gap 9.8, BUN 50 H, Creatinine 1.50 H, Estimated Creat Clear 47, Estimated GFR 46 L, Est GFR ( Amer) 55 L, Glucose 116 H, Calcium 7.5 L, Magnesium 2.2, Total Bilirubin 0.2, AST 88 H D, ALT 73, Alkaline Phosphatase 142 H, Total Protein 5.0 L, Albumin 2.3 L D, Globulin 2.7, Albumin/Globulin Ratio 0.9 L I & O for Last 24 hours: Intake & Output 08/04/23 08/05/23 08/06/23 08/07/23 11:59 11:59 11:59 11:59 Intake Total 2975 / 2975 Output Total 675 / 675 Balance 2300 / 2300 Weight 160 lb 173 lb Microbiology Reports for the Last 24 Hours: Microbiology 08/06/23 14:05 Pericardial Fluid - Drainage Gram Stain - Final *Routine Respiratory Exam Respiratory: Present rhonchi and diminished air movement *Routine Cardiovascular Exam Cardiovascular: Present irregularly irregular Progress Note: A&P Assessment and plan (1) Cardiac tamponade: Status: Acute (2) Hyperkalemia: Status: Acute (3) Hypocalcemia: Status: Acute (4) Bilateral pleural effusion: Status: Acute (5) Pericardial effusion: Status: Acute (6) New onset a-fib: Status: Acute (7) Malignant neoplasm of lower third of esophagus: Status: Acute (8) CAD in [place] artery: Status: Acute (9) COPD mixed type: Status: Acute (10) Adenocarcinoma: Status: Acute Assessment and Plan Assessment and Plan for All Diagnoses:: 1. Cardiac tamponade -s/p pericardiocentesis with fluid being sent for analysis -pericardial drain in place, 25 ml output overnight 2. 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 Paroxysmal atrial fibrillation, [id number] of at least 4 -Not on anticoagulation -Amiodarone previously maintaining sinus rhythm, decrease to 200 mg daily on 08/05/2023 -telemetry shows A. fib with CVR in the 70's bpm -Increase amiodarone to 400 mg BID for one week to try to convert back to NSR 4. Nonocclusive coronary artery disease by [facility], 2022 -troponin max 0.12. Likely due to pericardiocentesis procedure -repeat this AM 5. COPD -tobacco use continued 6. Lower extremity weakness with history of hand-foot syndrome, felt secondary to capecitabine treatment -Recent admission at for evaluation without etiology 7. YOLANDA, improving -Cr 1.5 8. Hyponatremia -Possibly related to malignancy -improved 9. Hyperkalemia -resolved 10. Elevated white count -resolved 11. Slight worsening of chronic anemia -Hgb 9.3 12. Thrombocytosis with platelet count 500,000 -resolved Restart amiodarone but increase to 400 mg BID to try to convert back to NSR Plan to remove pericardial drain tomorrow if less than 25 ml drainage
[2023-08-07 11:38] LABS: Troponin I 0.12 ng/ml (0.00-0.034)
[2023-08-07] MEDS: AMIODARONE 200MG TABLET 400 MG PO ×2 (13:25→20:31)
--- NOTE | 2023-08-07 15:16 | HMH.PHAINT1 ---
Pharmacy Intervention Comments: MEDICATION RECONCILIATION COMPLETED ON PATIENT USING EXTERNAL FILL HISTORY FROM PHARMACY AND LIST FROM PCP/CARDIOLOGY OFFICE. -NATALIO NAVAD
[2023-08-07] MEDS: ONDANSETRON 4MG ODT 8 MG SL (16:01)
[2023-08-07] MEDS: guaiFENesin 600 MG TAB.ER.12H PO (16:01)
[2023-08-07] MEDS: MULTIVITAMIN TABLET 1 EACH PO (16:15)
--- NOTE | 2023-08-07 18:36 | PC.NURSE ---
Pt has rested well this shift. pt has remained at bedside. pt is a/o x 4. at approx 1605 pt was noted to have audible crackles and increased work of breathing. pt stated that he was due to have his pleural tubes drained. tubes drained 350 r lung and 400 from l lung. following draining of pleural tubes crackles no longer audible and work of breathing improved. lung sounds still contain wheezes and occasional rhonchi and are diminished. bowel sounds are active in all quads. nad noted.
--- NOTE | 2023-08-07 19:13 | EXP.EVENT.NO ---
Advance care planning note: Active diagnosis: Metastatic esophageal adenocarcinoma, malignant pleural and pericardial effusions, severe protein calorie malnutrition, COPD, chronic respiratory failure, paroxysmal A-fib The patient's active diagnoses are of sufficient risk that focused discussion on advanced care planning is indicated in order to allow the patient to thoughtfully consider personal goals of care; and, if situations arise that prevent the ability to personally give input, to ensure appropriate representation of their personal desires through documentation or informed surrogate decision makers. Discussion: Persons present and participating in discussion: Patient and patient's Discussion: Extensive discussion about patient's progression of his disease. Findings on pathology of pericardial fluid, appears to be malignant effusion. Given his continued progression of his metastatic stage IV adenocarcinoma, progression with malignant pleural effusions and now malignant pericardial effusion, discussed patient's long-term goals. At this point any chemotherapies are palliative as they have been from his initial diagnosis and start of treatment. Talked at length with patient about what he finds important with his treatment. He struggles with his breathing, does not want to be in pain or suffer. Wants to continue to be comfortable. We discussed the concepts of palliative care and hospice care. He is open to this idea. Would like to go home with [employer] [facility], her local home health agency also does palliative/hospice. Patient to have discussions with his further and then consult with [facility] navigators about hospice care once home. Time spent: Total time spent [id number] in education and discussion directly related to advance care plannin minutes
[2023-08-08] VITALS (16 sets, daily range): BP systolic 96–115; BP diastolic 51–72; PULSE 60–79; RESP 13–24; TEMP 36.4–36.6; O2SAT 94–100; BMI 27.6
[2023-08-08] MEDS: PIPERCILLIN/TAZO 3.375 GM in 0.9 % SODIUM CHLORIDE 50 ML IV (05:29)
[2023-08-08] MEDS: IPRATROPIUM/ALBUTEROL 3 ML NEB IH ×4 (06:49→13:32)
[2023-08-08 07:15] LABS: Chloride 96 mmol/L (98-107); Potassium 4.4 mmoL/L (3.5-5.1); Sodium 129 mmol/L (136-145)
[2023-08-08 07:17] LABS: Alanine Aminotransferase 59 U/L (12-78); Aspartate Amino Transferase 55 U/L (17-59); Blood Urea Nitrogen 44 mg/dl (9-20); Creatinine Clearance Estimated 50 mL/min (50-200); Estimated Glomerular Filt Rate 49 ml/min (>60); GFR (African American) 60 ML/MIN (>60)
[2023-08-08 07:18] LABS: Albumin Level 2.4 g/dl (3.5-5.0); Alkaline Phosphatase 152 U/L (38-126); Anion Gap 5.4 mEq/L (5-15); Calcium 7.7 mg/dl (8.4-10.2); Carbon Dioxide 32 mmol/L (22.0-30.0); Globulin 2.5 g/dL (1.3-3.2); Glucose 111 mg/dl (74-100); Magnesium 2.4 mg/dl (1.6-2.3); Total Protein,Serum 4.9 g/dl (6.3-8.2)
[2023-08-08 07:21] LABS: Basophils % 0.2 % (0.1-2.0); Eosinophils % 0.1 % (0.1-12.0); Hemoglobin 9.9 g/dL (14.1-18.0); Lymphocytes # 0.6 K/mm3 (0.7-4.5); Lymphocytes % 4.1 % (10-50); Mean Corpuscular HGB Conc 30.9 g/dL (31.8-35.4); Mean Corpuscular Hemoglobin 32.4 pg (27.0-31.2); Mean Corpuscular Volume 105.1 fl (80-94); Mean Platelet Volume 7.9 fl (7.4-10.4); Monocytes % 7.5 % (1.7-9.3); Neutrophils # 11.5 K/mm3 (1.8-7.8); Neutrophils % 88.1 % (37.0-80.0); Platelet Count 391 K/mm3 (142-424); Red Blood Count 3.05 M/mm3 (4.60-6.20); Red Cell Distribution Width 16.6 % (11.5-17.5); White Blood Count 13.1 K/mm3 (4.8-10.8)
[2023-08-08 07:32] LABS: Bilirubin,Total 0.1 mg/dl (0.2-1.3)
[2023-08-08 07:33] LABS: MANUAL DIFFERENTIAL MANUAL DIFFERENTIAL (MANUAL DIFF)
[2023-08-08] MEDS: FAMOTIDINE 20MG TABLET 20 MG PO (08:04)
[2023-08-08] MEDS: AMIODARONE 200MG TABLET 400 MG PO (08:04)
[2023-08-08] MEDS: ASPIRIN EC 81MG TABLET 81 MG PO (08:04)
[2023-08-08] MEDS: GABAPENTIN 300MG CAPSULE 300 MG PO (08:08)
--- NOTE | 2023-08-08 08:12 | XR_ITS ---
FINAL REPORT CLINICAL HISTORY: dyspnea, eval effusion COMPARISON: 08/06/2023 FINDINGS: There are moderate sized bilateral pleural effusions. Previously identified left chest tube has been removed. Left chest port is stable. Mild edema is suspected. Mediastinum is unremarkable. Heart size is normal. IMPRESSION: No evidence of progression of effusions or pneumothorax. Reviewed, Interpreted and Dictated by Rasta Rocha MD Transcribed by Darline Dior Authenticated and [facility]
--- NOTE | 2023-08-08 08:14 | CA_ITS ---
APPROVED REPORT EXAM: Limited 2D Echocardiogram Automation Operator: Linda Zee RT(R) Ht: 5 ft 7 in Wt: 160lbs BSA: 1.84 BP: 111/56 mmHg Indications: pericardial effusion, limited to reassess effusion, esophageal cancer Other Information Study Quality: Fair Conclusion This is a limited TTE to evaluate for pericardial effusion in the setting of active drainage. Limited windows were obtained. There is a small sized, anterior pericardial effusion present. The largest pocket measures 0.3-0.4 cm in diastole. No echo indications of tamponade. Compared to TTE from 1 day prior on 08/07/2023, the effusion appears slightly improved. Electronically signed by : Rita De La Paz MD 08/08/2023 10:52:38
[2023-08-08] MEDS: SENNOSIDES 8.6MG/DOCUSATE 50MG TABLET 1 TAB PO (09:00)
[2023-08-08] MEDS: POLYETHYLENE GLYCOL 3350 17 GM PACKET PO (09:00)
[2023-08-08 09:26] LABS: Glucose, Body Fluid 36 mg/dL (.); LD, Body Fluid 2302 IU/L (.); Protein, Body Fluid 4.5 g/dL (.)
[2023-08-08 09:31] LABS: Lymphocytes % 7 % (10-50); Macrocytosis 2+; Monocytes % 7 % (2-9); Neutrophils % 86 % (42-76); Platelet Estimate Normal; Total Cells Counted 100
--- NOTE | 2023-08-08 11:11 | EXP.CARD.PN ---
Subjective Subjective Date: 08/08/23 Time: 11:21 Principal diagnosis: pericardial effusion with tamponade Interval history: 77 yo WM in bed Still with SOA but improved since pericardiocentesis Some abdominal distension and discomfort possibly related to lack of BM in several days pericardial drain in place with less than 25 ml overnight pathology shows malignant cells consistent with metastatic adenocarcinoma Limited echo today: This is a limited TTE to evaluate for pericardial effusion in the setting of active drainage. Limited windows were obtained. There is a small sized, anterior pericardial effusion present. The largest pocket measures 0.3-0.4 cm in diastole. No echo indications of tamponade. Compared to TTE from 1 day prior on 08/07/2023, the effusion appears slightly improved. Electronically signed by : Rita De La Paz MD 08/08/2023 10:52:38 Exam Data for Last 24 hours Vital signs and Labs for Last 24 Hours: Temp Pulse Resp BP Pulse Ox O2 Del Method O2 Flow Rate 97.6 F 74 24 102/72 L 97 Nasal Cannula 2 08/08/23 08:00 08/08/23 10:00 08/08/23 10:00 08/08/23 10:00 08/08/23 10:00 08/08/23 10:00 08/08/23 10:00 FiO2 2 08/07/23 12:00 Laboratory Results - last 24 hr 08/06/23 14:05: Fluid Glucose 36, Fluid Total Protein 4.5, Fluid LDH 2302 08/07/23 05:30: Troponin I 0.12 H 08/08/23 05:26: WBC 13.1 H D, RBC 3.05 L, Hgb 9.9 L, Hct 32.0 L, MCV 105.1 H, MCH 32.4 H, MCHC 30.9 L, RDW 16.6, Plt Count 391, MPV 7.9, Neut % (Auto) 88.1 H, Lymph % (Auto) 4.1 L, Potter % (Auto) 7.5, Eos % (Auto) 0.1, Baso % (Auto) 0.2, Neut # (Auto) 11.5 H, Lymph # (Auto) 0.6 L, [place] # (Auto) 1.0, Eos # (Auto) 0.0, Baso # (Auto) 0.0, Total Counted 100, Neutrophils % (Manual) 86 H, Lymphocytes % (Manual) 7 L, Monocytes % (Manual) 7, Platelet Estimate Normal, Macrocytosis 2+, Sodium 129 L, Potassium 4.4, Chloride 96 L, Carbon Dioxide 32 H, Anion Gap 5.4, BUN 44 H, Creatinine 1.40 H, Estimated Creat Clear 50, Estimated GFR 49 L, Est GFR ( Amer) 60, Glucose 111 H, Calcium 7.7 L, Magnesium 2.4 H, Total Bilirubin 0.1 L, AST 55 D, ALT 59, Alkaline Phosphatase 152 H, Total Protein 4.9 L, Albumin 2.4 L, Globulin 2.5, Albumin/Globulin Ratio 1.0 L I & O for Last 24 hours: Intake & Output 08/05/23 08/06/23 08/07/23 08/08/23 11:59 11:59 11:59 11:59 Intake Total 2975 / 2975 1705 / 1705 Output Total 925 / 925 1870 / 1870 Balance 2049 / 2049 -165 / -165 Weight 160 lb 173 lb 176 lb Microbiology Reports for the Last 24 Hours: Microbiology 08/06/23 13:45 Sputum - Expectorated Sputum Gram Stain - Final 08/06/23 13:45 Sputum - Expectorated Sputum Sputum Culture - Preliminary 08/06/23 14:05 Pericardial Fluid - Drainage Gram Stain - Final 08/06/23 14:05 Pericardial Fluid - Drainage Body Fluid Culture - Preliminary Constitutional Constitutional: no acute distress *Routine Respiratory Exam Respiratory: Present rhonchi *Routine Cardiovascular Exam Cardiovascular: Present RRR Progress Note: A&P Assessment and plan (1) Cardiac tamponade: Status: Acute (2) Hyperkalemia: Status: Acute (3) Hypocalcemia: Status: Acute (4) Acute on chronic respiratory failure with hypoxia and hypercapnia: Status: Inactive (5) Bilateral pleural effusion: Status: Acute (6) Pericardial effusion: Status: Acute (7) New onset a-fib: Status: Acute (8) Malignant neoplasm of lower third of esophagus: Status: Acute (9) PNA (pneumonia): Status: Inactive (10) CAD in [place] artery: Status: Acute (11) COPD mixed type: Status: Acute (12) Adenocarcinoma: Status: Acute Assessment and Plan Assessment and Plan for All Diagnoses:: 1. Cardiac tamponade -s/p pericardiocentesis with fluid path positive for malignant cells/metastatic adenocarcinoma -pericardial drain in place, <25 ml output overnight 2. 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 Paroxysmal atrial fibrillation, [id number] of at least 4 -Not on anticoagulation -Amiodarone previously maintaining sinus rhythm, decrease to 200 mg daily on 08/05/2023 -telemetry shows A. fib with CVR in the 70's bpm -Increase amiodarone to 400 mg BID for one week to try to convert back to NSR then reduce to 400 mg daily 4. Nonocclusive coronary artery disease by [facility], 2022 -troponin max 0.12. Likely due to pericardiocentesis procedure 5. COPD -tobacco use continued 6. Lower extremity weakness with history of hand-foot syndrome, felt secondary to capecitabine treatment -Recent admission at for evaluation without etiology 7. YOLANDA, improving -Cr 1.4 8. Hyponatremia -Possibly related to malignancy -129 today 9. Hyperkalemia -resolved 10. Elevated white count -resolved 11. Slight worsening of chronic anemia -Hgb 9.9 12. Thrombocytosis with platelet count 500,000 -resolved OK to remove pericardial drain Pt aware of path results and will consider Hospice Home meds: Amiodarone 400 mg twice daily for 1 week then reduce to 400 mg daily Aspirin 81 mg daily Follow-up in 1-2 weeks
[2023-08-08] MEDS: levoFLOXacin 750 MG TABLET PO (11:49)
--- NOTE | 2023-08-08 12:30 | EXP.DC.SUM ---
General Admission date:: 08/06/23 Discharge date: 08/08/23 HPI HPI HPI: Mr. Whitaker is a pleasant 77-year-old male with metastatic esophageal adenocarcinoma, chronic pleural effusions, chronic pericardial effusion, progressive cancer. Follows with pulmonology and oncology at [facility]. Was supposed to start new course of chemotherapy today. Over the past 24 hours he has had progressive worsening of shortness of breath causing him to present to the ER for further evaluation. Denies any chest pain, palpitations. Bedside echo in the ER showed evidence of cardiac tamponade. Emergent pericardiocentesis performed by ER physician and Dr. Cameron. Significant hemorrhagic effusion removed with improvement in shortness of breath and tachycardia. Workup concerning for persistent effusions and consolidation in right lower lung field, leukocytosis, YOLANDA with hyperkalemia. Medically treating his hyperkalemia. Medicine consulted for admission and further management. Of note was recently admitted to [facility] for leg weakness with MRI of the back showing new lesion but reportedly is not metabolically active. Reportedly no lesions in the spine to cause weakness. He has been referred to physical therapy for strengthening. States he is feeling better after drainage of the pericardial effusion. Patient is afebrile and hemodynamically stable at this time. On 2 L nasal cannula oxygen. draining bilateral Pleurx drains daily with approximately 2-300 cc of output daily per side. Hospital Course Hospital Course Hospital Course: Mr. Whitaker is a 77-year-old male with a recent history of adenocarcinoma, malignant pleural effusions, following with oncology and pulmonology. Has Pleurx drains in place. Presented to the ER with worsening shortness of breath. Chest imaging with bilateral effusions and suspicion for pneumonia. Also found to have tachycardia. Bedside ultrasound showed concern for pericardial effusion and tamponade. Bedside pericardiocentesis performed. Discussed case with ER physician, request admission for monitoring of pericardial drain output, cardiology eval, further medical management and goals of care discussions. I agreed to admit for further management. Extensive discussion during hospitalization. Patient showing improvement with his pericardial effusion. Is resolved at this time. Studies unfortunately show that it is malignant. Clinically stable to discharge home with home health and further consideration of hospice as an outpatient given progression of his disease. Tolerating 2 L nasal cannula. Problems addressed as follows: Pericardial tamponade Pericardial effusion -Found to have tamponade in the ER with tachycardia and soft blood pressures. Pericardial drain placed with removal of 800 cc of fluid. Had minimal output thereafter. Monitored for 48 hours with drain in place. Cardiology assisted with care. Drain removed morning of day of discharge. Fluid studies show effusion is malignant. Related to his metastatic adenocarcinoma. Recommend follow-up with cardiology as an outpatient. Discussed permanent solution such as pericardial window, patient not interested in having surgery. Strong concern effusion will recur given its etiology. Patient to consider goals of care. Acute hypoxic respiratory failure: Bilateral pleural effusions metastatic: COPD vs pneumonia - Neutrophil predominant leukocytosis with white count of 14.8 on presentation, showed some improvement with antibiotics and treatment of effusions. Afebrile during admission. Started on empiric antibiotics with Zosyn. Transitioned to Levaquin at discharge to complete empiric course of antibiotics for possible pneumonia. Sputum culture did show stenotrophomonas sensitive to Levaquin. Continue supplemental oxygen as needed with 2 L. Required 2 L during admission which is his baseline at home. Continue draining pleural effusions daily. Patient's respiratory symptoms appear to be progressing from previous admissions. Patient due to have adjustment to his chemotherapy, was due for discussion on day of admission with oncology. All chemotherapy at this time would be palliative for his metastatic esophageal adenocarcinoma. Talked at length about patient's wishes. His repeated admissions. His lack of response and continued progression of disease with the treatments he is already had. Also discussed side effects that he has had from chemotherapy. Patient and talking about patient's goals. Would like to consider hospice. Provided with home health at discharge due to patient's preference however the agency also provides hospice, he will talk to them when he gets home. Patient appeared thankful for the conversation and discussion on goals of care. Paroxysmal atrial fibrillation, [id number] of at least 4 -Not on anticoagulation other than daily aspirin. Amiodarone was increased to 400 mg twice daily. Will continue this for 1 week and attempt to convert back to normal sinus rhythm. Decrease down to 400 mg daily thereafter. Telemetry monitoring during hospitalization shows A-fib with ventricular rhythm in the 70s. Hyperkalemia YOLANDA Hyponatremia -Patient potassium elevated on arrival. Electrolytes normalized by day of discharge. Sodium was low, improving by day of discharge at 129. Has chronic hyponatremia due to his adenocarcinoma. Kidney function showing some improvement with BUN 44, creatinine 1.4. Received gentle hydration during admission to help with kidney dysfunction. Remained volume neutral between output from pericardial drain, pleural effusions, urine output. Tolerating p.o. intake. Stable to discharge home. Depending on goals of care, would benefit from repeat labs in 1 week including CBC, CMP, magnesium. On aspirin for his hyperlipidemia/CAD Total time spent on discharge 40 minutes in counseling, documentation, chart review, and direct care with patient. Exam Data for Last 24 hours Vital signs and Labs for Last 24 Hours: Temp Pulse Resp BP Pulse Ox O2 Del Method O2 Flow Rate 97.8 F 72 22 107/57 L 100 Nasal Cannula 2 08/08/23 12:00 08/08/23 11:00 08/08/23 11:00 08/08/23 11:00 08/08/23 11:00 08/08/23 11:00 08/08/23 11:00 FiO2 2 08/07/23 12:00 Laboratory Results - last 24 hr 08/06/23 14:05: Fluid Glucose 36, Fluid Total Protein 4.5, Fluid LDH 2302 08/08/23 05:26: WBC 13.1 H D, RBC 3.05 L, Hgb 9.9 L, Hct 32.0 L, MCV 105.1 H, MCH 32.4 H, MCHC 30.9 L, RDW 16.6, Plt Count 391, MPV 7.9, Neut % (Auto) 88.1 H, Lymph % (Auto) 4.1 L, [place] % (Auto) 7.5, Eos % (Auto) 0.1, Baso % (Auto) 0.2, Neut # (Auto) 11.5 H, Lymph # (Auto) 0.6 L, [place] # (Auto) 1.0, Eos # (Auto) 0.0, Baso # (Auto) 0.0, Total Counted 100, Neutrophils % (Manual) 86 H, Lymphocytes % (Manual) 7 L, Monocytes % (Manual) 7, Platelet Estimate Normal, Macrocytosis 2+, Sodium 129 L, Potassium 4.4, Chloride 96 L, Carbon Dioxide 32 H, Anion Gap 5.4, BUN 44 H, Creatinine 1.40 H, Estimated Creat Clear 50, Estimated GFR 49 L, Est GFR ( Amer) 60, Glucose 111 H, Calcium 7.7 L, Magnesium 2.4 H, Total Bilirubin 0.1 L, AST 55 D, ALT 59, Alkaline Phosphatase 152 H, Total Protein 4.9 L, Albumin 2.4 L, Globulin 2.5, Albumin/Globulin Ratio 1.0 L I & O for Last 24 hours: Intake & Output 08/05/23 08/06/23 08/07/23 08/08/23 23:59 23:59 23:59 23:59 Intake Total 1580 / 1580 2690 / 2980 410 / 410 Output Total 2125 / 2325 670 / 670 Balance 1580 / 1380 565 / 655 -260 / -260 Weight 72.575 kg 78.471 kg 79.832 kg Microbiology Reports for the Last 24 Hours: Microbiology 08/06/23 13:45 Sputum - Expectorated Sputum Gram Stain - Final 08/06/23 13:45 Sputum - Expectorated Sputum Sputum Culture - Preliminary 08/06/23 14:05 Pericardial Fluid - Drainage Gram Stain - Final 08/06/23 14:05 Pericardial Fluid - Drainage Body Fluid Culture - Preliminary Results Data Completed and Pending Labs on day of discharge: Labs from last 24 hours 08/08/23 08/06/23 05:26 14:05 WBC 13.1 H D RBC 3.05 L Hgb 9.9 L Hct 32.0 L MCV 105.1 H MCH 32.4 H MCHC 30.9 L RDW 16.6 Plt Count 391 MPV 7.9 Neut % (Auto) 88.1 H Lymph % (Auto) 4.1 L [place] % (Auto) 7.5 Eos % (Auto) 0.1 Baso % (Auto) 0.2 Neut # (Auto) 11.5 H Lymph # (Auto) 0.6 L [place] # (Auto) 1.0 Eos # (Auto) 0.0 Baso # (Auto) 0.0 Total Counted 100 Neutrophils % (Manual) 86 H Lymphocytes % (Manual) 7 L Monocytes % (Manual) 7 Platelet Estimate Normal Macrocytosis 2+ Sodium 129 L Potassium 4.4 Chloride 96 L Carbon Dioxide 32 H Anion Gap 5.4 BUN 44 H Creatinine 1.40 H Estimated Creat Clear 50 Estimated GFR 49 L Est GFR ( Amer) 60 Glucose 111 H Calcium 7.7 L Magnesium 2.4 H Total Bilirubin 0.1 L AST 55 D ALT 59 Alkaline Phosphatase 152 H Total Protein 4.9 L Albumin 2.4 L Globulin 2.5 Albumin/Globulin Ratio 1.0 L Fluid Glucose 36 Fluid Total Protein 4.5 Fluid LDH 2302 Preliminary micro results at discharge 08/06/23 13:45 Sputum Culture - Preliminary Sputum - Expectorated Sputum 08/06/23 14:05 Body Fluid Culture - Preliminary Pericardial Fluid - Drainage DS: Diagnosis Discharge Diagnosis (1) Cardiac tamponade: Status: Resolved Code(s): I31.4 - Cardiac tamponade (2) Hyperkalemia: Status: Resolved Code(s): E87.5 - Hyperkalemia (3) Hypocalcemia: Status: Resolved Code(s): E83.51 - Hypocalcemia (4) Acute on chronic respiratory failure with hypoxia and hypercapnia: Status: Inactive Code(s): J96.21 - Acute and chronic respiratory failure with hypoxia; J96.22 - Acute and chronic respiratory failure with hypercapnia (5) Bilateral pleural effusion: Status: Acute Code(s): J90 - Pleural effusion, not elsewhere classified (6) Pericardial effusion: Status: Acute Code(s): I31.39 - Other pericardial effusion (noninflammatory) (7) New onset a-fib: Status: Acute Code(s): I48.91 - Unspecified atrial fibrillation (8) Malignant neoplasm of lower third of esophagus: Status: Acute Code(s): C15.5 - Malignant neoplasm of lower third of esophagus (9) PNA (pneumonia): Status: Inactive Code(s): J18.9 - Pneumonia, unspecified organism Qualifiers: Laterality: right Lung location: lower lobe of lung Pneumonia type: due to unspecified organism Qualified Code(s): J18.9 - Pneumonia, unspecified organism (10) CAD in [place] artery: Status: Acute Code(s): I25.10 - Atherosclerotic heart disease of [place] coronary artery without angina pectoris (11) COPD mixed type: Status: Acute Code(s): J44.9 - Chronic obstructive pulmonary disease, unspecified (12) Adenocarcinoma: Status: Acute Code(s): C80.1 - Malignant (primary) neoplasm, unspecified Meds Home Medications and Allergies Home Medications Medication Instructions Recorded Confirmed Type famotidine 20 mg tablet (Pepcid) 20 mg PO DAILY 02/22/23 08/07/23 History ipratropium 0.5 mg-albuterol 3 mg 3 ml inhalation QIDP PRN Shortness 02/27/23 08/07/23 History (2.5 mg base)/3 mL nebulization Of Breath Or Wheezing soln blood pressure monitor #1 ea 07/09/23 08/07/23 Rx gabapentin 300 mg capsule 300 mg PO BID #60 caps 07/11/23 08/07/23 Rx guaifenesin 400 mg tablet 400 mg PO TID PRN cough #10 tabs 08/01/23 08/07/23 Rx ascorbic acid (vitamin C) 250 mg 500 mg PO BID 08/05/23 08/07/23 History tablet aspirin 81 mg tablet,delayed 81 mg PO DAILY 08/05/23 08/07/23 History release (Adult Aspirin Regimen) cetirizine 10 mg tablet (Zyrtec) 10 mg PO DAILY PRN allergy 08/05/23 08/07/23 Rx symptoms #30 tabs multivitamin with minerals-folic 1 tab PO DAILY 08/05/23 08/07/23 History acid 80 mcg chewable tablet (Centrum Adult 50 Plus) ondansetron HCl 8 mg tablet 8 mg PO BIDP PRN Nausea And 08/05/23 08/07/23 History Vomiting amiodarone 200 mg tablet 200 mg PO DAILY 08/07/23 08/07/23 History fluticasone fur. 100 mcg-umeclid 1 inh inhalation DAILY 08/07/23 08/07/23 History 62.5 mcg-vilant 25 mcg inhalat.powder (Trelegy Ellipta) amiodarone 200 mg tablet 400 mg (2 x 200 mg) PO BID 30 days 08/08/23 Rx #120 tabs levofloxacin 750 mg tablet 750 mg PO 1100 5 days #5 tabs 08/08/23 Rx sennosides 8.6 mg-docusate sodium 1 tab PO BIDP PRN Constipation 30 08/08/23 Rx 50 mg tablet (Stimulant Laxative days #60 tabs Plus) furosemide 40 mg tablet 40 mg PO DAILY #30 tabs 08/09/23 Rx hyoscyamine sulfate 0.125 mg 0.125 mg PO Q4H PRN secretions 7 08/09/23 Rx tablet (Levsin) days #30 tabs lorazepam 0.5 mg tablet (Ativan) 0.5 mg PO Q4H PRN restlessness or 08/09/23 Rx anxiety 7 days #30 tabs morphine concentrate 100 mg/5 mL 5 mg (0.25 mL) PO Q6H PRN pain or 08/09/23 Rx (20 mg/mL) oral solution shortness of breath 7 days #30 mL New Prescriptions to Start Prescriptions: amiodarone Marciano Bond levofloxacin Marciano Bond sennosides-docusate sodium [Stimulant Laxative Plus] Marciano Bond Allergies Allergy/AdvReac Type Severity Reaction Status Date / Time oxaliplatin Allergy Other Verified 08/05/23 08:57 Discharge Plan Disposition Patient Disposition: Home Health Service Condition: Undetermined Discharge Order Discharge Orders: Discharge Order (Routine); Ordered 08/08/23 Ordered By: Marciano Bond Follow up Plan Follow up with: Jeremiah Edgar [Referring] - 08/15/23 3:30 pm Adia Lemus PA [Primary Care Provider] - 08/16/23 10:00 am Sea Love MD [Staff Physician] - 08/20/23 9:45 am Sea Boyd [Referring] - 08/15/23 8:20 am Adelso De La Paz MD [Staff Physician] - 08/20/23 10:15 am Prescriptions/Medication Reconciliation: New amiodarone 200 mg Tablet 400 mg PO BID 30 Days Qty: 120 0RF sennosides-docusate sodium [Stimulant Laxative Plus] 8.6-50 mg Tablet 1 tab PO BIDP PRN (Reason: Constipation) 30 Days Qty: 60 0RF levofloxacin 750 mg Tablet 750 mg PO 1100 5 Days Qty: 5 0RF Continued gabapentin 300 mg capsule 300 mg PO BID Qty: 60 2RF cetirizine [Zyrtec] 10 mg tablet 10 mg PO DAILY PRN (Reason: allergy symptoms) Qty: 30 4RF ondansetron HCl 8 mg tablet 8 mg PO BIDP PRN (Reason: Nausea And Vomiting) aspirin [Adult Aspirin Regimen] 81 mg tablet,delayed release (DR/EC) 81 mg PO DAILY ascorbic acid (vitamin C) 250 mg tablet 500 mg PO BID Centrum Adult 50 Plus 80 mcg tablet,chewable 1 tab PO DAILY (DME) blood pressure monitor Kit See Rx Instructions .ROUTE .MEDSUPPLY Qty: 1 0RF Rx Instructions: As directed guaifenesin 400 mg tablet 400 mg PO TID PRN (Reason: cough) Qty: 10 0RF famotidine [Pepcid] 20 mg Tablet 20 mg PO DAILY Trelegy Ellipta 100-62.5-25 mcg blister with device 1 inh INHALATION DAILY ipratropium-albuterol 0.5 mg-3 mg(2.5 mg base)/3 mL solution for nebulization 3 ml inhalation QIDP PRN (Reason: Shortness Of Breath Or Wheezing) Held amiodarone 200 mg tablet 200 mg PO DAILY Hold Instructions: Patient is to take 400 mg twice daily for 1 week, de-escalate to 400 mg daily thereafter. New prescription sent. Discontinued cholecalciferol (vitamin D3) 50 mcg (2,000 unit) Capsule 50 mcg PO DAILY No Action furosemide 40 mg tablet 40 mg PO DAILY Qty: 30 3RF lorazepam [Ativan] 0.5 mg tablet 0.5 mg PO Q4H PRN (Reason: restlessness or anxiety) 7 Days Qty: 30 0RF hyoscyamine sulfate [Levsin] 0.125 mg tablet 0.125 mg PO Q4H PRN (Reason: secretions) 7 Days Qty: 30 0RF morphine concentrate 100 mg/5 mL (20 mg/mL) solution 5 mg PO Q6H PRN (Reason: pain or shortness of breath) 7 Days Qty: 30 0RF Other Ambulatory Orders: Home Medical Equipment (Routine) Location: None Selected Ordered By: Marciano Bond Problem Reconciliation Problems Reviewed?: Yes Patient Discharge Instructions ACTIVITY: Continue current activity DIET: continue same diet Patient Instructions: Cardiac Tamponade, DI for Cardiac Tamponade, DI for Pericardiocentesis, Acute Kidney Injury, DI for Hyperkalemia, DI for Surgical Site Infection, DI for Pleural Effusion Providers Primary Care Provider: Adia Lemus Admit Provider: Marciano Bond Attending Provider: Marciano Bond
--- NOTE | 2023-08-08 15:04 | CARE MANAGER ---
Patient is very weak and unable to ambulate safely to the bathroom with his walker.
--- NOTE | 2023-08-08 16:01 | CARE MANAGER ---
Patient agreeable for HH services. Patient would also benefit with a wheel chair. Patient Choice signed for [facility] and [facility]. Faxed Jorje and w/c will be delivered, also faxed to [facility] and services will begin on Saturday.
[2023-08-09 14:18] LABS: Volume,Body Fld. 850 mL
== END 2023-08-08 16:07 | disposition home health service (06) | DRG 374 ==
LOC: ER 13:33 → 2ND 13:49
PROVIDERS: Internal Medicine; Physician Assistant; Admitting Provider Internal Medicine Adolescent Medicine; Emergency Provider Emergency Medicine; PCP Student in an Organized Health Care Education/Training Program; Visit Provider Internal Medicine Adolescent Medicine
DX: C15.5 Malignant neoplasm of lower third of esophagus (principal); J15.69 Pneumonia due to other Gram-negative bacteria; J96.21 Acute and chronic respiratory failure with hypoxia; J96.22 Acute and chronic respiratory failure with hypercapnia; I31.4 Cardiac tamponade; J44.0 Chronic obstructive pulmonary disease with (acute) lower respiratory infection; E87.1 Hypo-osmolality and hyponatremia; J91.0 Malignant pleural effusion; I31.31 Malignant pericardial effusion in diseases classified elsewhere; N17.9 Acute kidney failure, unspecified; Z79.899 Other long term (current) drug therapy; F17.210 Nicotine dependence, cigarettes, uncomplicated; I25.2 Old myocardial infarction; I48.0 Paroxysmal atrial fibrillation; E87.5 Hyperkalemia; E83.51 Hypocalcemia; I25.10 Atherosclerotic heart disease of native coronary artery without angina pectoris; E78.5 Hyperlipidemia, unspecified; D75.839 Thrombocytosis, unspecified
CPT/HCPCS: 33017; 36415; 71045; 80048; 80053; 82803; 82945; 83605; 83615; 83735; 84155; 84484; 85007; 85025; 87070; 87077; 87116; 87186; 87205; 87206; 88112; 88305; 89051; 93005; 93308; 94640; 94761; 99291; C1725; J1642; J2250; J2543; J2930; J3010; J7120; J7620

== ENCOUNTER 2023-08-09 10:09 | Emergency (ER) | payer MEDICARE, SELFPAY ==
[2023-08-09] VITALS (18 sets, daily range): BP systolic 95–141; BP diastolic 47–79; PULSE 48–90; RESP 12–26; TEMP 36.6–36.7; O2SAT 69–100; BMI 26.6
--- NOTE | 2023-08-09 10:09 | ECG_ITS ---
APPROVED REPORT Exam: Resting ECG HR:88 bpm ECG Measurements Heart Rate 88 AXES NM 175 P 42 QRSd 103 QRS 107 QT 346 T 107 QTc 392 Conclusion SINUS RHYTHM RIGHT AXIS DEVIATION [QRS AXIS > 100] LOW QRS VOLTAGE [QRS DEFLECTION < 0.5/1.0 mV IN LIMB/CHEST LEADS] ABNORMAL ECG UNCONFIRMED REPORT Electronically signed by : JAMES MCGILL, 08/11/2023 06:19:25
--- NOTE | 2023-08-09 10:28 | PC.NURSE ---
DR RIVAS AT BEDSIDE
--- NOTE | 2023-08-09 10:30 | PC.NURSE ---
Dr. Shields at bedside speaking with pt and pt's
--- NOTE | 2023-08-09 10:38 | XR_ITS ---
FINAL REPORT CLINICAL HISTORY: soa,discharged from [facility] yesterday COMPARISON: 08/08/2023 FINDINGS: There are increasing bibasilar densities compatible with effusions and atelectasis, pneumonia is not excluded. Left-sided port is present. Mediastinum is unremarkable. Heart size is normal. IMPRESSION: Worsening lung disease. Reviewed, Interpreted and Dictated by Rasta Rocha MD Transcribed by Darline Dior Authenticated and [facility]
--- NOTE | 2023-08-09 10:41 | ED_ITS ---
Discharge Plan Disposition Patient Disposition: Hospice - Medical Facility Prescriptions Prescriptions: New furosemide 40 mg tablet 40 mg PO DAILY Qty: 30 3RF morphine concentrate 100 mg/5 mL (20 mg/mL) solution 5 mg PO Q6H PRN (Reason: pain or shortness of breath) 7 Days Qty: 30 0RF lorazepam [Ativan] 0.5 mg tablet 0.5 mg PO Q4H PRN (Reason: restlessness or anxiety) 7 Days Qty: 30 0RF hyoscyamine sulfate [Levsin] 0.125 mg tablet 0.125 mg PO Q4H PRN (Reason: secretions) 7 Days Qty: 30 0RF No Action gabapentin 300 mg capsule 300 mg PO BID Qty: 60 2RF cetirizine [Zyrtec] 10 mg tablet 10 mg PO DAILY PRN (Reason: allergy symptoms) Qty: 30 4RF ondansetron HCl 8 mg tablet 8 mg PO BIDP PRN (Reason: Nausea And Vomiting) aspirin [Adult Aspirin Regimen] 81 mg tablet,delayed release (DR/EC) 81 mg PO DAILY ascorbic acid (vitamin C) 250 mg tablet 500 mg PO BID Centrum Adult 50 Plus 80 mcg tablet,chewable 1 tab PO DAILY (DME) blood pressure monitor Kit See Rx Instructions .ROUTE .MEDSUPPLY Qty: 1 0RF Rx Instructions: As directed guaifenesin 400 mg tablet 400 mg PO TID PRN (Reason: cough) Qty: 10 0RF famotidine [Pepcid] 20 mg Tablet 20 mg PO DAILY Trelegy Ellipta 100-62.5-25 mcg blister with device 1 inh INHALATION DAILY amiodarone 200 mg tablet 200 mg PO DAILY Hold Instructions: Patient is to take 400 mg twice daily for 1 week, de- escalate to 400 mg daily thereafter. New prescription sent. amiodarone 200 mg Tablet 400 mg PO BID 30 Days Qty: 120 0RF sennosides-docusate sodium [Stimulant Laxative Plus] 8.6-50 mg Tablet 1 tab PO BIDP PRN (Reason: Constipation) 30 Days Qty: 60 0RF levofloxacin 750 mg Tablet 750 mg PO 1100 5 Days Qty: 5 0RF ipratropium-albuterol 0.5 mg-3 mg(2.5 mg base)/3 mL solution for nebulization 3 ml inhalation QIDP PRN (Reason: Shortness Of Breath Or Wheezing) Referrals Follow up/Referrals: Adia Lemus PA [Primary Care Provider] - See instructions Clinical Impressions Clinical Impression: CHF exacerbation, Acute exacerbation of chronic obstructive pulmonary disease, Acute hypoxemic respiratory failure Discharge ED Provider: Lauro Shields HPI <Lauro Shields MD - Last Filed: 08/09/23 14:55> General Chief Complaint: Shortness of Breath/Dyspnea Stated Complaint: Shortness of breath Time Seen by Provider: 08/09/23 10:17 Mode of Arrival: EMS Source of Information: Patient Limitations: No Limitations Description of Symptoms (Recalled from ER Triage Doc. by RN): pt presents to ED with [facility] for shortness of air. pt was discharged from [facility] yesterday. pt reports last night he begant to feel more short of air. pt does wear 2L NC baseline. pt does have cancer. History of Present Illness HPI narrative: Please note that above description of symptoms, in this electronic medical record under categorization of recalled from ER triage doctor by RN are reflective of an initial nursing assessment, however, is not reflective of my full history and physical exam that was personally taken and clarified. Consequentially, this preceding description of symptoms, which may include the patient's categorized chief complaint in the EMR, do not reflect my personal clinical impression, and the ultimate description of history of present illness and patient stated complaints should be deferred to this section of the note. Unless stated otherwise or congruent with this section of the note, additional signs, symptoms, or incongruence should be interpreted as inaccurate with my clinical impression. Related Data Home Medications Medication Instructions Recorded Confirmed famotidine 20 mg tablet (Pepcid) 20 mg PO DAILY 02/22/23 08/07/23 ipratropium 0.5 mg-albuterol 3 mg 3 ml inhalation QIDP PRN Shortness 02/27/23 08/07/23 (2.5 mg base)/3 mL nebulization Of Breath Or Wheezing soln ascorbic acid (vitamin C) 250 mg 500 mg PO BID 08/05/23 08/07/23 tablet aspirin 81 mg tablet,delayed 81 mg PO DAILY 08/05/23 08/07/23 release (Adult Aspirin Regimen) multivitamin with minerals-folic 1 tab PO DAILY 08/05/23 08/07/23 acid 80 mcg chewable tablet (Centrum Adult 50 Plus) ondansetron HCl 8 mg tablet 8 mg PO BIDP PRN Nausea And 08/05/23 08/07/23 Vomiting amiodarone 200 mg tablet 200 mg PO DAILY 08/07/23 08/07/23 fluticasone fur. 100 mcg-umeclid 1 inh inhalation DAILY 08/07/23 08/07/23 62.5 mcg-vilant 25 mcg inhalat.powder (Trelegy Ellipta) Previous Rx's Medication Instructions Recorded blood pressure monitor #1 ea 07/09/23 gabapentin 300 mg capsule 300 mg PO BID #60 caps 07/11/23 guaifenesin 400 mg tablet 400 mg PO TID PRN cough #10 tabs 08/01/23 cetirizine 10 mg tablet (Zyrtec) 10 mg PO DAILY PRN allergy 08/05/23 symptoms #30 tabs amiodarone 200 mg tablet 400 mg (2 x 200 mg) PO BID 30 days 08/08/23 #120 tabs levofloxacin 750 mg tablet 750 mg PO 1100 5 days #5 tabs 08/08/23 sennosides 8.6 mg-docusate sodium 1 tab PO BIDP PRN Constipation 30 08/08/23 50 mg tablet (Stimulant Laxative days #60 tabs Plus) furosemide 40 mg tablet 40 mg PO DAILY #30 tabs 08/09/23 hyoscyamine sulfate 0.125 mg 0.125 mg PO Q4H PRN secretions 7 08/09/23 tablet (Levsin) days #30 tabs lorazepam 0.5 mg tablet (Ativan) 0.5 mg PO Q4H PRN restlessness or 08/09/23 anxiety 7 days #30 tabs morphine concentrate 100 mg/5 mL 5 mg (0.25 mL) PO Q6H PRN pain or 08/09/23 (20 mg/mL) oral solution shortness of breath 7 days #30 mL Allergies Allergy/AdvReac Type Severity Reaction Status Date / Time oxaliplatin Allergy Other Verified 08/05/23 08:57 [facility] <Lauro Shields MD - Last Filed: 08/09/23 14:55> [facility] Disclaimer: The information contained in this section may have been updated after the patient was seen, as this information can be updated by other users. Medical History Acute on chronic respiratory failure with hypoxia and hypercapnia Shortness of breath PNA (pneumonia) Paroxysmal atrial fibrillation Acute and chronic respiratory failure with hypoxia Pericardial effusion HAP (hospital-acquired pneumonia) Septic shock Acute hypercapnic respiratory failure Ascites Pneumonia Pulmonary edema Chronic cough Tachycardia Respiratory failure with hypoxia Adenocarcinoma Pleural effusion on right Encounter for screening for malignant neoplasm of lung Smoking greater than 30 pack years Dyspnea on exertion Pulmonary emphysema Pneumonia Viral pneumonia Tobacco user Hyperlipidemia Sepsis NSTEMI (non-ST elevated myocardial infarction) Acute exacerbation of chronic obstructive pulmonary disease Acute respiratory failure with hypoxia Community acquired pneumonia COPD (chronic obstructive pulmonary disease) Surgical History History of hip replacement Family History Lung cancer Social History (Updated 08/06/23 @ 16:29 by Ursula Carty RN) Smoking Status: Light tobacco smoker alcohol intake: never substance use type: denies use current occupational status: retired Travel in the last 8 weeks: None household members: spouse lives independently: Yes marital status: education level: college caffeine: Yes physical activity: walking <Lauro Shields MD - Last Filed: 08/09/23 14:55> ROS Obtained: Yes All systems reviewed & no additional complaints except as documented Physical Exam <Lauro Shields MD - Last Filed: 08/09/23 14:55> General General appearance: alert and in distress (Mild respiratory distress) ENT ENT exam: Present mucous membranes dry Neck Neck exam: Present trachea midline Chest Chest inspection: Present normal inspection and symmetric chest wall rise Respiratory Respiratory exam: Present wheezes (Bilateral diffuse) and accessory muscle use; Absent respiratory distress, stridor or prolonged expiratory phase Cardiovascular Cardiovascular exam: Present regular rate and normal rhythm Extremities Exam Extremities exam: Present edema Neurological Exam Neurological exam: Present alert, oriented X3 and CN II-XII intact Skin Skin exam: Present warm and dry; Absent cyanosis, diaphoresis or pallor HEART Score <Lauro Shields MD - Last Filed: 08/09/23 14:55> HEART Score HEART Score assessment performed?: Yes History (anamnesis): Slightly suspicious ECG: Non-specific disturbance Age: >65 years Risk factors: 3 or more risk factors Troponin: </= normal limit HEART Score: 5 <Hilary Guevara MD - Last Filed: 08/09/23 16:31> HEART Score HEART Score: 5 Procedures <Lauro Shields MD - Last Filed: 08/09/23 14:55> Limited Ultrasound Indication:: Limited cardiac ultrasound Indication: Shortness of breath Identified cardiac views: -Cardiac parasternal long axis -Cardiac parasternal short axis -Cardiac apical four-chamber Findings: -Cardiac activity present -Gross wall motion normal -Pericardial effusion present -Right heart strain absent Impression: -Small pericardial effusion Images were saved to permanent archive The study was technically adequate CPT: 15045 This study was performed by dc, and I personally interpreted all images/videos. Based on my clinical judgement, these images were adequate and did not necessitate further imaging. Views:: Limited lung ultrasound A focused ultrasound exam of the pleural spaces was performed to evaluate for pneumothorax, pulmonary edema, pleural effusion and/or consolidation. The ultrasound was performed with the following indications, as noted in the H&P: Short of breath Identified structures: Bilateral thoracic cavities were examined. Findings: Lung sliding: -Present B-lines: Present bilaterally Pleural effusion: Bilaterally Consolidation: -Absent left -Absent right Impression: - Pneumothorax absent - Pleural effusion present bilaterally - B-lines present bilaterally - Consolidation absent Images were saved to permanent archive The study was technically adequate CPT 30708-64 This study was performed by me, and I personally interpreted all images/videos. Based on my clinical judgement, these images were adequate and did not necessitate further imaging. Critical Care <Lauro Shields MD - Last Filed: 08/09/23 14:55> Critical Care Time Critical Care Time: Yes (CV, respiratory) Attestation: On 08/09/23, the high probability of a clinically significant, sudden or life threatening deterioration of the following system(s) required my full and direct attention, intervention and personal management. The time I documented below is in addition to time spent performing reported procedures but includes the following listed in this critical care notation. Total Time Total Critical Care Time: 45 Medical Decision Making <Lauro Shields MD - Last Filed: 08/09/23 14:55> Medical Records Medical records reviewed: Yes I reviewed the patient's medical records. Raghu Inquiry Pt receiving controlled substance: No Raghu was queried for this patient: No Vital Signs Vital Signs: 08/09/23 10:09 08/09/23 10:22 08/09/23 10:30 Temperature 97.9 F Temperature Source Oral Pulse Rate 90 85 Pulse Rate [Left Radial] 89 Respiratory Rate 20 23 26 H Blood Pressure 141/67 H 132/68 Blood Pressure [Right Arm] 141/67 H Blood Pressure Mean [Right Arm] 91 02 Sat by Pulse Oximetry 95 95 97 Oxygen Delivery Method Nasal Cannula Nasal Cannula Nasal Cannula Oxygen Flow Rate (LPM) 6 6 6 08/09/23 11:00 08/09/23 11:30 08/09/23 12:01 Temperature Temperature Source Pulse Rate 90 82 64 Pulse Rate [Left Radial] Respiratory Rate 25 H 24 22 Blood Pressure 125/62 116/65 95/60 L Blood Pressure [Right Arm] Blood Pressure Mean [Right Arm] 02 Sat by Pulse Oximetry 96 95 69 L Oxygen Delivery Method Nasal Cannula Nasal Cannula Oxygen Flow Rate (LPM) 6 6 08/09/23 12:30 08/09/23 13:01 Temperature Temperature Source Pulse Rate 82 Pulse Rate [Left Radial] Respiratory Rate 19 17 Blood Pressure 100/78 L 133/74 Blood Pressure [Right Arm] Blood Pressure Mean [Right Arm] 02 Sat by Pulse Oximetry 95 Oxygen Delivery Method Oxygen Flow Rate (LPM) Lab Data Labs: Lab Results 08/09/23 10:25: WBC 16.1 H, RBC 3.56 L, Hgb 11.1 L, Hct 37.7 L, MCV 105.8 H, MCH 31.2, MCHC 29.5 L, RDW 16.5, Plt Count 586 H D, MPV 8.1, Neut % (Auto) 87.5 H, L ymph % (Auto) 4.3 L, Archer % (Auto) 6.3, Eos % (Auto) 0.4, Baso % (Auto) 1.5, N eut # (Auto) 14.1 H, Lymph # (Auto) 0.7, Archer # (Auto) 1.0, Eos # (Auto) 0.1, Baso # (Auto) 0.2, Total Counted 100, Neutrophils % (Manual) 95 H, Lymphocytes % (Manual) 4 L, Monocytes % (Manual) 1 L, Platelet Estimate Moderate increase, Macrocytosis 2+, Sodium 131 L, Potassium 4.8, Chloride 96 L, Carbon Dioxide 35 H , Anion Gap 4.8 L, BUN 29 H D, Creatinine 1.00 D, Estimated Creat Clear 69, Estimated GFR 73, Est GFR ( Amer) 88 D, Glucose 122 H, Lactate 0.5 L, C alcium 8.1 L, Total Bilirubin 0.2, AST 48, ALT 53, Alkaline Phosphatase 141 H, Troponin I 0.02, NT-Pro-B Natriuret Pep 7500 H, Total Protein 5.4 L, Albumin 2.7 L D, Globulin 2.7, Albumin/Globulin Ratio 1.0 L 08/09/23 10:38: VBG pH 7.22 L, VBG pCO2 79.7 H, VBG pO2 77.7 H, VBG HCO3 31.7 H, VBG Total CO2 34.2 H, VBG O2 Saturation 93.6 H, VBG Base Excess 4.0 H, VBG Lactic Acid 1.5 08/09/23 13:32: Troponin I 0.02 08/09/23 10:25 08/09/23 10:25 Response Orders (Tests/Meds): ED MEDICATIONS Discontinued Medications Generic Name Dose Route Start Last Admin Trade Name Freq PRN Reason Stop Dose Admin Albuterol/Ipratropium 9 ml 08/09/23 10:40 08/09/23 11:52 Ipratropium/Albuterol 3 Ml Neb IH 08/09/23 10:41 9 ml ONCE ONE Administration Furosemide 40 mg 08/09/23 11:53 08/09/23 12:09 Furosemide 40mg/4ml Vial IV 08/09/23 11:54 40 mg ONCE ONE Administration Methylprednisolone Sodium Succinate 125 mg 08/09/23 10:40 08/09/23 11:53 Methylprednisolone Sod Succ 125mg Vial IV 08/09/23 10:41 125 mg ONCE ONE Administration ORDERS Category Date Time Status Care Management Consult [Consult to Case Management] [ Cons 08/09/23 13:27 Active CONS] Routine CXR --portable [XR chest portable] Stat Exams 08/09/23 10:38 Completed POCUS Point of Care (ER Only) Stat Exams 08/09/23 10:39 Completed POCUS Point of Care (ER Only) Stat Exams 08/09/23 14:07 Completed CBC w/Auto Diff [Complete Blood Count Auto Diff] Stat Lab 08/09/23 10:25 Completed CMP [Comprehensive Metabolic Panel] Stat Lab 08/09/23 10:25 Completed Lactic Acid Stat Lab 08/09/23 10:25 Completed NT Pro Brain Natriuretic Pep. Stat Lab 08/09/23 10:25 Completed Trop I [Troponin I] Stat Lab 08/09/23 10:25 Completed Troponin I Q3H Lab 08/09/23 13:32 Completed Troponin I Q3H Lab 08/09/23 16:45 Ordered Blood Culture Stat Micro 08/09/23 11:34 Received VBG [Venous Blood Gas] Stat RT 08/09/23 10:38 Completed MDM Narrative Medical Decision Narrative: 77-year-old male history of hypertension, hyperlipidemia, paroxysmal A-fib on no anticoagulation, lung cancer with chronic pleural effusions with Pleurx drains in place being drained daily, recent diagnosis of pericardial effusion and tamponade presenting with shortness of breath. Patient states that he was discharged yesterday, 08/07. States that since he is gone home, everything has gone downhill. They have not drained his Pleurx drains today, patient feels he is unable to catch his breath. Feels it is worse than usual. Dry cough, no fevers or chills, vomiting, diarrhea. States that he has been taking the antibiotic that was prescribed yesterday (levofloxacin). Shortness of breath is worse when lying flat, not exertional, not associated with diaphoresis, chest pain, or any other symptoms. History was obtained via conversation with patient. On arrival, patient hemodynamically stable, alert, oriented x4, appropriate, GCS 15, moving all extremities spontaneously, pupils equal and reactive to light. Full physical exam performed and significant for chronically ill appearing male who is in mild respiratory distress acutely. Bilateral diffuse end expiratory wheezes without focal breath sounds. Cardiac exam within normal limits, patient nontachycardic. 1+ lower extremity mild pitting edema. Patient is tachypneic about 25 breaths/min requiring 6 L nasal cannula for comfort to improve tachypnea. Differential includes pleural effusion, pneumonia, pneumothorax, COPD exacerbation, pulmonary edema, ACS, PA, reaccumulation of pericardial fluid, among others. Patient was given 3 DuoNebs, Solu-Medrol for symptomatic management and correction of underlying abnormalities. Workup independently interpreted and significant for leukocytosis increasing from previous at 16.1, also has reactive thrombocytosis. VBG with mild acidosis pH 7.22, CO2 elevated at 80, oxygen elevated, but this was after transport on nonrebreather. Lactate negative. Sodium stable, but increasing at 131 today. Kidney function within normal limits. Patient's troponin is negative, but BNP significantly elevated at 7500, which is the highest this has been for patient. Chest x-ray with bilateral pleural effusions No urinary symptoms. Which seem to be worsening. see radiology read for full review of final results. Beds [id number] ultrasound with small pericardial effusion, but no evidence of tamponade. He also has bilateral pleural effusions. Independent interpretation of EKG shows low voltage EKG sinus rhythm 88 beats a minute. WA 175, QRS 103, QTc 392. Right axis deviation. No obvious ischemic change. Patient placed on continuous cardiac monitoring and continuous pulse ox with initial blood pressure 141/67, heart rate 89, saturation 95% on 6 L nasal cannula. Patient was placed in observation beginning at 10:30 AM in order to rule out evolving PA with delta troponins, give meds, BiPAP 12/8 and respiratory support and determine need for admission versus home-going. The patient was provided serial exams, Lasix, BiPAP while awaiting results. Independent interpretation of results demonstrated negative delta troponin. On reevaluation, patient feeling much better, much more comfortable on BiPAP. Hospital medicine was contacted and case was discussed at length because patient was just discharged yesterday and is a quick bounce back. Recommended hospice to visit patient in the emergency department and establish care for home-going hospice. I feel this is very appropriate given patient is stable, on Levaquin for previous airspace disease, improved on BiPAP, and without significantly reaccumulated pericardial effusion. Hospice was consulted. Prior to hospice evaluation and disposition, care handed off to oncoming physician. [employer] disclaimer Much of this encounter note is an electronic assembly machine tender spoken language to printed text. Electronic assembly machine tender of the spoken language may permit errors. Although I have reviewed the note, some errors may still exist. <Hilary Guevara MD - Last Filed: 08/09/23 16:31> Vital Signs Vital Signs: 08/09/23 10:09 08/09/23 10:22 08/09/23 10:30 Temperature 97.9 F Temperature Source Oral Pulse Rate 90 85 Pulse Rate [Left Radial] 89 Respiratory Rate 20 23 26 H Blood Pressure 141/67 H 132/68 Blood Pressure [Right Arm] 141/67 H Blood Pressure Mean [Right Arm] 91 02 Sat by Pulse Oximetry 95 95 97 Oxygen Delivery Method Nasal Cannula Nasal Cannula Nasal Cannula Oxygen Flow Rate (LPM) 6 6 6 08/09/23 11:00 08/09/23 11:30 08/09/23 12:01 Temperature Temperature Source Pulse Rate 90 82 64 Pulse Rate [Left Radial] Respiratory Rate 25 H 24 22 Blood Pressure 125/62 116/65 95/60 L Blood Pressure [Right Arm] Blood Pressure Mean [Right Arm] 02 Sat by Pulse Oximetry 96 95 69 L Oxygen Delivery Method Nasal Cannula Nasal Cannula Oxygen Flow Rate (LPM) 6 6 08/09/23 12:30 08/09/23 13:01 Temperature Temperature Source Pulse Rate 82 Pulse Rate [Left Radial] Respiratory Rate 19 17 Blood Pressure 100/78 L 133/74 Blood Pressure [Right Arm] Blood Pressure Mean [Right Arm] 02 Sat by Pulse Oximetry 95 Oxygen Delivery Method Oxygen Flow Rate (LPM) Lab Data Lab results reviewed: Yes I reviewed the patient's lab results. Labs: Lab Results 08/09/23 10:25: WBC 16.1 H, RBC 3.56 L, Hgb 11.1 L, Hct 37.7 L, MCV 105.8 H, MCH 31.2, MCHC 29.5 L, RDW 16.5, Plt Count 586 H D, MPV 8.1, Neut % (Auto) 87.5 H, L ymph % (Auto) 4.3 L, Archer % (Auto) 6.3, Eos % (Auto) 0.4, Baso % (Auto) 1.5, N eut # (Auto) 14.1 H, Lymph # (Auto) 0.7, Archer # (Auto) 1.0, Eos # (Auto) 0.1, Baso # (Auto) 0.2, Total Counted 100, Neutrophils % (Manual) 95 H, Lymphocytes % (Manual) 4 L, Monocytes % (Manual) 1 L, Platelet Estimate Moderate increase, Macrocytosis 2+, Sodium 131 L, Potassium 4.8, Chloride 96 L, Carbon Dioxide 35 H , Anion Gap 4.8 L, BUN 29 H D, Creatinine 1.00 D, Estimated Creat Clear 69, Estimated GFR 73, Est GFR ( Amer) 88 D, Glucose 122 H, Lactate 0.5 L, C alcium 8.1 L, Total Bilirubin 0.2, AST 48, ALT 53, Alkaline Phosphatase 141 H, Troponin I 0.02, NT-Pro-B Natriuret Pep 7500 H, Total Protein 5.4 L, Albumin 2.7 L D, Globulin 2.7, Albumin/Globulin Ratio 1.0 L 08/09/23 10:38: VBG pH 7.22 L, VBG pCO2 79.7 H, VBG pO2 77.7 H, VBG HCO3 31.7 H, VBG Total CO2 34.2 H, VBG O2 Saturation 93.6 H, VBG Base Excess 4.0 H, VBG Lactic Acid 1.5 08/09/23 13:32: Troponin I 0.02 Response Orders (Tests/Meds): ED MEDICATIONS Discontinued Medications Generic Name Dose Route Start Last Admin Trade Name Freq PRN Reason Stop Dose Admin Albuterol/Ipratropium 9 ml 08/09/23 10:40 08/09/23 11:52 Ipratropium/Albuterol 3 Ml Neb IH 08/09/23 10:41 9 ml ONCE ONE Administration Furosemide 40 mg 08/09/23 11:53 08/09/23 12:09 Furosemide 40mg/4ml Vial IV 08/09/23 11:54 40 mg ONCE ONE Administration Methylprednisolone Sodium Succinate 125 mg 08/09/23 10:40 08/09/23 11:53 Methylprednisolone Sod Succ 125mg Vial IV 08/09/23 10:41 125 mg ONCE ONE Administration ORDERS Category Date Time Status Care Management Consult [Consult to Case Management] [ Cons 08/09/23 13:27 Active CONS] Routine CXR --portable [XR chest portable] Stat Exams 08/09/23 10:38 Completed POCUS Point of Care (ER Only) Stat Exams 08/09/23 10:39 Completed POCUS Point of Care (ER Only) Stat Exams 08/09/23 14:07 Completed CBC w/Auto Diff [Complete Blood Count Auto Diff] Stat Lab 08/09/23 10:25 Completed CMP [Comprehensive Metabolic Panel] Stat Lab 08/09/23 10:25 Completed Lactic Acid Stat Lab 08/09/23 10:25 Completed NT Pro Brain Natriuretic Pep. Stat Lab 08/09/23 10:25 Completed Trop I [Troponin I] Stat Lab 08/09/23 10:25 Completed Troponin I Q3H Lab 08/09/23 13:32 Completed Troponin I Q3H Lab 08/09/23 16:45 Ordered Blood Culture Stat Micro 08/09/23 11:34 Received VBG [Venous Blood Gas] Stat RT 08/09/23 10:38 Completed MDM Narrative Medical Decision Narrative: 77-year-old male history of hypertension, hyperlipidemia, paroxysmal A-fib on no anticoagulation, lung cancer with chronic pleural effusions with Pleurx drains in place being drained daily, recent diagnosis of pericardial effusion and tamponade presenting with shortness of breath. Patient states that he was discharged yesterday, 08/07. States that since he is gone home, everything has gone downhill. They have not drained his Pleurx drains today, patient feels he is unable to catch his breath. Feels it is worse than usual. Dry cough, no fevers or chills, vomiting, diarrhea. States that he has been taking the antibiotic that was prescribed yesterday (levofloxacin). Shortness of breath is worse when lying flat, not exertional, not associated with diaphoresis, chest pain, or any other symptoms. History was obtained via conversation with patient. On arrival, patient hemodynamically stable, alert, oriented x4, appropriate, GCS 15, moving all extremities spontaneously, pupils equal and reactive to light. Full physical exam performed and significant for chronically ill appearing male who is in mild respiratory distress acutely. Bilateral diffuse end expiratory wheezes without focal breath sounds. Cardiac exam within normal limits, patient nontachycardic. 1+ lower extremity mild pitting edema. Patient is tachypneic about 25 breaths/min requiring 6 L nasal cannula for comfort to improve tachypnea. Differential includes pleural effusion, pneumonia, pneumothorax, COPD exacerbation, pulmonary edema, ACS, PA, reaccumulation of pericardial fluid, among others. Patient was given 3 DuoNebs, Solu-Medrol for symptomatic management and correction of underlying abnormalities. Workup independently interpreted and significant for leukocytosis increasing from previous at 16.1, also has reactive thrombocytosis. VBG with mild acidosis pH 7.22, CO2 elevated at 80, oxygen elevated, but this was after transport on nonrebreather. Lactate negative. Sodium stable, but increasing at 131 today. Kidney function within normal limits. Patient's troponin is negative, but BNP significantly elevated at 7500, which is the highest this has been for patient. Chest x-ray with bilateral pleural effusions No urinary symptoms. Which seem to be worsening. see radiology read for full review of final results. Beds [id number] ultrasound with small pericardial effusion, but no evidence of tamponade. He also has bilateral pleural effusions. Independent interpretation of EKG shows low voltage EKG sinus rhythm 88 beats a minute. WA 175, QRS 103, QTc 392. Right axis deviation. No obvious ischemic change. Patient placed on continuous cardiac monitoring and continuous pulse ox with initial blood pressure 141/67, heart rate 89, saturation 95% on 6 L nasal cannula. Patient was placed in observation beginning at 10:30 AM in order to rule out evolving PA with delta troponins, give meds, BiPAP 12/8 and respiratory support and determine need for admission versus home-going. The patient was provided serial exams, Lasix, BiPAP while awaiting results. Independent interpretation of results demonstrated negative delta troponin. On reevaluation, patient feeling much better, much more comfortable on BiPAP. Hospital medicine was contacted and case was discussed at length because patient was just discharged yesterday and is a quick bounce back. Recommended hospice to visit patient in the emergency department and establish care for home-going hospice. I feel this is very appropriate given patient is stable, on Levaquin for previous airspace disease, improved on BiPAP, and without significantly reaccumulated pericardial effusion. Hospice was consulted. Prior to hospice evaluation and disposition, care handed off to oncoming physician. [employer] disclaimer Much of this encounter note is an electronic assembly machine tender spoken language to printed text. Electronic assembly machine tender of the spoken language may permit errors. Although I have reviewed the note, some errors may still exist. Reassessment this is Dr. Guevara at 4:31 PM I took over from Dr. Shields waiting hospice evaluation. Patient is going home hospice is facilitating everything from an equipment and medication standpoint. I was able to send morphine concentrate Ativan and Levsin into his pharmacy. Remainder of care is now transition to hospice. She was discharged in comfort care.
--- NOTE | 2023-08-09 10:45 | PC.NURSE ---
call to respiratory for [facility]
[2023-08-09 10:53] LABS: Basophils # 0.2 K/mm3 (0-0.2); Basophils % 1.5 % (0.1-2.0); Eosinophils # 0.1 K/mm3 (0.0-0.4); Eosinophils % 0.4 % (0.1-12.0); Hematocrit 37.7 % (42.0-52.0); Hemoglobin 11.1 g/dL (14.1-18.0); Lymphocytes # 0.7 K/mm3 (0.7-4.5); Lymphocytes % 4.3 % (10-50); Mean Corpuscular HGB Conc 29.5 g/dL (31.8-35.4); Mean Corpuscular Hemoglobin 31.2 pg (27.0-31.2); Mean Corpuscular Volume 105.8 fl (80-94); Mean Platelet Volume 8.1 fl (7.4-10.4); Monocytes % 6.3 % (1.7-9.3); Neutrophils # 14.1 K/mm3 (1.8-7.8); Neutrophils % 87.5 % (37.0-80.0); Platelet Count 586 K/mm3 (142-424); Red Blood Count 3.56 M/mm3 (4.60-6.20); Red Cell Distribution Width 16.5 % (11.5-17.5); White Blood Count 16.1 K/mm3 (4.8-10.8)
[2023-08-09 10:54] LABS: Lactate Venous 1.5 mmol/L (0.4-2.0); VBG HCO3 31.7 mmol/L (23-30); VBG Oxygen Saturation 93.6 % (50-70); VBG PCO2 79.7 mmol/L (35-51); VBG PH 7.22 mmol/L (7.31-7.41); VBG PO2 77.7 mmol/L (28-40); VBG Total CO2 34.2 mmol/L (23-27)
[2023-08-09 11:00] LABS: Lactic Acid 0.5 mmol/L (0.7-2.1)
[2023-08-09 11:08] LABS: Chloride 96 mmol/L (98-107); Potassium 4.8 mmoL/L (3.5-5.1); Sodium 131 mmol/L (136-145)
[2023-08-09 11:10] LABS: Alanine Aminotransferase 53 U/L (12-78); Anion Gap 4.8 mEq/L (5-15); Aspartate Amino Transferase 48 U/L (17-59); Blood Urea Nitrogen 29 mg/dl (9-20); Carbon Dioxide 35 mmol/L (22.0-30.0); Creatinine Clearance Estimated 69 mL/min (50-200); Estimated Glomerular Filt Rate 73 ml/min (>60); GFR (African American) 88 ML/MIN (>60)
[2023-08-09 11:11] LABS: Albumin Level 2.7 g/dl (3.5-5.0); Alkaline Phosphatase 141 U/L (38-126); Bilirubin,Total 0.2 mg/dl (0.2-1.3); Calcium 8.1 mg/dl (8.4-10.2); Globulin 2.7 g/dL (1.3-3.2); Glucose 122 mg/dl (74-100); Total Protein,Serum 5.4 g/dl (6.3-8.2)
[2023-08-09 11:23] LABS: Troponin I 0.02 ng/ml (0.00-0.034)
[2023-08-09 11:38] LABS: MANUAL DIFFERENTIAL MANUAL DIFFERENTIAL (MANUAL DIFF)
[2023-08-09 11:41] LABS: NT Pro Brain Natriuretic Pep. 7500 pg/mL (0-450)
[2023-08-09] MEDS: IPRATROPIUM/ALBUTEROL 3 ML NEB 9 ML IH (11:52)
[2023-08-09] MEDS: METHYLPREDNISOLONE SOD SUCC 125MG VIAL 125 MG IV (11:53)
[2023-08-09] MEDS: FUROSEMIDE 40MG/4ML VIAL 40 MG IV (12:09)
--- NOTE | 2023-08-09 12:14 | PC.NURSE ---
DR RIVAS SPEAKING WITH DR DOWELL
[2023-08-09 12:19] LABS: Lymphocytes % 4 % (10-50); Monocytes % 1 % (2-9); Neutrophils % 95 % (42-76); Total Cells Counted 100
[2023-08-09 12:20] LABS: Macrocytosis 2+; Platelet Estimate Moderate Increase
--- NOTE | 2023-08-09 12:31 | PC.NURSE ---
DR RIVAS UPDATING FAMILY
--- NOTE | 2023-08-09 12:58 | PC.NURSE ---
PT REPOSITIONED IN BED
--- NOTE | 2023-08-09 13:22 | PC.NURSE ---
DR RIVAS SPEAKING WITH DR DOWELL
--- NOTE | 2023-08-09 13:28 | PC.NURSE ---
SPOKE WITH RYAN IN CARE MANAGEMENT FOR HOSPICE CONSULT
[2023-08-09 14:07] LABS: Troponin I 0.02 ng/ml (0.00-0.034)
--- NOTE | 2023-08-09 14:50 | PC.NURSE ---
PT REPOSITIONED IN BED, TOLERATING BI-PAP WELL. NO FURTHER NEEDS AT THIS TIME
--- NOTE | 2023-08-09 18:40 | PC.NURSE ---
prescriptions sent to [facility]. Honey the hospice nurse will pick them up prior to patient being discahrged form the [facility]
--- NOTE | 2023-08-17 05:51 | PC.NURSE ---
blood culture final results read no growth .
== END 2023-08-09 21:11 | disposition hospice, inpatient (51) ==
PROVIDERS: Emergency Provider Emergency Medicine; PCP Student in an Organized Health Care Education/Training Program
DX: J96.01 Acute respiratory failure with hypoxia (principal); J44.1 Chronic obstructive pulmonary disease with (acute) exacerbation; I11.0 Hypertensive heart disease with heart failure; I50.9 Heart failure, unspecified; I31.31 Malignant pericardial effusion in diseases classified elsewhere; J90 Pleural effusion, not elsewhere classified; E87.1 Hypo-osmolality and hyponatremia; C34.90 Malignant neoplasm of unspecified part of unspecified bronchus or lung; F17.210 Nicotine dependence, cigarettes, uncomplicated; I48.0 Paroxysmal atrial fibrillation; E78.5 Hyperlipidemia, unspecified
CPT/HCPCS: 71045; 80053; 82803; 83605; 83880; 84484; 85007; 85025; 87040; 93005; 96374; 96375; 99291; J1642; J1940; J2930; J7620

== ENCOUNTER 2023-08-25 19:50 | Outpatient (CLI) | payer MEDICARE, SELFPAY ==
[2023-08-25 20:00] LABS: Microscopic, Urine URINE MICROSCOPIC (MICROSCOPIC)
[2023-08-25 20:32] LABS: Appearance,Urine CLEAR (Clear); Blood, Urine Negative (Negative); Color,Urine YELLOW (Yellow); Glucose,Urine (UA) Negative (Negative); Ketones,Urine Negative (Negative); Leukocyte Esterase,Urine 1+ (Negative); Nitrate,Urine Negative (Negative); Protein,Urine Negative (Negative)
[2023-08-25 20:41] LABS: Bilirubin,Urine 1+ (Negative)
[2023-08-25 20:52] LABS: Bacteria,Urine 1+ /lpf; Hyaline Casts,Urine Occasional #/lpf (0)
== END 2023-08-25 23:59 | disposition home or self-care (01) ==
LOC: LAB.DROPOF 19:53
PROVIDERS: Family Medicine Hospice and Palliative Medicine; PCP Physician Assistant Medical; Visit Provider Physician Assistant Medical
DX: N39.0 Urinary tract infection, site not specified (principal)
CPT/HCPCS: 81001; 87086